=== PATIENT | male | born 1975 | race Caucasian/White ===

== ENCOUNTER 2018-05-25 15:05 | Emergency (ER) | payer SELFPAY ==
[2018-05-25 15:06] VITALS: BP 131/66; PULSE 100; RESP 19; TEMP 35.8; O2SAT 98; BMI 47.6
[2018-05-25 15:23] LABS: Absolute Lymphocyte Count 3.51 X10^3/ul (0.83-4.51); Absolute Neutrophil Count 4.2 X10^3/uL (2.0-7.7); Basophil# 0.04 X10^3/uL; Basophil% 0.5 % (0-1); Eosinophil# 0.12 X10^3/uL; Eosinophils% 1.4 % (0-5); Hemoglobin 14.7 g/dl (13.0-16.5); Lymphocyte # 3.51 X10^3/ul (4.0); Lymphocyte % 41.2 % (19-41); Mean Corp Hgb Conc 32.7 g/gl (32-36); Mean Corpuscular Hgb 27.3 pg (27.0-32.0); Mean Corpuscular Volume 83.5 fL (80-94); Mean Platelet Vol. 10.8 fl (6.2-12.0); Monocyte# 0.65 X10^3/uL; Monocyte% 7.6 % (0-10); Neutrophil # 4.17 X10^3/uL (2.7-7.7); Neutrophil % 49.1 % (47-70); Platelet Count 258 K/mm3 (150-450); RBC Distribution Width CV 13.7 % (11.6-14.6); RBC Distribution Width SD 42.2 fl (35.1-43.9); Red Blood Count 5.39 M/mm3 (4.6-6.2); White Blood Count 8.5 K/mm3 (4.4-11.0)
[2018-05-25 15:34] VITALS: BP 118/85; PULSE 92; RESP 18
[2018-05-25 15:42] LABS: Anion Gap 10 (5-15); BUN 12 mg/dL (7-18); BUN/Creat Ratio 14.6 RATIO (10-20); Calcium,Total 8.8 mg/dL (8.5-10.1); Chloride 110 mmol/L (98-107); Creatinine, Serum 0.82 mg/dL (0.70-1.30); EST Glomerular Filtration Rate 109 mL/min (>60); Est Glom Filt Rate - Afr Amer 132 mL/min (>60); Glucose 115 mg/dL (74-106); POSITIVE COUNT NO; POSITIVE DIFFERENTIAL NO; POSITIVE MORPHOLOGY NO; Potassium 3.6 mmol/L (3.5-5.1); Sodium Level 141 mmol/L (136-145)
--- NOTE | 2018-05-25 15:45 | ED.VISSUMM ---
- ER Visit Summary Date of Service: 05/25/18 Chief Complaint: Chest pain History of Present Illness: The patient is a 42 M presenting with chest pain. Patient states this started approximately 1 hour ago. He initially thought that he was starting to have an anxiety attack. He states typically he takes a walk and this goes away. Today he started walking and then pain did not go away. Pain is worsened with deep breathing. He had lightheadedness and shortness of breath associated with this. He states he felt lightheaded but did not pass out. At its worst, pain was 5/10. Currently 2/10. He is a smoker. No other coronary artery disease risk factors. He recently traveled from [place]. Denies other PE/DVT risk factors. Physical Examination: Vitals are stable. Patient is afebrile. Alert no acute distress. HEENT exam is unremarkable. Neck is supple. Lungs are clear and equal bilaterally. Heart is regular rate and rhythm. Abdomen is soft nontender nondistended. Extremities are unremarkable. Skin is warm and dry. No focal neurologic deficit. Remainder of exam is unremarkable. Emergency Department Course and Treatment: Patient was given aspirin on arrival. EKG is sinus rhythm rate of 100. Chest x-ray shows no acute process. CBC, chemistries unremarkable. Troponin is negative. D-dimer negative. On repeat evaluation, patient states that he does feel this was a panic attack as he now feels completely better. Delta troponin was obtained and is negative. Patient is advised to follow-up with Dr. 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 He is also requesting referral for counseling and was given the number for the counseling center. Advised to return to the ED for any worsening complaints. Disposition: Discharged home Impression: Chest pain This note was generated with [employer] dictation software. It may contain incorrect words, spelling, and punctuation that were not noted in review of the chart prior to signing ED Disposition - Plan for ED Patient: Disposition: Home or Assisted Living Chief Complaint: Chest Pain Instructions: ED Chest Pain Atypical Unkn Cause Referrals: Counseling,Center [GROUP OF PHYSICIANS] - Jyoti Faustin MD [STAFF PHYSICIAN] - NOT,DEFINED [NON-STAFF] -
[2018-05-25 16:05] VITALS: O2SAT 98
[2018-05-25 16:06] VITALS: BP 121/74; PULSE 85; RESP 12; O2SAT 98
[2018-05-25 16:15] LABS: D-Dimer Quantitative (DVT/PE) < 0.27 FEU/ug/m (0.27-0.49)
[2018-05-25 18:11] VITALS: BP 117/84; PULSE 76; RESP 22
--- NOTE | 2018-05-25 18:58 | ED.DEP ---
ED Disposition - Plan for ED Patient: Chief Complaint: Chest Pain Instructions: ED Chest Pain Atypical Unkn Cause Referrals: NOT,DEFINED [NON-STAFF] - Jyoti Faustin MD [STAFF PHYSICIAN] - Counseling,Center [GROUP OF PHYSICIANS] -
[2018-05-25 19:12] VITALS: BP 121/86; PULSE 83; RESP 20; O2SAT 96
== END 2018-05-25 19:13 | disposition home or self-care (01) ==
PROVIDERS: Emergency Provider Emergency Medicine
DX: R07.9 Chest pain, unspecified (principal); F41.9 Anxiety disorder, unspecified; R06.00 Dyspnea, unspecified; R42 Dizziness and giddiness; Z72.0 Tobacco use; F17.200 Nicotine dependence, unspecified, uncomplicated
CPT/HCPCS: 71045; 80048; 84484; 85025; 85379; 93005; 99284; A4216

== ENCOUNTER 2018-06-12 17:55 | Emergency (ER) | payer SELFPAY ==
[2018-06-12 17:56] VITALS: BP 145/81; PULSE 95; RESP 18; TEMP 36.6; O2SAT 98; BMI 45.4
--- NOTE | 2018-06-12 20:29 | ED.DCSUM_ITS ---
- ER Visit Summary Date of Service: 06/12/18 Chief Complaint: Needs lorazepam refill History of Present Illness: The patient is a 42 M with a history of anxiety. He is out of Lorazepam. He was instructed by his counselor to present to the emergency department for refill. He reports anxiety symptoms every day and is using 1 mg of lorazepam every day. He denies any suicidal or homicidal thoughts. Denies chest pain or shortness of breath. Denies any medical complaints. Physical Examination: Afebrile and vital signs unremarkable. Alert and oriented. No acute distress. Heart regular rate. No respiratory distress. Skin appears normal. Normal mentation and thought processes. Test Results: None indicated Emergency Department Course and Treatment: I did check his prescription report. He has no active prescriptions. I advised that I cannot give him a 2 month supply of Lorazepam. I will give him a 3 day supply so he can follow-up with his psychiatrist. Treatment Plan: As above Disposition: Discharged Impression: 1. Anxiety This note was generated with [employer] dictation software. It may contain incorrect words, spelling, and punctuation that were not noted in review of the chart prior to signing ED Disposition - Plan for ED Patient: Chief Complaint: Med Refill Referrals: Care Physician,No Primary [Primary Care Provider] -
--- NOTE | 2018-06-12 20:29 | ED.DEP ---
ED Disposition - Plan for ED Patient: Chief Complaint: Med Refill Instructions: Treating Anxiety Disorders with Therapy Prescriptions: Lorazepam [Ativan] 1 mg PO DAILY 3 Days #3 tab Additional Instructions: follow up with your counselor
[2018-06-12 21:01] VITALS: BP 121/78; PULSE 79; RESP 16; O2SAT 100
== END 2018-06-12 21:01 | disposition home or self-care (01) ==
PROVIDERS: Emergency Provider Emergency Medicine
DX: F41.9 Anxiety disorder, unspecified (principal); Z72.0 Tobacco use
CPT/HCPCS: 99282

== ENCOUNTER → 2018-06-20 11:30 | Outpatient (CLI) | payer SELFPAY ==
[2018-06-20 14:55] LABS: Amphetamine Urine VISTA NEGATIVE (<1000 ng/mL); Barbiturate Urine VISTA NEGATIVE (< 200 ng/mL); Benzodiazepine Urine VISTA NEGATIVE (< 200 ng/mL); Cocaine Urine VISTA NEGATIVE (< 300 ng/mL); Ecstacy Urine VISTA NEGATIVE (< 500 ng/mL); Methadone Urine VISTA NEGATIVE (< 300 ng/mL); PCP Urine VISTA NEGATIVE (< 25 ng/mL); THC Urine VISTA NEGATIVE (< 50 ng/mL); Vista UDS pH Range 5
== END ==
PROVIDERS: Family Provider Family Medicine; PCP Family Medicine; Visit Provider Family Medicine
DX: F41.9 Anxiety disorder, unspecified (principal)
CPT/HCPCS: 80307

== ENCOUNTER → 2018-06-26 10:55 | Outpatient (CLI) | payer SELFPAY ==
[2018-06-26 11:03] LABS: Bacteria 0 SEEN /hpf (None Seen); Mucous, Urine 0 SEEN /hpf (<or=2+); Red Blood Cells-Urine 0 SEEN /hpf (0-5); Squamous Epithelial Cells - UA 0 SEEN /hpf (0-5); White Blood Cells 0 SEEN /hpf (0-5)
[2018-06-26 12:03] LABS: Color, Urine Yellow (Yellow); Glucose, Dipstick Normal (Normal); Ketone-Dipstick Negative (Negative); Leukocyte Esterase-Dipstick Negative /ul (Negative); Nitrite-Dipstick Negative (Negative); Occult Blood-Urine Negative /ul (Negative); Protein-Dipstick Negative (Negative); Specific Gravity, Urine 1.005 (1.002-1.030); Urine Bilirubin Dipstick Negative (Negative); Urine Clarity Clear (Clear); Urine Urobilinogen Normal (Normal); Urine pH 6.5 (5.0 - 8.0)
[2018-06-26 12:24] LABS: Amphetamine Urine VISTA NEGATIVE (<1000 ng/mL); Barbiturate Urine VISTA NEGATIVE (< 200 ng/mL); Benzodiazepine Urine VISTA NEGATIVE (< 200 ng/mL); Cocaine Urine VISTA NEGATIVE (< 300 ng/mL); Ecstacy Urine VISTA NEGATIVE (< 500 ng/mL); Methadone Urine VISTA NEGATIVE (< 300 ng/mL); PCP Urine VISTA NEGATIVE (< 25 ng/mL); THC Urine VISTA NEGATIVE (< 50 ng/mL); Vista UDS pH Range 6
== END ==
PROVIDERS: Family Provider Family Medicine; PCP Family Medicine; Visit Provider Family Medicine
DX: R35.8 Other polyuria (principal); F41.9 Anxiety disorder, unspecified; F17.200 Nicotine dependence, unspecified, uncomplicated
CPT/HCPCS: 36415; 80307; 81001

== ENCOUNTER → 2018-07-05 07:22 | Outpatient (CLI) | payer SELFPAY ==
[2018-07-05 10:26] LABS: Absolute Lymphocyte Count 3.44 X10^3/ul (0.83-4.51); Absolute Neutrophil Count 5.7 X10^3/uL (2.0-7.7); Basophil# 0.04 X10^3/uL; Basophil% 0.4 % (0-1); Eosinophil# 0.17 X10^3/uL; Eosinophils% 1.7 % (0-5); Hematocrit 44.4 % (40-54); Hemoglobin 14.3 g/dl (13.0-16.5); Lymphocyte # 3.44 X10^3/ul (4.0); Lymphocyte % 33.5 % (19-41); Mean Corp Hgb Conc 32.2 g/gl (32-36); Mean Corpuscular Hgb 26.8 pg (27.0-32.0); Mean Corpuscular Volume 83.3 fL (80-94); Mean Platelet Vol. 11.7 fl (6.2-12.0); Monocyte# 0.94 X10^3/uL; Monocyte% 9.2 % (0-10); Neutrophil # 5.65 X10^3/uL (2.7-7.7); Neutrophil % 54.9 % (47-70); Platelet Count 264 K/mm3 (150-450); RBC Distribution Width CV 13.8 % (11.6-14.6); Red Blood Count 5.33 M/mm3 (4.6-6.2); White Blood Count 10.3 K/mm3 (4.4-11.0)
[2018-07-05 10:30] LABS: POSITIVE COUNT NO; POSITIVE DIFFERENTIAL NO; POSITIVE MORPHOLOGY NO
[2018-07-05 10:51] LABS: ALB/GLOB Ratio 0.9 RATIO (0.9-2.4); AST(SGOT) 19 U/L (15-37); Alanine Aminotransfer ALT/SGPT 30 U/L (16-61); Albumin, Serum 3.5 g/dL (3.2-5.0); Alkaline Phosphatase 59 U/L (45-117); Anion Gap 8 (5-15); BUN 14 mg/dL (7-18); BUN/Creat Ratio 16.7 RATIO (10-20); Calcium,Total 8.6 mg/dL (8.5-10.1); Chloride 108 mmol/L (98-107); Cholesterol 191 mg/dL (200); Creatinine, Serum 0.84 mg/dL (0.70-1.30); EST Glomerular Filtration Rate 106 mL/min (>60); Est Glom Filt Rate - Afr Amer 129 mL/min (>60); Globulin 3.7 g/dL (2.2-4.2); Glucose 89 mg/dL (74-106); High Density Lipoprotein 23 mg/dL; Potassium 3.9 mmol/L (3.5-5.1); Protein, Total 7.2 g/dL (6.4-8.2); Sodium Level 139 mmol/L (136-145); Thyroid Stim Hormone (TSH) 1.16 uIU/mL (0.358-3.74); Triglycerides 383 mg/dL; Very Low Density Lipoprotein 77 mg/dL (5-40)
[2018-07-05 10:59] LABS: Hemoglobin A1c 5.6 % (4.2-6.3)
== END ==
LOC: LAB.FUTURE 07:24
PROVIDERS: Family Provider Family Medicine; PCP Family Medicine; Referring Provider Family Medicine; Visit Provider Family Medicine
DX: R35.8 Other polyuria (principal); E66.01 Morbid (severe) obesity due to excess calories; F17.200 Nicotine dependence, unspecified, uncomplicated
CPT/HCPCS: 36415; 80053; 80061; 83036; 84443; 85025

== ENCOUNTER → 2019-01-15 08:15 | Outpatient (CLI) | payer BC, SELFPAY ==
--- NOTE | 2019-01-15 08:58 | RAD_ITS ---
STUDY: X-RAY - LEFT SHOULDER REASON FOR EXAM: Male, 43 years old. Left shoulder pain. TECHNIQUE: 4 view(s) of the shoulder. COMPARISON: None. FINDINGS: Normal glenohumeral articulation. Normal acromioclavicular joint. Normal acromion. Normal humeral head and visualized proximal humerus. The soft tissue structures are unremarkable. Normal visualized pulmonary apex. RAD/Shoulder min 2 Views IMPRESSION: Normal x-ray examination of the shoulder. Recommendation: If internal derangement is clinically suspected, recommend evaluation with MRI. Electronically Signed: Rafa Lees MD at 16:29 EDT , Service support ,
[2019-01-15 10:37] LABS: Cholesterol 183 mg/dL (200); High Density Lipoprotein 30 mg/dL; Triglycerides 279 mg/dL; Very Low Density Lipoprotein 56 mg/dL (5-40)
== END ==
LOC: MTLAB 08:20
PROVIDERS: Family Provider Family Medicine; PCP Family Medicine; Referring Provider Family Medicine; Visit Provider Family Medicine
DX: M25.512 Pain in left shoulder (principal); E78.1 Pure hyperglyceridemia
CPT/HCPCS: 36415; 73030; 80061

== ENCOUNTER 2019-10-18 10:41 | Emergency (ER) | payer BC, SELFPAY ==
[2019-10-18 10:42] VITALS: BP 147/84; PULSE 99; RESP 18; TEMP 36.6; O2SAT 98; BMI 50.1
--- NOTE | 2019-10-18 11:06 | ED.DCSUM_ITS ---
- ER Visit Summary Date of Service: 10/18/19 Chief Complaint: Dizziness History of Present Illness: The patient is a 44 M no significant past medical history except a prior appendectomy. Currently is on [id number] reflux medication. 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 He describes the dizziness as lightheaded. No visual change. No weakness or numbness. Said it lasted an hour but is since improved and basically resolved. He denied any headache. No chest pain. No trouble moving his arms or legs. He did not have room spinning vertigo-like symptoms. He states he is never had this before. He did eat breakfast this morning. States he is not recently been ill. There is a significant family history of diabetes. Physical Examination: Middle-aged male no acute distress vital signs stable afe brile. On look septic or toxic. H EENT exam unremarkable. TMs and ear canals are normal. No signs of infection. No significant wax. No facial droop. Normal speech. Pupils round reactive light. Neck nontender. No lymphadenopathy. Lungs clear to auscultation bilaterally. Heart regular rate and rhythm no murmur. Abdomen soft nontender. Normal bowel sounds no peritoneal signs. Patient moving all 4 extremities. Nontender. No edema. Normal range of motion. Neurovascular intact. Normal motor strength and sensation. Back nontender. Neuro exam normal. NIH is 0. Fingertip to nose [id number] within normal limits. Gets up and ambulates without any difficulty and no ataxia. Test Results: BG T shows a blood sugar of 99. Repeat exam patient doing well. Emergency Department Course and Treatment: Discussed with the patient and his he is a normal exam. There is no strokelike symptoms currently. His neuro exam is normal. Heart and lung exam is normal. I offered him screening exams and an EKG. They are deferring at this time. He says he feels much better. They are okay with a BG T due to his lengthy family history of diabetes. Treatment Plan: Return if feeling worse. Follow-up your primary care physician. Disposition: Discharge Impression: Transient lightheadedness of uncertain etiology resolved This note was generated with [employer] software. It may contain incorrect words, spelling, and punctuation that were not noted in review of the chart prior to signing ED Disposition - Plan for ED Patient: Referrals: Víctor Morgan MD [Primary Care Provider] -
[2019-10-18 11:46] LABS: Bedside Glucose 99 mg/dL (70-110)
--- NOTE | 2019-10-18 12:48 | ED.DEP ---
ED Disposition - Plan for ED Patient: Disposition: Home or Assisted Living Instructions: DIZZINESS, Unk Cause Referrals: Víctor Morgan MD [Primary Care Provider] - As soon as possible Additional Instructions: Up with your doctor next week. Return to ER if you are feeling worse. Your blood sugar today was normal at 99.
== END 2019-10-18 12:51 | disposition home or self-care (01) ==
PROVIDERS: Emergency Provider Emergency Medicine; PCP Family Medicine
DX: R42 Dizziness and giddiness (principal); K21.9 Gastro-esophageal reflux disease without esophagitis; Z87.891 Personal history of nicotine dependence; Z83.3 Family history of diabetes mellitus
CPT/HCPCS: 82962; 99282

== ENCOUNTER → 2020-04-09 09:40 | Outpatient (CLI) | payer BC, SELFPAY ==
[2020-04-09 13:05] LABS: Absolute Neutrophil Count 4.9 X10^3/uL (2.0-7.7); Basophil# 0.06 X10^3/uL; Basophil% 0.7 % (0-1); Eosinophils% 1.1 % (0-5); Hematocrit 44.7 % (40-54); Hemoglobin 13.5 g/dL (13.0-16.5); Lymphocyte % 34.2 % (19-41); Mean Corp Hgb Conc 30.2 g/dL (32-36); Mean Corpuscular Hgb 26.7 pg (27.0-32.0); Mean Corpuscular Volume 88.5 fL (80-94); Monocyte# 0.85 X10^3/uL; Monocyte% 9.4 % (0-10); NRBC Flagged by Analyzer 0 % (0-5); Neutrophil # 4.93 X10^3/uL (2.7-7.7); Neutrophil % 54.3 % (47-70); Platelet Count 244 K/mm3 (150-450); RBC Distribution Width CV 13.6 % (11.6-14.6); RBC Distribution Width SD 43.7 fl (35.1-43.9); Red Blood Count 5.05 M/mm3 (4.6-6.2); White Blood Count 9.1 K/mm3 (4.4-11.0)
[2020-04-09 13:06] LABS: Vitamin B12 335 pg/mL (211-911); Vitamin D,25 Hydroxy 18.8 ng/mL
[2020-04-09 13:25] LABS: AST(SGOT) 23 U/L (15-37); Alanine Aminotransfer ALT/SGPT 44 U/L (16-61); Albumin, Serum 3.6 g/dL (3.2-5.0); Alkaline Phosphatase 62 U/L (45-117); Anion Gap 6 (5-15); BUN 14 mg/dL (7-18); BUN/Creat Ratio 19.1 RATIO (10-20); Calcium,Total 8.9 mg/dL (8.5-10.1); Chloride 109 mmol/L (98-107); Creatinine, Serum 0.73 mg/dL (0.70-1.30); EST Glomerular Filtration Rate 123 mL/min (>60); Est Glom Filt Rate - Afr Amer 149 mL/min (>60); Globulin 3.7 g/dL (2.2-4.2); Glucose 105 mg/dL (74-106); Potassium 4.2 mmol/L (3.5-5.1); Protein, Total 7.3 g/dL (6.4-8.2); Sodium Level 139 mmol/L (136-145); Thyroid Stim Hormone (TSH) 1.01 uIU/mL (0.358-3.74)
[2020-04-10 10:50] LABS: Hemoglobin A1c 5.9 % (3.8-5.6)
== END ==
PROVIDERS: PCP Family Medicine; Visit Provider Family Medicine
DX: R53.83 Other fatigue (principal); R73.09 Other abnormal glucose
CPT/HCPCS: 36415; 80053; 82306; 82607; 83036; 84443; 85025

== ENCOUNTER → 2020-07-29 07:52 | Outpatient (CLI) | payer BC, SELFPAY ==
[2020-07-29 10:06] LABS: Absolute Lymphocyte Count 3.49 X10^3/uL (0.83-4.51); Absolute Neutrophil Count 4.4 X10^3/uL (2.0-7.7); Basophil# 0.05 X10^3/uL; Basophil% 0.6 % (0-1); Eosinophil# 0.18 X10^3/uL; Hematocrit 46.3 % (40-54); Hemoglobin 13.6 g/dL (13.0-16.5); Lymphocyte # 3.49 X10^3/ul (4.0); Lymphocyte % 39.6 % (19-41); Mean Corp Hgb Conc 29.4 g/dL (32-36); Mean Corpuscular Hgb 25.8 pg (27.0-32.0); Mean Corpuscular Volume 87.7 fL (80-94); Mean Platelet Vol. 10.7 fl (6.2-12.0); Monocyte# 0.67 X10^3/uL; Monocyte% 7.6 % (0-10); NRBC Flagged by Analyzer 0 % (0-5); Neutrophil # 4.38 X10^3/uL (2.7-7.7); Neutrophil % 49.7 % (47-70); Platelet Count 268 K/mm3 (150-450); RBC Distribution Width CV 13.8 % (11.6-14.6); RBC Distribution Width SD 44.4 fl (35.1-43.9); Red Blood Count 5.28 M/mm3 (4.6-6.2); White Blood Count 8.8 K/mm3 (4.4-11.0)
[2020-07-29 10:23] LABS: ALB/GLOB Ratio 0.9 RATIO (0.9-2.4); AST(SGOT) 20 U/L (15-37); Alanine Aminotransfer ALT/SGPT 38 U/L (16-61); Albumin, Serum 3.6 g/dL (3.2-5.0); Alkaline Phosphatase 59 U/L (45-117); Anion Gap 5 (5-15); BUN 15 mg/dL (7-18); BUN/Creat Ratio 18.5 RATIO (10-20); Calcium,Total 8.5 mg/dL (8.5-10.1); Chloride 106 mmol/L (98-107); Cholesterol 197 mg/dL (200); Creatinine, Serum 0.81 mg/dL (0.70-1.30); EST Glomerular Filtration Rate 110 mL/min (>60); Est Glom Filt Rate - Afr Amer 132 mL/min (>60); Globulin 3.9 g/dL (2.2-4.2); Glucose 97 mg/dL (74-106); High Density Lipoprotein 38 mg/dL; Potassium 4.1 mmol/L (3.5-5.1); Protein, Total 7.5 g/dL (6.4-8.2); Sodium Level 138 mmol/L (136-145); Triglycerides 155 mg/dL; Very Low Density Lipoprotein 31 mg/dL (5-40)
[2020-07-29 10:26] LABS: Hemoglobin A1c 5.9 % (3.8-5.6)
[2020-07-29 16:45] LABS: Microalbumin,Random Urine 8.7 mg/L (NO RANGE EST.); Microalbumin:Creatinine Ratio 12.2 mg/g CRE (<30 mg/g CRE)
== END ==
PROVIDERS: PCP Family Medicine; Referring Provider Family Medicine; Visit Provider Family Medicine
DX: E78.1 Pure hyperglyceridemia (principal); R73.02 Impaired glucose tolerance (oral); F17.200 Nicotine dependence, unspecified, uncomplicated
CPT/HCPCS: 36415; 80053; 80061; 82043; 82570; 83036; 85025

== ENCOUNTER 2020-08-24 15:15 | Outpatient (RCR) | payer BC, SELFPAY | END 2020-08-24 23:59 | LOC: NS 15:15 | PROVIDERS: PCP Family Medicine; Visit Provider Family Medicine | DX: Z71.3 Dietary counseling and surveillance (principal); E66.01 Morbid (severe) obesity due to excess calories; Z68.43 Body mass index [BMI] 50.0-59.9, adult | CPT/HCPCS: 97802 ==

== ENCOUNTER → 2020-11-27 08:55 | Outpatient (CLI) | payer BC, SELFPAY ==
[2020-11-27 09:53] LABS: Absolute Lymphocyte Count 3.06 X10^3/uL (0.83-4.51); Absolute Neutrophil Count 3.9 X10^3/uL (2.0-7.7); Basophil# 0.05 X10^3/uL; Basophil% 0.6 % (0-1); Eosinophil# 0.11 X10^3/uL; Eosinophils% 1.4 % (0-5); Hematocrit 41.6 % (40-54); Hemoglobin 13.5 g/dL (13.0-16.5); Lymphocyte # 3.06 X10^3/ul (4.0); Lymphocyte % 38.7 % (19-41); Mean Corp Hgb Conc 32.5 g/dL (32-36); Mean Corpuscular Volume 86.3 fL (80-94); Mean Platelet Vol. 10.6 fl (6.2-12.0); Monocyte# 0.74 X10^3/uL; Monocyte% 9.4 % (0-10); NRBC Flagged by Analyzer 0 % (0-5); Neutrophil # 3.92 X10^3/uL (2.7-7.7); Neutrophil % 49.6 % (47-70); Platelet Count 215 K/mm3 (150-450); RBC Distribution Width SD 42.8 fl (35.1-43.9); Red Blood Count 4.82 M/mm3 (4.6-6.2); White Blood Count 7.9 K/mm3 (4.4-11.0)
[2020-11-27 10:13] LABS: Hemoglobin A1c 5.7 % (3.8-5.6)
[2020-11-27 10:15] LABS: ALB/GLOB Ratio 0.9 RATIO (0.9-2.4); AST(SGOT) 28 U/L (15-37); Alanine Aminotransfer ALT/SGPT 49 U/L (16-61); Albumin, Serum 3.5 g/dL (3.2-5.0); Alkaline Phosphatase 53 U/L (45-117); Anion Gap 6 (5-15); BUN 15 mg/dL (7-18); BUN/Creat Ratio 18.5 RATIO (10-20); Calcium,Total 8.7 mg/dL (8.5-10.1); Chloride 108 mmol/L (98-107); Cholesterol 176 mg/dL (200); Creatinine, Serum 0.81 mg/dL (0.70-1.30); EST Glomerular Filtration Rate 109 mL/min (>60); Est Glom Filt Rate - Afr Amer 132 mL/min (>60); Globulin 3.7 g/dL (2.2-4.2); Glucose 99 mg/dL (74-106); High Density Lipoprotein 32 mg/dL; Protein, Total 7.2 g/dL (6.4-8.2); Sodium Level 139 mmol/L (136-145); Triglycerides 168 mg/dL; Very Low Density Lipoprotein 34 mg/dL (5-40)
[2020-11-27 10:35] LABS: Vitamin D,25 Hydroxy 23.8 ng/mL
== END ==
PROVIDERS: PCP Family Medicine; Referring Provider Family Medicine; Visit Provider Family Medicine
DX: E55.9 Vitamin D deficiency, unspecified (principal); E78.1 Pure hyperglyceridemia; F17.200 Nicotine dependence, unspecified, uncomplicated; R73.02 Impaired glucose tolerance (oral)
CPT/HCPCS: 36415; 80053; 80061; 82306; 83036; 85025

== ENCOUNTER → 2020-12-25 | Outpatient (CLI) | payer BC, SELFPAY | END | disposition home or self-care (01) | LOC: LABSPEC 13:36 | PROVIDERS: PCP Family Medicine; Referring Provider Family Medicine; Visit Provider Family Medicine | DX: Z20.822 Contact with and (suspected) exposure to COVID-19 (principal) | CPT/HCPCS: 87635; U0002 ==

== ENCOUNTER 2021-11-15 12:28 | Outpatient (CLI) | payer OTHER, SELFPAY ==
--- NOTE | 2021-11-15 12:33 | RAD_ITS ---
STUDY: X-RAY - LEFT ANKLE REASON FOR EXAM: Male, 46 years old. Left ankle pain/ s/p injury TECHNIQUE: 3 view(s) of the ankle. COMPARISON: None. FINDINGS: Normal visualized distal tibia and fibula. Normal medial and lateral malleoli. Normal tibiotalar articulation and ankle mortise. Normal visualized talus and calcaneus. The visualized subtalar, talonavicular, calcaneocuboid and tarsal articulations are normal. The soft tissue structures are unremarkable. RAD/Ankle min 3 Views IMPRESSION: Normal x-ray examination of the ankle. Electronically Signed: Moy Mena MD at 17:36 EST ,
== END 2021-11-15 23:59 | disposition home or self-care (01) ==
PROVIDERS: PCP Family Medicine; Referring Provider Nurse Practitioner Family; Visit Provider Nurse Practitioner Family
DX: M25.572 Pain in left ankle and joints of left foot (principal)
CPT/HCPCS: 73610

== ENCOUNTER 2021-12-20 20:08 | Emergency (ER) | payer OTHER, SELFPAY ==
[2021-12-20 20:08] VITALS: BP 161/107; PULSE 108; RESP 20; TEMP 36.1; O2SAT 98; BMI 52.4
[2021-12-20 20:48] VITALS: BP 113/73; BP 117/102; BP 135/82; BP 97/73; PULSE 82; PULSE 91; PULSE 94; PULSE 96; RESP 28
[2021-12-20 21:00] LABS: Absolute Lymphocyte Count 3.79 X10^3/uL (0.83-4.51); Absolute Neutrophil Count 4.9 X10^3/uL (2.0-7.7); Basophil# 0.05 X10^3/uL; Basophil% 0.5 % (0-1); Eosinophil# 0.18 X10^3/uL; Eosinophils% 1.9 % (0-5); Hematocrit 45.1 % (40-54); Hemoglobin 14.5 g/dL (13.0-16.5); Lymphocyte # 3.79 X10^3/ul (0.83-4.51); Lymphocyte % 39.5 % (19-41); Mean Corp Hgb Conc 32.2 g/dL (32-36); Mean Corpuscular Hgb 27.3 pg (27.0-32.0); Mean Corpuscular Volume 84.8 fL (80-94); Mean Platelet Vol. 10.3 fl (6.2-12.0); Monocyte# 0.68 X10^3/uL; Monocyte% 7.1 % (0-10); NRBC Flagged by Analyzer 0 % (0-5); Neutrophil # 4.85 X10^3/uL (2.7-7.7); Neutrophil % 50.6 % (47-70); Platelet Count 254 K/mm3 (150-450); RBC Distribution Width CV 14.8 % (11.6-14.6); RBC Distribution Width SD 45.5 fl (35.1-43.9); Red Blood Count 5.32 M/mm3 (4.6-6.2); White Blood Count 9.6 K/mm3 (4.4-11.0)
[2021-12-20 21:30] LABS: AST(SGOT) 25 U/L (15-37); Alanine Aminotransfer ALT/SGPT 48 U/L (16-61); Albumin, Serum 3.6 g/dL (3.2-5.0); Alkaline Phosphatase 59 U/L (45-117); Anion Gap 7 (5-15); BUN 13 mg/dL (7-18); BUN/Creat Ratio 16.2 RATIO (10-20); Calcium,Total 9.1 mg/dL (8.5-10.1); Chloride 109 mmol/L (98-107); EST Glomerular Filtration Rate 110 mL/min (>60); Est Glom Filt Rate - Afr Amer 134 mL/min (>60); Estimated Creatinine Clearance 104.12 ml/min; Globulin 3.7 g/dL (2.2-4.2); Glucose 125 mg/dL (74-106); Potassium 3.7 mmol/L (3.5-5.1); Protein, Total 7.3 g/dL (6.4-8.2); Sodium Level 141 mmol/L (136-145)
[2021-12-20 22:38] VITALS: BP 91/80; PULSE 78; RESP 19
--- NOTE | 2021-12-20 23:31 | EDS_ITS ---
HPI History of Present Illness Chief Complaint: Dizziness Narrative Narrative: 46-year-old male presenting with dizziness which she states is more like off balance than vertiginous in nature. It started this morning and after he ate food it improved. He thought that maybe his blood sugar was just low because has been dieting recently and exercising. Later in the day it started again and he ate dinner and this did not resolve. The patient then ate some extra food and then became nauseous. He states that he might have eaten too much food and that is why he was nauseous. Patient states he has a history of this in the past which is similar but not quite as severe. Patient denies any history of vertigo. He states he does not have a headache or visual complaints. He has not had a fever. He does admit to some anxiety and always talks this up to his anxiety. He does not have chest pain or shortness of breath. He does not have abdominal pain. PFSH PFSH Home Medications omeprazole 20 mg PO DAILY 10/18/19 [History Last Taken Unknown] Allergy/AdvReac Type Severity Reaction Status Date / Time Sulfa (Sulfonamide Allergy Hives Verified 12/20/21 20:10 Antibiotics) Social History Smoking Status: Current every day smoker tobacco type: cigarettes ROS ROS ED ROS Narrative Lightheadedness Constitutional Constitutional ED: Denies fever(s) or subjective Eyes Eyes: Denies blurry vision or change in vision ENT ENT ED: Denies rhinorrhea Cardiovascular Cardiovascular: Denies chest pain or palpitations Respiratory/Chest Respiratory/Chest: Denies cough or dyspnea Gastrointestinal Gastrointestinal: Reports nausea; Denies abdominal pain Genitourinary Genitourinary ED: Denies dysuria or hematuria Musculoskeletal Musculoskeletal: Denies arthralgias, back pain, myalgias or neck pain Integumentary Denies rash Neurologic Neurologic: Denies headache(s) or paresthesias Psychiatric Psychiatric: Reports anxiety EXAM Physical Exam Const Vital Signs: 12/20/21 20:08 12/20/21 20:48 12/20/21 20:49 Temperature 96.9 F L Temperature Source Temporal Pulse Rate 108 H 94 Pulse Rate [Lying] 82 Pulse Rate [Sitting (for 1 minute prior to obtaining)] 91 Pulse Rate [Standing (for 1 minute prior to obtaining)] 96 Respiratory Rate 20 H 28 H Respiratory Effort Normal Blood Pressure 161/107 H 135/82 H Blood Pressure [Lying] 97/73 Blood Pressure [Sitting (for 1 minute prior to obtaining)] 113/73 Blood Pressure [Standing (for 1 minute prior to obtaining)] 117/102 H Blood Pressure Mean 125 99 Blood Pressure Mean [Lying] 81 Blood Pressure Mean [Sitting (for 1 minute prior to obtaining)] 86 Blood Pressure Mean [Standing (for 1 minute prior to obtaining)] 107 Pulse Ox 98 Oxygen Delivery Method Room Air 12/20/21 22:38 Temperature Temperature Source Pulse Rate 78 Pulse Rate [Lying] Pulse Rate [Sitting (for 1 minute prior to obtaining)] Pulse Rate [Standing (for 1 minute prior to obtaining)] Respiratory Rate 19 H Respiratory Effort Blood Pressure 91/80 Blood Pressure [Lying] Blood Pressure [Sitting (for 1 minute prior to obtaining)] Blood Pressure [Standing (for 1 minute prior to obtaining)] Blood Pressure Mean Blood Pressure Mean [Lying] Blood Pressure Mean [Sitting (for 1 minute prior to obtaining)] Blood Pressure Mean [Standing (for 1 minute prior to obtaining)] Pulse Ox Oxygen Delivery Method Positive well nourished General Appearance ED: NAD; Negative for pallor HEENT Reports moist mucous membranes Negative for trauma Eyes PERRL and EOMs intact bilaterally Resp normal respiratory effort and clear to auscultation bilaterally Cardio regular rate and regular rhythm GI normal to inspection, nondistended, normoactive bowel sounds Neuro oriented x3, CN's II-XII intact bilaterally and no sensory deficits noted Sensorium / Orientation: alert Motor Exam: strength 5/5 throughout Psych mental status grossly normal Skin no rashes or lesions noted General Skin Exam: Negative for jaundice or pallor MDM MDM MDM Narrative Medical decision making narrative: 46-year-old male presenting with lightheadedness. On examination he has no focal neurologic deficits or lateralizing signs or symptoms. I personally got him up and walked him down the hallway and although he is a little symptomatic he was able to walk with a stable gait and make it back to his room. I estimate he walked about 50 feet. He states that his nausea has currently resolved and his lightheadedness is feeling a little bit better. I obtained orthostatic vital signs and his blood pressures increased with standing however so does his heart rate. His CBC and CMP are unremarkable. I offered to give the patient a liter of IV fluids and reassess him however she states he can just go home and drink fluids. He is counseled to follow-up with his PCP to ensure resolution. He currently does not have any more lightheadedness and is now again stating he thinks it was just his anxiety. I counseled him and still important to follow-up with her primary doctor. He is not understanding. He is discharged home in stable condition. Impression: 1. Lightheadedness 2. Tachycardia with ambulation Lab Data Attestation: I reviewed the patient's lab results. Labs: Laboratory Results - last 24 hr 12/20/21 12/20/21 20:50 20:50 WBC 9.6 RBC 5.32 Hgb 14.5 Hct 45.1 MCV 84.8 MCH 27.3 MCHC 32.2 RDW Std Deviation 45.5 H RDW Coeff of Delroy 14.8 H Plt Count 254 MPV 10.3 Immature Gran % (Auto) 0.400 Neut % (Auto) 50.6 Lymph % (Auto) 39.5 Gladwin % (Auto) 7.1 Eos % (Auto) 1.9 Baso % (Auto) 0.5 Absolute Neuts (auto) 4.9 Absolute Lymphs (auto) 3.79 Nucleated RBC % 0 Sodium 141 Potassium 3.7 Chloride 109 H Carbon Dioxide 25.0 Anion Gap 7 BUN 13 Creatinine 0.80 Estim Creat Clear Calc 104.12 Est GFR (MDRD) Af Amer 134 Est GFR (MDRD) Non-Af 110 BUN/Creatinine Ratio 16.2 Glucose 125 H Calcium 9.1 Total Bilirubin 0.20 AST 25 ALT 48 Alkaline Phosphatase 59 Total Protein 7.3 Albumin 3.6 Globulin 3.7 Albumin/Globulin Ratio 1.0 Discharge Plan Triage Chief Complaint: Dizziness ED Provider: Bay Guallpa Dx/Rx/DC Orders Instructions: ED Hypotension, Orthostatic Prescriptions: No Action omeprazole 20 MG tablet,delayed release (DR/EC) 20 mg PO DAILY RF: 0 Primary Care Provider: Víctor Morgan Referrals: Víctor Morgan MD [Primary Care Provider] - Disposition Disposition: Home, Self Care Discharge Date/Time: 12/20/21 23:00
== END 2021-12-20 23:00 | disposition home or self-care (01) ==
PROVIDERS: Emergency Provider Student in an Organized Health Care Education/Training Program; PCP Family Medicine; Visit Provider Student in an Organized Health Care Education/Training Program
DX: R42 Dizziness and giddiness (principal); R00.0 Tachycardia, unspecified; F41.9 Anxiety disorder, unspecified; F17.210 Nicotine dependence, cigarettes, uncomplicated
CPT/HCPCS: 80053; 85025; 99282; A4216

== ENCOUNTER → 2022-04-07 | Outpatient (CLI) | payer OTHER, SELFPAY ==
[2022-04-07 10:11] LABS: Absolute Lymphocyte Count 3.24 X10^3/uL (0.83-4.51); Absolute Neutrophil Count 4.2 X10^3/uL (2.0-7.7); Basophil# 0.04 X10^3/uL; Basophil% 0.5 % (0-1); Eosinophil# 0.12 X10^3/uL; Eosinophils% 1.4 % (0-5); Hematocrit 48.9 % (40-54); Hemoglobin 14.8 g/dL (13.0-16.5); Lymphocyte # 3.24 X10^3/ul (0.83-4.51); Lymphocyte % 39.1 % (19-41); Mean Corp Hgb Conc 30.3 g/dL (32-36); Mean Corpuscular Volume 85.9 fL (80-94); Mean Platelet Vol. 10.8 fl (6.2-12.0); Monocyte# 0.67 X10^3/uL; Monocyte% 8.1 % (0-10); NRBC Flagged by Analyzer 0 % (0-5); Neutrophil # 4.19 X10^3/uL (2.7-7.7); Neutrophil % 50.7 % (47-70); Platelet Count 215 K/mm3 (150-450); RBC Distribution Width CV 14.5 % (11.6-14.6); RBC Distribution Width SD 45.3 fl (35.1-43.9); Red Blood Count 5.69 M/mm3 (4.6-6.2); White Blood Count 8.3 K/mm3 (4.4-11.0)
[2022-04-07 10:37] LABS: ALB/GLOB Ratio 0.9 RATIO (0.9-2.4); AST(SGOT) 22 U/L (15-37); Alanine Aminotransfer ALT/SGPT 35 U/L (16-61); Albumin, Serum 3.5 g/dL (3.2-5.0); Alkaline Phosphatase 50 U/L (45-117); Anion Gap 5 (5-15); BUN 15 mg/dL (7-18); BUN/Creat Ratio 18.5 RATIO (10-20); Calcium,Total 8.7 mg/dL (8.5-10.1); Chloride 109 mmol/L (98-107); Cholesterol 175 mg/dL (200); Creatinine, Serum 0.81 mg/dL (0.70-1.30); EST Glomerular Filtration Rate 109 mL/min (>60); Est Glom Filt Rate - Afr Amer 131 mL/min (>60); Globulin 3.7 g/dL (2.2-4.2); Glucose 95 mg/dL (74-106); High Density Lipoprotein 27 mg/dL; Potassium 4.3 mmol/L (3.5-5.1); Protein, Total 7.2 g/dL (6.4-8.2); Sodium Level 137 mmol/L (136-145); Triglycerides 226 mg/dL; Very Low Density Lipoprotein 45 mg/dL (5-40)
[2022-04-07 10:40] LABS: Vitamin D,25 Hydroxy 27.9 ng/mL
[2022-04-07 10:45] LABS: Hemoglobin A1c 5.8 % (3.8-5.6)
== END | disposition home or self-care (01) ==
LOC: MFPLAB 08:52
PROVIDERS: PCP Family Medicine; Referring Provider Family Medicine; Visit Provider Family Medicine
DX: E78.1 Pure hyperglyceridemia (principal); E66.01 Morbid (severe) obesity due to excess calories; E55.9 Vitamin D deficiency, unspecified; R73.02 Impaired glucose tolerance (oral)
CPT/HCPCS: 36415; 80053; 80061; 82306; 83036; 85025

== ENCOUNTER → 2022-11-09 | Outpatient (CLI) | payer OTHER, SELFPAY ==
[2022-11-09 10:47] LABS: Basophil# 0.06 X10^3/uL; Basophil% 0.7 % (0-1); Eosinophil# 0.15 X10^3/uL; Eosinophils% 1.8 % (0-5); Hematocrit 51.3 % (40-54); Hemoglobin 15.4 g/dL (13.0-16.5); Lymphocyte % 39.5 % (19-41); Mean Corpuscular Hgb 25.9 pg (27.0-32.0); Mean Corpuscular Volume 86.4 fL (80-94); Mean Platelet Vol. 11.1 fl (6.2-12.0); Monocyte# 0.78 X10^3/uL; Monocyte% 9.3 % (0-10); NRBC Flagged by Analyzer 0 % (0-5); Neutrophil # 4.04 X10^3/uL (2.7-7.7); Neutrophil % 48.3 % (47-70); Platelet Count 228 K/mm3 (150-450); RBC Distribution Width CV 14.4 % (11.6-14.6); RBC Distribution Width SD 45.3 fl (35.1-43.9); Red Blood Count 5.94 M/mm3 (4.6-6.2); White Blood Count 8.4 K/mm3 (4.4-11.0)
[2022-11-09 11:13] LABS: AST(SGOT) 27 U/L (15-37); Alanine Aminotransfer ALT/SGPT 39 U/L (16-61); Albumin, Serum 3.8 g/dL (3.2-5.0); Alkaline Phosphatase 49 U/L (45-117); Anion Gap 7 (5-15); BUN 17 mg/dL (7-18); BUN/Creat Ratio 18.8 RATIO (10-20); Calcium,Total 9.2 mg/dL (8.5-10.1); Chloride 109 mmol/L (98-107); Cholesterol 189 mg/dL (200); Creatinine, Serum 0.91 mg/dL (0.70-1.30); EST Glomerular Filtration Rate 95 mL/min (>60); Est Glom Filt Rate - Afr Amer 115 mL/min (>60); Globulin 3.7 g/dL (2.2-4.2); Glucose 104 mg/dL (74-106); High Density Lipoprotein 32 mg/dL; Potassium 4.3 mmol/L (3.5-5.1); Protein, Total 7.5 g/dL (6.4-8.2); Sodium Level 139 mmol/L (136-145); Triglycerides 235 mg/dL; Very Low Density Lipoprotein 47 mg/dL (5-40); Vitamin D,25 Hydroxy 30.2 ng/mL
[2022-11-09 11:20] LABS: Hemoglobin A1c 5.7 % (3.8-5.6)
--- NOTE | 2022-11-09 12:32 | RAD_ITS ---
EXAM: XR CHEST, 2 VIEWS CLINICAL INDICATION: SHORTNESS OF BREATH TECHNIQUE: Frontal and lateral views of the chest. This report was created using [employer] report generation technology. COMPARISON: None. FINDINGS: LUNGS AND PLEURAL SPACES: Unremarkable. No consolidation or edema. No pneumothorax. No effusion. HEART: Unremarkable. Cardiac silhouette not enlarged. MEDIASTINUM: Central airways and mediastinal contour are unremarkable. BONES/JOINTS: Unremarkable. SOFT TISSUES: Unremarkable. RAD/Chest PA and Lateral IMPRESSION: No radiographic evidence of acute cardiopulmonary disease. Electronically Signed: Remy Dumont MD at 16:56 EST ,
== END | disposition home or self-care (01) ==
LOC: MTLAB 08:28
PROVIDERS: PCP Family Medicine; Referring Provider Family Medicine; Visit Provider Family Medicine
DX: R06.02 Shortness of breath (principal); E66.01 Morbid (severe) obesity due to excess calories; E55.9 Vitamin D deficiency, unspecified; R73.02 Impaired glucose tolerance (oral)
CPT/HCPCS: 36415; 71046; 80053; 80061; 82306; 83036; 85025

== ENCOUNTER → 2023-01-16 | Outpatient (CLI) | payer OTHER, SELFPAY ==
--- NOTE | 2023-01-17 05:40 | PFTCOMP_ITS ---
COMPLETE PULMONARY FUNCTION TEST INTERPRETATION Brief HPI: Patient is a 47-year-old male, currently under the care of Dr. Morgan, who presents to [facility] for complete pulmonary function tests secondary to diagnosis of dyspnea. Respiratory therapist reports good effort and reproducible results. Interpretation: Forced expiration spirometry shows no large airways obstructive ventilatory defect with an FEV1 of 87% predicted. There is no significant bronchodilator response by strict ATS criteria. Spirograms are of good quality and plateau normally. The respiratory flow volume loop shows a normal pattern. Lung volumes by body plethysmography show a normal total lung capacity at 6.21 L, 101% predicted. All other lung volumes are within normal limits. Diffusion capacity by carbon monoxide is normal at 97% predicted. The airway resistance is normal. No previous pulmonary function tests were available for review. Impression: These pulmonary function tests are within normal limits
== END | disposition home or self-care (01) ==
PROVIDERS: PCP Family Medicine; Referring Provider Family Medicine; Visit Provider Family Medicine
DX: R06.02 Shortness of breath (principal)
CPT/HCPCS: 94060; 94726; 94729

== ENCOUNTER → 2023-02-03 | Outpatient (CLI) | payer BC, OTHER, SELFPAY ==
--- NOTE | 2023-02-03 06:45 | ECHOCS_ITS ---
Reason For Study: SOB Procedure This was a 2D Doppler, Color Flow transthoracic echocardiogram. The study was technically difficult. Limited views were obtained. Exam performed in department. Left Ventricle Normal LV size. The estimated ejection fraction is 60-65 %. No evidence for diastolic dysfunction. No regional wall motion abnormalities noted. Right Ventricle Normal RV size. Normal systolic function. Atria Normal left atrium. Normal right atrium. No doppler evidence for ASD. Mitral Valve There is no mitral valve stenosis. No mitral valve insufficiency. Tricuspid Valve There is no tricuspid stenosis. Trivial tricuspid valve insufficiency. Unable to estimate RV systolic pressure due to insufficient tricuspid regurgitant envelope. Aortic Valve Trisinus/trileaflet aortic valve. There is no aortic stenosis. No aortic valve insufficiency. Pulmonic Valve There is no pulmonic valvular stenosis. No pulmonic valve insufficiency. Great Vessels Normal aortic root. Pericardium/Pleural No pericardial effusion. Medication Diluted definity 2.5ml given slow IV push to enhance endocardial definition. MMode/2D Measurements & Calculations LVIDd: 4.3 cm IVSd: 1.4 cm Ao root diam: 4.0 cm LVIDs: 3.0 cm LVPWd: 1.3 cm FS: 31.2 % LAV(MOD-bp): 62.2 ml LVAd ap4: 44.2 cm2 SV(MOD-sp4): 110.5 ml LAV(MOD-bp) Indexed: 25.0 ml/m2 LVLd ap4: 10.0 cm LAV(MOD-sp2): 55.8 ml EDV(MOD-sp4): 164.7 ml LAV(MOD-sp4): 63.9 ml EDV(sp4-el): 165.1 ml LVAs ap4: 23.7 cm2 LVLs ap4: 8.2 cm ESV(MOD-sp4): 54.2 ml ESV(sp4-el): 58.1 ml EF(MOD-sp4): 67.1 % EF(sp4-el): 64.8 % SV(sp4-el): 107.0 ml LA A4 area: 22.5 cm2 LA dimension(2D): 4.2 cm RA A4 area: 18.3 cm2 Time Measurements MV dec time: 0.12 sec Doppler Measurements & Calculations MV E max carter: 76.9 cm/sec Lat Peak E' Carter: 13.7 cm/sec Med Peak E' Carter: 8.5 cm/sec MV A max carter: 79.8 cm/sec E/E' lat: 5.6 E/E' med: 9.0 MV E/A: 0.96 MV V2 max: 74.9 cm/sec MV dec slope: 618.7 cm/sec2 Ao V2 max: 100.3 cm/sec MV max P.2 mmHg Ao max P.0 mmHg MV V2 mean: 48.4 cm/sec Ao V2 mean: 73.0 cm/sec MV mean P.0 mmHg Ao mean P.4 mmHg MV V2 VTI: 19.4 cm Ao V2 VTI: 21.0 cm AV (velocity ratio): 1.0 LV V1 max: 106.3 cm/sec PA V2 max: 94.1 cm/sec LV V1 max P.5 mmHg PA V2 mean: 63.9 cm/sec LV V1 mean P.5 mmHg LV V1 mean: 71.7 cm/sec LV V1 VTI: 21.6 cm ECHO/Echo Complete W/ Contrast Interpretation Summary The estimated ejection fraction is 60-65 %. No evidence for diastolic dysfunction. Ordering Physician: Víctor Morgan Referring Physician: Víctor Morgan Performed By: Viri Waddell RCS
--- NOTE | 2023-02-05 10:45 | STRESSREP_ITS ---
Stress Test Report Date: 02/03/2023 Procedure: Exercise tolerance test/imaging study Indications: Shortness of breath Consent: Per the patient Procedure: The patient exercised on a Zeyad protocol for 5 minutes achieving a peak heart rate of 151 bpm (87% predicted maximal heart rate) with a peak blood pressure 162/80 mmHg and a peak MET capacity of 7 METs. The baseline ECG demonstrated sinus rhythm. The peak exercise ECG demonstrated no significant ischemic changes. EKG during recovery revealed no significant ischemic changes [There were no cardiac dysrhythmias pretest, during exercise, or recovery]. The functional capacity was considered decreased for age. There was [no complaint of chest discomfort during exercise or recovery]. The examination was discontinued secondary to dyspnea and achieving target heart rate. Impression: 1. Technically adequate (percent predicted maximal heart rate greater than 85%) exercise tolerance test 2. Stress test is negative for exercise-induced EKG changes of ischemia 3. The test test is negative for exercise-induced chest pain 4. Functional capacity is decreased for age 5. Nuclear images pending Myocardial perfusion imaging study: Technique: The patient was injected with 15 mCi of technetium 99m Cardiolite and subsequently rest SPECT Cardiolite nuclear imaging was obtained in the horizontal long, vertical long, and short axis views. The patient exercised on a Zeyad protocol. Please see above for details. The patient was injected with 44.8 mCi of technetium 99m Cardiolite and subsequently stress SPECT Cardiolite nuclear imaging was obtained in the horizontal long, vertical long, and short axis views. A gated Cardiolite study at peak stress was obtained. Interpretation: Rest and stress SPECT Cardiolite nuclear imaging status post realignment, normalization, and attenuation correction, demonstrates no evidence of significant ischemia or infarction. The gated Cardiolite study demonstrates no significant regional wall motion abnormalities. The reported LVEF is 61%. Impression: 1. There is no evidence of significant ischemia or infarction. 2. The gated Cardiolite study reports an LVEF of 61%. This note was generated with [employer] software. It may contain incorrect words, spelling, and punctuation that were not noted in checking the note before signing.
== END | disposition home or self-care (01) ==
PROVIDERS: PCP Family Medicine; Referring Provider Family Medicine; Visit Provider Family Medicine
DX: R06.02 Shortness of breath (principal)
CPT/HCPCS: 78452; 93017; 93306; A9500; Q9957; A4216; C8929

== ENCOUNTER 2023-04-03 09:02 | Outpatient (RCR) | payer BC, SELFPAY | END 2023-04-24 23:59 | LOC: NS 09:02 | PROVIDERS: PCP Family Medicine; Referring Provider Family Medicine; Visit Provider Family Medicine | DX: Z71.3 Dietary counseling and surveillance (principal); E66.01 Morbid (severe) obesity due to excess calories; Z68.43 Body mass index [BMI] 50.0-59.9, adult | CPT/HCPCS: 97802 ==

== ENCOUNTER 2023-05-02 08:33 | Outpatient (RCR) | payer BC, SELFPAY | END 2023-05-25 23:59 | LOC: NS 08:33 | PROVIDERS: PCP Family Medicine; Referring Provider Family Medicine; Visit Provider Family Medicine | DX: Z71.3 Dietary counseling and surveillance (principal); E66.01 Morbid (severe) obesity due to excess calories; Z68.43 Body mass index [BMI] 50.0-59.9, adult | CPT/HCPCS: 97803 ==

== ENCOUNTER 2023-06-06 13:28 | Outpatient (RCR) | payer BC, SELFPAY | END 2023-06-24 23:59 | LOC: NS 13:28 | PROVIDERS: PCP Family Medicine; Referring Provider Family Medicine; Visit Provider Family Medicine | DX: Z71.3 Dietary counseling and surveillance (principal); E66.01 Morbid (severe) obesity due to excess calories; Z68.43 Body mass index [BMI] 50.0-59.9, adult | CPT/HCPCS: 97803 ==

== ENCOUNTER → 2023-06-09 | Outpatient (CLI) | payer BC, SELFPAY ==
[2023-06-09 08:19] LABS: Bacteria 0 SEEN /hpf (None Seen); Squamous Epithelial Cells - UA 0 SEEN /hpf (0-5); White Blood Cells 0 SEEN /hpf (0-5)
[2023-06-09 10:13] LABS: Absolute Lymphocyte Count 3.26 X10^3/uL (0.83-4.51); Absolute Neutrophil Count 5.3 X10^3/uL (2.0-7.7); Basophil# 0.04 X10^3/uL; Basophil% 0.4 % (0-1); Eosinophil# 0.12 X10^3/uL; Eosinophils% 1.3 % (0-5); Hematocrit 47.7 % (40-54); Hemoglobin 15.1 g/dL (13.0-16.5); Lymphocyte # 3.26 X10^3/ul (0.83-4.51); Lymphocyte % 34.1 % (19-41); Mean Corp Hgb Conc 31.7 g/dL (32-36); Mean Corpuscular Hgb 27.1 pg (27.0-32.0); Mean Corpuscular Volume 85.6 fL (80-94); Mean Platelet Vol. 10.6 fl (6.2-12.0); Monocyte# 0.84 X10^3/uL; Monocyte% 8.8 % (0-10); NRBC Flagged by Analyzer 0 % (0-5); Neutrophil # 5.27 X10^3/uL (2.7-7.7); Neutrophil % 55.1 % (47-70); Platelet Count 253 K/mm3 (150-450); RBC Distribution Width CV 13.5 % (11.6-14.6); RBC Distribution Width SD 42.2 fl (35.1-43.9); Red Blood Count 5.57 M/mm3 (4.6-6.2); White Blood Count 9.6 K/mm3 (4.4-11.0)
[2023-06-09 10:16] LABS: Color, Urine Yellow (Yellow); Glucose, Dipstick Normal (Normal); Ketone-Dipstick Negative (Negative); Leukocyte Esterase-Dipstick Negative /ul (Negative); Nitrite-Dipstick Negative (Negative); Occult Blood-Urine 10 /ul (Negative); Protein-Dipstick 15 mg/dl (Negative); Specific Gravity, Urine 1.025 (1.002-1.030); Urine Bilirubin Dipstick Negative (Negative); Urine Clarity Clear (Clear); Urine Urobilinogen Normal (Normal)
[2023-06-09 10:30] LABS: Mucous, Urine 1+ /hpf (<or=2+); Red Blood Cells-Urine 0-5 SEEN /hpf (0-5)
[2023-06-09 10:40] LABS: Vitamin D,25 Hydroxy 32.1 ng/mL
[2023-06-09 10:42] LABS: Hemoglobin A1c 5.8 % (3.8-5.6)
[2023-06-09 10:47] LABS: AST(SGOT) 21 U/L (15-37); Alanine Aminotransfer ALT/SGPT 30 U/L (16-61); Albumin, Serum 3.6 g/dL (3.2-5.0); Alkaline Phosphatase 51 U/L (45-117); Anion Gap 5 (5-15); BUN 15 mg/dL (7-18); BUN/Creat Ratio 20.2 RATIO (10-20); Calcium,Total 8.7 mg/dL (8.5-10.1); Chloride 110 mmol/L (98-107); Cholesterol 166 mg/dL (200); Creatinine, Serum 0.74 mg/dL (0.70-1.30); EST Glomerular Filtration Rate 120 mL/min (>60); Est Glom Filt Rate - Afr Amer 145 mL/min (>60); Globulin 3.6 g/dL (2.2-4.2); Glucose 96 mg/dL (74-106); High Density Lipoprotein 29 mg/dL; Potassium 4.1 mmol/L (3.5-5.1); Protein, Total 7.2 g/dL (6.4-8.2); Sodium Level 138 mmol/L (136-145); Triglycerides 225 mg/dL; Very Low Density Lipoprotein 45 mg/dL (5-40)
== END | disposition home or self-care (01) ==
LOC: MTLAB 08:15
PROVIDERS: PCP Family Medicine; Referring Provider Family Medicine; Visit Provider Family Medicine
DX: F17.210 Nicotine dependence, cigarettes, uncomplicated (principal); E78.1 Pure hyperglyceridemia; R73.02 Impaired glucose tolerance (oral); E55.9 Vitamin D deficiency, unspecified
CPT/HCPCS: 36415; 80053; 80061; 81001; 82306; 83036; 85025

== ENCOUNTER → 2023-10-13 | Outpatient (CLI) | payer BC, SELFPAY ==
--- OUTSIDE RECORDS SUMMARY | 2023-10-13 08:37 | XMS RPT_ITS | CCD ---
Author Name Unknown Address [address] [place] [address] Organization [facility] Care Team Providers Care Ground Surveillance Systems Operator Name Role Phone BIANCA DE LA PAZ (SHIPS OR BARGES LOADER) Unavailable Unavailable Results Test Name Value Interpretation Reference Range Facil ity Encounters Encounter Date Encounter Type Care Provider Facility Start: 05-10-2018 End: 05-11-2018 Patient encounter BIANCA (THERESE) BRAIN [facility] Summary Purpose Family History No Family History Records Found Advance Directives No Advanced Directives Records Found Additional Source Comments (unrecognized sect ion and content) No Status Records Found INFORMATION SOURCE (unrecogn ized section and content) FOR RECORDS PERTAINING TO PATIENTS WHO ARE OR HAVE BEEN ENROLLED IN A CHEMICAL DEPENDENCY/SUBSTANCEABUSE PROGRAM, SOME INFORMATION MAY BE OMITTED. This clinical summary was aggregated from multiple sources. Caution should be exercised in using it in the provision of clinical care. This summary normalizes information from multiple sources, and as a consequence, information in this document may materially change the coding, format and clinical context of patient data. In addition, data may be omitted in some cases. CLINICAL DECISIONS SHOULD BE BASED ON THE PRIMARY CLINICAL RECORDS. [facility] [employer] [facility]. provides no warranty or guarantee of the accuracy or completeness of information in this document.
[2023-10-13 10:07] LABS: Absolute Lymphocyte Count 3.47 X10^3/uL (0.83-4.51); Absolute Neutrophil Count 4.3 X10^3/uL (2.0-7.7); Basophil# 0.07 X10^3/uL; Basophil% 0.8 % (0-1); Eosinophil# 0.15 X10^3/uL; Eosinophils% 1.7 % (0-5); Hemoglobin 13.8 g/dL (13.0-16.5); Lymphocyte # 3.47 X10^3/ul (0.83-4.51); Lymphocyte % 39.2 % (19-41); Mean Corpuscular Hgb 25.9 pg (27.0-32.0); Mean Corpuscular Volume 86.5 fL (80-94); Mean Platelet Vol. 10.8 fl (6.2-12.0); NRBC Flagged by Analyzer 0 % (0-5); Neutrophil # 4.33 X10^3/uL (2.7-7.7); Platelet Count 249 K/mm3 (150-450); RBC Distribution Width CV 14.3 % (11.6-14.6); RBC Distribution Width SD 45.3 fl (35.1-43.9); Red Blood Count 5.32 M/mm3 (4.6-6.2); White Blood Count 8.9 K/mm3 (4.4-11.0)
[2023-10-13 10:39] LABS: Vitamin D,25 Hydroxy 28.1 ng/mL
[2023-10-13 10:41] LABS: AST(SGOT) 23 U/L (15-37); Alanine Aminotransfer ALT/SGPT 32 U/L (16-61); Albumin, Serum 3.6 g/dL (3.2-5.0); Alkaline Phosphatase 53 U/L (45-117); Anion Gap 5 (5-15); BUN 20 mg/dL (7-18); BUN/Creat Ratio 25.4 RATIO (10-20); Calcium,Total 9.3 mg/dL (8.5-10.1); Chloride 112 mmol/L (98-107); Cholesterol 181 mg/dL (200); Creatinine, Serum 0.79 mg/dL (0.70-1.30); EST Glomerular Filtration Rate 112 mL/min (>60); Est Glom Filt Rate - Afr Amer 135 mL/min (>60); Globulin 3.5 g/dL (2.2-4.2); Glucose 110 mg/dL (74-106); High Density Lipoprotein 33 mg/dL; Potassium 3.9 mmol/L (3.5-5.1); Protein, Total 7.1 g/dL (6.4-8.2); Sodium Level 140 mmol/L (136-145); Triglycerides 254 mg/dL; Very Low Density Lipoprotein 51 mg/dL (5-40)
[2023-10-13 11:09] LABS: Hemoglobin A1c 5.8 % (3.8-5.6)
== END | disposition home or self-care (01) ==
LOC: MFPLAB 08:16
PROVIDERS: PCP Family Medicine; Visit Provider Family Medicine
DX: R73.02 Impaired glucose tolerance (oral) (principal); E66.01 Morbid (severe) obesity due to excess calories; E55.9 Vitamin D deficiency, unspecified; E78.1 Pure hyperglyceridemia
CPT/HCPCS: 36415; 80053; 80061; 82306; 83036; 85025

== ENCOUNTER → 2024-06-11 | Outpatient (CLI) | payer OTHER, SELFPAY ==
[2024-06-11 10:04] LABS: Absolute Lymphocyte Count 3.46 X10^3/uL (0.83-4.51); Absolute Neutrophil Count 3.2 X10^3/uL (2.0-7.7); Basophil# 0.05 X10^3/uL; Basophil% 0.7 % (0-1); Eosinophils% 2.6 % (0-5); Hematocrit 46.1 % (40-54); Hemoglobin 13.8 g/dL (13.0-16.5); Lymphocyte # 3.46 X10^3/ul (0.83-4.51); Lymphocyte % 45.3 % (19-41); Mean Corp Hgb Conc 29.9 g/dL (32-36); Mean Corpuscular Volume 86.8 fL (80-94); Mean Platelet Vol. 10.4 fl (6.2-12.0); Monocyte# 0.76 X10^3/uL; Monocyte% 9.9 % (0-10); NRBC Flagged by Analyzer 0 % (0-5); Neutrophil # 3.15 X10^3/uL (2.7-7.7); Neutrophil % 41.2 % (47-70); Platelet Count 252 K/mm3 (150-450); RBC Distribution Width CV 13.2 % (11.6-14.6); RBC Distribution Width SD 41.6 fl (35.1-43.9); Red Blood Count 5.31 M/mm3 (4.6-6.2); White Blood Count 7.6 K/mm3 (4.4-11.0)
[2024-06-11 10:07] LABS: Vitamin D,25 Hydroxy 23.8 ng/mL
[2024-06-11 10:11] LABS: ALB/GLOB Ratio 0.8 RATIO (0.9-2.4); AST(SGOT) 19 U/L (15-37); Alanine Aminotransfer ALT/SGPT 28 U/L (16-61); Albumin, Serum 3.4 g/dL (3.2-5.0); Alkaline Phosphatase 49 U/L (45-117); Anion Gap 6 (5-15); BUN 13 mg/dL (7-18); BUN/Creat Ratio 16.4 RATIO (10-20); Chloride 108 mmol/L (98-107); Cholesterol 169 mg/dL (200); Creatinine, Serum 0.79 mg/dL (0.70-1.30); EST Glomerular Filtration Rate 111 mL/min (>60); Est Glom Filt Rate - Afr Amer 134 mL/min (>60); Glucose 100 mg/dL (74-106); High Density Lipoprotein 28 mg/dL; Protein, Total 7.4 g/dL (6.4-8.2); Sodium Level 139 mmol/L (136-145); Triglycerides 260 mg/dL; Very Low Density Lipoprotein 52 mg/dL (5-40)
[2024-06-11 10:20] LABS: Hemoglobin A1c 5.6 % (3.8-5.6)
== END | disposition home or self-care (01) ==
LOC: MTLAB 07:17
PROVIDERS: PCP Family Medicine; Referring Provider Family Medicine; Visit Provider Family Medicine
DX: E78.1 Pure hyperglyceridemia (principal); E55.9 Vitamin D deficiency, unspecified; R73.02 Impaired glucose tolerance (oral)
CPT/HCPCS: 36415; 80053; 80061; 82306; 83036; 85025

== ENCOUNTER → 2024-09-26 | Outpatient (CLI) | payer OTHER, SELFPAY ==
--- NOTE | 2024-09-26 15:32 | RAD_ITS ---
STUDY: X-RAY - RIGHT KNEE REASON FOR EXAM: Male, 48 years old. Pain. TECHNIQUE: 4 views of the right knee. COMPARISON: None. FINDINGS: Normal visualized distal femur. Normal visualized proximal tibia and fibula. Normal proximal tibiofibular articulation. There is no demonstrated fracture. Normal medial femorotibial compartment. Normal lateral femorotibial compartment. There is mild lateral patellar subluxation. Otherwise, unremarkable patellofemoral articulation. There is a small joint effusion. The soft tissue structures are unremarkable. RAD/Knee 4 or More Views IMPRESSION: Mild lateral patellar subluxation. Small joint effusion. No demonstrated fracture. Electronically Signed: Kartik Singh MD at 9:36 EST ,
--- NOTE | 2024-09-26 15:32 | RAD_ITS ---
STUDY: X-RAY - LEFT KNEE REASON FOR EXAM: Male, 48 years old. Pain. TECHNIQUE: 4 views of the left knee. COMPARISON: None. FINDINGS: Normal visualized distal femur. Normal visualized proximal tibia and fibula. Normal proximal tibiofibular articulation. There is no demonstrated fracture. Normal medial femorotibial compartment. Normal lateral femorotibial compartment. There is mild lateral patellar subluxation. Otherwise, unremarkable patellofemoral articulation. There is a small joint effusion. The soft tissue structures are unremarkable. RAD/Knee 4 or More Views IMPRESSION: Mild lateral patellar subluxation. Small joint effusion. No demonstrated fracture. Electronically Signed: Kartik Singh MD at 9:37 EST ,
== END | disposition home or self-care (01) ==
PROVIDERS: PCP Family Medicine; Referring Provider Family Medicine; Visit Provider Family Medicine
DX: M25.561 Pain in right knee (principal); M25.562 Pain in left knee
CPT/HCPCS: 73564

== ENCOUNTER 2024-10-11 07:00 | Outpatient (RCR) | payer OTHER, SELFPAY ==
--- NOTE | 2024-10-04 07:45 | HP.PTEVAL ---
Patient's Visit Information Visit Information Visit Information: ZENA SQUIRES is a 49 year old M referred to Physical Therapy by Dr. Víctor Morgan MD with a diagnosis of R MCL strain. Date of Evaluation: 10/04/24 Physical Therapist: Mahin Live, DPT, OCS, CSCS Visit Plan Frequency: 1-2x /Week Duration: 4-6 Weeks Plan: 1-2x/week for 4-6 weeks(start weekly) IE: HEP SLR 3x10, knee flexion end range of motion 10x all 2x/day, activitiy modification to protect MCL, get back to straight line leg press, knee flex, knee ext at gym and continue TM. in clinic progress to lateral strength, ensure full flexion ROM, progreess stresses to R knee and strengthening to I program at [employer]. wean brace. Use US and STM as needed. Next session: quad stretch and gym lateral hip exercises and give via HEP, f/u weekly OR increase frequency for US, STM, ROM and strength if needed. Subjective Subjective: Steppinig into and pivotting on R LE into car (09/16)and was hard to walk on after sharp pain in medial R knee. Now walking is OK but aches if he sits too long and especially when he goes to get up. This is a new pain for him. Pain is medial R knee anterior. Limps for a few steps and then it is OK. sleep is OK. Improving. And is 65% better overall right now. Steps are still painful with R and hard to lead. Has to be careful and wear sleeve if he is on it too long. 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 Activities at home pretty normal but has to be careful. Has avoideed steps descending. Picotting adn twisting hurts. TM gym 30 min and weights when healthy but just started TM again yesterday. Pain R knee: Pain Intensity (Out of 10): 0 Pain Intensity Range: 0 and 6 Comment: sitting at lunch and getting up was 6/10 for transient' Objective Objective: Walks without antalgia today, toe and heel walk easily without pain, march and butt kicks without pain. Trasnfers today readily and no pain. Steps are hesitant and weak descending with R but able up and down reciprocally with one rail. Tender R knee MCL only moderately. AROM 0-112 R and 0-122 L. Slight pain end range of flexion trasniently. strength is 4- in hip abd and ext, 4 hip flexion, 4+ knee flex and extension B. reflexes 1/3 patella and achilles B. Sensation LE WNL to gross light touch. + Valgus stress on r for pain, - varus, - ant drawer, - post sag, - bounce home, - patellar grind. Balance/Special Test Scores Lower Extremity Functional Score: 43 Goals Goal 1:: Walk without bracing without increased pain [id number] idstance Goal Time Frame: 4-6 Weeks Goal 2:: Get up from stool at [place] without limping or pain Goal Time Frame: 4-6 Weeks Goal 3:: Pt feel 95% back to normal workout and pain levels Goal Time Frame: 4-6 Weeks Goal 4:: LEFS score 60 Goal Time Frame: 4-6 Weeks Goal 5:: I appropriate gym program to limit future problems Goal Time Frame: 4-6 Weeks Rehabilitation Potential Physical Therapy Diagnosis: Limited ROM and strength in r knee with pain limiting comfortable function Rehabilitation Potential: Good Anticipated Interventions Patient/Client Instruction: Educate patient on: Condition and Plan of Care For the Purpose of:: To decrease pain, To increase ROM, To improve nutrient delivery to tissue and To improve muscle performance and motor function Therapeutic Exercise to Include: Strength training, Flexibilty training, Passive ROM and Active ROM For the Purpose of:: To decrease pain, To increase ROM, To improve nutrient delivery to tissue, To improve muscle performance and motor function and To increase tolerance to activity/condition/position Manual Therapy Techniques to Include: Mobilization, Passive ROM and Soft tissue mobilization For the Purpose of:: To decrease pain and To increase ROM Cryotherapy (ice pack, ice massage): Yes Ultrasound (thermal/non thermal): Yes For the Purpose of:: To decrease swelling/inflammation and To improve nutrient delivery to tissue Text: Thank you for the opportunity to evaluate your patient. For Medicare and Medicare HMO plans, please review the plan of care and approve it. It will need to be FAXED BACK to us at [phone] for Medicare purposes. For Medicare only, by signing this I certify the plan of care. Please let me know if there are questions or concerns regarding this plan of care. Physician Signature: Date:
--- NOTE | 2024-11-27 08:04 | HP.PT.NRP ---
Patient Information Patient Information: ZENA SQUIRES was seen in my office for initial evaluation on 10/04/24. The following Plan of Care was established for this patient: POC Established Initial Frequency: 1-2x /Week Initial Duration: 4-6 Weeks Anticipated Interventions Patient/Client Instruction: Educate patient on: Condition and Plan of Care For the Purpose of:: To decrease pain, To increase ROM, To improve nutrient delivery to tissue and To improve muscle performance and motor function Therapeutic Exercise to Include: Strength training, Flexibilty training, Passive ROM and Active ROM For the Purpose of:: To decrease pain, To increase ROM, To improve nutrient delivery to tissue, To improve muscle performance and motor function and To increase tolerance to activity/condition/position Manual Therapy Techniques to Include: Mobilization, Passive ROM and Soft tissue mobilization For the Purpose of:: To decrease pain and To increase ROM Cryotherapy (ice pack, ice massage): Yes Ultrasound (thermal/non thermal): Yes For the Purpose of:: To decrease swelling/inflammation and To improve nutrient delivery to tissue Last Seen Last Seen: This patient was last seen in our office 10/11/24. Pertinent comments regarding their Physical therapy will appear below: Pt seen 2 visits of POC and was 95% better. He was to f/u but did not attend at visit. At this point, it has been over 6 weeks and I will discontinue due to nonattendance. At this point I will be discontinuing this patient from physical therapy. I would be happy to see this patient again in the future if found appropriate by the physician. Thank you! Mahin Live, DPT, OCS, CSCS Balance/Gait/Functional tests Balance/Special Test Scores Lower Extremity Functional Score: 43
== END 2024-10-11 19:00 | disposition home or self-care (01) ==
LOC: PT 07:00
PROVIDERS: PCP Family Medicine; Visit Provider Family Medicine
DX: S83.411D Sprain of medial collateral ligament of right knee, subsequent encounter (principal)
CPT/HCPCS: 97110; 97161

== ENCOUNTER → 2024-10-14 | Outpatient (CLI) | payer OTHER, SELFPAY ==
[2024-10-14 10:34] LABS: Absolute Lymphocyte Count 2.65 X10^3/uL (0.83-4.51); Absolute Neutrophil Count 3.1 X10^3/uL (2.0-7.7); Basophil# 0.05 X10^3/uL; Basophil% 0.8 % (0-1); Eosinophil# 0.13 X10^3/uL; Hematocrit 43.2 % (40-54); Lymphocyte # 2.65 X10^3/ul (0.83-4.51); Lymphocyte % 40.5 % (19-41); Mean Corp Hgb Conc 30.1 g/dL (32-36); Mean Corpuscular Hgb 26.1 pg (27.0-32.0); Mean Corpuscular Volume 86.7 fL (80-94); Mean Platelet Vol. 10.5 fl (6.2-12.0); Monocyte# 0.66 X10^3/uL; Monocyte% 10.1 % (0-10); NRBC Flagged by Analyzer 0 % (0-5); Neutrophil # 3.05 X10^3/uL (2.7-7.7); Neutrophil % 46.4 % (47-70); Platelet Count 202 K/mm3 (150-450); RBC Distribution Width CV 13.5 % (11.6-14.6); RBC Distribution Width SD 42.6 fl (35.1-43.9); Red Blood Count 4.98 M/mm3 (4.6-6.2); White Blood Count 6.6 K/mm3 (4.4-11.0)
[2024-10-14 10:49] LABS: Vitamin D,25 Hydroxy 20.7 ng/mL
[2024-10-14 10:52] LABS: AST(SGOT) 19 U/L (15-37); Alanine Aminotransfer ALT/SGPT 35 U/L (16-61); Albumin, Serum 3.6 g/dL (3.2-5.0); Alkaline Phosphatase 54 U/L (45-117); Anion Gap 3 (5-15); BUN 17 mg/dL (7-18); Calcium,Total 8.7 mg/dL (8.5-10.1); Chloride 110 mmol/L (98-107); Creatinine, Serum 0.77 mg/dL (0.70-1.30); EST Glomerular Filtration Rate 114 mL/min (>60); Est Glom Filt Rate - Afr Amer 138 mL/min (>60); Globulin 3.7 g/dL (2.2-4.2); Glucose 100 mg/dL (74-106); Potassium 4.3 mmol/L (3.5-5.1); Protein, Total 7.3 g/dL (6.4-8.2); Sodium Level 138 mmol/L (136-145)
[2024-10-14 11:27] LABS: Hemoglobin A1c 5.7 % (3.8-5.6)
== END | disposition home or self-care (01) ==
LOC: MTLAB 07:03
PROVIDERS: PCP Family Medicine; Referring Provider Family Medicine; Visit Provider Family Medicine
DX: R73.02 Impaired glucose tolerance (oral) (principal); E55.9 Vitamin D deficiency, unspecified
CPT/HCPCS: 36415; 80053; 82306; 83036; 85025

== ENCOUNTER → 2025-02-19 | Outpatient (CLI) | payer OTHER, SELFPAY ==
[2025-02-19 11:05] LABS: Absolute Lymphocyte Count 2.72 X10^3/uL (0.83-4.51); Absolute Neutrophil Count 4.6 X10^3/uL (2.0-7.7); Basophil# 0.06 X10^3/uL; Basophil% 0.7 % (0-1); Eosinophil# 0.15 X10^3/uL; Eosinophils% 1.8 % (0-5); Hematocrit 46.4 % (40-54); Hemoglobin 14.3 g/dL (13.0-16.5); Lymphocyte # 2.72 X10^3/ul (0.83-4.51); Lymphocyte % 32.6 % (19-41); Mean Corp Hgb Conc 30.8 g/dL (32-36); Mean Corpuscular Hgb 26.4 pg (27.0-32.0); Mean Corpuscular Volume 85.8 fL (80-94); Mean Platelet Vol. 10.7 fl (6.2-12.0); Monocyte# 0.76 X10^3/uL; Monocyte% 9.1 % (0-10); NRBC Flagged by Analyzer 0 % (0-5); Neutrophil # 4.62 X10^3/uL (2.7-7.7); Neutrophil % 55.3 % (47-70); Platelet Count 261 K/mm3 (150-450); RBC Distribution Width CV 13.2 % (11.6-14.6); RBC Distribution Width SD 41.1 fl (35.1-43.9); Red Blood Count 5.41 M/mm3 (4.6-6.2); White Blood Count 8.4 K/mm3 (4.4-11.0)
[2025-02-19 13:22] LABS: ALB/GLOB Ratio 1.4 RATIO (0.9-2.4); AST(SGOT) 27 U/L (<=37); Alanine Aminotransfer ALT/SGPT 34 U/L (<=46); Albumin, Serum 4.3 g/dL (3.5-5.0); Alkaline Phosphatase 51 U/L (40-129); Anion Gap 12 (5-15); BUN 14 mg/dL (4-19); BUN/Creat Ratio 17.9 RATIO (10-20); Calcium,Total 9.5 mg/dL (7.6-11.0); Carbon Dioxide 20.7 mmol/L (21.0-32.0); Chloride 104 mmol/L (98-108); EST Glomerular Filtration Rate 109 (>60); Globulin 3.1 g/dL (2.2-4.2); Glucose 115 mg/dL (70-99); PSA,Total - Annual Screen 1.11 ng/mL (0.02-4.00); Potassium 4.1 mmol/L (3.3-5.1); Protein, Total 7.4 g/dL (5.9-8.4); Sodium Level 137 mmol/L (133-145); Total Bilirubin 0.39 mg/dL (0.00-1.30); Vitamin B12 373 pg/mL (180-914); Vitamin D,25 Hydroxy 16.6 ng/mL (30-100)
[2025-02-23 14:08] LABS: Testosterone, % Free 2.63 % (1.50-4.20); Testosterone, Free 5.39 ng/dL (5.00-21.00); Testosterone, Total 205 ng/dL (264-916)
== END | disposition home or self-care (01) ==
LOC: MTLAB 08:45
PROVIDERS: PCP Family Medicine; Referring Provider Family Medicine; Visit Provider Family Medicine
DX: Z12.5 Encounter for screening for malignant neoplasm of prostate (principal); R53.83 Other fatigue
CPT/HCPCS: 36415; 80053; 82306; 82607; 84153; 84402; 84403; 84439; 84443; 85025; G0103

== ENCOUNTER → 2025-04-02 | Outpatient (CLI) | payer OTHER, SELFPAY ==
[2025-04-02 07:20] LABS: Mucous, Urine 0 SEEN /hpf (<or=2+); Red Blood Cells-Urine 0 SEEN /hpf (0-5); Squamous Epithelial Cells - UA 0 SEEN /hpf (0-5)
[2025-04-02 10:52] LABS: Hematocrit 45.5 % (40-54); Hemoglobin 14.0 g/dL (13.0-16.5); Immature Granulocytes Count 0.020 X10^3/uL (0.0-0.0); Mean Corp Hgb Conc 30.8 g/dL (32-36); Mean Corpuscular Volume 86.0 fL (80-94); Mean Platelet Vol. 10.6 fl (6.2-12.0); NRBC Flagged by Analyzer 0 % (0-5); Platelet Count 252 K/mm3 (150-450); RBC Distribution Width CV 13.3 % (11.6-14.6); RBC Distribution Width SD 41.5 fl (35.1-43.9); Red Blood Count 5.29 M/mm3 (4.6-6.2); White Blood Count 7.8 K/mm3 (4.4-11.0)
[2025-04-02 11:06] LABS: Color, Urine Yellow (Yellow); Glucose, Dipstick Normal (Normal); Ketone-Dipstick Negative (Negative); Leukocyte Esterase-Dipstick Negative /ul (Negative); Nitrite-Dipstick Negative (Negative); Occult Blood-Urine Negative /ul (Negative); Protein-Dipstick Negative (Negative); Specific Gravity, Urine 1.010 (1.002-1.030); Urine Bilirubin Dipstick Negative (Negative)
[2025-04-02 11:54] LABS: AST(SGOT) 34 U/L (<=37); Alanine Aminotransfer ALT/SGPT 45 U/L (<=46); Albumin, Serum 4.1 g/dL (3.5-5.0); Alkaline Phosphatase 48 U/L (40-129); Anion Gap 10 (5-15); BUN 11 mg/dL (4-19); BUN/Creat Ratio 12.8 RATIO (10-20); Calcium,Total 9.5 mg/dL (7.6-11.0); Carbon Dioxide 24.8 mmol/L (21.0-32.0); Chloride 104 mmol/L (98-108); Cholesterol 192 mg/dL (<=200); Globulin 3.1 g/dL (2.2-4.2); Glucose 99 mg/dL (70-99); Low Density Lipoprotein Calc. 126 mg/dL; Potassium 4.5 mmol/L (3.3-5.1); Triglycerides 177 mg/dL; Very Low Density Lipoprotein 35 mg/dL (5-40); Vitamin D,25 Hydroxy 30.5 ng/mL (30-100); cholesterol:hdl ratio screen 6.27
== END | disposition home or self-care (01) ==
LOC: MTLAB 07:15
PROVIDERS: PCP Family Medicine; Referring Provider Family Medicine; Visit Provider Family Medicine
DX: E55.9 Vitamin D deficiency, unspecified (principal); E78.1 Pure hyperglyceridemia; R73.02 Impaired glucose tolerance (oral)
CPT/HCPCS: 36415; 80053; 80061; 81001; 82306; 83036; 85025

== ENCOUNTER → 2025-04-09 | Outpatient (CLI) | payer OTHER, SELFPAY ==
--- NOTE | 2025-04-09 07:53 | RAD_ITS ---
EXAM: Air-contrast esophagram barium swallow. CLINICAL HISTORY: Difficulty swallowing. COMPARISON: None TECHNIQUE: The patient ingested barium. Multiple fluoroscopic images were obtained. Dose report: Fluoroscopy. 25.4 seconds. 4.5 mGy. FINDINGS: The esophagus is unremarkable. No evidence of obstruction. No filling defect is seen. Free flow of contrast into the stomach. No evidence of gastroesophageal reflux. The patient was unable to swallow the 12 mm tablet the barium. RAD/Esophagus Dual Contrast IMPRESSION: Unremarkable examination. The patient was not capable of swallowing the 12 mm tablet of barium. Reading Location: [facility]
--- NOTE | 2025-04-09 07:53 | RAD_ITS ---
EXAM: Air-contrast esophagram barium swallow. CLINICAL HISTORY: Difficulty swallowing. COMPARISON: None TECHNIQUE: The patient ingested barium. Multiple fluoroscopic images were obtained. Dose report: Fluoroscopy. 25.4 seconds. 4.5 mGy. FINDINGS: The esophagus is unremarkable. No evidence of obstruction. No filling defect is seen. Free flow of contrast into the stomach. No evidence of gastroesophageal reflux. The patient was unable to swallow the 12 mm tablet the barium. RAD/Esophagus Dual Contrast IMPRESSION: Unremarkable examination. The patient was not capable of swallowing the 12 mm tablet of barium. Reading Location: [facility]
== END | disposition home or self-care (01) ==
PROVIDERS: PCP Family Medicine; Referring Provider Family Medicine; Visit Provider Family Medicine
DX: R13.10 Dysphagia, unspecified (principal)
CPT/HCPCS: 74221

== ENCOUNTER 2025-05-15 08:17 | Day surgery (SDC) | payer OTHER, SELFPAY ==
--- NOTE | 2025-05-14 15:14 | PAT.ANE_ITS ---
Pre-Assessment Diagnosis/Proposed Procedure Planned Operative Procedure(s): EGD Anesthesia History Anesthesia History - edging supervisor: Anesthesia History - edging supervisor Hx Hospitalization No 05/14/25 09:03 Any Problems With Anesthesia No 05/14/25 09:03 Cholinesterase deficiency No 05/14/25 09:03 You/Your Family Experience No 05/14/25 09:03 fever (hyperthermia) with Relationship Recent Exposure to Contagious Disease Does patient have nerve No 05/14/25 09:03 stimulator Patient instructed to have device shut off --Does patient have Pacemaker or ICD? When Was Last Pacemaker Check QUESTION #4 FULL TEXT: You/Your Family Experience fever (hyperthermia) with Anesthesia Last Oral Intake Last Oral intake: Last Oral Intake NPO since Meds taken in AM with sips of water? Meds patient instructed to take am of surgery PONV PONV - edging supervisor: PONV - edging supervisor Female No 05/14/25 09:03 HX of Motion Sickness Yes 05/14/25 09:03 HX of N/V After Surgery No 05/14/25 09:03 Non-Smoker No 05/14/25 09:03 Duration of Surgery greater No 05/14/25 09:03 than 60 minutes Number of Risk Factors 1 05/14/25 09:03 PONV Score Low Risk 05/14/25 09:03 Height & Weight Height & Weight: Anesthesia: Height & Weight Height 5 ft 6 in 05/12/25 08:34 Respiratory Assessment Respiratory Assessment - edging supervisor: Respiratory Tract Infection Hx - edging supervisor Hx Respiratory Tract Infection No 05/14/25 09:03 STOP Sleep Apnea STOP Sleep Apnea - edging supervisor: STOP Sleep Apnea - edging supervisor Hx Hypertension No 05/14/25 09:03 Hx Sleep Apnea Yes 05/14/25 09:03 CPAP Yes 05/14/25 09:03 BIPAP No 05/14/25 09:03 Do you snore loudly (louder than talking or can be heard Do you often feel tired/ fatigued/ sleepy during daytime? Has anyone observed you stop breathing during sleep? STOP Results Positive 05/14/25 09:03 QUESTION #5 FULL TEXT : Do you snore loudly (louder than talking or can be heard through closed doors)? Tobacco Use History Tobacco Use History - edging supervisor: Tobacco Use History - edging supervisor Tobacco Use Smoking Status Current every day smoker 05/14/25 09:03 Hx Tobacco Use Yes 05/14/25 09:03 Years Smoking Packs Smoked per Day Smoking Cessation Date was within the last 15 years Hx Smoking Cessation Date Hx Smoking Cessation Counseling Hematologic Medial History Hematologic Hx - edging supervisor: Hematologic Medical Hx - internet manager Hx of Blood Transfusion No 05/14/25 09:03 Hx of Transfusion in last 3 No 05/14/25 09:03 Months Date of Last Transfusion (if within last 3 months) Ever experience any problems No 05/14/25 09:03 with transfusion(s)? Specify any problems Hx of Preganancy in last 3 N/A 05/14/25 09:03 Months Nurse Filling Out Transfusion MGRIFFITH 05/14/25 09:03 & Questions: Date: 05/14/25 05/14/25 09:03 Time: 09:04 05/14/25 09:03 Patient unable to answer at this time (ie. confused, unrespo /Reproduction History /Reproductive History - edging supervisor: /Reproductive Hx- edging supervisor Hx Now No 05/14/25 09:03 Gestational Age (in weeks): EDC: Hx Hx Para Hx Section SAB No 05/14/25 09:03 [facility] Medical History (Updated 05/14/25 @ 09:12 by Pia Almodovar) Wears glasses History of MRSA infection Anxiety Injury of back Difficulty swallowing Gastric reflux Smoker History of edema History of echocardiogram History of stress test Sleep apnea CPAP (continuous positive airway pressure) dependence Sleep related bruxism CTS (carpal tunnel syndrome) Acute sinusitis Inclusion cyst Left shoulder pain Tinnitus, unspecified ear Ankle pain, left Home Medications ?Medication ?Instructions ?Recorded ?Last Taken ?Type buspirone 7.5 mg tablet 7.5 mg PO TID 05/05/25 Unkno wn History omeprazole 40 mg capsule,delayed 40 mg PO QDAY 5 Unknown History release multivitamin 1 tab PO QDAY 05/12/25 Unkno wn History peg 3350-sod sulf,[id number] See Rx Instructions PO .COMPLEX #2 05/12/25 Unknown Rx 178.7-7.3-0.5-1.12-0.9 gram oral mL soln (Suflave) Allergy/AdvReac Type Severity Reaction Status Date / Time Sulfa (Sulfonamide Allergy Hives Verified 05/14/25 09:00 Antibiotics) Family History Mother Diabetes CAD (coronary artery disease) Hypertension Anxiety Depression Father Cancer inoperable brain tumor Surgical History Hx of tonsillectomy History of appendectomy Social History household members: spouse Smoking Status: Current every day smoker tobacco type: e-cigarettes alcohol intake: former substance use type: former substance user Date of last use: 03/2018, marijuana and crack/cocaine frequency: 3-4 times per week Audit: Pertinent Findings Pertinent Findings EKG Perinent findings: May 25, 2018. Normal sinus rhythm. Left axis deviation. Possible inferior infarct, age undetermined. Stress test pertinent findings: February 05, 2023. EF of 61%. No evidence of signi ficant ischemia or infarction. Echo (EF%) pertinent findings: February 03, 2023. EF of 60 to 65%. No aortic stenosis. Recommendation Anesthesia Recommendation Anesthesia recommendation: OPTIMIZED for anesthesia
[2025-05-15] VITALS (8 sets, daily range): BP systolic 109–129; BP diastolic 65–84; PULSE 65–77; RESP 16–18; TEMP 36–36.3; O2SAT 93–100; BMI 48.9
[2025-05-15] MEDS: Lactated Ringers 1,000 ML 15 ML IV (08:35)
--- NOTE | 2025-05-15 09:21 | HP.PCM_ITS ---
[facility] - General General Date of Admission: 05/15/25 Date of Service: 05/15/25 Chief Complaint: dysphagia, weight loss and CRS [facility] Narrative ZENA SQUIRES, is a 49 M who presents with the Chief Complaint: dysphagia Details: The patient is a 49-year-old male presenting with dysphagia. He reports a long- standing difficulty swallowing pills, which has recently progressed to difficulty swallowing dense foods such as steak and dry chicken. Approximately eight weeks ago, he noted these symptoms worsening, to the point where he could only consume fruit smoothies. Around seven to eight weeks ago, he developed a sore throat and was diagnosed with an infection in his sinuses, ears, and throat, for which he received antibiotics, leading to partial improvement. Currently, he can consume softer foods like crab, mashed potatoes, noodles, and scrambled eggs, but requires additional liquids to swallow denser foods. The patient underwent a barium swallow study on April 09, which was unremarkable; however, he could not swallow the tablet provided during the test. He experiences the sensation of food getting stuck high in the throat but is relieved by drinking water. No associated nausea, vomiting, or heartburn are reported currently. He has a history of severe heartburn and acid reflux but altered his diet, resulting in symptom improvement. Despite the lack of active symptoms, he was prescribed omeprazole 40 mg daily over a month ago by Dr. Morgan, although no change in swallowing difficulty was observed post- medication. The patient's dysphagia exacerbates when his sinuses are active. He reports a 25-pound weight loss over six weeks attributed to reduced food intake due to swallowing difficulty. His pertinent medical history includes carpal tunnel syndrome, sinusitis, left shoulder pain, and surgeries for removed tonsils, adenoids, and appendix. Family history is significant for a brother with colon polyps considered precancerous. He does not consume alcohol and occasionally uses a vape. He expresses concern about his brother's colon issues, having yet to undergo a colonoscopy, and plans to discuss getting scheduled for an EGD and colonoscopy. [facility] Medical History Wears glasses History of MRSA infection Anxiety Injury of back Difficulty swallowing Gastric reflux Smoker History of edema History of echocardiogram History of stress test Sleep apnea CPAP (continuous positive airway pressure) dependence Sleep related bruxism CTS (carpal tunnel syndrome) Acute sinusitis Inclusion cyst Left shoulder pain Tinnitus, unspecified ear Ankle pain, left Home Medications ?Medication ?Instructions ?Recorded ?Last Taken ?Type buspirone 7.5 mg tablet 7.5 mg PO TID 05/05/2505/14 23:55 History omeprazole 40 mg capsule,delayed 40 mg PO QDAY 5 05/14/25 07:00 History release multivitamin 1 tab PO QDAY 05/12/25 Unkno wn History peg 3350-sod sulf,[id number] See Rx Instructions PO .COMPLEX #2 05/12/25 Unknown Rx 178.7-7.3-0.5-1.12-0.9 gram oral mL soln (Suflave) Allergy/AdvReac Type Severity Reaction Status Date / Time Sulfa (Sulfonamide Allergy Hives Verified 05/15/25 08:30 Antibiotics) Family History Mother Diabetes CAD (coronary artery disease) Hypertension Anxiety Depression Father Cancer inoperable brain tumor Surgical History Hx of tonsillectomy History of appendectomy Social History household members: spouse Smoking Status: Current every day smoker tobacco type: e-cigarettes alcohol intake: former substance use type: former substance user Date of last use: 03/2018, marijuana and crack/cocaine frequency: 3-4 times per week ROS Constitutional Constitutional: Denies fatigue, fever(s), poor appetite, weight gain or weight loss Gastrointestinal Gastrointestinal: Denies belching, bloating, change in bowel habits, change in stool character, chewing difficulty, coffee ground emesis, constipation, cramping, diarrhea, dyspepsia, dysphagia, early satiety, excessive flatus, fecal incontinence, heartburn, hematemesis, hematochezia, hemorrhoids, loose stools, melena, nausea, odynophagia, rectal bleeding, tenesmus, vomiting or weight changes Vital Signs Vital Signs Vital Signs: 05/15/25 08:31 05/15/25 08:33 Temperature 96.8 F L Temperature Source Temporal Pulse Rate 68 Respiratory Rate 16 Respiratory Pattern Normal Blood Pressure 126/65 H Blood Pressure Mean 85 Blood Pressure Source Monitor Blood Pressure Position Supine Blood Pressure Location Left Arm Pulse Ox 100 Oxygen Delivery Method Room Air Weight Weight: 312 lb Body Mass Index (BMI) 48.9 Physical Exam Const alert, oriented x3, no apparent distress and healthy appearing General Appearance: cooperative GI normal to inspection, nondistended, normoactive bowel sounds, soft to palpation, non-tender and non-distended Percussion: normal to percussion Rectal Exam: deferred Assessment & Plan Assessment/Plan (1) Weight loss: (2) Encounter for screening colonoscopy: (3) Dysphagia: (4) Vitamin deficiency: PLAN: Assessment and Plan Assessment and Plan (1) Dysphagia: Status: Acute (2) Weight loss: Status: Acute (3) Encounter for screening colonoscopy: Status: Acute Medications: New peg 3350-sod sulf,[id number] 178.7-7.3-0.5 gram (Suflave) Take as directed for split dose bowel prep 2 mL 0RF Plan 49y/o male presents for consultation with complaints of dysphagia x8 weeks. Reports he has always had trouble swallowing pills, but the past 8 weeks he has had difficulty with solid foods (dry foods). Esophagram was unremarkable 04/09/2025, although unable to swallow tablet. He denies any heartburn, N/V. He did start Omeprazole 40mg daily one month ago and denies any improvement in dysphagia. He vapes but denies any alcohol intake. He reports a weight loss of 25lbs in the past 6 weeks. He denies any abdominal pain or change in bowel habits. He denies any prior colon cancer screening. Patient Instructions: EGD now Colonoscopy next available - SuFlave
--- NOTE | 2025-05-15 09:23 | PCM.PRE.AN2 ---
ASA Classification* ASA Classification ASA Classification: 3 (KESHA) Assessment & Plan Anesthesia* Anesthesia Assessment Anesthesia Assessment: Discussed sedation and/or anesthesia options, risks, benefits, and alternatives with patient/parents/legal guardian/POA. Questions invited. The patient/parents/legal guardian/POA seems to understand and agrees to proceed with anesthesia plan. Reviewed the physical assessment, medical history, allergy history and patient home medications list prior to surgery/procedure/anesthetic and documented any changes. Performed airway and anesthesia risk assessments. Anesthesia Type Anesthesia Type: MAC History Source History Obtained from:: Patient and Chart Anesthesia Focused Assessment* Temperature: 96.8 F Pulse Rate: 68 Blood Pressure: 126/65 Respiratory Rate: 16 Pulse Ox: 100 Oxygen Delivery Method: Room Air Airway Assessment Mouth opens: >3 cm Mallampati Score: III Teeth Condition: Chipped/Broken Neck Range of motion (ROM): Full ROM Labs Anesthesia Preop lab: CBC WBC 7.8 K/mm3 (4.4-11.0) 04/02/25 07:17 04/02/25 RBC 5.29 M/mm3 (4.6-6.2) 04/02/25 07:17 04/02/25 Hgb 14.0 g/dL (13.0-16.5) 04/02/25 07:17 04/02/25 Hct 45.5 % (40-54) 04/02/25 07:17 04/02/25 Plt Count 252 K/mm3 (150-450) 04/02/25 07:17 04/02/25 CHEMISTRY Potassium 4.5 mmol/L (3.3-5.1) 04/02/25 07:17 04/02/25 Sodium 140 mmol/L (133-145) 04/02/25 07:17 04/02/25 BUN 11 mg/dL (4-19) 04/02/25 07:17 04/02/25 Creatinine 0.84 mg/dL (0.70-1.20) 04/02/25 07:17 04/02/25 Glucose 99 mg/dL (70-99) 04/02/25 07:17 04/02/25 POC Glucose 99 mg/dL (70-110) 10/18/19 11:43 10/18/19 TSH 1.160 uIU/mL (0.300-4.200) 02/19/25 08:48 02/19/25 COAG Pre-Assessment Diagnosis/Proposed Procedure Planned Operative Procedure(s): EGD Anesthesia History Anesthesia History - family and consumer science professor: Anesthesia History - family and consumer science professor Hx Hospitalization No 05/14/25 09:03 Any Problems With Anesthesia No 05/14/25 09:03 Cholinesterase deficiency No 05/14/25 09:03 You/Your Family Experience No 05/14/25 09:03 fever (hyperthermia) with Relationship Recent Exposure to Contagious No 05/15/25 08:31 Disease Does patient have nerve No 05/14/25 09:03 stimulator Patient instructed to have device shut off --Does patient have Pacemaker No 05/15/25 08:33 or ICD? When Was Last Pacemaker Check QUESTION #4 FULL TEXT: You/Your Family Experience fever (hyperthermia) with Anesthesia Last Oral Intake Last Oral intake: Last Oral Intake NPO since 04:00 05/15/25 08:33 Meds taken in AM with sips of water? Meds patient instructed to take am of surgery PONV PONV - family and consumer science professor: PONV - family and consumer science professor Female No 05/14/25 09:03 HX of Motion Sickness Yes 05/14/25 09:03 HX of N/V After Surgery No 05/14/25 09:03 Non-Smoker No 05/14/25 09:03 Duration of Surgery greater No 05/14/25 09:03 than 60 minutes Number of Risk Factors 1 05/14/25 09:03 PONV Score Low Risk 05/14/25 09:03 Height & Weight Height & Weight: Anesthesia: Height & Weight Height 5 ft 7 in 05/15/25 08:33 Weight: 141.521 kg 05/15/25 08:33 Body Mass Index (BMI) 48.9 05/15/25 08:33 Respiratory Assessment Respiratory Assessment - family and consumer science professor: Respiratory Tract Infection Hx - family and consumer science professor Hx Respiratory Tract Infection No 05/14/25 09:03 STOP Sleep Apnea STOP Sleep Apnea - family and consumer science professor: STOP Sleep Apnea - family and consumer science professor Hx Hypertension No 05/14/25 09:03 Hx Sleep Apnea Yes 05/14/25 09:03 CPAP Yes 05/14/25 09:03 BIPAP No 05/14/25 09:03 Do you snore loudly (louder than talking or can be heard Do you often feel tired/ fatigued/ sleepy during daytime? Has anyone observed you stop breathing during sleep? STOP Results Positive 05/14/25 09:03 QUESTION #5 FULL TEXT : Do you snore loudly (louder than talking or can be heard through closed doors)? Tobacco Use History Tobacco Use History - family and consumer science professor: Tobacco Use History - family and consumer science professor Tobacco Use Smoking Status Current every day smoker 05/14/25 09:03 Hx Tobacco Use Yes 05/14/25 09:03 Years Smoking Packs Smoked per Day Smoking Cessation Date was within the last 15 years Hx Smoking Cessation Date Hx Smoking Cessation Counseling Hematologic Medial History Hematologic Hx - family and consumer science professor: Hematologic Medical Hx - regional sales engineer Hx of Blood Transfusion No 05/14/25 09:03 Hx of Transfusion in last 3 No 05/14/25 09:03 Months Date of Last Transfusion (if within last 3 months) Ever experience any problems No 05/14/25 09:03 with transfusion(s)? Specify any problems Hx of Preganancy in last 3 N/A 05/14/25 09:03 Months Nurse Filling Out Transfusion MGRIANDIE 05/14/25 09:03 & Questions: Date: 05/14/25 05/14/25 09:03 Time: 09:04 05/14/25 09:03 Patient unable to answer at this time (ie. confused, unrespo /Reproduction History /Reproductive History - family and consumer science professor: /Reproductive Hx- family and consumer science professor Hx Now No 05/14/25 09:03 Gestational Age (in weeks): EDC: Hx Hx Para Hx Section SAB No 05/14/25 09:03 Active Medications Active Medications: Current Medications Generic Name Dose Route Start Last Admin Trade Name Freq PRN Reason Stop Dose Admin Lactated Ringer's 1,000 mls @ 15 mls/hr 05/15/25 08:30 05/15/25 08:35 IV 15 mls/hr .Q48H ALANA Administration PFSH Medical History (Updated 05/14/25 @ 09:12 by Pia Almodovar) Wears glasses History of MRSA infection Anxiety Injury of back Difficulty swallowing Gastric reflux Smoker History of edema History of echocardiogram History of stress test Sleep apnea CPAP (continuous positive airway pressure) dependence Sleep related bruxism CTS (carpal tunnel syndrome) Acute sinusitis Inclusion cyst Left shoulder pain Tinnitus, unspecified ear Ankle pain, left Home Medications ?Medication ?Instructions ?Recorded ?Last Taken ?Type buspirone 7.5 mg tablet 7.5 mg PO TID 05/05/25 05/14/25 23:55 History omeprazole 40 mg capsule,delayed 40 mg PO QDAY 05/05/25 05/14/25 07:00 History release multivitamin 1 tab PO QDAY 05/12/25 Unknown History peg 3350-sod sulf,[id number] See Rx Instructions PO .COMPLEX #2 05/12/25 Unknown Rx 178.7-7.3-0.5-1.12-0.9 gram oral mL soln (Suflave) Allergy/AdvReac Type Severity Reaction Status Date / Time Sulfa (Sulfonamide Allergy Hives Verified 05/15/25 08:30 Antibiotics) Family History Mother Diabetes CAD (coronary artery disease) Hypertension Anxiety Depression Father Cancer inoperable brain tumor Surgical History Hx of tonsillectomy History of appendectomy Social History household members: spouse Smoking Status: Current every day smoker tobacco type: e-cigarettes alcohol intake: former substance use type: former substance user Date of last use: 03/2018, marijuana and crack/cocaine frequency: 3-4 times per week Review of Systems (Anesthesia) ROS Narrative System reviewed and no additional complaints, except as documented.
[2025-05-15] MEDS: Lidocaine 1% (5 ml sdv) 5 ML Vial 10 ML IV (09:28)
[2025-05-15] MEDS: fentaNYL 100 MCG/2 ML Ampul IV (09:28)
--- NOTE | 2025-05-15 09:30 | EGD_PTH ---
PATIENT: ZENA SQUIRES LOC: EN U#:[id number] AGE/SX: 49/M ROOM: RE05/15/[address]: Dr. Kota Kan DO : 1975 BED: DIS: 05/15/2025 SPEC #: [id number] RECD: 05/15/25 11:35 STATUS: YAMILA REJohn #: [id number] MILES: 05/15/25 09:[address]: Kota Kan DEPT: SURGICAL PATHOLOGY RECD BY: Willian Gonzalez ENTERED: 05/15/25 14:49 SP TYPE: EGD BIOPSY TERESA DR: Dr. Víctor Morgan MD Tissues: A - Esophagus, NOS B - Esophagus, NOS Procedures: Surgery Specimen Level IV HEADER OPERATION: EGD with biopsy and dilated PRE-OP DIAGNOSIS: Weight loss, encounter for screening colonoscopy, dysphagia, vitamin deficiency TISSUE SUBMITTED: A- Distal esophagus biopsy, B- Proximal esophagus biopsy MICROSCOPIC DIAGNOSIS A. Distal esophagus, biopsy: * Benign squamous epithelium * Cardiac type mucosa with mild chronic inflammation and goblet cells, negative for dysplasia B. Proximal esophagus, biopsy: * Benign squamous epithelium * Oxyntocardiac type mucosa with mild chronic inflammation, negative for goblet cells MICROSCOPIC DESCRIPTION Slides are reviewed. GROSS DESCRIPTION A. Received in fixative is one container labeled with the patient's name and designated Distal esophagus biopsy. The specimen consists of two irregular fragments of light castaneda soft tissue that measure 0.3 to 0.6 cm. The specimen is totally submitted in one cassette. B. Received in fixative is one container labeled with the patient's name and designated Proximal esophagus biopsy. The specimen consists of one irregular fragment of light castaneda soft tissue that measures 0.3 cm. The specimen is totally submitted in one cassette. LA 05/15/2025 CPT:87400x6 ADDENDUM ADDENDUM ADDENDUM ADDENDUM ADDENDUM ADDENDUM ADDENDUM ADDENDUM ADDENDUM ADDENDUM ADDENDUM 06/26/2025 09:38 ADDENDUM 06/26/2025 09:38 ADDENDUM 06/26/2025 09:38 ADDENDUM 06/26/2025 09:38 ADDENDUM 06/26/2025 09:38 This addendum is added to incorporate an outside pathology consultation report. [employer] - TISSUE CYPHER REPORT - BLOCK A1: Risk Class: LOW Risk Score: 3.5 5-year probability of progression: 2% Please see complete above mentioned consultation report in EMR
--- NOTE | 2025-05-15 09:44 | PCM.POST.ANE ---
Anesthesia: Postop Eval I Current Vital Signs Temperature: 97 F Pulse Rate: 77 Blood Pressure: 116/66 Respiratory Rate: 18 Pulse Ox: 100 Oxygen Delivery Method: Room Air Assessment Airway patent: Yes Spontaneous unlabored respirations: Yes Mental status: Awake and Calm nausea: No Vomiting: No Anesthesia Complication: No Fluid Hydration Crystalloid volume administer (ml): 100 Total IV fluid infused: 100 Progress Note Anesthesia document: Postop Eval 1 completed: Yes
--- NOTE | 2025-05-15 09:48 | POSTOPAN2_ITS ---
Anesthesia Postop Eval I Sum Postop Eval Completion status Anesthesia document: Postop Eval 1 completed: Yes Anesthesia Postop Eval I Summary Anesthesia Postop Eval I Summary: Anesthesia Postop Eval I: Assessment Summary Airway patent Yes 05/15/25 09:45 DIRECTOR PHARMACEUTICAL.MDOT Spontaneous unlabored Yes 05/15/25 09:45 DIRECTOR PHARMACEUTICAL.MDOT respirations Mental status Awake,Calm 05/15/25 09:45 DIRECTOR PHARMACEUTICAL.MDOT nausea No 05/15/25 09:45 DIRECTOR PHARMACEUTICAL.MDOT Vomiting No 05/15/25 09:45 DIRECTOR PHARMACEUTICAL.MDOT Anesthesia Postop Eval I: Fluid Summary Crystalloid volume administer 100 05/15/25 09:45 DIRECTOR PHARMACEUTICAL.MDOT (ml) Colloids volume administered ( ml) Blood Product volume administered (ml) Total IV fluid infused 100 05/15/25 09:45 DIRECTOR PHARMACEUTICAL.MDOT Anesthesia Postop Eval I: Summary Notes Anesthesia Complication No 05/15/25 09:45 DIRECTOR PHARMACEUTICAL.MDOT Anesthesia Complication Comment: Post-operative progress note Anesthesia: Postop Eval II Evaluation Mental status: Awake and Calm Pain Level: 0 nausea: No Vomiting: No Complications Anesthesia Complication: No
--- NOTE | 2025-05-15 09:48 | PCM.POSTANE2 ---
Anesthesia Postop Eval I Sum Postop Eval Completion status Anesthesia document: Postop Eval 1 completed: Yes Anesthesia Postop Eval I Summary Anesthesia Postop Eval I Summary: Anesthesia Postop Eval I: Assessment Summary Airway patent Yes 05/15/25 09:45 CHILD CARE NURSE.MDOT Spontaneous unlabored Yes 05/15/25 09:45 CHILD CARE NURSE.MDOT respirations Mental status Awake,Calm 05/15/25 09:45 CHILD CARE NURSE.MDOT nausea No 05/15/25 09:45 CHILD CARE NURSE.MDOT Vomiting No 05/15/25 09:45 CHILD CARE NURSE.MDOT Anesthesia Postop Eval I: Fluid Summary Crystalloid volume administer 100 05/15/25 09:45 CHILD CARE NURSE.MDOT (ml) Colloids volume administered ( ml) Blood Product volume administered (ml) Total IV fluid infused 100 05/15/25 09:45 CHILD CARE NURSE.MDOT Anesthesia Postop Eval I: Summary Notes Anesthesia Complication No 05/15/25 09:45 CHILD CARE NURSE.MDOT Anesthesia Complication Comment: Post-operative progress note Anesthesia: Postop Eval II Evaluation Mental status: Awake and Calm Pain Level: 0 nausea: No Vomiting: No Complications Anesthesia Complication: No
--- NOTE | 2025-05-15 09:49 | OP.EGD_ITS ---
Patient Name: Rudy Bennett Procedure Date: 05/15/2025 9:24 AM Date of : 1975 Age: 49 Procedure: Upper GI endoscopy Indications: Dysphagia Providers: DO Ned Adams MD: Víctor Morgan Medicines: Monitored Anesthesia Care Patient Profile: This is a 49 year old male. Refer to note in patient chart for documentation of history and physical. Patient has symptoms of dysphagia with solids. Complications: No immediate complications. Procedure: Pre-Anesthesia Assessment: - Prior to the procedure, a History and Physical was performed, and patient medications and allergies were reviewed. The patient is competent. The risks and benefits of the procedure and the sedation options and risks were discussed with the patient. All questions were answered and informed consent was obtained. Patient identification and proposed procedure were verified by the physician in the pre-procedure area. Mental Status Examination: alert and oriented. Airway Examination: normal oropharyngeal airway and neck mobility. Respiratory Examination: clear to auscultation. CV Examination: normal. Prophylactic Antibiotics: The patient does not require prophylactic antibiotics. Prior Anticoagulants: The patient has taken no anticoagulant or antiplatelet agents except for NSAID medication. ASA Grade Assessment: II - A patient with mild systemic disease. After reviewing the risks and benefits, the patient was deemed in satisfactory condition to undergo the procedure. The anesthesia plan was to use monitored anesthesia care (MAC). Immediately prior to administration of medications, the patient was re-assessed for adequacy to receive sedatives. The heart rate, respiratory rate, oxygen saturations, blood pressure, adequacy of pulmonary ventilation, and response to care were monitored throughout the procedure. The physical status of the patient was re-assessed after the procedure. After obtaining informed consent, the endoscope was passed under direct vision. Throughout the procedure, the patient's blood pressure, pulse, and oxygen saturations were monitored continuously. The gastroscope was introduced through the mouth, and advanced to the third part of the duodenum. Small bowel enteroscopy was deemed necessary. The upper GI endoscopy was accomplished without difficulty. The patient tolerated the procedure well. Scope In: 9:35:19 AM Scope Out: 9:42:38 AM Total Procedure Duration Time 0 hours 7 minutes 19 seconds Findings: A single area of ectopic gastric mucosa was found in the upper third of the esophagus, 22 cm from the incisors. Biopsies were taken with a cold forceps for histology. Verification of patient identification for the specimen was done. Estimated blood loss was minimal. One benign-appearing, intrinsic moderate stenosis was found 18 to 21 cm from the incisors. This stenosis measured 5 cm (in length). The stenosis was traversed. A guidewire was placed and the scope was withdrawn. Dilation was performed with a Savary dilator with no resistance at 54 Fr. The dilation site was examined and showed moderate improvement in luminal narrowing. Estimated blood loss was minimal. Abnormal motility was noted in the upper third of the esophagus. The cricopharyngeus was abnormal. There are extra peristaltic waves in the esophageal body. The distal esophagus/lower esophageal sphincter is spastic, but gives up passage to the endoscope. Tertiary peristaltic waves are noted. The Z-line was irregular and was found 39 cm from the incisors. Biopsies were taken with a cold forceps for histology. Verification of patient identification for the specimen was done. Estimated blood loss was minimal. No gross lesions were noted in the entire examined stomach. No gross lesions were noted in the entire examined duodenum. Impression: - Ectopic gastric mucosa in the upper third of the esophagus. Biopsied. - Benign-appearing esophageal stenosis. Dilated. - Abnormal esophageal motility. - Z-line irregular, 39 cm from the incisors. Biopsied. - No gross lesions in the entire stomach. - No gross lesions in the entire examined duodenum. Recommendation: - Discharge patient to home. - Resume previous diet. - Continue present medications. - Await pathology results. Procedure Code(s): --- Professional --- 57838, Esophagogastroduodenoscopy, flexible, transoral; with insertion of guide wire followed by passage of dilator(s) through esophagus over guide wire 98548, 59,51, Small intestinal endoscopy, enteroscopy beyond second portion of duodenum, not including ileum; with biopsy, single or multiple CPT copyright 2021 [employer]. All rights reserved. The codes documented in this report are preliminary and upon medical instrument cable fabricator review may be revised to meet current compliance requirements. Kota Kan DO 05/15/2025 9:49:04 AM This report has been signed electronically. Number of Addenda: 0 Note Initiated On: 05/15/2025 9:24 AM
--- NOTE | 2025-05-15 09:49 | OP.PROVAT_ITS ---
05/15/2025 Víctor Morgan [address] [place] [address] Re : Upper GI endoscopy procedure for Rudy Bennett Dear Dr. Morgan This procedure was performed on April. My impressions and recommendations are as follows: Impressions : - Ectopic gastric mucosa in the upper third of the esophagus. Biopsied. - Benign-appearing esophageal stenosis. Dilated. - Abnormal esophageal motility. - Z-line irregular, 39 cm from the incisors. Biopsied. - No gross lesions in the entire stomach. - No gross lesions in the entire examined duodenum. Recommendations : - Discharge patient to home. - Resume previous diet. - Continue present medications. - Await pathology results. My findings are described in the full procedure note, which is enclosed. If I can be of further assistance, please feel free to contact me at . Sincerely, Kota Kan, 05/15/2025 9:49:04 AM This report has been signed electronically.
--- NOTE | 2025-05-15 10:17 | POSTOPAN2_ITS ---
Anesthesia Postop Eval I Sum Postop Eval Completion status Anesthesia document: Postop Eval 1 completed: Yes Anesthesia Postop Eval I Summary Anesthesia Postop Eval I Summary: Anesthesia Postop Eval I: Assessment Summary Airway patent Yes 05/15/25 09:45 CIVIL STRUCTURAL DESIGNER.MDOT Spontaneous unlabored Yes 05/15/25 09:45 CIVIL STRUCTURAL DESIGNER.MDOT respirations Mental status Awake,Calm 05/15/25 09:49 CIVIL STRUCTURAL DESIGNER.MDOT nausea No 05/15/25 09:49 CIVIL STRUCTURAL DESIGNER.MDOT Vomiting No 05/15/25 09:49 CIVIL STRUCTURAL DESIGNER.MDOT Anesthesia Postop Eval I: Fluid Summary Crystalloid volume administer 100 05/15/25 09:45 CIVIL STRUCTURAL DESIGNER.MDOT (ml) Colloids volume administered ( ml) Blood Product volume administered (ml) Total IV fluid infused 100 05/15/25 09:45 CIVIL STRUCTURAL DESIGNER.MDOT Anesthesia Postop Eval I: Summary Notes Anesthesia Complication No 05/15/25 09:49 CIVIL STRUCTURAL DESIGNER.MDOT Anesthesia Complication Comment: Post-operative progress note Anesthesia: Postop Eval II Evaluation Mental status: Awake Pain Level: 0 nausea: No Vomiting: No Complications Anesthesia Complication: No
--- NOTE | 2025-05-15 10:17 | PCM.POSTANE2 ---
Anesthesia Postop Eval I Sum Postop Eval Completion status Anesthesia document: Postop Eval 1 completed: Yes Anesthesia Postop Eval I Summary Anesthesia Postop Eval I Summary: Anesthesia Postop Eval I: Assessment Summary Airway patent Yes 05/15/25 09:45 MICROSTRATEGY DEVELOPER.MDOT Spontaneous unlabored Yes 05/15/25 09:45 MICROSTRATEGY DEVELOPER.MDOT respirations Mental status Awake,Calm 05/15/25 09:49 MICROSTRATEGY DEVELOPER.MDOT nausea No 05/15/25 09:49 MICROSTRATEGY DEVELOPER.MDOT Vomiting No 05/15/25 09:49 MICROSTRATEGY DEVELOPER.MDOT Anesthesia Postop Eval I: Fluid Summary Crystalloid volume administer 100 05/15/25 09:45 MICROSTRATEGY DEVELOPER.MDOT (ml) Colloids volume administered ( ml) Blood Product volume administered (ml) Total IV fluid infused 100 05/15/25 09:45 MICROSTRATEGY DEVELOPER.MDOT Anesthesia Postop Eval I: Summary Notes Anesthesia Complication No 05/15/25 09:49 MICROSTRATEGY DEVELOPER.MDOT Anesthesia Complication Comment: Post-operative progress note Anesthesia: Postop Eval II Evaluation Mental status: Awake Pain Level: 0 nausea: No Vomiting: No Complications Anesthesia Complication: No
== END 2025-05-15 10:25 | disposition home or self-care (01) ==
LOC: EN 08:17 → AC 08:20
PROVIDERS: PCP Family Medicine; Referring Provider Family Medicine; Visit Provider Internal Medicine Gastroenterology
PROC: 0DJ08ZZ Inspection of Upper Intestinal Tract, Via Natural or Artificial Opening Endoscopic (ICD-10-PCS; CPT 43235; principal; 2025-05-15 09:25)
DX: K21.00 Gastro-esophageal reflux disease with esophagitis, without bleeding (principal); K22.2 Esophageal obstruction; K22.4 Dyskinesia of esophagus; R63.4 Abnormal weight loss; F41.9 Anxiety disorder, unspecified; G47.30 Sleep apnea, unspecified; Z79.899 Other long term (current) drug therapy; F17.290 Nicotine dependence, other tobacco product, uncomplicated
CPT/HCPCS: 44361; 88305; C1769

== ENCOUNTER → 2025-05-30 | Outpatient (CLI) | payer OTHER, SELFPAY ==
--- NOTE | 2025-05-30 14:32 | RAD_ITS ---
PROCEDURE: WRIST MIN 3 VIEWS 05/30/2025 REASON FOR EXAM: PAIN, EXTENSION INJURY TECHNIQUE: Procedure Code: RADWR Modality: DX Procedure: WRIST MIN 3 VIEWS Laterality: FINDINGS: No evidence of acute fracture or dislocation. Normal carpal alignment. RAD/Wrist min 3 Views IMPRESSION: No acute osseous abnormalities. Reading Location: [id number]
== END | disposition home or self-care (01) ==
LOC: MTRAD 14:32
PROVIDERS: PCP Family Medicine; Referring Provider Family Medicine; Visit Provider Family Medicine
DX: S69.82XA Other specified injuries of left wrist, hand and finger(s), initial encounter (principal); X58.XXXA Exposure to other specified factors, initial encounter
CPT/HCPCS: 73110

== ENCOUNTER 2025-06-19 05:20 | Day surgery (SDC) | payer OTHER, SELFPAY ==
--- NOTE | 2025-06-16 13:16 | PAT.ANE_ITS ---
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 When Was Last Pacemaker Check QUESTION #4 FULL TEXT: You/Your Family Experience fever (hyperthermia) with Anesthesia Last Oral Intake Last Oral intake: Last Oral Intake NPO since Meds taken in AM with sips of water? Meds patient instructed to take am of surgery PONV PONV - livestock inspector: PONV - livestock inspector Female No 06/16/25 13:05 HX of Motion Sickness Yes 06/16/25 13:05 HX of N/V After Surgery No 06/16/25 13:05 Non-Smoker No 06/16/25 13:05 Duration of Surgery greater No 06/16/25 13:05 than 60 minutes Number of Risk Factors 1 06/16/25 13:05 PONV Score Low Risk 06/16/25 13:05 Height & Weight Height & Weight: Anesthesia: Height & Weight Height 5 ft 7 in 05/15/25 08:33 Respiratory Assessment Respiratory Assessment - livestock inspector: Respiratory Tract Infection Hx - livestock inspector Hx Respiratory Tract Infection No 06/16/25 13:05 STOP Sleep Apnea STOP Sleep Apnea - livestock inspector: STOP Sleep Apnea - livestock inspector Hx Hypertension No 06/16/25 13:05 Hx Sleep Apnea Yes 06/16/25 13:05 CPAP Yes 06/16/25 13:05 BIPAP No 06/16/25 13:05 Do you snore loudly (louder than talking or can be heard Do you often feel tired/ fatigued/ sleepy during daytime? Has anyone observed you stop breathing during sleep? STOP Results Positive 06/16/25 13:05 QUESTION #5 FULL TEXT : Do you snore loudly (louder than talking or can be heard through closed doors)? 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 Specify any problems Hx of Preganancy in last 3 N/A 06/16/25 13:05 Months Nurse Filling Out Transfusion MGRIFFITH 06/16/25 13:05 & Questions: Date: 06/16/25 06/16/25 13:05 Time: 13:07 06/16/25 13:05 Patient unable to answer at this time (ie. confused, unrespo /Reproduction History /Reproductive History - livestock inspector: /Reproductive Hx- livestock inspector Hx Now No 06/16/25 13:05 Gestational Age (in weeks): EDC: Hx Hx Para Hx Section SAB No 06/16/25 13:05 [facility] Medical History (Updated 06/09/25 @ 08:53 by Ca Menchaca, [employer]) Wears glasses History of MRSA infection Anxiety Injury of back Difficulty swallowing Gastric reflux Smoker History of edema History of echocardiogram History of stress test Sleep apnea CPAP (continuous positive airway pressure) dependence Sleep related bruxism CTS (carpal tunnel syndrome) Acute sinusitis Inclusion cyst Left shoulder pain Tinnitus, unspecified ear Ankle pain, left Home Medications ?Medication ?Instructions ?Recorded ?Last Taken ?Type buspirone 7.5 mg tablet 7.5 mg PO TID 05/05/2505/14 23:55 History multivitamin 1 tab PO QDAY 05/12/25 Unkno wn History omeprazole 40 mg capsule,delayed 40 mg PO BID #180 cap s 06/09/25 Unknown Rx release Allergy/AdvReac Type Severity Reaction Status Date / Time Sulfa (Sulfonamide Allergy Hives Verified 06/16/25 13:03 Antibiotics) Family History Mother Diabetes CAD (coronary artery disease) Hypertension Anxiety Depression Father Cancer inoperable brain tumor Surgical History (Updated 06/16/25 @ 13:05 by Pia Almodovar) History of esophagogastroduodenoscopy (EGD) Hx of tonsillectomy History of appendectomy Social History household members: spouse Smoking Status: Current every day smoker tobacco type: e-cigarettes alcohol intake: former substance use type: former substance user Date of last use: 03/2018, marijuana and crack/cocaine frequency: 3-4 times per week Audit: Pertinent Findings Pertinent Findings EKG Perinent findings: 05/25/2018. Normal sinus rhythm 100 bpm. Left axis deviation. Possible inferior infarct, age undetermined. Stress test pertinent findings: Negative EF 61%. 02/05/2023. Echo (EF%) pertinent findings: 02/03/2023. EF 60 to 65%. Pulmonary function results/spirometer pertinent findings: 01/17/2023. Pulmonary function test within normal limits. Recommendation Anesthesia Recommendation Anesthesia recommendation: OPTIMIZED for anesthesia
[2025-06-19] VITALS (8 sets, daily range): BP systolic 91–129; BP diastolic 66–75; PULSE 67–80; RESP 16–20; TEMP 36.3–36.5; O2SAT 95–100; BMI 48.1
--- OUTSIDE RECORDS SUMMARY | 2025-06-19 05:23 | XMS RPT_ITS | CCD ---
Author Organization 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 Shahzad Bright Primary Care Provider [phone] Dr. Shahzad Bright Referring Provider Dr. Shahzad Bright Other Provider [phone] Zeyad Diaz Attending Provider Dr. Suellen De Santiago Attending Provider Dr. Shahzad Bright Primary Care Provider Dr. Shahzad Bright Referring Provider Dr. Shahzad Bright Other Provider Unavailable Primary Care Provider UnavailSHAHZAD Tee Referring Unavailable YARY COBURN Attending Unavailable Dr. Shahzad Bright MD Primary Care Provider Dr. Shahzad Bright MD Attending Provider Dr. Shahzad Bright MD Referring Provider Sabrina Franco Attending Provider Nikolai LANDRY-Ca Jain Attending Provider Dr. Kota Kan DO Attending Provider Dr. Kota Kan DO Other Provider Shahzad Bright Attending Unavailable Shahzad Bright Referring Unavailable Shahzad Bright Primary Care Unavailable Shahzad Bright Attending Unavailable Shahzad Bright Primary Care Unavailable Shahzad Bright Referring Unavailable Kota Kan Attending Unavailable Shahzad Bright Primary Care Unavailable Schinner, Shahzad E Referring Unavailable Schinalexandru, Shahzad E Attending Unavailable Schinner, Shahzad E Primary Care Unavailable Schinner, Shahzad E Referring Unavailable Schinner, Shahzad E Referring Unavailable Sabrina Leavitt NP Attending Unavailable Schinner, Shahzad E Primary Care Unavailable Schinner, Shahzad E Referring Unavailable Schinner, Shahzad E Primary Care Unavailable Ca Menchaca Attending Unavailable Kota Kan Attending Unavailable Kota Kan Consulting Unavailable Schinner, Shahzad Redmond Primary Care Unavailable Schinner, Shahzad E Referring Unavailable Schinner, Shahzad E Primary Care Unavailable Schinner, Shahzad E Referring Unavailable Ca Menchaca Attending Unavailable Schinner, Shahzad E Primary Care Unavailable Schinner, Shahzad E Referring Unavailable Schinner, Shahzad E Attending Unavailable Schinner, Shahzad E Primary Care Unavailable Schinner, Shahzad E Attending Unavailable Schinner, Shahzad E Attending Unavailable Schinner, Shahzad E Primary Care Unavailable Schinner, Shahzad E Referring Unavailable Schinner, Shahzad E Attending Unavailable Schinner, Shahzad E Primary Care Unavailable Schinalexandru, Shahzad E Referring Unavailable SchShahzad lezama E Attending Unavailable Schinalexandru, Shahzad E Referring Unavailable Schinner, Shahzad E Primary Care Unavailable Kota Kan Attending Unavailable Schinalexandru, Shahzad E Primary Care Unavailable Schinner, Shahzad E Referring Unavailable Allergies Allergy Classification Reported Allergen(s) Allergy Type Date of Onset Reaction(s) Facility Sulfonamides (antibiotic) (1 source) sulfADIAZINE Drug Allergy 4 [facility] (18 sources) Sulfonamides (Antibiotic); Translations: [Sulfa (Sulfonamide Antibiotics)] Allergy to substance 2 [facility] (1 source) sulfADIAZINE; Translations: [SULFADIAZINE] Drug Allergy 4 [facility] Repository Medications Current Medications Medication Drug Class(es) Dates Sig (Normalized) Sig (Original) busPIRone hydrochloride 7.5 mg oral tablet (13 sources) Start: 05-05-2025 take 1 tablet by mouth three times daily Buspirone 7.5 mg tablet Active 7.5 mg PO THREE TIMES A DAY May 05, 2025 1:44pm Start: 12-14-2023 End: 05-05-2025 take 1 tablet by mouth twice daily Buspirone 7.5 mg tablet Discontinued 7.5 mg PO TWICE A DAY December 14, 2023 12:00am May 05, 2025 1:46pm multivit-min/folic/vit K/lycop (MEN'S MULTIVITAMIN ORAL) (1 source) take 1 tablet by mouth once daily multivit-min/folic/vit K/lycop (MEN'S MULTIVITAMIN ORAL) Take 1 tablet by mouth once daily. 0 Active Multivitamin tablet (4 sources) Start : 05-12 Multivitamin tablet Active 1 {tbl} PO daily May 12, 2025 12:00am omega-3 fatty acids 1,000 mg cap (1 source) take 1 capsule by mouth three times daily omega-3 fatty acids 1,000 mg cap Take 1 capsule by mouth three times a day. 0 Active omeprazole 40 mg delayed release oral capsule (20 sources) Proton Pump Inhibitor Start : 05-27 End: 06-09 take 1 capsule by mouth twice daily Omeprazole 40 mg capsule,delayed release(DR/EC) Active 40 mg PO TWICE A DAY 180 1 June 09, 2025 8:47am Start: 05-05-2025 End: 05-27-2025 take 1 capsule by mouth once daily Omeprazole 40 mg capsule,delayed release(DR/EC) Discontinued 40 mg PO daily May 05, 2025 12:00am May 27, 2025 8:36pm Start: 10-18-2019 End: 12-14-2023 take 1 tablet by mouth once daily Omeprazole 20 MG tablet,delayed release (DR/EC) Discontinued 20 mg PO DAILY October 18, 2019 1:00am December 14, 2023 2:44pm Completed/Discontinued Medications Medication Drug Class(es) Dates Sig (Normalized) Sig (Original) [id number] 200 actuat albuterol 0.09 mg/actuat metered dose inhaler (8 sources) beta2-Adrenergi c Agonist Start: 03-07-2024 End: 05-05-2025 Albuterol Sulfate 90 mcg/actuation HFA aerosol inhaler Discontinued INHALATION March 07, 2024 12:00am May 05, 2025 1:46pm cholecalciferol 0.05 mg oral capsule (13 sources) Vitamin D Start: 05-05-2025 End: 05-12-2025 take 2 capsules by mouth twice daily in the morning, then take 1 capsule by mouth at lunch Cholecalciferol (Vitamin D3) 50 mcg (2,000 unit) capsule Discontinued 150 ug PO TWICE A DAY May 05, 2025 1:45pm May 12, 2025 8:28am 2 caps in am and 1 cap at lunch Start: 12-14-2023 End: 05-05-2025 take 2 capsules by mouth twice daily in the morning, then take 1 capsule by mouth at lunch Cholecalciferol (Vitamin D3) 50 mcg (2,000 unit) capsule Discontinued 50 ug PO TWICE A DAY December 14, 2023 12:00am May 05, 2025 1:46pm 2 caps in am and 1 cap at lunch take 4 capsules by m out twice daily Cholecalciferol, Vitamin D3, (VITAMIN D-3) 50 mcg (2,000 unit) cap Take 4 capsules by mouth two times a day. 0 Active Wnsvyplo-Mcz-Zqucy-Vit K-Lyc op (One-A-Day Men's Multivitamin) 400-20-300 mcg tablet (8 sources) Start: 12-14-2023 End: 05-12-2025 Dumivwfl-Pwv-Cmezv-Vit K-Lyc op (One-A-Day Men's Multivitamin) 400-20-300 mcg tablet Discontinued {tbl} PO December 14, 2023 12:00am May 12, 2025 8:28am Start: 12-14-2023 Ywiwaljl-Pee-H olic-Vit K-Lycop (One-A-Day Men's Multivitamin) 400-20-300 mcg tablet Active {tbl} PO December 14, 2023 12:00am [place]-3 Fatty Acids 1,000 mg capsule (8 sources) Start: 12-14-2023 End: 05-12-2025 take 1 capsule by mouth three times daily [place]-3 Fatty Acids 1,000 mg capsule Discontinued 1000 mg PO THREE TIMES A DAY December 14, 2023 12:00am May 12, 2025 8:28am Start: 12-14-2023 take 1 capsule by [facility] three times daily [place]-3 Fatty Acids 1,000 mg capsule Active 1000 mg PO THREE TIMES A DAY December 14, 2023 12:00am Peg 3350-Sod Sulf,Chlr-Pot-M ag (Suflave) 178.7-7.3-0.5 gram recon soln (4 sources) Start: 05-12-2025 End: 05-27-2025 Peg 3350-Sod Sulf,Chlr-Pot-M ag (Suflave) 178.7-7.3-0.5 gram recon soln Discontinued 0 PO .COMPLEX 2 0 May 12, 2025 12:00am May 27, 2025 8:36pm Take as directed for split dose bowel prep Start: 05-12-2025 Peg 3350-Sod S ulf,Wxrs-Fme-Dcj (Suflave) 178.7-7.3-0.5 gram recon soln Active 0 PO .COMPLEX 2 0 May 12, 2025 12:00am Take as directed for split dose bowel prep Problems Active Problems Problem Classification Problem Date Documented Da te Episodic/Chronic Alcohol-related disorders (4 sources) Alcohol abuse; Translations: [Alcohol abuse, uncomplicated] 05-12-2025 Chronic Allergic reactions (4 sources) Allergic condition; Translations: [Allergy, unspecified, initial encounter] 05-12-2025 Episodic Anxiety disorders (8 sources) Anxiety; Translations: [Anxiety disorder, unspecified] 12-14-2023 Chronic Disorders of lipid metabolism (8 sources) Hypertriglyceridemia; Translations: [Pure hyperglyceridemia] 12-14-2023 Chronic Esophageal disorders (4 sources) Gastroesophageal reflux disease; Translations: [Gastro-esophageal reflux disease without esophagitis] 05-12-2025 Chronic Malaise and fatigue (8 sources) Physical deconditioning; Translations: [Other malaise] 12-14-2023 Episodic Miscellaneous mental health disorders (4 sources) Emotional problems; Translations: [Other symptoms and signs involving emotional state] 05-12-2025 Episodic Nutritional deficiencies (9 sources) Vitamin D deficiency; Translations: [Vitamin D deficiency, unspecified] Onset: 5 12-14-2023 Chronic Nutritional deficiencies (8 sources) Vitamin deficiency; Translations: [Vitamin deficiency, unspecified] Onset: 5 05-12-2025 Episodic Other ear and sense organ disorders (8 sources) Hearing loss; Translations: [Unspecified hearing loss, unspecified ear] 12-14-2023 Chronic Other ear and sense organ disorders (4 sources) Hearing disorder; Translations: [Unspecified hearing loss, unspecified ear] 05-12-2025 Chronic Other gastrointestinal disorders (17 sources) Dysphagia; Translations: [Dysphagia, unspecified] 03-15-2024 Episodic Other gastrointestinal disorders (3 sources) Dysphagia, unspecified; Translations: [Dysphagia, unspecified type] Onset: 4 Episodic Other gastrointestinal disorders (4 sources) Gastrointestinal tract problem; Translations: [Other specified symptoms and signs involving the digestive system and abdomen] 05-12-2025 Episodic Other gastrointestinal disorders (1 source) Dysphagia, oropharyngeal phase; Translations: [Dysphagia, oropharyngeal phase] Onset: 5 Episodic Other injuries and conditions due to external causes (1 source) Other specified injuries of left wrist, hand and finger(s), initial encounter; Translations: [Other specified injuries of left wrist, hand and finger(s), initial encounter] Onset: 5 Episodic Other lower respiratory disease (12 sources) Dyspnea on exertion; Translations: [Shortness of breath] 12-14-2023 Episodic Other lower respiratory disease (4 sources) Cough; Translations: [Cough] 05-05-2025 Episodic Other nutritional; endocrine; and metabolic disorders (14 sources) Morbid obesity; Translations: [Morbid (severe) obesity due to excess calories] 12-18-2023 Chronic Other nutritional; endocrine; and metabolic disorders (11 sources) Weight decreased; Translations: [Abnormal weight loss] 05-12-2025 Episodic Other nutritional; endocrine; and metabolic disorders (2 sources) Abnormal weight loss; Translations: [Abnormal weight loss] Onset: Episodic Other screening for suspected conditions (not mental disorders or infectious disease) (20 sources) Patient encounter status; Translations: [Encounter for screening for malignant neoplasm of colon] Onset: 4 03-15-2024 Episodic Residual codes; unclassified (14 sources) Obstructive sleep apnea syndrome; Translations: [Obstructive sleep apnea (adult) (pediatric)] 03-07-2024 Chronic Comment on above: AutoPap 5-15 cmH2O Spondylosis; intervertebral disc disorders; other back problems (4 sources) Back problem; Translations: [Dorsopathy, unspecified] 05-12-2025 Episodic Sprains and strains (4 sources) Sprain of medial collateral ligament of right knee, initial encounter; Translations: [Sprain of medial collateral ligament of right knee] 05-05-2025 Episodic Substance-related disorders (20 sources) Tobacco dependence caused by cigarettes; Translations: [Nicotine dependence, cigarettes, uncomplicated] 03-07-2024 Chronic Comment on above: Greater than 20 pack years appropriate for LDCT 2025 quit February of 2024 Varicose veins of lower extremity (8 sources) Varicose veins of lower extremity; Translations: [Asymptomatic varicose veins of unspecified lower extremity] 12-14-2023 Episodic Past or Other Problems Problem Classification Problem Date Documented Da te Episodic/Chronic Diabetes mellitus without complication (9 sources) Impaired glucose tolerance; Translations: [Impaired glucose tolerance (oral)] Onset: 11-03-2024 12-14-2023 Episodic Other non-traumatic joint disorders (1 source) Pain in right knee; Translations: [Pain in right knee] Onset: 10-20-2024 Episodic Results Test Name Value Interpretation Reference Range Facility MR/PATRita 06-16-2025 MR/PAT.[facility]CIEN [facility] Medical Records Department [address] [place] [address] PAT - Anesthesia 06/16/25 1316 MR#: [id number] Acct: [id number] Name: ZENA BENNETT Rep #: [id number] : 1975 49 From: Adam Valerio MD PCP: Dr. Shahzad Bright MD Status:PRE [facility] Y Race: C Location: EN Pre-Assessment Diagnosis/Proposed Procedure Planned Operative Procedure(s): EGD, COLONOSCOPY Anesthesia History Anesthesia History - ethnoarchaeologist: Anesthesia History - ethnoarchaeologist Hx Hospitalization No 06/16/25 13:05 Any Problems With Anesthesia No 06/16/25 13:05 Cholinesterase deficiency No 06/16/25 13:05 You/Your Family Experience No 06/16/25 13:05 fever (hyperthermia) with Relationship Recent Exposure to Contagious No 05/15/25 08:31 Disease Does patient have nerve No 06/16/25 13:05 stimulator Patient instructed to have device shut off --Does patient have Pacemaker or ICD? When Was Last Pacemaker Check QUESTION #4 FULL TEXT: You/Your Family Experience fever (hyperthermia) with Anesthesia Last Oral Intake Last Oral intake: Last Oral Intake NPO since Meds taken in AM with sips of water? Meds patient instructed to take am of surgery PONV PONV - ethnoarchaeologist: PONV - ethnoarchaeologist Female No 06/16/25 13:05 HX of Motion Sickness Yes 06/16/25 13:05 HX of N/V After Surgery No 06/16/25 13:05 Non-Smoker No 06/16/25 13:05 Duration of Surgery greater No 06/16/25 13:05 than 60 minutes Number of Risk Factors 1 06/16/25 13:05 PONV Score Low Risk 06/16/25 13:05 Height Weight Height Weight: Anesthesia: Height Weight Height 5 ft 7 in 05/15/25 08:33 Respiratory Assessment Respiratory Assessment - ethnoarchaeologist: Respiratory Tract Infection Hx - ethnoarchaeologist Hx Respiratory Tract Infection No 06/16/25 13:05 STOP Sleep Apnea STOP Sleep Apnea - ethnoarchaeologist: STOP Sleep Apnea - ethnoarchaeologist Hx Hypertension No 06/16/25 13:05 Hx Sleep Apnea Yes 06/16/25 13:05 CPAP Yes 06/16/25 13:05 BIPAP No 06/16/25 13:05 Do you snore loudly (louder than talking or can be heard Do you often feel tired/ fatigued/ sleepy during daytime? Has anyone observed you stop breathing during sleep? STOP Results Positive 06/16/25 13:05 QUESTION #5 FULL TEXT : Do you snore loudly (louder than talking or can be heard through closed doors)? Tobacco Use History Tobacco Use History - ethnoarchaeologist: Tobacco Use History - ethnoarchaeologist Tobacco Use Smoking Status Current every day smoker 06/16/25 13:05 Hx Tobacco Use Yes 06/16/25 13:05 Years Smoking Packs Smoked per Day Smoking Cessation Date was within the last 15 years Hx Smoking Cessation Date Hx Smoking Cessation Counseling Hematologic Medial History Hematologic Hx - ethnoarchaeologist: Hematologic Medical Hx - documentation improvement specialist Hx of Blood Transfusion No 06/16/25 13:05 Hx of Transfusion in last 3 No 06/16/25 13:05 Months Date of Last Transfusion (if within last 3 months) Ever experience any problems No 06/16/25 13:05 with transfusion(s)? Specify any problems Hx of Preganancy in last 3 N/A 06/16/25 13:05 Months Nurse Filling Out Transfusion MGRIFFITH 06/16/25 13:05 Questions: Date: 06/16/25 06/16/25 13:05 Time: 13:07 06/16/25 13:05 Patient unable to answer at this time (ie. confused, unrespo /Reproducti on History /Reproducti ve History - ethnoarchaeologist: /Reproducti ve Hx- ethnoarchaeologist Hx Now No 06/16/25 13:05 Gestational Age (in weeks): EDC: Hx Hx Para Hx Section SAB No 06/16/25 13:05 [facility] Medical History (Updated 06/09/25 @ 08:53 by CINDY Chambers) Wears glasses History of MRSA infection Anxiety Injury of back Difficulty swallowing Gastric reflux Smoker History of edema History of echocardiogram History of stress test Sleep apnea CPAP (continuous positive airway pressure) dependence Sleep related bruxism CTS (carpal tunnel syndrome) Acute sinusitis Inclusion cyst Left shoulder pain Tinnitus, unspecified ear Ankle pain, left Home Medications ???Medication ???Instructions ???Recorded ???Last Taken ???Type buspirone 7.5 mg tablet 7.5 mg PO TID 05/05/25 05/14/25 23 :55 History multivitamin 1 tab PO QDAY 05/12/25 Unknown His tory omeprazole 40 mg capsule,delayed 40 mg PO BID #180 caps 06/09/25 Un known Rx release Allergy/AdvReac Type Severity Reaction Status Date / Time Sulfa (Sulfonamide Allergy Hives Verified 06/16/25 13:03 Antibiotics) Family History (Reviewed 06/09/25 @ 08:36 b (more content not included)... Normal [facility] Gastroenterology Visit Repor ton 06-09-2025 Gastroenterology Visit Report [facility] Gastroenterology [address] [place] [address] OFFICE VISIT Date of Service: 06/09/25 MR#: [id number] Acct: [id number] Name: ZENA BENNETT Rep #: [id number] : 1975 Provider: CINDY bearden Age/Sex: 49/M Location: [facility] Status: Signed Intake Vital Signs 05/15/25 08:33 06/09/25 08:31 Height 5 ft 7 in 5 ft 7 in Weight: 315 lb 4 oz BMI 49.4 BP 107/67 Respiration 16 Pulse 72 Temp 98.2 F Temp Source Temporal Pulse Oximetry (%) 96 Oxygen Delivery Method room air Intake Visit Reasons: Dysphagia Chief Complaint: dysphagia Home Health Clinical Supervisor Required: No Accompanied by: Is patient in pain?: No Allergies Sulfa (Sulfonamide Antibiotics) Allergy (Verified 06/09/25 08:29) Hives Medications ???Medication ???Instructions ???Recorded ???Confirmed ???Type buspirone 7.5 mg tablet 7.5 mg PO TID 05/05/25 06/09/25 Hi story multivitamin 1 tab PO QDAY 05/12/25 06/09/25 Hi story omeprazole 40 mg capsule,delayed 40 mg PO BID #180 caps 06/09/25 Rx release PFSH Medical History Wears glasses History of MRSA infection Anxiety Injury of back Difficulty swallowing Gastric reflux Smoker History of edema History of echocardiogram History of stress test Sleep apnea CPAP (continuous positive airway pressure) dependence Sleep related bruxism CTS (carpal tunnel syndrome) Acute sinusitis Inclusion cyst Left shoulder pain Tinnitus, unspecified ear Ankle pain, left Surgical History Hx of tonsillectomy History of appendectomy Family History Mother Diabetes CAD (coronary artery disease) Hypertension Anxiety Depression Father Cancer inoperable brain tumor Social History household members: spouse Smoking Status: Current every day smoker tobacco type: e-cigarettes alcohol intake: former substance use type: former substance user Date of last use: 03/2018, marijuana and crack/cocaine frequency: 3-4 times per week HPI HPI Chief Complaint: dysphagia Details: OV 05/12/2025 49y/o male presents for consultation with complaints of dysphagia x8 weeks. Reports he has always had trouble swallowing pills, but the past 8 weeks he has had difficulty with solid foods (dry foods). Esophagram was unremarkable 04/09/2025, although unable to swallow tablet. He denies any heartburn, N/V. He did start Omeprazole 40mg daily one month ago and denies any improvement in dysphagia. He vapes but denies any alcohol intake. He reports a weight loss of 25lbs in the past 6 weeks. He denies any abdominal pain or change in bowel habits. He denies any prior colon cancer screening. ABD US 04/15/2025 1. Simple cyst in the right liver. 2. Mild hepatomegaly. 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 Biopsied. -One benign-appearing, intrinsic moderate stenosis was found 18 to 21 cm from the incisors. This stenosis measured 5 cm (in length). The stenosis was traversed. A guidewire was placed and the scope was withdrawn. Dilation was performed with a Savary dilator with no resistance at 54 Fr - Abnormal esophageal motility. - Z-line irregular, 39 cm from the incisors. Biopsied. - No gross lesions in the entire stomach. - No gross lesions in the entire examined duodenum. COLON scheduled 06/19/2025 Ordered TissueCypher Rasehed's Esophagus test to assess patient's risk of progression to high-grade dysplasia or esophageal cancer. Results will inform subsequent management plan. - weight loss of 2lbs since last seen in office 1 month ago - swallowing pills is much easier - still having trouble with food, some days are worse than others - he reports trouble swallowing is high in the esophagus-throat, denies any coughing with swallowing, sensation of choking - dry mouth, has been using Biotene mouth wash - reports shaky voice has always been an issue, denies any hoarseness - he does reports swallowing issues began post initiation of vaping two years ago - Cookie Swallow ordered by PCP - vapes routinely for the past 2 years - he is taking Omeprazole 40mg once daily - rare alcohol use, 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 Normal [facility] Wrist min 3 Viewson 09-05-20 25 Wrist min 3 Views [facility] Imaging Services [address] [place] [address] Wrist min 3 Views MR#: [id number] Acct: [id number] Name: ZENA BENNETT Rep #: [id number] : 1975 M 49 From: Erik Cortez MD PCP: Dr. Shahzad Bright MD Status: REG CLI Study: Wrist min 3 Views Date of Exam: 05/30/25 Exam# [id number] Ordering Dr: Shahzad Bright MD PROCEDURE: WRIST MIN 3 VIEWS 05/30/2025 REASON FOR EXAM: PAIN, EXTENSION INJURY TECHNIQUE: Procedure Code: RADWR Modality: DX Procedure: WRIST MIN 3 VIEWS Laterality: FINDINGS: No evidence of acute fracture or dislocation. Normal carpal alignment. RAD/Wrist min 3 Views IMPRESSION: No acute osseous abnormalities. Reading Location: [address] CC: Dr. Shahzad Bright MD Injection Molding Engineer: Signed Normal [facility] EGD Reporton 05-15-2025 EGD Report [facility] Medical Records Department [address] [place] [address] EGD Report MR#: [id number] Acct: [id number] Name: ZENA BENNETT Rep #: [id number] : 1975 49 From: Kota Kan DO PCP: Dr. Shahzad Bright MD Status:REG [facility] Patient Name: Zena Bennett Procedure Date: 05/15/2025 9:24 AM Date of : 1975 Age: 49 Procedure: Upper GI endoscopy Indications: Dysphagia Providers: Kota Kan DO Referring MD: Shahzad Bright Medicines: Monitored Anesthesia Care Patient Profile: This is a 49 year old male. Refer to note in patient chart for documentation of history and physical. Patient has symptoms of dysphagia with solids. Complications: No immediate complications. Procedure: Pre-Anesthesia Assessment: - Prior to the procedure, a History and Physical was performed, and patient medications and allergies were reviewed. The patient is competent. The risks and benefits of the procedure and the sedation options and risks were discussed with the patient. All questions were answered and informed consent was obtained. Patient identification and proposed procedure were verified by the physician in the pre-procedure area. Mental Status Examination: alert and oriented. Airway Examination: normal oropharyngeal airway and neck mobility. Respiratory Examination: clear to auscultation. CV Examination: normal. Prophylactic Antibiotics: The patient does not require prophylactic antibiotics. Prior Anticoagulants: The patient has taken no anticoagulant or antiplatelet agents except for NSAID medication. ASA Grade Assessment: II - A patient with mild systemic disease. After reviewing the risks and benefits, the patient was deemed in satisfactory condition to undergo the procedure. The anesthesia plan was to use monitored anesthesia care (MAC). Immediately prior to administration of medications, the patient was re-assessed for adequacy to receive sedatives. The heart rate, respiratory rate, oxygen saturations, blood pressure, adequacy of pulmonary ventilation, and response to care were monitored throughout the procedure. The physical status of the patient was re-assessed after the procedure. After obtaining informed consent, the endoscope was passed under direct vision. Throughout the procedure, the patient's blood pressure, pulse, and oxygen saturations were monitored continuously. The gastroscope was introduced through the mouth, and advanced to the third part of the duodenum. Small bowel enteroscopy was deemed necessary. The upper GI endoscopy was accomplished without difficulty. The patient tolerated the procedure well. Scope In: 9:35:19 AM Scope Out: 9:42:38 AM Total Procedure Duration Time 0 hours 7 minutes 19 seconds Findings: A single area of ectopic gastric mucosa was found in the upper third of the esophagus, 22 cm from the incisors. Biopsies were taken with a cold forceps for histology. Verification of patient identification for the specimen was done. Estimated blood loss was minimal. One benign-appearing, intrinsic moderate stenosis was found 18 to 21 cm from the incisors. This stenosis measured 5 cm (in length). The stenosis was traversed. A guidewire was placed and the scope was withdrawn. Dilation was performed with a Savary dilator with no resistance at 54 Fr. The dilation site was examined and showed moderate improvement in luminal narrowing. Estimated blood loss was minimal. Abnormal motility was noted in the upper third of the esophagus. The cricopharyngeus was abnormal. There are extra peristaltic waves in the esophageal body. The distal esophagus/lower esophageal sphincter is spastic, but gives up passage to the endoscope. Tertiary peristaltic waves are noted. The Z-line was irregular and was found 39 cm from the incisors. Biopsies were taken with a cold forceps for histology. Verification of patient identification for the specimen was done. Estimated blood loss was minimal. No gross lesions were noted in the entire examined stomach. No gross lesions were noted in the entire examined duodenum. Impression: - Ectopic gastric mucosa in the upper third of the esophagus. Biopsied. - Benign-appearing esophageal stenosis. Dilated. - Abnormal esophageal motility. - Z-line irregular, 39 cm from the incisors. Biopsied. - No gross lesions in the entire stomach. - No gross lesions in the entire examined duodenum. Recommendation: - Discharge patient to home. - Resume previous diet. - Continue present medications. - Await pathology results. Procedure Code(s): --- Professional --- 51711, Esophagogastroduoden oscopy, flexible, transoral; with insertion of guide wire followed by passage of dilator(s) through esophagus over guide wire 56712, 59,51, Small intestinal endoscopy, enteroscopy beyond second portion of (more content not included)... Normal [facility] MR/OP.PROVATon [facility]-15[facility]20[facility] Medical Records Department [address] [place] [address] Provation Physician Letter MR#: [id number] Acct: [id number] Name: ZENA BENNETT Rep #: [id number] : 1975 49 From: Kota Friend DO PCP: Dr. Shahzad Bright MD Status:[facility] 05/15/2025 Shahzad Bright [address] [place] [address] Re : Upper GI endoscopy procedure for Zena Bennett Dear Dr. Bright This procedure was performed on April. My impressions and recommendations are as follows: Impressions : - Ectopic gastric mucosa in the upper third of the esophagus. Biopsied. - Benign-appearing esophageal stenosis. Dilated. - Abnormal esophageal motility. - Z-line irregular, 39 cm from the incisors. Biopsied. - No gross lesions in the entire stomach. - No gross lesions in the entire examined duodenum. Recommendations : - Discharge patient to home. - Resume previous diet. - Continue present medications. - Await pathology results. My findings are described in the full procedure note, which is enclosed. If I can be of further assistance, please feel free to contact me at . Sincerely, Kota Kan DO 05/15/2025 9:49:04 AM This report has been signed electronically. 05/15/25948 Date Kota Kan DO Cosigner Signature: Date (if indicated) CC: Dr. Shahzad Bright MD; Kota Kan DO Date Dictated: 05/15/25923 Date Transcribed: Injection Molding Engineer: SUSAN Signed [facility] MR/POSTOP.[facility] 05-15-2025 MR/POSTOP.[facility] Medical Records Department [address] [place] [address] Anesthesia Postop Eval I 05/15/25943 MR#: [id number] Acct: [id number] Name: ZENA BENNETT Rep #: [id number] : 1975 49 From: Obey Marquez ONION TOPPER PCP: Dr. Shahzad Bright MD Status:REG [facility] Y Race: C Location: [place] [address] Anesthesia: Postop Eval I Current Vital Signs Temperature: 97 F Pulse Rate: 77 Blood Pressure: 116/66 Respiratory Rate: 18 Pulse Ox: 100 Oxygen Delivery Method: Room Air Assessment Airway patent: Yes Spontaneous unlabored respirations: Yes Mental status: Awake and Calm nausea: No Vomiting: No Anesthesia Complication: No Fluid Hydration Crystalloid volume administer (ml): 100 Total IV fluid infused: 100 Progress Note Anesthesia document: Postop Eval 1 completed: Yes 05/15/25944 Date Obey Cháveztobiaskaroline ONION TOPPER Yumikoigner Signature: Date CC: Signed Normal [facility] MR/CULZHKMT1qy 05-15-2025 MR/POSTOPAN2 [facility] Medical Records Department [address] [facility] [place] [place] [address] Anesthesia Postop Eval II 05/15/25 1017 MR#: [id number] Acct: [id number] Name: ZENA BENNETT Rep #: [id number] : 1975 49 From: Brown Doan MD PCP: Dr. Shahzad Bright MD Status:REG SDC Y Race: C Location: [place] [address] Anesthesia Postop Eval I Sum Postop Eval Completion status Anesthesia document: Postop Eval 1 completed: Yes Anesthesia Postop Eval I Summary Anesthesia Postop Eval I Summary: Anesthesia Postop Eval I: Assessment Summary Airway patent Yes 05/15/25 09:45 ONION TOPPER.MDOT Spontaneous unlabored Yes 05/15/25 09:45 ONION TOPPER.MDOT respirations Mental status Awake,Calm 05/15/25 09:49 ONION TOPPER.MDOT nausea No 05/15/25 09:49 ONION TOPPER.MDOT Vomiting No 05/15/25 09:49 ONION TOPPER.MDOT Anesthesia Postop Eval I: Fluid Summary Crystalloid volume administer 100 05/15/25 09:45 ONION TOPPER.MDOT (ml) Colloids volume administered ( ml) Blood Product volume administered (ml) Total IV fluid infused 100 05/15/25 09:45 ONION TOPPER.MDOT Anesthesia Postop Eval I: Summary Notes Anesthesia Complication No 05/15/25 09:49 ONION TOPPER.MDOT Anesthesia Complication Comment: Post-operative progress note Anesthesia: Postop Eval II Evaluation Mental status: Awake Pain Level: 0 nausea: No Vomiting: No Complications Anesthesia Complication: No 05/15/25 1017 Date Brown Boucher Signature: Date CC: Signed Normal [facility] MR/POSTOPAN2 [facility] Medical Records Department [address] [place] [address] Anesthesia Postop Eval II 05/15/25 0948 MR#: [id number] Acct: [id number] Name: ZENA BENNETT Rep #: [id number] : 1975 49 From: Obey Marquez CRNA PCP: Dr. Shahzad Bright MD Status:REG SD Y Race: C Location: [place] [address] Anesthesia Postop Eval I Sum Postop Eval Completion status Anesthesia document: Postop Eval 1 completed: Yes Anesthesia Postop Eval I Summary Anesthesia Postop Eval I Summary: Anesthesia Postop Eval I: Assessment Summary Airway patent Yes 05/15/25 09:45 ONION TOPPER.MDOT Spontaneous unlabored Yes 05/15/25 09:45 ONION TOPPER.MDOT respirations Mental status Awake,Calm 05/15/25 09:45 ONION TOPPER.MDOT nausea No 05/15/25 09:45 ONION TOPPER.MDOT Vomiting No 05/15/25 09:45 ONION TOPPER.MDOT Anesthesia Postop Eval I: Fluid Summary Crystalloid volume administer 100 05/15/25 09:45 ONION TOPPER.MDOT (ml) Colloids volume administered ( ml) Blood Product volume administered (ml) Total IV fluid infused 100 05/15/25 09:45 ONION TOPPER.MDOT Anesthesia Postop Eval I: Summary Notes Anesthesia Complication No 05/15/25 09:45 ONION TOPPER.MDOT Anesthesia Complication Comment: Post-operative progress note Anesthesia: Postop Eval II Evaluation Mental status: Awake and Calm Pain Level: 0 nausea: No Vomiting: No Complications Anesthesia Complication: No 05/15/25 0949 Date Obey Sairatobiaskaroline TAMEZ Sander Signature: Date CC: Signed Normal [facility] Surgery Specimen Level Thao 05-15-2025 Surgery Specimen Level IV Patient Age/Sex Location Account Attending Physician ZENA BENNETT 49/M EN [id number] Kota Kan DO Specimen: [id number] Received: 05/15/25 Status: YAMILA Valente Num: [id number] Spec Type: EGD BIOPSY Subm Dr: Kota Kan, DO HEADER OPERATION: EGD with biopsy and dilated PRE-OP DIAGNOSIS: Weight loss, encounter for screening colonoscopy, dysphagia, vitamin deficiency TISSUE SUBMITTED: A- Distal esophagus biopsy, B- Proximal esophagus biopsy MICROSCOPIC DIAGNOSIS A. Distal esophagus, biopsy: * Benign squamous epithelium * Cardiac type mucosa with mild chronic inflammation and goblet cells, negative for dysplasia B. Proximal esophagus, biopsy: * Benign squamous epithelium * Oxyntocardiac type mucosa with mild chronic inflammation, negative for goblet cells MICROSCOPIC DESCRIPTION Slides are reviewed. GROSS DESCRIPTION A. Received in fixative is one container labeled with the patient's name and designated Distal esophagus biopsy. The specimen consists of two irregular fragments of light castaneda soft tissue that measure 0.3 to 0.6 cm. The specimen is totally submitted in one cassette. B. Received in fixative is one container labeled with the patient's name and designated Proximal esophagus biopsy. The specimen consists of one irregular fragment of light castaneda soft tissue that measures 0.3 cm. The specimen is totally submitted in one cassette. NE 05/15/2025 [facility]:[id number] Patient Age/Sex Location Account Attending Physician ZENA BENNETT 49/M EN [id number] Kota Kan DO Signed (signature on file) Dr. Mary Ann Astorga, 05/16/25 1052 Normal [facility] Comment on above: Performed By: #### P SUIV ####[facility] [address] [place], [address] /PAT.LUCIENon 05-14-2025 /PAT.[facility] Medical Records Department [address] [place] [address] PAT - Anesthesia 05/14/25 1514 MR#: [id number] Acct: [id number] Name: ZENA BENNETT Rep #: [id number] : 1975 49 From: Justin Palmer MD PCP: Dr. Shahzad Bright MD Status:PRE [facility] Y Race: C Location: EN Pre-Assessment Diagnosis/Proposed Procedure Planned Operative Procedure(s): EGD Anesthesia History Anesthesia History - ethnoarchaeologist: Anesthesia History - ethnoarchaeologist Hx Hospitalization No 05/14/25 09:03 Any Problems With Anesthesia No 05/14/25 09:03 Cholinesterase deficiency No 05/14/25 09:03 You/Your Family Experience No 05/14/25 09:03 fever (hyperthermia) with Relationship Recent Exposure to Contagious Disease Does patient have nerve No 05/14/25 09:03 stimulator Patient instructed to have device shut off --Does patient have Pacemaker or ICD? When Was Last Pacemaker Check QUESTION #4 FULL TEXT: You/Your Family Experience fever (hyperthermia) with Anesthesia Last Oral Intake Last Oral intake: Last Oral Intake NPO since Meds taken in AM with sips of water? Meds patient instructed to take am of surgery PONV PONV - ethnoarchaeologist: PONV - ethnoarchaeologist Female No 05/14/25 09:03 HX of Motion Sickness Yes 05/14/25 09:03 HX of N/V After Surgery No 05/14/25 09:03 Non-Smoker No 05/14/25 09:03 Duration of Surgery greater No 05/14/25 09:03 than 60 minutes Number of Risk Factors 1 05/14/25 09:03 PONV Score Low Risk 05/14/25 09:03 Height Weight Height Weight: Anesthesia: Height Weight Height 5 ft 6 in 05/12/25 08:34 Respiratory Assessment Respiratory Assessment - ethnoarchaeologist: Respiratory Tract Infection Hx - ethnoarchaeologist Hx Respiratory Tract Infection No 05/14/25 09:03 STOP Sleep Apnea STOP Sleep Apnea - ethnoarchaeologist: STOP Sleep Apnea - ethnoarchaeologist Hx Hypertension No 05/14/25 09:03 Hx Sleep Apnea Yes 05/14/25 09:03 CPAP Yes 05/14/25 09:03 BIPAP No 05/14/25 09:03 Do you snore loudly (louder than talking or can be heard Do you often feel tired/ fatigued/ sleepy during daytime? Has anyone observed you stop breathing during sleep? STOP Results Positive 05/14/25 09:03 QUESTION #5 FULL TEXT : Do you snore loudly (louder than talking or can be heard through closed doors)? Tobacco Use History Tobacco Use History - ethnoarchaeologist: Tobacco Use History - ethnoarchaeologist Tobacco Use Smoking Status Current every day smoker 05/14/25 09:03 Hx Tobacco Use Yes 05/14/25 09:03 Years Smoking Packs Smoked per Day Smoking Cessation Date was within the last 15 years Hx Smoking Cessation Date Hx Smoking Cessation Counseling Hematologic Medial History Hematologic Hx - ethnoarchaeologist: Hematologic Medical Hx - documentation improvement specialist Hx of Blood Transfusion No 05/14/25 09:03 Hx of Transfusion in last 3 No 05/14/25 09:03 Months Date of Last Transfusion (if within last 3 months) Ever experience any problems No 05/14/25 09:03 with transfusion(s)? Specify any problems Hx of Preganancy in last 3 N/A 05/14/25 09:03 Months Nurse Filling Out Transfusion DIAN 05/14/25 09:03 Questions: Date: 05/14/25 05/14/25 09:03 Time: 09:04 05/14/25 09:03 Patient unable to answer at this time (ie. confused, unrespo /Reproducti on History /Reproducti ve History - ethnoarchaeologist: /Reproducti ve Hx- ethnoarchaeologist Hx Now No 05/14/25 09:03 Gestational Age (in weeks): EDC: Hx Hx Para Hx Section SAB No 05/14/25 09:03 [facility] Medical History (Updated 05/14/25 @ 09:12 by Pia Almodovar) Wears glasses History of MRSA infection Anxiety Injury of back Difficulty swallowing Gastric reflux Smoker History of edema History of echocardiogram History of stress test Sleep apnea CPAP (continuous positive airway pressure) dependence Sleep related bruxism CTS (carpal tunnel syndrome) Acute sinusitis Inclusion cyst Left shoulder pain Tinnitus, unspecified ear Ankle pain, left Home Medications ???Medication ???Instructions ???Recorded ???Last Taken ???Type buspirone 7.5 mg tablet 7.5 mg PO TID 05/05/25 Unknown His tory omeprazole 40 mg capsule,delayed 40 mg PO QDAY 05/05/25 Unknown His tory release multivitamin 1 tab PO QDAY 05/12/25 Unknown His tory peg 3350-sod sulf,[id number]-ieo See Rx Instructions PO .COMPLEX #2 05/12/25 Unknown Rx 178.7-7.3-0.5-1.12-0 .9 gram oral mL soln (Suflave) Allergy/AdvReac Type Severity Reaction Status Date / Time Sulfa (Sulfonamid (more content not included)... Normal [facility] Gastroenterology Visit Repor ton 05-12-2025 Gastroenterology Visit Report [facility] Gastroenterology [address] [place] [address] OFFICE VISIT Date of Service: 05/12/25 MR#: [id number] Acct: [id number] Name: ZENA BENNETT Rep #: [id number] : 1975 Provider: CINDY bearden Age/Sex: 49/M Location: [facility] Status: Signed Intake Vital Signs 03/04/25 07:48 05/12/25 08:34 Height 5 ft 6 in 5 ft 6 in Weight: 332 lb 317 lb BMI 53.6 51.1 BP 108/76 119/80 Blood Pressure Location Rt brachial Position Sitting Respiration 18 20 H Pulse 70 66 Pulse Source NIBP Temp 97.4 F L 97.4 F L Temp Source Temporal Pulse Oximetry (%) 96 97 Oxygen Delivery Method room air room air Intake Visit Reasons: Dysphagia Chief Complaint: dysphagia Home Health Clinical Supervisor Required: No Accompanied by: Self Is patient in pain?: No Allergies Sulfa (Sulfonamide Antibiotics) Allergy (Verified 05/05/25 13:39) Hives Medications ???Medication ???Instructions ???Recorded ???Confirmed ???Type buspirone 7.5 mg tablet 7.5 mg PO TID 05/05/25 05/05/25 Hi story omeprazole 40 mg capsule,delayed 40 mg PO QDAY 05/05/25 05/05/25 Hi story release multivitamin 1 tab PO QDAY 05/12/25 05/12/25 Hi story peg 3350-sod sulf,vbgha-mto-vcq See Rx Instructions PO .COMPLEX #2 05/12/25 05/12/25 Rx 178.7-7.3-0.5-1.12-0 .9 gram oral mL soln (Suflave) Nurse's Note: Has had problems with swallowing for 8 weeks now. Anything gets stuck in his throat.It gets worse when his sinus' get worse. [facility] Medical History Sleep related bruxism CTS (carpal tunnel syndrome) Acute sinusitis Inclusion cyst Left shoulder pain Tinnitus, unspecified ear Ankle pain, left Surgical History Hx of tonsillectomy History of appendectomy Family History Mother Diabetes CAD (coronary artery disease) Hypertension Anxiety Depression Father Cancer inoperable brain tumor Social History household members: spouse Smoking Status: Former smoker alcohol intake: former substance use type: former substance user Date of last use: 03/2018, marijuana and crack/cocaine frequency: 3-4 times per week HPI HPI Chief Complaint: dysphagia Details: The patient is a 49-year-old male presenting with dysphagia. He reports a long-standing difficulty swallowing pills, which has recently progressed to difficulty swallowing dense foods such as steak and dry chicken. Approximately eight weeks ago, he noted these symptoms worsening, to the point where he could only consume fruit smoothies. Around seven to eight weeks ago, he developed a sore throat and was diagnosed with an infection in his sinuses, ears, and throat, for which he received antibiotics, leading to partial improvement. Currently, he can consume softer foods like crab, mashed potatoes, noodles, and scrambled eggs, but requires additional liquids to swallow denser foods. The patient underwent a barium swallow study on April 09, which was unremarkable; however, he could not swallow the tablet provided during the test. He experiences the sensation of food getting stuck high in the throat but is relieved by drinking water. No associated nausea, vomiting, or heartburn are reported currently. He has a history of severe heartburn and acid reflux but altered his diet, resulting in symptom improvement. Despite the lack of active symptoms, he was prescribed omeprazole 40 mg daily over a month ago by Dr. Bright, although no change in swallowing difficulty was observed post-medication. The patient's dysphagia exacerbates when his sinuses are active. He reports a 25-pound weight loss over six weeks attributed to reduced food intake due to swallowing difficulty. His pertinent medical history includes carpal tunnel syndrome, sinusitis, left shoulder pain, and surgeries for removed tonsils, adenoids, and appendix. Family history is significant for a brother with colon polyps considered precancerous. He does not consume alcohol and occasionally uses a vape. He expresses concern about his brother's colon issues, having yet to undergo a colonoscopy, and plans to discuss getting scheduled for an EGD and colonoscopy. ROS Const Constitutional: Positive for fatigue and weight change (loss); No fever(s) ENT ENT: Positive for difficulty swallowing Gastro GI: Positive for difficulty swallowing; No abdominal pain, belching, bloating, change in bowel habits, change in stool character, coffee ground emesis, constipation, cramping, diarrhea, heartburn, feeling full early, excessive flatus, incontinent of stools, Vomiting blood/hematemesis, Blood in stool, loose stools, Bl (more content not included)... Normal [facility] Esophagus Dual Contraston Esophagus Dual Contrast [facility] Imaging Services [address] [place] [address] Esophagus Dual Contrast MR#: [id number] Acct: [id number] Name: ZENA BENNETT Rep #: [id number] : 1975 M 49 From: Elliot gonzales MD PCP: Dr. Shahzad Bright MD Status: REG CLI Study: Esophagus Dual Contrast Date of Exam: 04/09/25 Exam# [id number] Ordering Dr: Shahzad Bright MD EXAM: Air-contrast esophagram barium swallow. CLINICAL HISTORY: Difficulty swallowing. COMPARISON: None TECHNIQUE: The patient ingested barium. Multiple fluoroscopic images were obtained. Dose report: Fluoroscopy. 25.4 seconds. 4.5 mGy. FINDINGS: The esophagus is unremarkable. No evidence of obstruction. No filling defect is seen. Free flow of contrast into the stomach. No evidence of gastroesophageal reflux. The patient was unable to swallow the 12 mm tablet the barium. RAD/Esophagus Dual Contrast IMPRESSION: Unremarkable examination. The patient was not capable of swallowing the 12 mm tablet of barium. Reading Location: [place] [address] CC: Dr. Shahzad Bright MD Injection Molding Engineer: Signed Normal [facility] Absolute lymphocyte countOrd ered By: Shahzad Bright on 04-02-2025 Lymphocytes Auto (Unsp spec) [#/Vol] 3.10 10*3/uL 0.83-4.51 [facility] Absolute neutrophil countOrd ered By: Shahzad Bright on 04-02-2025 Neutrophils (Bld) [#/Vol] 3.7 10*3/uL 2.0-7.7 [facility] Anion gap in Serum or Plasma Ordered By: Shahzad Bright on 04-02-2025 Anion gap [Moles/Vol] 10 mmol/L 5-15 [facility] Automated lymphocyte count a s percentage of total leukocytesOrdered By: Shahzad Bright on 04-02-2025 Lymphocytes/100 WBC Auto (Unsp spec) 39.7 % - [facility] BUN/creatinine ratioOrdered By: Shahzad Bright on 04-02-2025 Urea nitrogen/Creatinine [Mass ratio] 12.8 mg/mg 10- [facility] Basophil percentageOrdered B y: Shahzad Bright on 04-02-2025 Basophils/100 WBC (Bld) 0.6 % 0-1 [facility] Bilirubin Test strip Ql (U)O rdered By: Shahzad Bright on 04-02-2025 Bilirubin Ql (U) Negative Negative [facility] Bilirubin, totalOrdered By: Shahzad Bright on 04-02-2025 Bilirubin [Mass/Vol] 0.41 mg/dL 0.00-1.30 [facility] CBC W/Diff, Automatedon Absolute Lymph 3.10 X10 3/uL Normal 0.83-4.51 [facility] Comment on above: Order Comment: Order Date: 04/01/25Order Info: 0184-1 - CBCD Performed By: #### L 501.9985, L500.4050, L500.4100, L100.0100 ####[facility] [address] [place], [address] Absolute Neut 3.7 X10 3/uL Normal 2.0-7.7 [facility] Comment on above: Order Comment: Order Date: 04/01/25Order Info: 0184-1 - CBCD Performed By: #### L 501.9985, L500.4050, L500.4100, L100.0100 ####[facility] [address] [place], [address] Basophils/100 WBC (Bld) 0.6 % Normal 0-1 [facility] Comment on above: Order Comment: Order Date: 04/01/25Order Info: 0184-1 - CBCD Performed By: #### L 501.9985, L500.4050, L500.4100, L100.0100 ####[facility] [address] [place], [address] Eosinophils/100 WBC (Bld) 1.9 % Normal 0-5 [facility] Comment on above: Order Comment: Order Date: 04/01/25Order Info: 0184-1 - CBCD Performed By: #### L 501.9985, L500.4050, L500.4100, L100.0100 ####[facility] [address] [place], [address] Erythrocyte distribution width (RBC) [Ratio] 13.3 % Normal 11.6-14.6 [facility] Comment on above: Order Comment: Order Date: 04/01/25Order Info: 0184-1 - CBCD Performed By: #### L 501.9985, L500.4050, L500.4100, L100.0100 ####[facility] [address] [place], [address] Hematocrit (Bld) [Volume fraction] 45.5 % Normal 40-54 [facility] Comment on above: Order Comment: Order Date: 04/01/25Order Info: 0184-1 - CBCD Performed By: #### L 501.9985, L500.4050, L500.4100, L100.0100 ####[facility] [address] [place], [address] Hemoglobin (Bld) [Mass/Vol] 14.0 g/dL Normal 13.0-16.5 [facility] Comment on above: Order Comment: Order Date: 04/01/25Order Info: 0184-1 - CBCD Performed By: #### L 501.9985, L500.4050, L500.4100, L100.0100 ####[facility] [address] [place], [address] IG% 0.300 Normal 0.0-0.9 [facility] Comment on above: Order Comment: Order Date: 04/01/25Order Info: 0184-1 - CBCD Result Comment: IG% - Immature Granulocytes (promyelocytes, myelocytes and metamyelocytes) > 1% indicates that a LEFT SHIFT is Present. Performed By: #### L 501.9985, L500.4050, L500.4100, L100.0100 ####[facility] [address] [place], [address] Lymphocytes/100 WBC (Bld) 39.7 % Normal 19-41 [facility] Comment on above: Order Comment: Order Date: 04/01/25Order Info: 0184-1 - CBCD Performed By: #### L 501.9985, L500.4050, L500.4100, L100.0100 ####[facility] [facility] [address] [place], [address] MCH (RBC) [Entitic mass] 26.5 pg Low 27.0-32.0 [facility] Comment on above: Order Comment: Order Date: 04/01/25Order Info: [id number] - CBCD Performed By: #### L 501.9985, L500.4050, L500.4100, L100.0100 ####[facility] [address] [place], [address] MCHC (RBC) [Mass/Vol] 30.8 g/dL Low 32-36 [facility] Comment on above: Order Comment: Order Date: 04/01/25Order Info: [id number] - CBCD Performed By: #### L 501.9985, L500.4050, L500.4100, L100.0100 ####[facility] [address] [place], [address] MCV (RBC) [Entitic vol] 86.0 fL Normal 80-94 [facility] Comment on above: Order Comment: Order Date: 04/01/25Order Info: [id number] - CBCD Performed By: #### L 501.9985, L500.4050, L500.4100, L100.0100 ####[facility] [address] [place], [address] Monocytes/100 WBC (Bld) 9.9 % Normal 0-10 [facility] Comment on above: Order Comment: Order Date: 04/01/25Order Info: [id number] - CBCD Performed By: #### L 501.9985, L500.4050, L500.4100, L100.0100 ####[facility] [address] [place], [address] Neutrophils/100 WBC (Bld) 47.6 % Normal 47-70 [facility] Comment on above: Order Comment: Order Date: 04/01/25Order Info: [id number] - CBCD Performed By: #### L 501.9985, L500.4050, L500.4100, L100.0100 ####[facility] [address] [place], [address] Nucleated RBC (Bld) [#/Vol] 0 10*3/uL Normal 0-5 [facility] Comment on above: Order Comment: Order Date: 04/01/25Order Info: [id number] - CBCD Performed By: #### L 501.9985, L500.4050, L500.4100, L100.0100 ####[facility] [address] [place], [address] Platelet mean volume (Bld) [Entitic vol] 10.6 fL Normal 6.2-12.0 [facility] Comment on above: Order Comment: Order Date: 04/01/25Order Info: [id number] - CBCD Performed By: #### L 501.9985, L500.4050, L500.4100, L100.0100 ####[facility] [address] [place], [address] Platelets (Bld) [#/Vol] 252 10*3/uL Normal 150-450 [facility] Comment on above: Order Comment: Order Date: 04/01/25Order Info: [id number] - CBCD Performed By: #### L 501.9985, L500.4050, L500.4100, L100.0100 ####[facility] [address] [place], [address] RBC (Bld) [#/Vol] 5.29 10*6/uL Normal 4.6-6.2 [facility] Comment on above: Order Comment: Order Date: 04/01/25Order Info: [id number] - CBCD Performed By: #### L 501.9985, L500.4050, L500.4100, L100.0100 ####[facility] [address] [place], [address] RDW SD 41.5 fl Normal 35.1-43.9 [facility] Comment on above: Order Comment: Order Date: 04/01/25Order Info: [id number] - CBCD Performed By: #### L 501.9985, L500.4050, L500.4100, L100.0100 ####[facility] [address] [place], [address] WBC (Bld) [#/Vol] 7.8 10*3/uL Normal 4.4-11.0 [facility] Comment on above: Order Comment: Order Date: 04/01/25Order Info: [id number] - CBCD Performed By: #### L 501.9985, L500.4050, L500.4100, L100.0100 ####[facility] [address] [place], [address] Calculated very low density lipoprotein (VLDL) cholesterol measurementOrdered By: Shahzad Bright on 04-02-2025 Calculated very low density lipoprotein (VLDL) cholesterol measurement 35 mg/dL 5-40 [facility] Carbon dioxide, total [Moles /volume] in Central venous bloodOrdered By: Shahzad Bright on 04-02-2025 CO2 [Moles/Vol] 24.8 mmol/L 21.0-32.0 [facility] Chloride assayOrdered By: Isadora Bright on 04-02-2025 Chloride [Moles/Vol] 104 mmol/L 98-108 [facility] Comprehensive Metabolic Prof ilon 04-02-2025 Albumin [Mass/Vol] 4.1 g/dL Normal 3.5-5.0 [facility] Comment on above: Order Comment: Order Date: 04/01/25Order Info: [id number] - CMPOrder Info: [id number] - LIPID Performed By: #### L 501.9985, L500.4050, L500.4100, L100.0100 ####[facility] [address] [place], [address] Albumin/Globulin [Mass ratio] 1.3 {ratio} Normal 0.9-2.4 [facility] Comment on above: Order Comment: Order Date: 04/01/25Order Info: [id number] - CMPOrder Info: [id number] - LIPID Performed By: #### L 501.9985, L500.4050, L500.4100, L100.0100 ####[facility] [address] [place], [address] ALK PHOS 48 U/L Normal 40-129 [facility] Comment on above: Order Comment: Order Date: 04/01/25Order Info: [id number] - CMPOrder Info: [id number] - LIPID Performed By: #### L 501.9985, L500.4050, L500.4100, L100.0100 ####[facility] [address] [place], [address] ALT [Catalytic activity/Vol] 45 U/L Normal <=46 [facility] Comment on above: Order Comment: Order Date: 04/01/25Order Info: [id number] - CMPOrder Info: [id number] - LIPID Performed By: #### L 501.9985, L500.4050, L500.4100, L100.0100 ####[facility] [address] [place], [address] AST [Catalytic activity/Vol] 34 U/L Normal <=37 [facility] Comment on above: Order Comment: Order Date: 04/01/25Order Info: [id number] - CMPOrder Info: [id number] - LIPID Performed By: #### L 501.9985, L500.4050, L500.4100, L100.0100 ####[facility] [address] [place], [address] Bilirubin [Mass/Vol] 0.41 mg/dL Normal 0.00-1.30 [facility] Comment on above: Order Comment: Order Date: 04/01/25Order Info: [id number] - CMPOrder Info: [id number] - LIPID Performed By: #### L 501.9985, L500.4050, L500.4100, L100.0100 ####[facility] [address] [place], [address] BUN/CRE 12.8 RATIO Normal 10-20 [facility] Comment on above: Order Comment: Order Date: 04/01/25Order Info: [id number] - CMPOrder Info: [id number] - LIPID Performed By: #### L 501.9985, L500.4050, L500.4100, L100.0100 ####[facility] [address] [place], [address] Calcium [Mass/Vol] 9.5 mg/dL Normal 7.6-11.0 [facility] Comment on above: Order Comment: Order Date: 04/01/25Order Info: [id number] - CMPOrder Info: [id number] - LIPID Performed By: #### L 501.9985, L500.4050, L500.4100, L100.0100 ####[facility] [address] [place], [address] Chloride [Moles/Vol] 104 mmol/L Normal 98-108 [facility] Comment on above: Order Comment: Order Date: 04/01/25Order Info: [id number] - CMPOrder Info: [id number] - LIPID Performed By: #### L 501.9985, L500.4050, L500.4100, L100.0100 ####[facility] [address] [place], [address] CO2 [Moles/Vol] 24.8 mmol/L Normal 21.0-32.0 [facility] Comment on above: Order Comment: Order Date: 04/01/25Order Info: [id number] - CMPOrder Info: [id number] - LIPID Performed By: #### L 501.9985, L500.4050, L500.4100, L100.0100 ####[facility] [address] [place], [address] Creatinine [Mass/Vol] 0.84 mg/dL Normal 0.70-1.20 [facility] Comment on above: Order Comment: Order Date: 04/01/25Order Info: [id number] - CMPOrder Info: [id number] - LIPID Performed By: #### L 501.9985, L500.4050, L500.4100, L100.0100 ####[facility] [address] [place], [address] GAP 10 Normal 5-15 [facility] Comment on above: Order Comment: Order Date: 04/01/25Order Info: [id number] - CMPOrder Info: [id number] - LIPID Performed By: #### L 501.9985, L500.4050, L500.4100, L100.0100 ####[facility] [address] [place], [address] GFR/1.73 sq M.predicted among non-blacks MDRD (S/P/Bld) [Vol rate/Area] 107 mL/min/{1.73_m2} Normal >60 [facility] Comment on above: Order Comment: Order Date: 04/01/25Order Info: [id number] - CMPOrder Info: [id number] - LIPID Result Comment: mL/m in/1.73m2 CKD-EPI Creatinine Equation (2020) Performed By: #### L 501.9985, L500.4050, L500.4100, L100.0100 ####[facility] [address] [place], [address] Globulin (S) [Mass/Vol] 3.1 g/dL Normal 2.2-4.2 [facility] Comment on above: Order Comment: Order Date: 04/01/25Order Info: [id number] - CMPOrder Info: [id number] - LIPID Performed By: #### L 501.9985, L500.4050, L500.4100, L100.0100 ####[facility] [address] [place], [address] Glucose [Mass/Vol] 99 mg/dL Normal 70-99 [facility] Comment on above: Order Comment: Order Date: 04/01/25Order Info: [id number] - CMPOrder Info: [id number] - LIPID Performed By: #### L 501.9985, L500.4050, L500.4100, L100.0100 ####[facility] [address] [place], [address] Potassium [Moles/Vol] 4.5 mmol/L Normal 3.3-5.1 [facility] Comment on above: Order Comment: Order Date: 04/01/25Order Info: [id number] - CMPOrder Info: [id number] - LIPID Performed By: #### L 501.9985, L500.4050, L500.4100, L100.0100 ####[facility] [address] [place], [address] Sodium [Moles/Vol] 140 mmol/L Normal 133-145 [facility] Comment on above: Order Comment: Order Date: 04/01/25Order Info: [id number] - CMPOrder Info: [id number] - LIPID Performed By: #### L 501.9985, L500.4050, L500.4100, L100.0100 ####[facility] [address] [place], [address] T PROT 7.2 g/dL Normal 5.9-8.4 [facility] Comment on above: Order Comment: Order Date: 04/01/25Order Info: [id number] - CMPOrder Info: [id number] - LIPID Performed By: #### L 501.9985, L500.4050, L500.4100, L100.0100 ####[facility] [address] [place], [address] Urea nitrogen [Mass/Vol] 11 mg/dL Normal 4-19 [facility] Comment on above: Order Comment: Order Date: 04/01/25Order Info: [id number] - CMPOrder Info: [id number] - LIPID Performed By: #### L 501.9985, L500.4050, L500.4100, L100.0100 ####[facility] [address] [place], [address] Eosinophil percentageOrdered By: Shahzad Bright on 04-02-2025 Eosinophils/100 WBC (Bld) 1.9 % 0-5 [facility] Erythrocyte distribution wid th ratioOrdered By: Shahzad Bright on 04-02-2025 Erythrocyte distribution width (RBC) [Ratio] 13.3 % 11.6-14.6 [facility] Erythrocyte distribution wid th standard deviationOrdered By: Shahzad Bright on 04-02-2025 Erythrocyte distribution width (RBC) [Ratio] 41.5 fl 35.1-43.9 [facility] Glomerular filtration rate ( GFR) estimation/1.73 sq m using serum, plasma, or whole bOrdered By: Shahzad Bright on 04-02-2025 GFR/1.73 sq M.predicted among non-blacks MDRD (S/P/Bld) [Vol rate/Area] 107 mL/min/{1.73_m2} >60 [facility] Comment on above: mL/min/1.73m2 CKD-EP I Creatinine Equation (2020) Hematocrit Auto (Bld) [Volum e fraction]Ordered By: Shahzad Bright on 04-02-2025 Hematocrit (Bld) [Volume fraction] 45.5 % 40-54 [facility] Hemoglobin A1con 04-02-2025 HbA1c (Bld) [Mass fraction] 5.9 % High <=5.6 [facility] Comment on above: Order Comment: Order Date: 04/01/25Order Info: [id number] - A1C Result Comment: Norm al < 5.7 % Prediabetic 5.7 - 6.4 % Diabetic >or= 6.5 % Please note range changes. Performed By: #### L 501.9985, L500.4050, L500.4100, L100.0100 ####[facility] [address] [place], [place], [address] Hemoglobin A1c percentageOrd ered By: Shahzad Bright on 04-02-2025 HbA1c (Bld) [Mass fraction] 5.9 % High <5.7 [facility] Comment on above: Normal < 5.7 % Predi abetic 5.7 - 6.4 % Diabetic >or= 6.5 % Please note range changes. Hemoglobin measurementOrdere d By: Shahzad Bright on 04-02-2025 Hemoglobin (Bld) [Mass/Vol] 14.0 g/dL 13.0-16.5 [facility] Immature granulocytes/100 WB C Auto (Bld)Ordered By: Shahzad Bright on 04-02-2025 Immature granulocytes/100 WBC (Bld) 0.300 % 0.0-0.9 [facility] Comment on above: IG% - Immature Granu locytes (promyelocytes, myelocytes and metamyelocytes) > 1% indicates that a LEFT SHIFT is Present. Ketones Test strip Ql (U)Ord ered By: Shahzad Bright on 04-02-2025 Ketones Ql (U) Negative Negative [facility] LDL calc ser/plasOrdered By: Shahzad Bright on 04-02-2025 Cholesterol in LDL [Mass/Vol] 126 mg/dL [facility] Comment on above: Kkfwfjxuue=585-716 m g/dL & Higher Jvrs=977 mg/dL or greater Laboratory - Chemistry and C hemistry - challengeOrdered By: Shahzad Bright on 04-02-2025 AST [Catalytic activity/Vol] 34 U/L <38 [facility] Lipid Profileon 04-02-2025 CHOL:HDL 6.27 Normal [facility] Comment on above: Order Comment: Order Date: 04/01/25Order Info: [id number] - CMPOrder Info: [id number] - LIPID Performed By: #### L 501.9985, L500.4050, L500.4100, L100.0100 ####[facility] [address] [place], [place], [address]) Cholesterol [Mass/Vol] 192 mg/dL Normal <=200 [facility] Comment on above: Order Comment: Order Date: 04/01/25Order Info: [id number] - CMPOrder Info: [id number] - LIPID Result Comment: Chol esterol level, Desirable <200 mg/dL Borderline high cholesterol 200-239 mg/dL High cholesterol >=240 mg/dL Recommendations of the NCEP Adult Treatment Panel for the following risk-cutoff thresholds for the [place] population. Performed By: #### L 501.9985, L500.4050, L500.4100, L100.0100 ####[facility] [address] [place], [place], [address] Cholesterol in HDL [Mass/Vol] 31 mg/dL Low [facility] Comment on above: Order Comment: Order Date: 04/01/25Order Info: [id number] - CMPOrder Info: [id number] - LIPID Result Comment: Birdie onal Cholesterol Education Program (NCEP) guidelines: <40 mg/dL: Low HDL-cholesterol (major risk factor for CHD) >= 60 mg/dL: High HDL-cholesterol (negative risk factor for CHD) HDL-cholesterol is affected by a number of factors, e.g. smoking, exercise, hormones, sex and age. Performed By: #### L 501.9985, L500.4050, L500.4100, L100.0100 ####[facility] [address] [place], [address] Cholesterol in LDL [Mass/Vol] 126 mg/dL Normal [facility] Comment on above: Order Comment: Order Date: 04/01/25Order Info: [id number] - CMPOrder Info: [id number] - LIPID Result Comment: Bord rphbkl=008-564 mg/dL Higher Gtyo=216 mg/dL or greater Performed By: #### L 501.9985, L500.4050, L500.4100, L100.0100 ####[facility] [address] [place], [address] Cholesterol in VLDL [Mass/Vol] 35 mg/dL Normal 5-40 [facility] Comment on above: Order Comment: Order Date: 04/01/25Order Info: [id number] - CMPOrder Info: [id number] - LIPID Performed By: #### L 501.9985, L500.4050, L500.4100, L100.0100 ####[facility] [address] [place], [address] Triglyceride [Mass/Vol] 177 mg/dL Normal [facility] Comment on above: Order Comment: Order Date: 04/01/25Order Info: [id number] - CMPOrder Info: [id number] - LIPID Result Comment: The drugs N-Acetylcysteine and Metamizole may falsely depress this assay. Normal range: <150 mg/dL Borderline High: 150-199 mg/dL High: 200-499 mg/dL Very High: >500 mg/dL Performed By: #### L 501.9985, L500.4050, L500.4100, L100.0100 ####[facility] [address] [place], [address] MCV (mean corpuscular volume ) determinationOrdered By: Shahzad Bright on 04-02-2025 MCV (RBC) [Entitic vol] 86.0 fL 80-94 [facility] Mean corpuscular hemoglobin (MCH) determinationOrdered By: Shahzad Bright on 04-02-2025 MCH (RBC) [Entitic mass] 26.5 pg Low 27.0-32.0 [facility] Mean corpuscular hemoglobin concentration (MCHC) determinationOrdered By: Shahzad Bright on 04-02-2025 MCHC (RBC) [Mass/Vol] 30.8 g/dL Low 32-36 [facility] Mean platelet volume determi nationOrdered By: Shahzad Bright on 04-02-2025 Platelet mean volume (Bld) [Entitic vol] 10.6 fL 6.2-12.0 [facility] Microscopic analysis of urin e for red blood cells (RBC)Ordered By: Shahzad Bright on 04-02-2025 Microscopic analysis of urine for red blood cells (RBC) 0 SEEN /hpf 0-5 [facility] Monocyte percentageOrdered B y: Shahzad Bright on 04-02-2025 Monocytes/100 WBC (Bld) 9.9 % 0-10 [facility] Mucus LM Ql (Urine sed)Order ed By: Shahzad Bright on 04-02-2025 Mucus Ql (Urine sed) 0 SEEN /hpf [facility] Neutrophil percentageOrdered By: Shahzad Bright on 04-02-2025 Neutrophils/100 WBC (Bld) 47.6 % 47-70 [facility] Nitrite Test strip Ql (U)Ord ered By: Shahzad Bright on 04-02-2025 Nitrite Ql (U) Negative Negative [facility] Nucleated red blood cell per centageOrdered By: Shahzad Bright on 04-02-2025 Nucleated RBC/100 WBC (Bld) [Ratio] 0 % 0-5 [facility] Platelet countOrdered By: Isadora Bright on 04-02-2025 Platelets (Bld) [#/Vol] 252 10*3/uL 150-450 [facility] Potassium measurement (mass/ volume)Ordered By: Shahzad Bright on 04-02-2025 Potassium (Unsp spec) [Mass/Vol] 4.5 mmol/L 3.3-5.1 [facility] Protein Test strip Ql (U)Ord ered By: Shahzad Bright on 04-02-2025 Protein Ql (U) Negative Negative [facility] RBC Auto (Bld) [#/Vol]Ordere d By: Shahzad Bright on 04-02-2025 RBC (Bld) [#/Vol] 5.29 10*6/uL 4.6-6.2 [facility] Screening total cholesterol/ high density lipoprotein (HDL) cholesterol ratioOrdered By: Shahzad Bright on 04-02-2025 Cholesterol.total/Choles terol in HDL [Mass ratio] 6.27 {ratio} [facility] Serum creatinine measurement (mass/volume)Ordered By: Shahzad Bright on 04-02-2025 Creatinine [Mass/Vol] 0.84 mg/dL 0.70-1.20 [facility] Serum globulin measurementOr dered By: Shahzad Bright on 04-02-2025 Globulin (S) [Mass/Vol] 3.1 g/dL 2.2-4.2 [facility] Serum glucose measurement (m ass/volume)Ordered By: Shahzad Bright on 04-02-2025 Glucose [Mass/Vol] 99 mg/dL 70-99 [facility] Serum or plasma alanine negro otransferase (ALT) measurementOrdered By: Shahzad Bright on 04-02-2025 ALT [Catalytic activity/Vol] 45 U/L <47 [facility] Serum or plasma albumin renetta urement (mass/volume)Ordered By: Shahzad Bright on 04-02-2025 Albumin [Mass/Vol] 4.1 g/dL 3.5-5.0 [facility] Serum or plasma albumin/glob ulin mass ratioOrdered By: Shahzad Bright on 04-02-2025 Albumin/Globulin [Mass ratio] 1.3 {ratio} 0.9-2.4 [facility] Serum or plasma alkaline aneesh sphatase measurementOrdered By: Shahzad Bright on 04-02-2025 ALP [Catalytic activity/Vol] 48 U/L 40-129 [facility] Serum or plasma calcium renetta urement (mass/volume)Ordered By: Shahzad Bright on 04-02-2025 Calcium [Mass/Vol] 9.5 mg/dL 7.6-11.0 [facility] Serum or plasma cholesterol in HDL measurement (mass/volume)Ordered By: Shahzad Bright on 04-02-2025 Cholesterol in HDL [Mass/Vol] 31 mg/dL Low >40 [facility] Comment on above: National Cholesterol Education Program (NCEP) guidelines:<40 mg/dL: Low HDL-cholesterol (major risk factor for CHD)>= 60 mg/dL: High HDL-cholesterol (negative risk factor for CHD)HDL-cholesterol is affected by a number of factors, e.g. smoking, exercise, hormones, sex and age. Serum or plasma cholesterol measurement (mass/volume)Ordered By: Shahzad Bright on 04-02-2025 Cholesterol [Mass/Vol] 192 mg/dL <201 [facility] Comment on above: Cholesterol level, D esirable <200 mg/dLBorderline high cholesterol 200-239 mg/dLHigh cholesterol >=240 mg/dLRecommendations of the NCEP Adult Treatment Panel for the following risk-cutoff thresholds for the [place] population. Serum or plasma urea nitroge n measurement (mass/volume)Ordered By: Shahzad Bright on 04-02-2025 Urea nitrogen [Mass/Vol] 11 mg/dL 4-19 [facility] Sodium levelOrdered By: Shahzad Bright on 04-02-2025 Sodium [Moles/Vol] 140 mmol/L 133-145 [facility] Squamous epithelial cells de tection in urine sediment by light microscopyOrdered By: Shahzad Bright on 04-02-2025 Epithelial cells.squamous LM Ql (Urine sed) 0 SEEN /hpf 0-5 [facility] Total proteinOrdered By: Abdelrahman Bright on 04-02-2025 Protein [Mass/Vol] 7.2 g/dL 5.9-8.4 [facility] Triglycerides measurementOrd ered By: Shahzad Bright on 04-02-2025 Triglyceride [Mass/Vol] 177 mg/dL <199 [facility] Comment on above: The drugs N-Acetylcy steine and Metamizole may falsely depress this assay. Normal range: <150 mg/dLBorderline High: 150-199 mg/dLHigh: 200-499 mg/dLVery High: >500 mg/dL Urinalysis, Completeon 04-02 WBC 0-5 SEEN Normal 0-5 [facility] Comment on above: Order Comment: CLEAN CATCH Performed By: #### L 400.0001, L506.1001 ####[facility] [address] [place], [address] BILIRUBIN URINE Negative Normal Negative [facility] Comment on above: Order Comment: CLEAN CATCH Performed By: #### L 400.0001, L506.1001 ####[facility] [address] [place], [address] Clarity (U) Clear Normal Clear [facility] Comment on above: Order Comment: CLEAN CATCH Performed By: #### L 400.0001, L506.1001 ####[facility] [address] [place], [address] Color (U) Yellow Normal Yellow [facility] Comment on above: Order Comment: CLEAN CATCH Performed By: #### L 400.0001, L506.1001 ####[facility] [address] [place], [address] GLUCOSE, UR Normal Normal Normal [facility] Comment on above: Order Comment: CLEAN CATCH Performed By: #### L 400.0001, L506.1001 ####[facility] [address] [place], [address] KETONE UR Negative Normal Negative [facility] Comment on above: Order Comment: CLEAN CATCH Performed By: #### L 400.0001, L506.1001 ####[facility] [address] [place], [address] LEUK ESTERASE Negative Normal Negative [facility] Comment on above: Order Comment: CLEAN CATCH Performed By: #### L 400.0001, L506.1001 ####[facility] [address] [place], [address] Nitrite Ql (U) Negative Normal Negative [facility] Comment on above: Order Comment: CLEAN CATCH Performed By: #### L 400.0001, L506.1001 ####[facility] [address] [place], [address] OCCULT BLOOD-UR Negative Normal Negative [facility] Comment on above: Order Comment: CLEAN CATCH Performed By: #### L 400.0001, L506.1001 ####[facility] [address] [place], [address] pH UR 6.5 Normal 5.0 - 8.0 [facility] Comment on above: Order Comment: CLEAN CATCH Performed By: #### L 400.0001, L506.1001 ####[facility] [address] [place], [address] PROT DIPSTX Negative Normal Negative [facility] Comment on above: Order Comment: CLEAN CATCH Performed By: #### L 400.0001, L506.1001 ####[facility] [address] [place], [address] SP.GR. DIPSTX 1.010 Normal 1.002-1.030 [facility] Comment on above: Order Comment: CLEAN CATCH Performed By: #### L 400.0001, L506.1001 ####[facility] [address] [place], [address] UROBILI Normal Normal Normal [facility] Comment on above: Order Comment: CLEAN CATCH Performed By: #### L 400.0001, L506.1001 ####[facility] [address] [place], [address] BACTERIA 0 SEEN Normal None Seen [facility] Comment on above: Order Comment: CLEAN CATCH Performed By: #### L 400.0001, L506.1001 ####[facility] [address] [place], [address] EPI,SQUAMOUS 0 SEEN Normal 0-5 [facility] Comment on above: Order Comment: CLEAN CATCH Performed By: #### L 400.0001, L506.1001 ####[facility] [address] [place], [address] Mucus Ql (Urine sed) 0 SEEN Normal [facility] Comment on above: Order Comment: CLEAN CATCH Performed By: #### L 400.0001, L506.1001 ####[facility] [address] [place], [address] RBC 0 SEEN Normal 0-5 [facility] Comment on above: Order Comment: CLEAN CATCH Performed By: #### L 400.0001, L506.1001 ####[facility] [address] [place], [address] Urine clarityOrdered By: Abdelrahman Bright on 04-02-2025 Clarity (U) Clear Clear [facility] Urine color determinationOrd ered By: Shahzad Bright on 04-02-2025 Color (U) Yellow Yellow [facility] Urine glucose detectionOrder ed By: Shahzad Bright on 04-02-2025 Glucose Ql (U) Normal mg/dl Normal [facility] Urine leukocyte esterase det ection by dipstickOrdered By: Shahzad Bright on 04-02-2025 Leukocyte esterase Test strip Ql (U) Negative Negative [facility] Urine pHOrdered By: Shahzad lezama on 04-02-2025 pH (U) 6.5 [pH] 5.0 - 8.0 [facility] Urine sediment bacteria coun t by microscopy (number/high power field)Ordered By: Shahzad Bright on 04-02-2025 Bacteria LM.HPF (Urine sed) [#/Area] 0 /[HPF] None Seen [facility] Urine specific gravity measu rementOrdered By: Shahzad Bright on 04-02-2025 Specific gravity (U) [Rel density] 1.010 1.002-1.030 [facility] Urine urobilinogen measureme ntOrdered By: Shahzad Bright on 04-02-2025 Urobilinogen Ql (U) Normal mg/dl Normal [facility] Vitamin D,25 Hydroxyon 04-02 Vitamin D 25-OH 30.5 ng/mL Normal 30-100 [facility] Comment on above: Order Comment: Order Date: 04/01/25Order Info: 0786-1 - CMPOrder Info: [id number] - LIPID Result Comment: Jamilah min D Status Deficiency: <20 ng/mL (50nmol/L) Insufficiency: 20-30 ng/mL (50-75 nmol/L) Sufficiency: 30-100 ng/mL (75-250 nmol/L) Toxicity: >100 ng/mL (>250 nmol/L) Performed By: #### L 400.0001, L506.1001 ####[facility] [address] [place], [address] White blood cell (WBC) count Ordered By: Shahzad Bright on 04-02-2025 WBC (Bld) [#/Vol] 7.8 10*3/uL 4.4-11.0 [facility] White blood cell countOrdere d By: Shahzad Bright on 04-02-2025 White blood cell count 0-5 SEEN /hpf 0-5 [facility] Pulmonary Visit Reporton Pulmonary Visit Report [facility] [place] [address] [place] [address] OFFICE VISIT Date of Service: 03/04/25 MR#: [id number] Acct: [id number] Name: ZENA BENNETT Rep #: [id number] : 1975 Provider: CINDY Leavitt Age/Sex: 49/M Location: [facility] [place].PMW Status: Signed Assessment and Plan Assessment and Plan (1) KESHA (obstructive sleep apnea): Status: Chronic Comment: AutoPap 5-15 cmH2O Plan: He is using and benefiting from Pap therapy. No indication for titration study at this time. Contact the office for any new or worsening symptoms in the meantime. Follow-up in October. (2) Morbid obesity: Status: Chronic Plan: Complicates exam, plan, care and prognosis. Continue to encourage weight loss. (3) Cigarette nicotine dependence: Status: Chronic Qualifiers: Substance use status: uncomplicated Qualified Code(s): F17.210 - Nicotine dependence, cigarettes, uncomplicated Comment: Greater than 20 pack years appropriate for LDCT 2025 Plan: Encourage complete smoking and vape cessation. He is appropriate for LDCT. Follow-up in late October to discuss test results. Orders: Orders Low Dose CT Lung Screening 10/26/25 F17.200 - Nicotine dependence, unspecified, uncomplicated, F17.210 - Nicotine dependence, cigarettes, uncomplicated Plan Details Additional Comments: This note was generated with [employer] dictation software. It may contain incorrect words, spelling, and punctuation that were not noted in checking the note before signing. Follow Up: 11/17/25 HPI 1 Y FU Chief Complaint: Routine follow-up HPI Comments Details: This patient presents to the office today for follow-up of his obstructive sleep apnea. He is ambulatory and currently on room air. He has not recently been seen in the ED or urgent care for any respiratory illness. Has not required any antibiotics or prednisone for any breathing problems. He denies any difficulty with shortness of breath. He denies any cough, sputum production or hemoptysis. He denies any wheezing, chest tightness, chest pain or palpitations. He also denies any fever, chills or body aches. He wakes up feeling rested refreshed with use of his PAP device. He is not requiring naps. He is not nodding off to sleep unintentionally. He is not having difficulty with dry mouth or mask leaks. He is not having excessive nocturia. He also denies morning headaches. He successfully cut himself off from cigarettes February 2024. He continues to use an e-cigarette for nicotine. He does have a greater than 74-hxai-gfwz smoking history. Compliance report for the past 30 days shows 100% compliance with nearly 5 hours and 39 minutes of use per night. Current setting is AutoPap 5-15 cmH2O pressures typically being utilized at 11.7 to 14.5 cm of water. Residual AHI of 0.8 events per hour. Leaks do not appear to be problematic. Intake Vital Signs 03/07/24 07:16 03/04/25 07:48 Height 5 ft 6 in 5 ft 6 in Weight: 332 lb BMI 53.6 BP 108/76 Blood Pressure Location Rt brachial Position Sitting Respiration 18 Pulse 70 Pulse Source NIBP Temp 97.4 F L Temperature Source Temporal Artery Pulse Oximetry (%) 96 Oxygen Delivery Method room air Intake Visit Reasons: 1 Y FU Home Health Clinical Supervisor Required: No DME Vendor: Geoff Accompanied by: Self Is patient in pain?: No Allergies Sulfa (Sulfonamide Antibiotics) Allergy (Verified 03/04/25 09:03) Hives Medications ???Medication ???Instructions ???Recorded ???Confirmed ???Type buspirone 7.5 mg tablet 7.5 mg PO BID 12/14/23 03/04/25 Hi story cholecalciferol (vitamin D3) 50 50 mcg PO BID 12/14/23 03/04/25 Hi story mcg (2,000 unit) capsule taifnhrb-uzzrvcjn-nn lic acid 400 tab PO 12/14/23 03/04/25 History mcg-vit K 20 mcg-lycop 300 mcg tablet (One-A-Day Men's Multivitamin) omega-3 fatty acids 1,000 mg 1,000 mg PO TID 12/14/23 03/04/25 History capsule albuterol sulfate 90 mcg/actuation inhalation 03/07/24 03/04/25 His tory aerosol inhaler Have you fallen in the past year?: No PFSH Medical History (Reviewed 03/04/25 @ 09:17 by Sabrina Leavitt MECHANICAL MANUFACTURING TECHNICIAN, MECHANICAL MANUFACTURING TECHNICIAN-C) Sleep related bruxism CTS (carpal tunnel syndrome) Acute sinusitis Inclusion cyst Left shoulder pain Tinnitus, unspecified ear Ankle pain, left Surgical History (Reviewed 03/04/25 @ 09:17 by Sabrina Leavitt MECHANICAL MANUFACTURING TECHNICIAN, MECHANICAL MANUFACTURING TECHNICIAN-C) Hx of tonsillectomy History of appendectomy Family History (Reviewed 03/04/25 @ 09:17 by Sabrina Leavitt MECHANICAL MANUFACTURING TECHNICIAN, MECHANICAL MANUFACTURING TECHNICIAN-C) Mother Diabetes CAD (coronary artery disease) Hypertension Anxiety Depression Father Cancer inoperable brain tumor Social History (Reviewed 03/04/25 @ 09:17 by Sabrina Leavitt MECHANICAL MANUFACTURING TECHNICIAN, MECHANICAL MANUFACTURING TECHNICIAN-C) Smoking Status: Current every day smoker tobacco type: cigarettes (more content not included)... Normal [facility] Testosterone, Total / Freeon 02-23-2025 TESTOSTER,FREE 5.39 ng/dL Normal 5.00-21.00 [facility] Comment on above: Order Comment: Order Date: 02/19/25Order Info: 0024-1 - TESTFN Performed By: #### L 100.0100, L500.4050, L501.9910, L3100.5310, L501.9520, L506.0400 ####[facility] [address] [place], [address] TESTOSTER,TOTAL 205 ng/dL Low 264-916 [facility] Comment on above: Order Comment: Order Date: 02/19/25Order Info: 0024-1 - TESTFN Result Comment: Adul t male reference interval is based on a population of healthy nonobese males (BMI <30) between 19 and 39 years old. melissa Mcclellan.al. JCEM 2017,102;5634-2753. PMID: [id number]. Performed By: #### L 100.0100, L500.4050, L501.9910, L3100.5310, L501.9520, L506.0400 ####[facility] [address] [place], [place], [phone] TESTOSTERONE,%F 2.63 Normal 1.50-4.20 [facility] Comment on above: Order Comment: Order Date: 02/19/25Order Info: 0024-1 - TESTFN Result Comment: Perf ormed at: [facility] [address] [id number] Truck Sales Representative: Mihai Marrufo PhD, Phone: [phone] Performed at: - [facility] [address] [id number] Truck Sales Representative: Balwinder Fan MD, Phone: [phone] Performed By: #### L 100.0100, L500.4050, L501.9910, L3100.5310, L501.9520, L506.0400 ####[facility] [address] [place], [place], [phone] Absolute lymphocyte countOrd ered By: Shahzad Bright on 02-19-2025 Lymphocytes Auto (Unsp spec) [#/Vol] 2.72 10*3/uL 0.83-4.51 [facility] Absolute neutrophil countOrd ered By: Shahzad Bright on 05-28-2025 Neutrophils (Bld) [#/Vol] 4.6 10*3/uL 2.0-7.7 [facility] Anion gap in Serum or Plasma Ordered By: Shahzad Bright on 02-19-2025 Anion gap [Moles/Vol] 12 mmol/L 5- [facility] Automated lymphocyte count a s percentage of total leukocytesOrdered By: Shahzad Bright on 02-19-2025 Lymphocytes/100 WBC Auto (Unsp spec) 32.6 % [facility] BUN/creatinine ratioOrdered By: Shahzad Bright on 02-19-2025 Urea nitrogen/Creatinine [Mass ratio] 17.9 mg/mg 10- [facility] Basophil percentageOrdered B y: Shahzad Bright on 02-19-2025 Basophils/100 WBC (Bld) 0.7 % 0-1 [facility] Bilirubin, totalOrdered By: Shahzad Bright on 02-19-2025 Bilirubin [Mass/Vol] 0.39 mg/dL 0.00-1.30 [facility] CBC W/Diff, Automatedon 01-24 Absolute Lymph 2.72 X10 3/uL Normal 0.83-4.51 [facility] Comment on above: Order Comment: Order Date: 02/19/25Order Info: 0184-1 - CBCD Performed By: #### L 100.0100, L500.4050, L501.9910, L3100.5310, L501.9520, L506.0400 ####[facility] [address] [place], [address] Absolute Neut 4.6 X10 3/uL Normal 2.0-7.7 [facility] Comment on above: Order Comment: Order Date: 02/19/25Order Info: 0184-1 - CBCD Performed By: #### L 100.0100, L500.4050, L501.9910, L3100.5310, L501.9520, L506.0400 ####[facility] [address] [place], [address] Basophils/100 WBC (Bld) 0.7 % Normal 0-1 [facility] Comment on above: Order Comment: Order Date: 02/19/25Order Info: 0184-1 - CBCD Performed By: #### L 100.0100, L500.4050, L501.9910, L3100.5310, L501.9520, L506.0400 ####[facility] [address] [place], [address] Eosinophils/100 WBC (Bld) 1.8 % Normal 0-5 [facility] Comment on above: Order Comment: Order Date: 02/19/25Order Info: 0184-1 - CBCD Performed By: #### L 100.0100, L500.4050, L501.9910, L3100.5310, L501.9520, L506.0400 ####[facility] [address] [place], [address] Erythrocyte distribution width (RBC) [Ratio] 13.2 % Normal 11.6-14.6 [facility] Comment on above: Order Comment: Order Date: 02/19/25Order Info: 0184-1 - CBCD Performed By: #### L 100.0100, L500.4050, L501.9910, L3100.5310, L501.9520, L506.0400 ####[facility] [address] [place], [address] Hematocrit (Bld) [Volume fraction] 46.4 % Normal 40-54 [facility] Comment on above: Order Comment: Order Date: 02/19/25Order Info: 0184-1 - CBCD Performed By: #### L 100.0100, L500.4050, L501.9910, L3100.5310, L501.9520, L506.0400 ####[facility] [address] [place], [address] Hemoglobin (Bld) [Mass/Vol] 14.3 g/dL Normal 13.0-16.5 [facility] Comment on above: Order Comment: Order Date: 02/19/25Order Info: 0184-1 - CBCD Performed By: #### L 100.0100, L500.4050, L501.9910, L3100.5310, L501.9520, L506.0400 ####[facility] [address] [place], [address] IG% 0.500 Normal 0.0-0.9 [facility] Comment on above: Order Comment: Order Date: 02/19/25Order Info: 0184-1 - CBCD Result Comment: IG% - Immature Granulocytes (promyelocytes, myelocytes and metamyelocytes) > 1% indicates that a LEFT SHIFT is Present. Performed By: #### L 100.0100, L500.4050, L501.9910, L3100.5310, L501.9520, L506.0400 ####[facility] [address] [place], [address] Lymphocytes/100 WBC (Bld) 32.6 % Normal 19-41 [facility] Comment on above: Order Comment: Order Date: 02/19/25Order Info: 0184-1 - CBCD Performed By: #### L 100.0100, L500.4050, L501.9910, L3100.5310, L501.9520, L506.0400 ####[facility] [address] [place], [address] MCH (RBC) [Entitic mass] 26.4 pg Low 27.0-32.0 [facility] Comment on above: Order Comment: Order Date: 02/19/25Order Info: 0184-1 - CBCD Performed By: #### L 100.0100, L500.4050, L501.9910, L3100.5310, L501.9520, L506.0400 ####[facility] [address] [place], [address] MCHC (RBC) [Mass/Vol] 30.8 g/dL Low 32-36 [facility] Comment on above: Order Comment: Order Date: 02/19/25Order Info: 0184-1 - CBCD Performed By: #### L 100.0100, L500.4050, L501.9910, L3100.5310, L501.9520, L506.0400 ####[facility] [address] [place], [address] MCV (RBC) [Entitic vol] 85.8 fL Normal 80-94 [facility] Comment on above: Order Comment: Order Date: 02/19/25Order Info: 018- - CBCD Performed By: #### L 100.0100, L500.4050, L501.9910, L3100.5310, L501.9520, L506.0400 ####[facility] [address] [place], [address] Monocytes/100 WBC (Bld) 9.1 % Normal 0-10 [facility] Comment on above: Order Comment: Order Date: 02/19/25Order Info: 0184- - CBCD Performed By: #### L 100.0100, L500.4050, L501.9910, L3100.5310, L501.9520, L506.0400 ####[facility] [address] [place], [address] Neutrophils/100 WBC (Bld) 55.3 % Normal 47-70 [facility] Comment on above: Order Comment: Order Date: 02/19/25Order Info: 0184-1 - CBCD Performed By: #### L 100.0100, L500.4050, L501.9910, L3100.5310, L501.9520, L506.0400 ####[facility] [address] [place], [address] Nucleated RBC (Bld) [#/Vol] 0 10*3/uL Normal 0-5 [facility] Comment on above: Order Comment: Order Date: 02/19/25Order Info: 0184-1 - CBCD Performed By: #### L 100.0100, L500.4050, L501.9910, L3100.5310, L501.9520, L506.0400 ####[facility] [address] [place], [address] Platelet mean volume (Bld) [Entitic vol] 10.7 fL Normal 6.2-12.0 [facility] Comment on above: Order Comment: Order Date: 02/19/25Order Info: 0184-1 - CBCD Performed By: #### L 100.0100, L500.4050, L501.9910, L3100.5310, L501.9520, L506.0400 ####[facility] [address] [facility] [place], [address] Platelets (Bld) [#/Vol] 261 10*3/uL Normal 150-450 [facility] Comment on above: Order Comment: Order Date: 02/19/25Order Info: 0184-1 - CBCD Performed By: #### L 100.0100, L500.4050, L501.9910, L3100.5310, L501.9520, L506.0400 ####[facility] [address] [facility] [place], [address] RBC (Bld) [#/Vol] 5.41 10*6/uL Normal 4.6-6.2 [facility] Comment on above: Order Comment: Order Date: 02/19/25Order Info: 0184-1 - CBCD Performed By: #### L 100.0100, L500.4050, L501.9910, L3100.5310, L501.9520, L506.0400 ####[facility] [address] [facility] [place], [address] RDW SD 41.1 fl Normal 35.1-43.9 [facility] Comment on above: Order Comment: Order Date: 02/19/25Order Info: 0184-1 - CBCD Performed By: #### L 100.0100, L500.4050, L501.9910, L3100.5310, L501.9520, L506.0400 ####[facility] [address] [place], [address] WBC (Bld) [#/Vol] 8.4 10*3/uL Normal 4.4-11.0 [facility] Comment on above: Order Comment: Order Date: 02/19/25Order Info: 0184-1 - CBCD Performed By: #### L 100.0100, L500.4050, L501.9910, L3100.5310, L501.9520, L506.0400 ####[facility] [address] [place], [address] Carbon dioxide, total [Moles /volume] in Central venous bloodOrdered By: Shahzad Bright on 02-19-2025 CO2 [Moles/Vol] 20.7 mmol/L Low 21.0-32.0 [facility] Chloride assayOrdered By: Isadora Bright on 02-19-2025 Chloride [Moles/Vol] 104 mmol/L 98-108 [facility] Comprehensive Metabolic Prof ilon 02-19-2025 Albumin [Mass/Vol] 4.3 g/dL Normal 3.5-5.0 [facility] Comment on above: Order Comment: Order Date: 02/19/25Order Info: 0786-1 - CMPOrder Info: 3016-3 - TSHOrder Info: 2857-1 - PSAOrder Info: 3024-7 - T4F Performed By: #### L 100.0100, L500.4050, L501.9910, L3100.5310, L501.9520, L506.0400 ####[facility] [address] [place], [address] Albumin/Globulin [Mass ratio] 1.4 {ratio} Normal 0.9-2.4 [facility] Comment on above: Order Comment: Order Date: 02/19/25Order Info: 785- - CMPOrder Info: 3015-11 - TSHOrder Info: 2856-09 - PSAOrder Info: 7 - T4F Performed By: #### L 100.0100, L500.4050, L501.9910, L3100.5310, L501.9520, L506.0400 ####[facility] [address] [place], [address] ALK PHOS 51 U/L Normal 40-129 [facility] Comment on above: Order Comment: Order Date: 02/19/25Order Info: 785- - CMPOrder Info: 3015-11 - TSHOrder Info: 2856-09 - PSAOrder Info: 7 - T4F Performed By: #### L 100.0100, L500.4050, L501.9910, L3100.5310, L501.9520, L506.0400 ####[facility] [address] [place], [place], [address](608) ALT [Catalytic activity/Vol] 34 U/L Normal <=46 [facility] Comment on above: Order Comment: Order Date: 02/19/25Order Info: 785-09 - CMPOrder Info: 3015-11 - TSHOrder Info: 2856-09 - PSAOrder Info: 302-7 - T4F Performed By: #### L 100.0100, L500.4050, L501.9910, L3100.5310, L501.9520, L506.0400 ####[facility] [address] [place], [address] AST [Catalytic activity/Vol] 27 U/L Normal <=37 [facility] Comment on above: Order Comment: Order Date: 02/19/25Order Info: 785- - CMPOrder Info: 3015-11 - TSHOrder Info: 2856-09 - PSAOrder Info: 3024-7 - T4F Performed By: #### L 100.0100, L500.4050, L501.9910, L3100.5310, L501.9520, L506.0400 ####[facility] [address] [place], [address] Bilirubin [Mass/Vol] 0.39 mg/dL Normal 0.00-1.30 [facility] Comment on above: Order Comment: Order Date: 02/19/25Order Info: 0786-1 - CMPOrder Info: 3016-3 - TSHOrder Info: 2857-1 - PSAOrder Info: 3024-7 - T4F Performed By: #### L 100.0100, L500.4050, L501.9910, L3100.5310, L501.9520, L506.0400 ####[facility] [address] [place], [address] BUN/CRE 17.9 RATIO Normal 10-20 [facility] Comment on above: Order Comment: Order Date: 02/19/25Order Info: 0786-1 - CMPOrder Info: 3 - TSHOrder Info: 2857-1 - PSAOrder Info: 3024-7 - T4F Performed By: #### L 100.0100, L500.4050, L501.9910, L3100.5310, L501.9520, L506.0400 ####[facility] [address] [place], [address] Calcium [Mass/Vol] 9.5 mg/dL Normal 7.6-11.0 [facility] Comment on above: Order Comment: Order Date: 02/19/25Order Info: 0786-1 - CMPOrder Info: 6-3 - TSHOrder Info: 2857-1 - PSAOrder Info: 3024-7 - T4F Performed By: #### L 100.0100, L500.4050, L501.9910, L3100.5310, L501.9520, L506.0400 ####[facility] [address] [place], [address] Chloride [Moles/Vol] 104 mmol/L Normal 98-108 [facility] Comment on above: Order Comment: Order Date: 02/19/25Order Info: 0786-1 - CMPOrder Info: 3015-3 - TSHOrder Info: 2857-1 - PSAOrder Info: 3024-7 - T4F Performed By: #### L 100.0100, L500.4050, L501.9910, L3100.5310, L501.9520, L506.0400 ####[facility] [address] [place], [address] CO2 [Moles/Vol] 20.7 mmol/L Low 21.0-32.0 [facility] Comment on above: Order Comment: Order Date: 02/19/25Order Info: 86-1 - CMPOrder Info: 3 - TSHOrder Info: 285-1 - PSAOrder Info: 3024-7 - T4F Performed By: #### L 100.0100, L500.4050, L501.9910, L3100.5310, L501.9520, L506.0400 ####[facility] [address] [place], [address] Creatinine [Mass/Vol] 0.80 mg/dL Normal 0.70-1.20 [facility] Comment on above: Order Comment: Order Date: 02/19/25Order Info: 0786-1 - CMPOrder Info: 6-3 - TSHOrder Info: 2857-1 - PSAOrder Info: 3024-7 - T4F Performed By: #### L 100.0100, L500.4050, L501.9910, L3100.5310, L501.9520, L506.0400 ####[facility] [address] [place], [address] GAP 12 Normal 5-15 [facility] Comment on above: Order Comment: Order Date: 02/19/25Order Info: 0786-1 - CMPOrder Info: 3015-3 - TSHOrder Info: 2857-1 - PSAOrder Info: 3024-7 - T4F Performed By: #### L 100.0100, L500.4050, L501.9910, L3100.5310, L501.9520, L506.0400 ####[facility] [address] [place], [place], [address] GFR/1.73 sq M.predicted among non-blacks MDRD (S/P/Bld) [Vol rate/Area] 109 mL/min/{1.73_m2} Normal >60 [facility] Comment on above: Order Comment: Order Date: 02/19/25Order Info: 785- - CMPOrder Info: 3015-11 - TSHOrder Info: 28503-25 - PSAOrder Info: 302-7 - T4F Result Comment: mL/m in/1.73m2 CKD-EPI Creatinine Equation (2020) Performed By: #### L 100.0100, L500.4050, L501.9910, L3100.5310, L501.9520, L506.0400 ####[facility] [address] [place], [place], [address] Globulin (S) [Mass/Vol] 3.1 g/dL Normal 2.2-4.2 [facility] Comment on above: Order Comment: Order Date: 02/19/25Order Info: 785-09 - CMPOrder Info: 3015-11 - TSHOrder Info: 1 - PSAOrder Info: 3024-7 - T4F Performed By: #### L 100.0100, L500.4050, L501.9910, L3100.5310, L501.9520, L506.0400 ####[facility] [address] [place], [address] Glucose [Mass/Vol] 115 mg/dL High 70-99 [facility] Comment on above: Order Comment: Order Date: 02/19/25Order Info: 785- - CMPOrder Info: 3 - TSHOrder Info: 2857-1 - PSAOrder Info: 3024-7 - T4F Performed By: #### L 100.0100, L500.4050, L501.9910, L3100.5310, L501.9520, L506.0400 ####[facility] [address] [place], [address] Potassium [Moles/Vol] 4.1 mmol/L Normal 3.3-5.1 [facility] Comment on above: Order Comment: Order Date: 02/19/25Order Info: 86-1 - CMPOrder Info: 3015-3 - TSHOrder Info: 2857-1 - PSAOrder Info: 3024-7 - T4F Performed By: #### L 100.0100, L500.4050, L501.9910, L3100.5310, L501.9520, L506.0400 ####[facility] [address] [place], [address] Sodium [Moles/Vol] 137 mmol/L Normal 133-145 [facility] Comment on above: Order Comment: Order Date: 02/19/25Order Info: 785-1 - CMPOrder Info: 3 - TSHOrder Info: 2857-1 - PSAOrder Info: 3024-7 - T4F Performed By: #### L 100.0100, L500.4050, L501.9910, L3100.5310, L501.9520, L506.0400 ####[facility] [address] [place], [address] T PROT 7.4 g/dL Normal 5.9-8.4 [facility] Comment on above: Order Comment: Order Date: 02/19/25Order Info: 86-1 - CMPOrder Info: 3015-3 - TSHOrder Info: 2857-1 - PSAOrder Info: 3024-7 - T4F Performed By: #### L 100.0100, L500.4050, L501.9910, L3100.5310, L501.9520, L506.0400 ####[facility] [address] [place], [address] Urea nitrogen [Mass/Vol] 14 mg/dL Normal 4-19 [facility] Comment on above: Order Comment: Order Date: 02/19/25Order Info: [id number] - CMPOrder Info: [id number] - TSHOrder Info: 2857-1 - PSAOrder Info: 3024-7 - T4F Performed By: #### L 100.0100, L500.4050, L501.9910, L3100.5310, L501.9520, L506.0400 ####[facility] [address] [place], [address] Eosinophil percentageOrdered By: Shahzad Bright on 02-19-2025 Eosinophils/100 WBC (Bld) 1.8 % 0-5 [facility] Erythrocyte distribution wid th ratioOrdered By: Shahzad Bright on 02-19-2025 Erythrocyte distribution width (RBC) [Ratio] 13.2 % 11.6-14.6 [facility] Erythrocyte distribution wid th standard deviationOrdered By: Shahzad Bright on 02-19-2025 Erythrocyte distribution width (RBC) [Ratio] 41.1 fl 35.1-43.9 [facility] Free testosterone percentage Ordered By: Shahzad Bright on 02-19-2025 Testosterone Free/Testosterone.total [Mass fraction] 2.63 % 1.50-4.20 [facility] Comment on above: Performed at: [address] [id number] Director: Mihai Marrufo PhD, Phone: [phone] at: [facility] [address] [id number] Director: Balwinder Fan MD, Phone: [phone] Glomerular filtration rate ( GFR) estimation/1.73 sq m using serum, plasma, or whole bOrdered By: Shahzad Bright on 02-19-2025 GFR/1.73 sq M.predicted among non-blacks MDRD (S/P/Bld) [Vol rate/Area] 109 mL/min/{1.73_m2} >60 [facility] Comment on above: mL/min/1.73m2 CKD-EP I Creatinine Equation (2020) Hematocrit Auto (Bld) [Volum e fraction]Ordered By: Shahzad Bright on 02-19-2025 Hematocrit (Bld) [Volume fraction] 46.4 % 40-54 [facility] Hemoglobin measurementOrdere d By: Shahzad Bright on 02-19-2025 Hemoglobin (Bld) [Mass/Vol] 14.3 g/dL 13.0-16.5 [facility] Immature granulocytes/100 WB C Auto (Bld)Ordered By: Shahzad Bright on 02-19-2025 Immature granulocytes/100 WBC (Bld) 0.500 % 0.0-0.9 [facility] Comment on above: IG% - Immature Granu locytes (promyelocytes, myelocytes and metamyelocytes) > 1% indicates that a LEFT SHIFT is Present. Laboratory - Chemistry and C hemistry - challengeOrdered By: Shahzad Bright on 02-19-2025 AST [Catalytic activity/Vol] 27 U/L <38 [facility] MCV (mean corpuscular volume ) determinationOrdered By: Shahzad Bright on 02-19-2025 MCV (RBC) [Entitic vol] 85.8 fL 80-94 [facility] Mean corpuscular hemoglobin (MCH) determinationOrdered By: Shahzad Bright on 02-19-2025 MCH (RBC) [Entitic mass] 26.4 pg Low 27.0-32.0 [facility] Mean corpuscular hemoglobin concentration (MCHC) determinationOrdered By: Shahzad Bright on 02-19-2025 MCHC (RBC) [Mass/Vol] 30.8 g/dL Low 32-36 [facility] Mean platelet volume determi nationOrdered By: Shahzad Bright on 02-19-2025 Platelet mean volume (Bld) [Entitic vol] 10.7 fL 6.2-12.0 [facility] Monocyte percentageOrdered B y: Shahzad Bright on 02-19-2025 Monocytes/100 WBC (Bld) 9.1 % 0-10 [facility] Neutrophil percentageOrdered By: Shahzad Bright on 02-19-2025 Neutrophils/100 WBC (Bld) 55.3 % 47-70 [facility] Nucleated red blood cell per centageOrdered By: Shahzad Bright on 02-19-2025 Nucleated RBC/100 WBC (Bld) [Ratio] 0 % 0-5 [facility] PSA,Total - Annual Screenon 02-19-2025 PSA,TOT SCREEN 1.11 ng/mL Normal 0.02-4.00 [facility] Comment on above: Order Comment: Order Date: 02/19/25Order Info: 0786-1 - CMPOrder Info: 3016-3 - TSHOrder Info: 2857-1 - PSAOrder Info: 3024-7 - T4F Result Comment: This test was performed using the [employer] tPSA method. Measured values of a patient??sample can vary depending on the testing procedure used. PSA values determined on patient samples by different testing procedures cannot be used interchangeably. If there is a change in PSA assays while monitoring therapy, sequential testing should be performed to confirm baseline values. Performed By: #### L 100.0100, L500.4050, L501.9910, L3100.5310, L501.9520, L506.0400 ####[facility] [address] [place], [address] Platelet countOrdered By: Isadora Bright on 02-19-2025 Platelets (Bld) [#/Vol] 261 10*3/uL 150-450 [facility] Potassium measurement (mass/ volume)Ordered By: Shahzad Bright on 02-19-2025 Potassium (Unsp spec) [Mass/Vol] 4.1 mmol/L 3.3-5.1 [facility] RBC Auto (Bld) [#/Vol]Ordere d By: Shahzad Bright on 02-19-2025 RBC (Bld) [#/Vol] 5.41 10*6/uL 4.6-6.2 [facility] Serum creatinine measurement (mass/volume)Ordered By: Shahzad Bright on 02-19-2025 Creatinine [Mass/Vol] 0.80 mg/dL 0.70-1.20 [facility] Serum globulin measurementOr dered By: Shahzad Bright on 02-19-2025 Globulin (S) [Mass/Vol] 3.1 g/dL 2.2-4.2 [facility] Serum glucose measurement (m ass/volume)Ordered By: Shahzad Bright on 02-19-2025 Glucose [Mass/Vol] 115 mg/dL High 70-99 [facility] Serum or plasma alanine negro otransferase (ALT) measurementOrdered By: Shahzad Bright on 02-19-2025 ALT [Catalytic activity/Vol] 34 U/L <47 [facility] Serum or plasma albumin renetta urement (mass/volume)Ordered By: Shahzad Bright on 02-19-2025 Albumin [Mass/Vol] 4.3 g/dL 3.5-5.0 [facility] Serum or plasma albumin/glob ulin mass ratioOrdered By: Shahzad Bright on 02-19-2025 Albumin/Globulin [Mass ratio] 1.4 {ratio} 0.9-2.4 [facility] Serum or plasma alkaline aneesh sphatase measurementOrdered By: Shahzad Bright on 02-19-2025 ALP [Catalytic activity/Vol] 51 U/L 40-129 [facility] Serum or plasma calcium renetta urement (mass/volume)Ordered By: Shahzad Bright on 02-19-2025 Calcium [Mass/Vol] 9.5 mg/dL 7.6-11.0 [facility] Serum or plasma free testost erone measurement (mass/volume)Ordered By: Shahzad Bright on 02-19-2025 Testosterone Free [Mass/Vol] 5.39 ng/dL 5.00-21.00 [facility] Serum or plasma urea nitroge n measurement (mass/volume)Ordered By: Shahzad Bright on 02-19-2025 Urea nitrogen [Mass/Vol] 14 mg/dL 4-19 [facility] Sodium levelOrdered By: Shahzad Bright on 02-19-2025 Sodium [Moles/Vol] 137 mmol/L 133-145 [facility] T4 Free Directon 02-19-2025 T4 FREE DIRECT 1.10 ng/dL Normal 0.76-1.46 [facility] Comment on above: Order Comment: Order Date: 02/19/25Order Info: 0786-1 - CMPOrder Info: 3016-3 - TSHOrder Info: 2857-1 - PSAOrder Info: 3024-7 - T4FN Performed By: #### L 100.0100, L500.4050, L501.9910, L3100.5310, L501.9520, L506.0400 ####[facility] [address] [place], [address] T4 freeOrdered By: Shahzad morrison on 02-19-2025 Free T4 [Mass/Vol] 1.10 ng/dL 0.76-1.46 [facility] TSH DL <= 0.005 mIU/L QnOrde red By: Shahzad Bright on 02-19-2025 TSH Qn 1.160 uIU/mL 0.300-4.200 [facility] Testosterone, totalOrdered B y: Shahzad Bright on 02-19-2025 Testosterone [Mass/Vol] 205 ng/dL Low 264-916 [facility] Comment on above: Adult male reference interval is based on a population ofhealthy nonobese males (BMI <30) between 19 and 39 yearsold. Eleuterio et.al. JCEM 2017,102;7707-7661. PMID:[id number]. Thyroid Stim Hormone (TSH)on 02-19-2025 TSH 1.160 uIU/mL Normal 0.300-4.200 [facility] Comment on above: Order Comment: Order Date: 02/19/25Order Info: 0786-1 - CMPOrder Info: 3016-3 - TSHOrder Info: 2857-1 - PSAOrder Info: 3024-7 - T4F Performed By: #### L 100.0100, L500.4050, L501.9910, L3100.5310, L501.9520, L506.0400 ####[facility] [address] [place], [address] Total proteinOrdered By: Abdelrahman Bright on 02-19-2025 Protein [Mass/Vol] 7.4 g/dL 5.9-8.4 [facility] Vitamin B12on 02-19-2025 Cobalamin (Vitamin B12) [Mass/Vol] 373 pg/mL Normal 180-914 [facility] Comment on above: Order Comment: Order Date: 02/19/25Order Info: 0786-1 - CMPOrder Info: 3015-11 - TSHOrder Info: 2856-1 - PSAOrder Info: 7 - T4F Performed By: #### L 503.0106, L506.1001 ####[facility] [address] [place], [address] Vitamin B12 ser/plasOrdered By: Shahzad Bright on 02-19-2025 Cobalamin (Vitamin B12) [Mass/Vol] 373 pg/mL 180-914 [facility] Vitamin D,25 Hydroxyon 02-19 Vitamin D 25-OH 16.6 ng/mL Low 30-100 [facility] Comment on above: Order Comment: Order Date: 02/19/25Order Info: 0786-1 - CMPOrder Info: 3015-11 - TSHOrder Info: 2856-09 - PSAOrder Info: 7 - T4F Result Comment: Jamilah min D Status Deficiency: <20 ng/mL (50nmol/L) Insufficiency: 20-30 ng/mL (50-75 nmol/L) Sufficiency: 30-100 ng/mL (75-250 nmol/L) Toxicity: >100 ng/mL (>250 nmol/L) Performed By: #### L 503.0106, L506.1001 ####[facility] [address] [place], [address] White blood cell (WBC) count Ordered By: Shahzad Bright on 02-19-2025 WBC (Bld) [#/Vol] 8.4 10*3/uL 4.4-11.0 [facility] CBC W/Diff, Automatedon 09-26 Absolute Lymph 2.65 X10 3/uL Normal 0.83-4.51 [facility] Comment on above: Order Comment: Order Date: 06/20/24 Order Info: 0184-1 - CBCD Performed By: #### L 100.0100, L506.1000, L500.4050, L501.9985 #### [facility] [address] [place], [address] Absolute Neut 3.1 X10 3/uL Normal 2.0-7.7 [facility] Comment on above: Order Comment: Order Date: 06/20/24 Order Info: 0184-1 - CBCD Performed By: #### L 100.0100, L506.1000, L500.4050, L501.9985 #### [facility] [address] [place], [address] Basophils/100 WBC (Bld) 0.8 % Normal 0-1 [facility] Comment on above: Order Comment: Order Date: 06/20/24 Order Info: 0184-1 - CBCD Performed By: #### L 100.0100, L506.1000, L500.4050, L501.9985 #### [facility] [address] [place], [address] Eosinophils/100 WBC (Bld) 2.0 % Normal 0-5 [facility] Comment on above: Order Comment: Order Date: 06/20/24 Order Info: 0184-1 - CBCD Performed By: #### L 100.0100, L506.1000, L500.4050, L501.9985 #### [facility] [address] [place], [address] Erythrocyte distribution width (RBC) [Ratio] 13.5 % Normal 11.6-14.6 [facility] Comment on above: Order Comment: Order Date: 06/20/24 Order Info: 0184-1 - CBCD Performed By: #### L 100.0100, L506.1000, L500.4050, L501.9985 #### [facility] [address] [place], [address] Hematocrit (Bld) [Volume fraction] 43.2 % Normal 40-54 [facility] Comment on above: Order Comment: Order Date: 06/20/24 Order Info: 0184-1 - CBCD Performed By: #### L 100.0100, L506.1000, L500.4050, L501.9985 #### [facility] [address] [place], [address] Hemoglobin (Bld) [Mass/Vol] 13.0 g/dL Normal 13.0-16.5 [facility] Comment on above: Order Comment: Order Date: 06/20/24 Order Info: 0184-1 - CBCD Performed By: #### L 100.0100, L506.1000, L500.4050, L501.9985 #### [facility] [address] [place], [address] IG% 0.200 Normal 0.0-0.9 [facility] Comment on above: Order Comment: Order Date: 06/20/24 Order Info: 018- - CBCD Result Comment: IG% - Immature Granulocytes (promyelocytes, myelocytes and metamyelocytes) > 1% indicates that a LEFT SHIFT is Present. Performed By: #### L 100.0100, L506.1000, L500.4050, L501.9985 #### [facility] [address] [place], [address] Lymphocytes/100 WBC (Bld) 40.5 % Normal 19-41 [facility] Comment on above: Order Comment: Order Date: 06/20/24 Order Info: 0184- - CBCD Performed By: #### L 100.0100, L506.1000, L500.4050, L501.9985 #### [facility] [address] [place], [address] MCH (RBC) [Entitic mass] 26.1 pg Low 27.0-32.0 [facility] Comment on above: Order Comment: Order Date: 06/20/24 Order Info: 0184- - CBCD Performed By: #### L 100.0100, L506.1000, L500.4050, L501.9985 #### [facility] [address] [place], [address] MCHC (RBC) [Mass/Vol] 30.1 g/dL Low 32-36 [facility] Comment on above: Order Comment: Order Date: 06/20/24 Order Info: 018-1 - CBCD Performed By: #### L 100.0100, L506.1000, L500.4050, L501.9985 #### [facility] [address] [place], [address] MCV (RBC) [Entitic vol] 86.7 fL Normal 80-94 [facility] Comment on above: Order Comment: Order Date: 06/20/24 Order Info: 018- - CBCD Performed By: #### L 100.0100, L506.1000, L500.4050, L501.9985 #### [facility] [address] [place], [address] Monocytes/100 WBC (Bld) 10.1 % High 0-10 [facility] Comment on above: Order Comment: Order Date: 06/20/24 Order Info: 018- - CBCD Performed By: #### L 100.0100, L506.1000, L500.4050, L501.9985 #### [facility] [address] [place], [address] Neutrophils/100 WBC (Bld) 46.4 % Low 47-70 [facility] Comment on above: Order Comment: Order Date: 06/20/24 Order Info: 018- - CBCD Performed By: #### L 100.0100, L506.1000, L500.4050, L501.9985 #### [facility] [address] [place], [address] Nucleated RBC (Bld) [#/Vol] 0 10*3/uL Normal 0-5 [facility] Comment on above: Order Comment: Order Date: 06/20/24 Order Info: 0184-1 - CBCD Performed By: #### L 100.0100, L506.1000, L500.4050, L501.9985 #### [facility] [address] [place], [address] Platelet mean volume (Bld) [Entitic vol] 10.5 fL Normal 6.2-12.0 [facility] Comment on above: Order Comment: Order Date: 06/20/24 Order Info: 0184-1 - CBCD Performed By: #### L 100.0100, L506.1000, L500.4050, L501.9985 #### [facility] [address] [place], [address] Platelets (Bld) [#/Vol] 202 10*3/uL Normal 150-450 [facility] Comment on above: Order Comment: Order Date: 06/20/24 Order Info: 0184- - CBCD Performed By: #### L 100.0100, L506.1000, L500.4050, L501.9985 #### [facility] [address] [place], [address] RBC (Bld) [#/Vol] 4.98 10*6/uL Normal 4.6-6.2 [facility] Comment on above: Order Comment: Order Date: 06/20/24 Order Info: 0184- - CBCD Performed By: #### L 100.0100, L506.1000, L500.4050, L501.9985 #### [facility] [address] [place], [address] RDW SD 42.6 fl Normal 35.1-43.9 [facility] Comment on above: Order Comment: Order Date: 06/20/24 Order Info: 0184-1 - CBCD Performed By: #### L 100.0100, L506.1000, L500.4050, L501.9985 #### [facility] [address] [place], [address] WBC (Bld) [#/Vol] 6.6 10*3/uL Normal 4.4-11.0 [facility] Comment on above: Order Comment: Order Date: 06/20/24 Order Info: 0184-1 - CBCD Performed By: #### L 100.0100, L506.1000, L500.4050, L501.9985 #### [facility] [address] [place], [address] Comprehensive Metabolic Prof ilon 10-14-2024 Albumin [Mass/Vol] 3.6 g/dL Normal 3.2-5.0 [facility] Comment on above: Order Comment: Order Date: 06/20/24 Order Info: 0786-1 - CMP Performed By: #### L 100.0100, L506.1000, L500.4050, L501.9985 #### [facility] [address] [place], [address] Albumin/Globulin [Mass ratio] 1.0 {ratio} Normal 0.9-2.4 [facility] Comment on above: Order Comment: Order Date: 06/20/24 Order Info: 0786-1 - CMP Performed By: #### L 100.0100, L506.1000, L500.4050, L501.9985 #### [facility] [address] [place], [address] ALK P 54 U/L Normal 45-117 [facility] Comment on above: Order Comment: Order Date: 06/20/24 Order Info: 0786-1 - CMP Performed By: #### L 100.0100, L506.1000, L500.4050, L501.9985 #### [facility] [address] [place], [address] ALT [Catalytic activity/Vol] 35 U/L Normal 16-61 [facility] Comment on above: Order Comment: Order Date: 06/20/24 Order Info: 0786-1 - CMP Performed By: #### L 100.0100, L506.1000, L500.4050, L501.9985 #### [facility] [address] [place], [address] AST [Catalytic activity/Vol] 19 U/L Normal 15-37 [facility] Comment on above: Order Comment: Order Date: 06/20/24 Order Info: 0786-1 - CMP Performed By: #### L 100.0100, L506.1000, L500.4050, L501.9985 #### [facility] [address] [place], [address] Bilirubin [Mass/Vol] 0.30 mg/dL Normal 0.20-1.00 [facility] Comment on above: Order Comment: Order Date: 06/20/24 Order Info: 0786-1 - CMP Result Comment: For patients on eltrombopag therapy, use of Dimension [place] TBIL is not recommended. Performed By: #### L 100.0100, L506.1000, L500.4050, L501.9985 #### [facility] [address] [place], [address] BUN/CRE 22.0 RATIO High 10-20 [facility] Comment on above: Order Comment: Order Date: 06/20/24 Order Info: 0786-1 - CMP Performed By: #### L 100.0100, L506.1000, L500.4050, L501.9985 #### [facility] [address] [place], [address] CA,Total 8.7 mg/dL Normal 8.5-10.1 [facility] Comment on above: Order Comment: Order Date: 06/20/24 Order Info: 0786-1 - CMP Performed By: #### L 100.0100, L506.1000, L500.4050, L501.9985 #### [facility] [address] [place], [address] Chloride [Moles/Vol] 110 mmol/L High 98-107 [facility] Comment on above: Order Comment: Order Date: 06/20/24 Order Info: 0786-1 - CMP Performed By: #### L 100.0100, L506.1000, L500.4050, L501.9985 #### [facility] [address] [place], [address] CO2 [Moles/Vol] 25.0 mmol/L Normal 21.0-32.0 [facility] Comment on above: Order Comment: Order Date: 06/20/24 Order Info: 0786-1 - CMP Performed By: #### L 100.0100, L506.1000, L500.4050, L501.9985 #### [facility] [address] [place], [address] Creatinine [Mass/Vol] 0.77 mg/dL Normal 0.70-1.30 [facility] Comment on above: Order Comment: Order Date: 06/20/24 Order Info: 0786-1 - CMP Result Comment: The validity of the calculated GFR GFRAA in patients over 70 years has not been determined. Clinical correlation is essential. Performed By: #### L 100.0100, L506.1000, L500.4050, L501.9985 #### [facility] [address] [place], [address] EST GFR - AA 138 mL/min Normal >60 [facility] Comment on above: Order Comment: Order Date: 06/20/24 Order Info: 0786-1 - CMP Result Comment: Afri can Palestinian GFR Calc Performed By: #### L 100.0100, L506.1000, L500.4050, L501.9985 #### [facility] [address] [place], [address] GAP 3 Low 5-15 [facility] Comment on above: Order Comment: Order Date: 06/20/24 Order Info: 0786-1 - CMP Performed By: #### L 100.0100, L506.1000, L500.4050, L501.9985 #### [facility] [address] [place], [address] GFR/1.73 sq M.predicted among non-blacks MDRD (S/P/Bld) [Vol rate/Area] 114 mL/min/{1.73_m2} Normal >60 [facility] Comment on above: Order Comment: Order Date: 06/20/24 Order Info: 0786-1 - CMP Result Comment: Non- GFR Calc Performed By: #### L 100.0100, L506.1000, L500.4050, L501.9985 #### [facility] [address] [place], [address] Globulin (S) [Mass/Vol] 3.7 g/dL Normal 2.2-4.2 [facility] Comment on above: Order Comment: Order Date: 06/20/24 Order Info: 0786-1 - CMP Performed By: #### L 100.0100, L506.1000, L500.4050, L501.9985 #### [facility] [address] [place], [address] Glucose [Mass/Vol] 100 mg/dL Normal 74-106 [facility] Comment on above: Order Comment: Order Date: 06/20/24 Order Info: 0786-1 - CMP Result Comment: Fast ing Glucose result from 100 to 125 mg/dL suggests IMPAIRED HOMEOSTASIS per A.D.A. criteria. Performed By: #### L 100.0100, L506.1000, L500.4050, L501.9985 #### [facility] [address] [place], [address] Potassium [Moles/Vol] 4.3 mmol/L Normal 3.5-5.1 [facility] Comment on above: Order Comment: Order Date: 06/20/24 Order Info: 0786-1 - CMP Performed By: #### L 100.0100, L506.1000, L500.4050, L501.9985 #### [facility] [address] [place], [address] Sodium [Moles/Vol] 138 mmol/L Normal 136-145 [facility] Comment on above: Order Comment: Order Date: 06/20/24 Order Info: 0786-1 - CMP Performed By: #### L 100.0100, L506.1000, L500.4050, L501.9985 #### [facility] [address] [place], [address] T PROT 7.3 g/dL Normal 6.4-8.2 [facility] Comment on above: Order Comment: Order Date: 06/20/24 Order Info: 0786-1 - CMP Performed By: #### L 100.0100, L506.1000, L500.4050, L501.9985 #### [facility] [address] [place], [address] Urea nitrogen [Mass/Vol] 17 mg/dL Normal 7-18 [facility] Comment on above: Order Comment: Order Date: 06/20/24 Order Info: 0786-1 - CMP Performed By: #### L 100.0100, L506.1000, L500.4050, L501.9985 #### [facility] [address] [place], [address] Hemoglobin A1con 10-14-2024 HbA1c (Bld) [Mass fraction] 5.7 % High 3.8-5.6 [facility] Comment on above: Order Comment: Order Date: 06/20/24 Order Info: 4548-4 - A1C Result Comment: Norm al < 5.7 % Prediabetic 5.7 - 6.4 % Diabetic >or= 6.5 % Please note range changes. Performed By: #### L 100.0100, L506.1000, L500.4050, L501.9985 #### [facility] [address] [place], [address] Vitamin D,25 Hydroxyon 10-14 Vitamin D 25-OH 20.7 ng/mL Normal [facility] Comment on above: Order Comment: Order Date: 06/20/24 Order Info: 99062-6 - VITD25 Result Comment: Jamilah min D 25(OH) Status Range Deficiency <20 ng/mL (50nmol/L) Insufficiency 20 - 30 ng/mL (50 - 75 nmol/L) Sufficiency 30 - 100 ng/mL (75 - 250 nmol/L) Toxicity >100 ng/mL (>250 nmol/L) Performed By: #### L 100.0100, L506.1000, L500.4050, L501.9985 #### [facility] [address] [place], [address] Inital Evaluation (1) - PTon 2024 Inital Evaluation (1) - PT [facility] Physical [facility] [address] [place] [address] / REHABILITATION SERVICES INITIAL EVALUATION MR#: [id number] Acct: [id number] Name: ZENA BENNETT Rep #: [id number] : 1975 49 From: Mahin Live DPT, OCS, CSCS Referring Dr.: Dr. Shahzad Bright MD Status: REG R Insurance: [facility] [id number] SELF PAY INSURANCE Patient's Visit Information Visit Information Visit Information: ZENA BENNETT is a 49 year old M referred to Physical Therapy by Dr. Shahzad Bright MD with a diagnosis of R MCL strain. Date of Evaluation: 10/04/24 Physical Therapist: Mahin Live DPT, OCS, CSCS Visit Plan Frequency: 1-2x /Week Duration: 4-6 Weeks Plan: 1-2x/week for 4-6 weeks(start weekly) IE: HEP SLR 3x10, knee flexion end range of motion 10x all 2x/day, activitiy modification to protect MCL, get back to straight line leg press, knee flex, knee ext at gym and continue TM. in clinic progress to lateral strength, ensure full flexion ROM, progreess stresses to R knee and strengthening to I program at [employer]. wean brace. Use US and STM as needed. Next session: quad stretch and gym lateral hip exercises and give via HEP, f/u weekly OR increase frequency for US, STM, ROM and strength if needed. Subjective Subjective: Steppinig into and pivotting on R LE into car (09/16)and was hard to walk on after sharp pain in medial R knee. Now walking is OK but aches if he sits too long and especially when he goes to get up. This is a new pain for him. Pain is medial R knee anterior. Limps for a few steps and then it is OK. sleep is OK. Improving. And is 65% better overall right now. Steps are still painful with R and hard to lead. Has to be careful and wear sleeve if he is on it too long. 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 Activities at home pretty normal but has to be careful. Has avoideed steps descending. Picotting adn twisting hurts. TM gym 30 min and weights when healthy but just started TM again yesterday. Pain R knee: Pain Intensity (Out of 10): 0 Pain Intensity Range: 0 and 6 Comment: sitting at lunch and getting up was 6/10 for transient' Objective Objective: Walks without antalgia today, toe and heel walk easily without pain, march and butt kicks without pain. Trasnfers today readily and no pain. Steps are hesitant and weak descending with R but able up and down reciprocally with one rail. Tender R knee MCL only moderately. AROM 0-112 R and 0-122 L. Slight pain end range of flexion trasniently. strength is 4- in hip abd and ext, 4 hip flexion, 4+ knee flex and extension B. reflexes 1/3 patella and achilles B. Sensation LE WNL to gross light touch. + Valgus stress on r for pain, - varus, - ant drawer, - post sag, - bounce home, - patellar grind. Balance/Special Test Scores Lower Extremity Functional Score: 43 Goals Goal 1:: Walk without bracing without increased pain [id number] idstance Goal Time Frame: 4-6 Weeks Goal 2:: Get up from stool at [place] without limping or pain Goal Time Frame: 4-6 Weeks Goal 3:: Pt feel 95% back to normal workout and pain levels Goal Time Frame: 4-6 Weeks Goal 4:: LEFS score 60 Goal Time Frame: 4-6 Weeks Goal 5:: I appropriate gym program to limit future problems Goal Time Frame: 4-6 Weeks Rehabilitation Potential Physical Therapy Diagnosis: Limited ROM and strength in r knee with pain limiting comfortable function Rehabilitation Potential: Good Anticipated Interventions Patient/Client Instruction: Educate patient on: Condition and Plan of Care For the Purpose of:: To decrease pain, To increase ROM, To improve nutrient delivery to tissue and To improve muscle performance and motor function Therapeutic Exercise to Include: Strength training, Flexibilty training, Passive ROM and Active ROM For the Purpose of:: To decrease pain, To increase ROM, To improve nutrient delivery to tissue, To improve muscle performance and motor function and To increase tolerance to activity/condition/p osition Manual Therapy Techniques to Include: Mobilization, Passive ROM and Soft tissue mobilization For the Purpose of:: To decrease pain and To increase ROM Cryotherapy (ice pack, ice massage): Yes Ultrasound (thermal/non thermal): Yes For the Purpose of:: To decrease swelling/inflammatio n and To improve nutrient delivery to tissue Text: Thank you for the opportunity to evaluate your patient. For Medicare and Medicare HMO plans, please review the plan of care and approve it. It will need to be FAXED BACK to us at [phone] for Medicare purposes. For Medicare only, by signing this I certify the plan of care. Please let me know if there are questions or concerns regarding this plan of care. Physician Signature: (more content not included)... Normal [facility] Knee 4 or More Viewson 09-26 Knee 4 or More Views [facility] Imaging Services [address], [place] [id number] Knee 4 or More Views MR#: [id number] Acct: [id number] Name: ZENA BENNETT Rep #: [id number] : 1975 M 48 From: Kartik Singh MD PCP: Dr. Shahzad Bright MD Status: REG CLI Study: Knee 4 or More Views Date of Exam: 09/26/24 Exam# [id number] Ordering Dr: Shahzad Bright MD [id number] STUDY: X-RAY - LEFT KNEE REASON FOR EXAM: Male, 48 years old. Pain. TECHNIQUE: 4 views of the left knee. COMPARISON: None. FINDINGS: Normal visualized distal femur. Normal visualized proximal tibia and fibula. Normal proximal tibiofibular articulation. There is no demonstrated fracture. Normal medial femorotibial compartment. Normal lateral femorotibial compartment. There is mild lateral patellar subluxation. Otherwise, unremarkable patellofemoral articulation. There is a small joint effusion. The soft tissue structures are unremarkable. RAD/Knee 4 or More Views IMPRESSION: Mild lateral patellar subluxation. Small joint effusion. No demonstrated fracture. Electronically Signed: Kartik Singh MD at 9:37 EST Reading Location ID and State: [facility] / [place] , Service support , CC: Dr. Shahzad Bright MD Injection Molding Engineer: Signed Normal [facility] Knee 4 or More Views [facility] Imaging Services [address] [place] [id number] Knee 4 or More Views MR#: [id number] Acct: [id number] Name: ZENA BENNETT Rep #: [id number] : 1975 48 From: Kartik Singh MD PCP: Dr. Shahzad Bright MD Status: REG CLI Study: Knee 4 or More Views Date of Exam: 09/26/24 Exam# [id number] Ordering Dr: Shahzad Bright MD [id number] STUDY: X-RAY - RIGHT KNEE REASON FOR EXAM: Male, 48 years old. Pain. TECHNIQUE: 4 views of the right knee. COMPARISON: None. FINDINGS: Normal visualized distal femur. Normal visualized proximal tibia and fibula. Normal proximal tibiofibular articulation. There is no demonstrated fracture. Normal medial femorotibial compartment. Normal lateral femorotibial compartment. There is mild lateral patellar subluxation. Otherwise, unremarkable patellofemoral articulation. There is a small joint effusion. The soft tissue structures are unremarkable. RAD/Knee 4 or More Views IMPRESSION: Mild lateral patellar subluxation. Small joint effusion. No demonstrated fracture. Electronically Signed: Kartik Singh MD at 9:36 EST , CC: Dr. Shahzad Bright MD Injection Molding Engineer: Signed Normal [facility] CNCOon 03-27-2024 CNCO Letter Text Normal [facility] CNOVon 03-14-2024 CNOV Office Visit (GENSWS) ZENA BENNETT ([id number]) 1975 M Date Time Provider Department 03/14/24 4:15 PM YARY COBURN GENSWS During your visit today, we recorded the following information about you: Temperature Pulse Blood pressure Weight 98.3 degrees 107/minute 138/86 146 kg Height 1.702 m Bailey Thorpe LPN 03/14/2024 4:10 PM Signed REVIEW OF SYSTEMS: General: The patient denies fatigue, denies weight loss, denies weight gain, denies feeling hot, and denies feelings of cold. Eyes: The patient denies glaucoma, denies eye injury/surgery, wears glasses or contacts. Ear/Nose/Throat: The patient NOTES allergies, denies hayfever, denies ear infections, and denies bloody noses. Cardiovascular: The patient denies chest pain, denies heart disease, denies high blood pressure,denies cardiac stent, denies prior heart attack, denies irregular heart beat, denies high cholesterol, denies poor circulation, denies heart failure, other cardiac issues, denies claudication, denies cold feet, denies peripheral arterial stent. Respiratory: The patient denies tuberculosis, denies pneumonia, denies frequent cough, denies pulmonary embolism, NOTES shortness of breath, and denies coughing up blood. Gastrointestinal: The patient denies difficulty swallowing, NOTES acid reflux, denies ulcers, denies vomiting, denies jaundice/hepatitis, denies gallbladder problems, denies black or tarry stools, NOTES hemorrhoids, denies bleeding from rectum, denies diverticulitis, denies constipation, denies diarrhea, denies loss of stool control, and denies hernias. Kidney/Bladder: The patient denies kidney stones, denies urine infections, and denies bloody urine. Skin: The patient denies a history of skin cancer, denies bleeding/changing moles, and denies a history of skin rash. Neurologic: The patient denies a history of epilepsy/convulsions , denies headaches, denies head/spinal injuries, and denies stroke/TIA. Psychiatric: The patient denies psychiatric medications, denies depression, and denies voices, denies substance abuse. Endocrine: The patient denies thyroid disorders, denies diabetes, and denies hormonal problems. Hematologic: The patient denies a history of bruising, denies bleeding, and denies anemia, denies blood clots. Infections: The patient denies a history of measles and mumps, denies rheumatic fever, and denies sexually transmitted diseases. Musculoskeletal: The patient NOTES back pain/injury, denies back problems, denies sciatica, denies knee/foot trouble, denies arthritis, or denies gout. When was patient's last Mammogram screening? N/A Last Colonoscopy: NO PRIOR MILLIE Ugalde Kimberley, MANPREET.MOLDING PRESS OPERATOR 03/15/2024 8:18 AM Signed HISTORY AND PHYSICAL Zena Ochoaer : 1975 REFERRING PHYSICIAN: MD Willa Sepulveda [facility] [address] [facility] [address] CHIEF COMPLAINT: Patient presents with: Consult: Screening for colon cancer HPI: Zena is a 48 year old male referred for endoscopy. Zena notes due for screening colonoscopy. Patient denies any change in bowel habits, weight changes, blood in stools, black tarry stools or abdominal pain. Denies family history of colon issues. Zena notes no upper GI complaints. He refers he use to have reflux and took a PPI but once he cut back from drinking alcohol everyday over 6 years ago it has gone away and he was able to stop taking the PPI. During conversation he did mention that he has a difficult time swallowing pills, no issues with food or liquid, only pills. He refers he thinks this is all mental. Zena refers that a couple of years ago he had an episode of SOB and went to the ED, while there they did an EKG that had an abnormal finding, his PCP sent him for a stress test, which came back fine. This is all outside of [facility], we are requesting records. Zena has not undergone prior endoscopy. Current Outpatient Medications Medication Sig busPIRone (BUSPAR) 7.5 mg tablet Take 7.5 mg by mouth two times a day. omega-3 fatty acids 1,000 mg cap Take 1 capsule by mouth three times a day. multivit-min/folic/v it K/lycop (MEN'S MULTIVITAMIN ORAL) Take 1 tablet by mouth once daily. Cholecalciferol, Vitamin D3, (VITAMIN D-3) 50 mcg (2,000 unit) cap Take 4 capsules by mouth two times a day. No current facility-administere d medications for this visit. ALLERGIES: Sulfadiazine PAST MEDICAL HISTORY Diagnosis Date Anxiety Hearing loss Hypertriglyceridemia IGT (impaired glucose tolerance) Morbid obesity (HCC) Nicotine dependence KESHA (obstructive sleep apnea) SOB (shortness of breath) on exertion Tinnitus Varicose vein of leg Vitamin D deficiency PAST SURGICAL HISTORY Procedure Laterality Date APPENDECTOMY 1987 TONSILLECTOMY AND ADENOIDECTOMY FAMILY HISTORY Problem Relation Age of Onset D (more content not included)... Normal [facility] Absolute lymphocyte countOrd ered By: Shahzad Bright on 10-13-2023 Lymphocytes Auto (Unsp spec) [#/Vol] 3.47 10*3/uL 0.83-4.51 [facility] Automated lymphocyte count a s percentage of total leukocytesOrdered By: Shahzad Bright on 10-13-2023 Lymphocytes/100 WBC Auto (Unsp spec) 39.2 % 19-41 [facility] Basophil percentageOrdered B y: Shahzad Bright on 10-13-2023 Basophils/100 WBC (Bld) 0.8 % 0-1 [facility] Bilirubin [Mass/Vol] 0.50 mg/dL 0.20-1.00 [facility] Comment on above: For patients on eltr ombopag therapy, use of Dimension [place] TBIL is not recommended. Chloride [Moles/Vol] 112 mmol/L 98-107 [facility] Cholesterol [Mass/Vol] 181 mg/dL <200 [facility] Comment on above: <200 mg/dL Desirable 200-240 mg/dL Borderline >240 mg/dL High Risk Eosinophils/100 WBC (Bld) 1.7 % 0-5 [facility] Glucose [Mass/Vol] 110 mg/dL 74-106 [facility] Comment on above: Fasting Glucose resu lt from 100 to 125 mg/dL suggests IMPAIRED HOMEOSTASIS per A.D.A. criteria. Hemoglobin (Bld) [Mass/Vol] 13.8 g/dL 13.0-16.5 [facility] Monocytes/100 WBC (Bld) 9.0 % 0-10 [facility] Neutrophils (Bld) [#/Vol] 4.3 10*3/uL 2.0-7.7 [facility] Neutrophils/100 WBC (Bld) 49.0 % 47-70 [facility] Potassium [Moles/Vol] 3.9 mmol/L 3.5-5.1 [facility] Protein [Mass/Vol] 7.1 g/dL 6.4-8.2 [facility] Sodium [Moles/Vol] 140 mmol/L 136-145 [facility] Triglyceride [Mass/Vol] 254 mg/dL <199 [facility] Comment on above: The drugs N-Acetylcy steine and Metamizole may falsely depress this assay.Serum Triglycerides Reference Interval Normal <150 mg/dL Borderline high 150 - 199 mg/dL High 200 - 499 mg/dL Very High > or = 500 mg/dL WBC (Bld) [#/Vol] 8.9 10*3/uL 4.4-11.0 [facility] Determination of erythrocyte mean corpuscular volume (MCV)Ordered By: Shahzad Bright on 10-13-2023 MCV (RBC) [Entitic vol] 86.5 fL 80-94 [facility] Erythrocyte distribution wid th ratioOrdered By: Shahzad Bright on 10-13-2023 Erythrocyte distribution width (RBC) [Ratio] 14.3 % 11.6-14.6 [facility] Erythrocyte distribution wid th standard deviationOrdered By: Shahzad Bright on 10-13-2023 Erythrocyte distribution width (RBC) [Entitic vol] 45.3 fL 35.1-43.9 [facility] Hematocrit Auto (Bld) [Volum e fraction]Ordered By: Shahzad Bright on 10-13-2023 Hematocrit (Bld) [Volume fraction] 46.0 % 40-54 [facility] High density lipoprotein (HD L) measurementOrdered By: Shahzad Bright on 10-13-2023 Cholesterol in HDL (Body fld) [Mass/Vol] 33 mg/dL >40 [facility] Comment on above: The drugs N-Acetylcy steine and Metamizole may falsely depress this assay. Reference Range HDL <40 mg/dL Low HDL Cholesterol HDL >or= 60 mg/dL High HDL Cholesterol Immature granulocytes/100 WB C Auto (Bld)Ordered By: Shahzad Bright on 10-13-2023 Immature granulocytes/100 WBC (Bld) 0.300 % 0.0-0.9 [facility] Comment on above: IG% - Immature Granu locytes (promyelocytes, myelocytes and metamyelocytes) > 1% indicates that a LEFT SHIFT is Present. Laboratory - Chemistry and C hemistry - challengeOrdered By: Shahzad Bright on 10-13-2023 Albumin/Globulin [Mass ratio] 1.0 {ratio} 0.9-2.4 [facility] ALP [Catalytic activity/Vol] 53 U/L 45-117 [facility] ALT [Catalytic activity/Vol] 32 U/L 16-61 [facility] CO2 [Moles/Vol] 23.0 mmol/L 21.0-32.0 [facility] Globulin (S) [Mass/Vol] 3.5 g/dL 2.2-4.2 [facility] Urea nitrogen/Creatinine [Mass ratio] 25.4 mg/mg 10-20 [facility] Laboratory - Hematology and Cell countsOrdered By: Shahzad Bright on 10-13-2023 MCH (RBC) [Entitic mass] 25.9 pg 27.0-32.0 [facility] MCHC (RBC) [Mass/Vol] 30.0 g/dL 32-36 [facility] Nucleated RBC/100 WBC (Bld) [Ratio] 0 % 0-5 [facility] Platelets (Bld) [#/Vol] 249 10*3/uL 150-450 [facility] Low density lipoprotein (LDL ) cholesterol measurementOrdered By: Shahzad Bright on 10-13-2023 Cholesterol in LDL (Body fld) [Moles/Vol] 97 mg/dL 0-130 [facility] No Panel InformationOrdered By: Shahzad Bright on 10-13-2023 Estimated GFR (MDRD) Amer 135 mL/min >60 [facility] Comment on above: GFR Calc Estimated GFR (MDRD) Non-Af Amer 112 mL/min >60 [facility] Comment on above: Non- GFR Calc Vitamin D 25-Hydroxy 28.1 ng/mL [facility] Comment on above: Vitamin D 25(OH) Sta tus Range Deficiency <20 ng/mL (50nmol/L) Insufficiency 20 - 30 ng/mL (50 - 75 nmol/L) Sufficiency 30 - 100 ng/mL (75 - 250 nmol/L) Toxicity >100 ng/mL (>250 nmol/L) Platelet mean volume Tyler-Ec ker (Bld) [Entitic vol]Ordered By: Shahzad Bright on 10-13-2023 Platelet mean volume (Bld) [Entitic vol] 10.8 fL 6.2-12.0 [facility] RBC Auto (Bld) [#/Vol]Ordere d By: Shahzad Bright on 10-13-2023 RBC (Bld) [#/Vol] 5.32 10*6/uL 4.6-6.2 [facility] Serum or plasma calcium rneetta urement (mass/volume)Ordered By: Shahzad Bright on 10-13-2023 Calcium [Mass/Vol] 9.3 mg/dL 8.5-10.1 [facility] Serum or plasma creatinine m easurement (mass/volume)Ordered By: Shahzad Bright on 10-13-2023 Creatinine [Mass/Vol] 0.79 mg/dL 0.70-1.30 [facility] Comment on above: The validity of the calculated GFR & GFRAA in patients over 70 years has not been determined. Clinical correlation is essential. Serum or plasma urea nitroge n measurement (mass/volume)Ordered By: Shahzad Bright on 10-13-2023 Urea nitrogen [Mass/Vol] 20 mg/dL 7-18 [facility] Thin prep Papanicolaou smear with manual screeningOrdered By: Shahzad Bright on 10-13-2023 Thin prep Papanicolaou smear with manual screening 3.6 g/dL 3.2-5.0 [facility] Thin prep Papanicolaou smear with manual screening 23 U/L 15-37 [facility] Thin prep Papanicolaou smear with manual screening 5 5-15 [facility] Very low density lipoprotein (VLDL) cholesterol measurementOrdered By: Shahzad Bright on 10-13-2023 Cholesterol in VLDL Calc [Moles/Vol] 51 mg/dL 5-40 [facility] Whole blood hemoglobin A1c/t otal hemoglobin ratio (mass fraction)Ordered By: Shahzad Bright on 10-13-2023 HbA1c (Bld) [Mass fraction] 5.8 % 3.8-5.6 [facility] Comment on above: Normal < 5.7 % Predi abetic 5.7 - 6.4 % Diabetic >or= 6.5 % Please note range changes. Absolute lymphocyte countOrd ered By: Shahzad Bright on 06-09-2023 Lymphocytes Auto (Unsp spec) [#/Vol] 3.26 10*3/uL 0.83-4.51 [facility] Basophil percentageOrdered B y: Shahzad Bright on 06-09-2023 Basophil percentage 0 SEEN /hpf 0-5 [facility] Basophils/100 WBC (Bld) 0.4 % 0-1 [facility] Bilirubin [Mass/Vol] 0.40 mg/dL 0.20-1.00 [facility] Comment on above: For patients on eltr ombopag therapy, use of Dimension [place] TBIL is not recommended. Chloride [Moles/Vol] 110 mmol/L 98-107 [facility] Cholesterol [Mass/Vol] 166 mg/dL <200 [facility] Comment on above: <200 mg/dL Desirable 200-240 mg/dL Borderline >240 mg/dL High Risk Eosinophils/100 WBC (Bld) 1.3 % 0-5 [facility] Glucose [Mass/Vol] 96 mg/dL 74-106 [facility] Neutrophils (Bld) [#/Vol] 5.3 10*3/uL 2.0-7.7 [facility] Neutrophils/100 WBC (Bld) 55.1 % 47-70 [facility] Potassium [Moles/Vol] 4.1 mmol/L 3.5-5.1 [facility] Protein [Mass/Vol] 7.2 g/dL 6.4-8.2 [facility] Sodium [Moles/Vol] 138 mmol/L 136-145 [facility] Triglyceride [Mass/Vol] 225 mg/dL <199 [facility] Comment on above: The drugs N-Acetylcy steine and Metamizole may falsely depress this assay.Serum Triglycerides Reference Interval Normal <150 mg/dL Borderline high 150 - 199 mg/dL High 200 - 499 mg/dL Very High > or = 500 mg/dL WBC (Bld) [#/Vol] 9.6 10*3/uL 4.4-11.0 [facility] Bilirubin Test strip Ql (U)O rdered By: Shahzad Bright on 06-09-2023 Bilirubin Ql (U) Negative Negative [facility] Blood erythrocytes count (nu mber/volume)Ordered By: Shahzad Bright on 06-09-2023 RBC (Bld) [#/Vol] 5.57 10*6/uL 4.6-6.2 [facility] Blood hemoglobin measurement (mass/volume)Ordered By: Shahzad Bright on 06-09-2023 Hemoglobin (Bld) [Mass/Vol] 15.1 g/dL 13.0-16.5 [facility] Blood lymphocytes/100 leukoc ytesOrdered By: Shahzad Bright on 06-09-2023 Lymphocytes/100 WBC (Bld) 34.1 % 19-41 [facility] Blood monocytes/100 leukocyt esOrdered By: Shahzad Bright on 06-09-2023 Monocytes/100 WBC (Bld) 8.8 % 0-10 [facility] Blood platelet mean volumeOr dered By: Shahzad Bright on 06-09-2023 Platelet mean volume (Bld) [Entitic vol] 10.6 fL 6.2-12.0 [facility] Determination of erythrocyte mean corpuscular volume (MCV)Ordered By: Shahzad Bright on 06-09-2023 MCV (RBC) [Entitic vol] 85.6 fL 80-94 [facility] Hematocrit Auto (Bld) [Volum e fraction]Ordered By: Shahzad Bright on 06-09-2023 Hematocrit (Bld) [Volume fraction] 47.7 % 40-54 [facility] Ketones Test strip Ql (U)Ord ered By: Shahzad Bright on 06-09-2023 Ketones Ql (U) Negative Negative [facility] Laboratory - Chemistry and C hemistry - challengeOrdered By: Shahzad Bright on 06-09-2023 ALP [Catalytic activity/Vol] 51 U/L 45-117 [facility] ALT [Catalytic activity/Vol] 30 U/L 16-61 [facility] CO2 [Moles/Vol] 23.0 mmol/L 21.0-32.0 [facility] Globulin (S) [Mass/Vol] 3.6 g/dL 2.2-4.2 [facility] Urea nitrogen/Creatinine [Mass ratio] 20.2 mg/mg 10-20 [facility] Laboratory - Hematology and Cell countsOrdered By: Shahzad Bright on 06-09-2023 Erythrocyte distribution width (RBC) [Entitic vol] 42.2 fL 35.1-43.9 [facility] Erythrocyte distribution width (RBC) [Ratio] 13.5 % 11.6-14.6 [facility] Immature granulocytes/100 WBC (Bld) 0.300 % 0.0-0.9 [facility] Comment on above: IG% - Immature Granu locytes (promyelocytes, myelocytes and metamyelocytes) > 1% indicates that a LEFT SHIFT is Present. MCH (RBC) [Entitic mass] 27.1 pg 27.0-32.0 [facility] Nucleated RBC/100 WBC (Bld) [Ratio] 0 % 0-5 [facility] ([facility]BC) [Mass/Vol]Or dered By: Shahzad Bright on 06-09-2023 MCHC (RBC) [Mass/Vol] 31.7 g/dL 32-36 [facility] Mucus LM Ql (Urine sed)Order ed By: Shahzad Bright on 06-09-2023 Mucus Ql (Urine sed) 1+ /hpf [facility] Nitrite Test strip Ql (U)Ord ered By: Shahzad Bright on 06-09-2023 Nitrite Ql (U) Negative Negative [facility] No Panel InformationOrdered By: Shahzad Bright on 06-09-2023 Estimated GFR (MDRD) Amer 145 mL/min >60 [facility] Comment on above: GFR Calc Estimated GFR (MDRD) Non-Af Amer 120 mL/min >60 [facility] Comment on above: Non- GFR Calc Vitamin D 25-Hydroxy 32.1 ng/mL [facility] Comment on above: Vitamin D 25(OH) Sta tus Range Deficiency <20 ng/mL (50nmol/L) Insufficiency 20 - 30 ng/mL (50 - 75 nmol/L) Sufficiency 30 - 100 ng/mL (75 - 250 nmol/L) Toxicity >100 ng/mL (>250 nmol/L) Platelets bldOrdered By: Abdelrahman Bright on 06-09-2023 Platelets (Bld) [#/Vol] 253 10*3/uL 150-450 [facility] Protein Test strip Ql (U)Ord ered By: Shahzad Bright on 06-09-2023 Protein Ql (U) 15 mg/dl Negative [facility] Serum or plasma albumin renetta urement (mass/volume)Ordered By: Shahzad Bright on 06-09-2023 Albumin [Mass/Vol] 3.6 g/dL 3.2-5.0 [facility] Serum or plasma albumin/glob ulin mass ratioOrdered By: Shahzad Bright on 06-09-2023 Albumin/Globulin [Mass ratio] 1.0 {ratio} 0.9-2.4 [facility] Serum or plasma calcium renetta urement (mass/volume)Ordered By: Shahzad Bright on 06-09-2023 Calcium [Mass/Vol] 8.7 mg/dL 8.5-10.1 [facility] Serum or plasma cholesterol in HDL measurement (mass/volume)Ordered By: Shahzad Bright on 06-09-2023 Cholesterol in HDL [Mass/Vol] 29 mg/dL >40 [facility] Comment on above: The drugs N-Acetylcy steine and Metamizole may falsely depress this assay. Reference Range HDL <40 mg/dL Low HDL Cholesterol HDL >or= 60 mg/dL High HDL Cholesterol Serum or plasma cholesterol in VLDL measurement (mass/volume)Ordered By: Shahzad Bright on 06-09-2023 Cholesterol in VLDL [Mass/Vol] 45 mg/dL 5-40 [facility] Serum or plasma creatinine m easurement (mass/volume)Ordered By: Shahzad Bright on 06-09-2023 Creatinine [Mass/Vol] 0.74 mg/dL 0.70-1.30 [facility] Comment on above: The validity of the calculated GFR & GFRAA in patients over 70 years has not been determined. Clinical correlation is essential. Serum or plasma low density lipoprotein (LDL) cholesterol measurement (mass/volume)Ordered By: Shahzad Bright on 06-09-2023 Cholesterol in LDL [Mass/Vol] 92 mg/dL 0-130 [facility] Serum or plasma urea nitroge n measurement (mass/volume)Ordered By: Shahzad Bright on 06-09-2023 Urea nitrogen [Mass/Vol] 15 mg/dL 7-18 [facility] Squamous epithelial cells de tection in urine sediment by light microscopyOrdered By: Shahzad Bright on 06-09-2023 Epithelial cells.squamous LM Ql (Urine sed) 0 SEEN /hpf 0-5 [facility] Thin prep Papanicolaou smear with manual screeningOrdered By: Shahzad Bright on 06-09-2023 Thin prep Papanicolaou smear with manual screening 21 U/L 15-37 [facility] Thin prep Papanicolaou smear with manual screening 5 5-15 [facility] Urine blood detectionOrdered By: Shahzad Bright on 06-09-2023 RBC Ql (U) 10 /ul Negative [facility] RBC Ql (U) 0-5 SEEN /hpf 0-5 [facility] Urine clarityOrdered By: Abdelrahman Bright on 06-09-2023 Clarity (U) Clear Clear [facility] Urine color determinationOrd ered By: Shahzad Bright on 06-09-2023 Color (U) Yellow Yellow [facility] Urine glucose detectionOrder ed By: Shahzad Bright on 06-09-2023 Glucose Ql (U) Normal mg/dl Normal [facility] Urine leukocyte esterase det ection by dipstickOrdered By: Shahzad Bright on 06-09-2023 Leukocyte esterase Test strip Ql (U) Negative Negative [facility] Urine pHOrdered By: Shahzad lezama on 06-09-2023 pH (U) 5.0 [pH] 5.0 - 8.0 [facility] Urine sediment bacteria coun t by microscopy (number/high power field)Ordered By: Shahzad Bright on 06-09-2023 Bacteria LM.HPF (Urine sed) [#/Area] 0 /[HPF] None Seen [facility] Urine specific gravity measu rementOrdered By: Shahzad Bright on 06-09-2023 Specific gravity (U) [Rel density] 1.025 1.002-1.030 [facility] Urobilinogen Auto test strip Ql (U)Ordered By: Shahzad Bright on 06-09-2023 Urobilinogen Ql (U) Normal mg/dl Normal [facility] Whole blood hemoglobin A1c/t otal hemoglobin ratio (mass fraction)Ordered By: Shahzad Bright on 06-09-2023 HbA1c (Bld) [Mass fraction] 5.8 % 3.8-5.6 [facility] Comment on above: Normal < 5.7 % Predi abetic 5.7 - 6.4 % Diabetic >or= 6.5 % Please note range changes. Absolute lymphocyte countOrd ered By: Dr. Bright on 11-09-2022 Lymphocytes Auto (Unsp spec) [#/Vol] 3.30 10*3/uL 0.83-4.51 [facility] Basophil percentageOrdered B y: Dr. Bright on 11-09-2022 Basophils/100 WBC (Bld) 0.7 % 0-1 [facility] Bilirubin [Mass/Vol] 0.60 mg/dL 0.20-1.00 [facility] Comment on above: For patients on eltr ombopag therapy, use of Dimension [place] TBIL is not recommended. Chloride [Moles/Vol] 109 mmol/L 98-107 [facility] Cholesterol [Mass/Vol] 189 mg/dL <200 [facility] Comment on above: <200 mg/dL Desirable 200-240 mg/dL Borderline >240 mg/dL High Risk Eosinophils/100 WBC (Bld) 1.8 % 0-5 [facility] Glucose [Mass/Vol] 104 mg/dL 74-106 [facility] Comment on above: Fasting Glucose resu lt from 100 to 125 mg/dL suggests IMPAIRED HOMEOSTASIS per A.D.A. criteria. Neutrophils (Bld) [#/Vol] 4.0 10*3/uL 2.0-7.7 [facility] Neutrophils/100 WBC (Bld) 48.3 % 47-70 [facility] Potassium [Moles/Vol] 4.3 mmol/L 3.5-5.1 [facility] Protein [Mass/Vol] 7.5 g/dL 6.4-8.2 [facility] Sodium [Moles/Vol] 139 mmol/L 136-145 [facility] Triglyceride [Mass/Vol] 235 mg/dL <199 [facility] Comment on above: The drugs N-Acetylcy steine and Metamizole may falsely depress this assay.Serum Triglycerides Reference Interval Normal <150 mg/dL Borderline high 150 - 199 mg/dL High 200 - 499 mg/dL Very High > or = 500 mg/dL WBC (Bld) [#/Vol] 8.4 10*3/uL 4.4-11.0 [facility] Blood erythrocytes count (nu mber/volume)Ordered By: Dr. Bright on 11-09-2022 RBC (Bld) [#/Vol] 5.94 10*6/uL 4.6-6.2 [facility] Blood hemoglobin measurement (mass/volume)Ordered By: Dr. Bright on 11-09-2022 Hemoglobin (Bld) [Mass/Vol] 15.4 g/dL 13.0-16.5 [facility] Blood lymphocytes/100 leukoc ytesOrdered By: Dr. Bright on 11-09-2022 Lymphocytes/100 WBC (Bld) 39.5 % 19-41 [facility] Blood monocytes/100 leukocyt esOrdered By: Dr. Bright on 11-09-2022 Monocytes/100 WBC (Bld) 9.3 % 0-10 [facility] Blood platelet mean volumeOr dered By: Dr. Bright on 11-09-2022 Platelet mean volume (Bld) [Entitic vol] 11.1 fL 6.2-12.0 [facility] Determination of erythrocyte mean corpuscular volume (MCV)Ordered By: Dr. Bright on 11-09-2022 MCV (RBC) [Entitic vol] 86.4 fL 80-94 [facility] Hematocrit Auto (Bld) [Volum e fraction]Ordered By: Dr. Bright on 11-09-2022 Hematocrit (Bld) [Volume fraction] 51.3 % 40-54 [facility] Laboratory - Chemistry and C hemistry - challengeOrdered By: Dr. Bright on 11-09-2022 ALP [Catalytic activity/Vol] 49 U/L 45-117 [facility] ALT [Catalytic activity/Vol] 39 U/L 16-61 [facility] CO2 [Moles/Vol] 23.0 mmol/L 21.0-32.0 [facility] Globulin (S) [Mass/Vol] 3.7 g/dL 2.2-4.2 [facility] Urea nitrogen/Creatinine [Mass ratio] 18.8 mg/mg 10-20 [facility] Laboratory - Hematology and Cell countsOrdered By: Dr. Bright on 11-09-2022 Erythrocyte distribution width (RBC) [Entitic vol] 45.3 fL 35.1-43.9 [facility] Erythrocyte distribution width (RBC) [Ratio] 14.4 % 11.6-14.6 [facility] Immature granulocytes/100 WBC (Bld) 0.400 % 0.0-0.9 [facility] Comment on above: IG% - Immature Granu locytes (promyelocytes, myelocytes and metamyelocytes) > 1% indicates that a LEFT SHIFT is Present. MCH (RBC) [Entitic mass] 25.9 pg 27.0-32.0 [facility] Nucleated RBC/100 WBC (Bld) [Ratio] 0 % 0-[facility] ([facility]) [Mass/Vol]Or dered By: Dr. Bright on 11-09-2022 MCHC (RBC) [Mass/Vol] 30.0 g/dL 32-36 [facility] No Panel InformationOrdered By: Dr. Bright on 11-09-2022 Estimated GFR (MDRD) Amer 115 mL/min >60 [facility] Comment on above: GFR Calc Estimated GFR (MDRD) Non-Af Amer 95 mL/min >60 [facility] Comment on above: Non- GFR Calc Vitamin D 25-Hydroxy 30.2 ng/mL [facility] Comment on above: Vitamin D 25(OH) Sta tus Range Deficiency <20 ng/mL (50nmol/L) Insufficiency 20 - 30 ng/mL (50 - 75 nmol/L) Sufficiency 30 - 100 ng/mL (75 - 250 nmol/L) Toxicity >100 ng/mL (>250 nmol/L) Platelets bldOrdered By: Dr. Bright on 11-09-2022 Platelets (Bld) [#/Vol] 228 10*3/uL 150-450 [facility] Serum or plasma albumin renetta urement (mass/volume)Ordered By: Dr. Bright on 11-09-2022 Albumin [Mass/Vol] 3.8 g/dL 3.2-5.0 [facility] Serum or plasma albumin/glob ulin mass ratioOrdered By: Dr. Bright on 11-09-2022 Albumin/Globulin [Mass ratio] 1.0 {ratio} 0.9-2.4 [facility] Serum or plasma calcium renetta urement (mass/volume)Ordered By: Dr. Bright on 11-09-2022 Calcium [Mass/Vol] 9.2 mg/dL 8.5-10.1 [facility] Serum or plasma cholesterol in HDL measurement (mass/volume)Ordered By: Dr. Bright on 11-09-2022 Cholesterol in HDL [Mass/Vol] 32 mg/dL >40 [facility] Comment on above: The drugs N-Acetylcy steine and Metamizole may falsely depress this assay. Reference Range HDL <40 mg/dL Low HDL Cholesterol HDL >or= 60 mg/dL High HDL Cholesterol Serum or plasma cholesterol in VLDL measurement (mass/volume)Ordered By: Dr. Bright on 11-09-2022 Cholesterol in VLDL [Mass/Vol] 47 mg/dL 5-40 [facility] Serum or plasma creatinine m easurement (mass/volume)Ordered By: Dr. Bright on 11-09-2022 Creatinine [Mass/Vol] 0.91 mg/dL 0.70-1.30 [facility] Comment on above: The validity of the calculated GFR & GFRAA in patients over 70 years has not been determined. Clinical correlation is essential. Serum or plasma low density lipoprotein (LDL) cholesterol measurement (mass/volume)Ordered By: Dr. Bright on 11-09-2022 Cholesterol in LDL [Mass/Vol] 110 mg/dL 0-130 [facility] Serum or plasma urea nitroge n measurement (mass/volume)Ordered By: Dr. Bright on 11-09-2022 Urea nitrogen [Mass/Vol] 17 mg/dL 7-18 [facility] Thin prep Papanicolaou smear with manual screeningOrdered By: Dr. Bright on 11-09-2022 Thin prep Papanicolaou smear with manual screening 27 U/L 15-37 [facility] Thin prep Papanicolaou smear with manual screening 7 -15 [facility] Whole blood hemoglobin A1c/t otal hemoglobin ratio (mass fraction)Ordered By: Dr. Bright on 11-09-2022 HbA1c (Bld) [Mass fraction] 5.7 % 3.8-5.6 [facility] Comment on above: Normal < 5.7 % Predi abetic 5.7 - 6.4 % Diabetic >or= 6.5 % Please note range changes. Absolute lymphocyte counton 04-07-2022 Lymphocytes Auto (Unsp spec) [#/Vol] 3.24 10*3/uL 0.83-4.51 [facility] Work Phone: Basophil percentageon 2021 Basophils/100 WBC (Bld) 0.5 % 0-1 [facility] Work Phone: Bilirubin [Mass/Vol] 0.40 mg/dL 0.20-1.00 [facility] Work Phone: Comment on above: For patients on eltr ombopag therapy, use of Dimension [place] TBIL is not recommended. Chloride [Moles/Vol] 109 mmol/L 98-107 [facility] Work Phone: Cholesterol [Mass/Vol] 175 mg/dL <200 [facility] Work Phone: Comment on above: <200 mg/dL Desirable 200-240 mg/dL Borderline >240 mg/dL High Risk Eosinophils/100 WBC (Bld) 1.4 % 0-5 [facility] Work Phone: Glucose [Mass/Vol] 95 mg/dL 74-106 [facility] Work Phone: Neutrophils (Bld) [#/Vol] 4.2 10*3/uL 2.0-7.7 [facility] Work Phone: Neutrophils/100 WBC (Bld) 50.7 % 47-70 [facility] Work Phone: Potassium [Moles/Vol] 4.3 mmol/L 3.5-5.1 [facility] Work Phone: Comment on above: Slight Hemolysis, Re sult may be falsely increased. Protein [Mass/Vol] 7.2 g/dL 6.4-8.2 [facility] Work Phone: Sodium [Moles/Vol] 137 mmol/L 136-145 [facility] Work Phone: Triglyceride [Mass/Vol] 226 mg/dL <199 [facility] Work Phone: Comment on above: The drugs N-Acetylcy steine and Metamizole may falsely depress this assay.Serum Triglycerides Reference Interval Normal <150 mg/dL Borderline high 150 - 199 mg/dL High 200 - 499 mg/dL Very High > or = 500 mg/dL WBC (Bld) [#/Vol] 8.3 10*3/uL 4.4-11.0 [facility] Blood erythrocytes count (nu mber/volume)on 04-07-2022 RBC (Bld) [#/Vol] 5.69 10*6/uL 4.6-6.2 [facility] Blood hemoglobin measurement (mass/volume)on 04-07-2022 Hemoglobin (Bld) [Mass/Vol] 14.8 g/dL 13.0-16.5 [facility] Work Phone: Blood lymphocytes/100 leukoc yteson 04-07-2022 Lymphocytes/100 WBC (Bld) 39.1 % 19-41 [facility] Work Phone: Blood monocytes/100 leukocyt eson 04-07-2022 Monocytes/100 WBC (Bld) 8.1 % 0-10 [facility] Work Phone: Blood platelet mean volumeon 04-07-2022 Platelet mean volume (Bld) [Entitic vol] 10.8 fL 6.2-12.0 [facility] Work Phone: Determination of erythrocyte mean corpuscular volume (MCV)on 04-07-2022 MCV (RBC) [Entitic vol] 85.9 fL 80-94 [facility] Work Phone: Hematocrit Auto (Bld) [Volum e fraction]on 04-07-2022 Hematocrit (Bld) [Volume fraction] 48.9 % 40-54 [facility] Work Phone: Laboratory - Chemistry and C hemistry - challengeon 04-07-2022 ALP [Catalytic activity/Vol] 50 U/L 45-117 [facility] Work Phone: ALT [Catalytic activity/Vol] 35 U/L 16-61 [facility] Work Phone: CO2 [Moles/Vol] 23.0 mmol/L 21.0-32.0 [facility] Work Phone: Globulin (S) [Mass/Vol] 3.7 g/dL 2.2-4.2 [facility] Work Phone: Urea nitrogen/Creatinine [Mass ratio] 18.5 mg/mg 10-20 [facility] Work Phone: Laboratory - Hematology and Cell countson 04-07-2022 Erythrocyte distribution width (RBC) [Entitic vol] 45.3 fL 35.1-43.9 [facility] Work Phone: Erythrocyte distribution width (RBC) [Ratio] 14.5 % 11.6-14.6 [facility] Work Phone: Immature granulocytes/100 WBC (Bld) 0.200 % 0.0-0.9 [facility] Work Phone: Comment on above: IG% - Immature Granu locytes (promyelocytes, myelocytes and metamyelocytes) > 1% indicates that a LEFT SHIFT is Present. MCH (RBC) [Entitic mass] 26.0 pg 27.0-32.0 [facility] Work Phone: Nucleated RBC/100 WBC (Bld) [Ratio] 0 % 0-5 [facility] Work Phone: MCHC Auto (RBC) [Mass/Vol]on 04-07-2022 MCHC (RBC) [Mass/Vol] 30.3 g/dL 32-36 [facility] Work Phone: No Panel Informationon 04-07 Estimated GFR (MDRD) Amer 131 mL/min >60 [facility] Work Phone: Comment on above: GFR Calc Estimated GFR (MDRD) Non-Af Amer 109 mL/min >60 [facility] Work Phone: Comment on above: Non- GFR Calc Vitamin D 25-Hydroxy 27.9 ng/mL [facility] Work Phone: Comment on above: Vitamin D 25(OH) Sta tus Range Deficiency <20 ng/mL (50nmol/L) Insufficiency 20 - 30 ng/mL (50 - 75 nmol/L) Sufficiency 30 - 100 ng/mL (75 - 250 nmol/L) Toxicity >100 ng/mL (>250 nmol/L) Platelets bldon 04-07-2022 Platelets (Bld) [#/Vol] 215 10*3/uL 150-450 [facility] Work Phone: Serum or plasma albumin renetta urement (mass/volume)on 04-07-2022 Albumin [Mass/Vol] 3.5 g/dL 3.2-5.0 [facility] Work Phone: Serum or plasma albumin/glob ulin mass ratioon 04-07-2022 Albumin/Globulin [Mass ratio] 0.9 {ratio} 0.9-2.4 [facility] Work Phone: Serum or plasma calcium renetta urement (mass/volume)on 04-07-2022 Calcium [Mass/Vol] 8.7 mg/dL 8.5-10.1 [facility] Work Phone: Serum or plasma cholesterol in HDL measurement (mass/volume)on 04-07-2022 Cholesterol in HDL [Mass/Vol] 27 mg/dL >40 [facility] Work Phone: Comment on above: The drugs N-Acetylcy steine and Metamizole may falsely depress this assay. Reference Range HDL <40 mg/dL Low HDL Cholesterol HDL >or= 60 mg/dL High HDL Cholesterol Serum or plasma cholesterol in VLDL measurement (mass/volume)on 04-07-2022 Cholesterol in VLDL [Mass/Vol] 45 mg/dL 5-40 [facility] Work Phone: Serum or plasma creatinine m easurement (mass/volume)on 04-07-2022 Creatinine [Mass/Vol] 0.81 mg/dL 0.70-1.30 [facility] Work Phone: Comment on above: The validity of the calculated GFR & GFRAA in patients over 70 years has not been determined. Clinical correlation is essential. Serum or plasma low density lipoprotein (LDL) cholesterol measurement (mass/volume)on 04-07-2022 Cholesterol in LDL [Mass/Vol] 103 mg/dL 0-130 [facility] Work Phone: Serum or plasma urea nitroge n measurement (mass/volume)on 04-07-2022 Urea nitrogen [Mass/Vol] 15 mg/dL 7-18 [facility] Work Phone: Thin prep Papanicolaou smear with manual screeningon 04-07-2022 Thin prep Papanicolaou smear with manual screening 22 U/L 15-37 [facility] Work Phone: Comment on above: Slight Hemolysis, Re sult may be falsely increased. Thin prep Papanicolaou smear with manual screening 5 5-15 [facility] Work Phone: Whole blood hemoglobin A1c/t otal hemoglobin ratio (mass fraction)on 04-07-2022 HbA1c (Bld) [Mass fraction] 5.8 % 3.8-5.6 [facility] Work Phone: Comment on above: Normal < 5.7 % Predi abetic 5.7 - 6.4 % Diabetic >or= 6.5 % Please note range changes. Absolute lymphocyte counton 12-20-2021 Lymphocytes Auto (Unsp spec) [#/Vol] 3.79 10*3/uL 0.83-4.51 [facility] Work Phone: Basophil percentageon 2021 Basophils/100 WBC (Bld) 0.5 % 0-1 [facility] Work Phone: Bilirubin [Mass/Vol] 0.20 mg/dL 0.20-1.00 [facility] Work Phone: Comment on above: For patients on eltr ombopag therapy, use of Dimension [place] TBIL is not recommended. Chloride [Moles/Vol] 109 mmol/L 98-107 [facility] Work Phone: Eosinophils/100 WBC (Bld) 1.9 % 0-5 [facility] Work Phone: Glucose [Mass/Vol] 125 mg/dL 74-106 [facility] Work Phone: Comment on above: Fasting Glucose resu lt from 100 to 125 mg/dL suggests IMPAIRED HOMEOSTASIS per A.D.A. criteria. Neutrophils (Bld) [#/Vol] 4.9 10*3/uL 2.0-7.7 [facility] Work Phone: [phone] Neutrophils/100 WBC (Bld) 50.6 % 47-70 [facility] Work Phone: [phone] Potassium [Moles/Vol] 3.7 mmol/L 3.5-5.1 [facility] Work Phone: [phone] Protein [Mass/Vol] 7.3 g/dL 6.4-8.2 [facility] Work Phone: [phone] Sodium [Moles/Vol] 141 mmol/L 136-145 [facility] Work Phone: [phone] WBC (Bld) [#/Vol] 9.6 10*3/uL 4.4-11.0 [facility] Work Phone: [phone] Blood erythrocytes count (nu mber/volume)on 12-20-2021 RBC (Bld) [#/Vol] 5.32 10*6/uL 4.6-6.2 [facility] Work Phone: Blood hemoglobin measurement (mass/volume)on 12-20-2021 Hemoglobin (Bld) [Mass/Vol] 14.5 g/dL 13.0-16.5 [facility] Work Phone: Blood lymphocytes/100 leukoc yteson 12-20-2021 Lymphocytes/100 WBC (Bld) 39.5 % 19-41 [facility] Work Phone: Blood monocytes/100 leukocyt eson 12-20-2021 Monocytes/100 WBC (Bld) 7.1 % 0-10 [facility] Work Phone: [phone] Blood platelet mean volumeon 12-20-2021 Platelet mean volume (Bld) [Entitic vol] 10.3 fL 6.2-12.0 [facility] Work Phone: Determination of erythrocyte mean corpuscular volume (MCV)on 12-20-2021 MCV (RBC) [Entitic vol] 84.8 fL 80-94 [facility] Work Phone: Hematocrit Auto (Bld) [Volum e fraction]on 12-20-2021 Hematocrit (Bld) [Volume fraction] 45.1 % 40-54 [facility] Work Phone: Laboratory - Chemistry and C hemistry - challengeon 12-20-2021 ALP [Catalytic activity/Vol] 59 U/L 45-117 [facility] Work Phone: ALT [Catalytic activity/Vol] 48 U/L 16-61 [facility] Work Phone: CO2 [Moles/Vol] 25.0 mmol/L 21.0-32.0 [facility] Work Phone: Globulin (S) [Mass/Vol] 3.7 g/dL 2.2-4.2 [facility] Work Phone: Urea nitrogen/Creatinine [Mass ratio] 16.2 mg/mg 10-20 [facility] Work Phone: Laboratory - Hematology and Cell countson 12-20-2021 Erythrocyte distribution width (RBC) [Entitic vol] 45.5 fL 35.1-43.9 [facility] Work Phone: Erythrocyte distribution width (RBC) [Ratio] 14.8 % 11.6-14.6 [facility] Work Phone: Immature granulocytes/100 WBC (Bld) 0.400 % 0.0-0.9 [facility] Work Phone: Comment on above: IG% - Immature Granu locytes (promyelocytes, myelocytes and metamyelocytes) > 1% indicates that a LEFT SHIFT is Present. MCH (RBC) [Entitic mass] 27.3 pg 27.0-32.0 [facility] Work Phone: Nucleated RBC/100 WBC (Bld) [Ratio] 0 % 0-5 [facility] Work Phone: MCHC Auto (RBC) [Mass/Vol]on 12-20-2021 MCHC (RBC) [Mass/Vol] 32.2 g/dL 32-36 [facility] Work Phone: No Panel Informationon 12-20 Estimated Creatinine Clearance Calc 104.12 ml/min [facility] Work Phone: Estimated GFR (MDRD) Amer 134 mL/min >60 [facility] Work Phone: Comment on above: GFR Calc Estimated GFR (MDRD) Non-Af Amer 110 mL/min >60 [facility] Work Phone: Comment on above: Non- GFR Calc Platelets bldon 12-20-2021 Platelets (Bld) [#/Vol] 254 10*3/uL 150-450 [facility] Work Phone: Serum or plasma albumin renetta urement (mass/volume)on 12-20-2021 Albumin [Mass/Vol] 3.6 g/dL 3.2-5.0 [facility] Work Phone: Serum or plasma albumin/glob ulin mass ratioon 12-20-2021 Albumin/Globulin [Mass ratio] 1.0 {ratio} 0.9-2.4 [facility] Work Phone: Serum or plasma calcium renetta urement (mass/volume)on 12-20-2021 Calcium [Mass/Vol] 9.1 mg/dL 8.5-10.1 [facility] Work Phone: Serum or plasma creatinine m easurement (mass/volume)on 12-20-2021 Creatinine [Mass/Vol] 0.80 mg/dL 0.70-1.30 [facility] Work Phone: Comment on above: The validity of the calculated GFR & GFRAA in patients over 70 years has not been determined. Clinical correlation is essential. Serum or plasma urea nitroge n measurement (mass/volume)on 12-20-2021 Urea nitrogen [Mass/Vol] 13 mg/dL 7-18 [facility] Work Phone: Thin prep Papanicolaou smear with manual screeningon 12-20-2021 Thin prep Papanicolaou smear with manual screening 25 U/L 15 [facility] Work Phone: Thin prep Papanicolaou smear with manual screening 7 - [facility] Work Phone: Vital Signs Date Time Vital Sign Value Performing Clinician Facility 06-09-2025 08:31-0400 Body height 170.[address] Shahzad Bright MD Work Phone: [facility] 06-09-2025 08:31-0400 Body mass index (BMI) [Ratio] 49.4 kg/m2 Dr. Shahzad Bright MD Work Phone: [facility] 06-09-2025 08:31-0400 Body temperature 98.2 [degF] Dr. Shahzad Bright MD Work Phone: [facility] 06-09-2025 08:31-0400 Body weight 142.[address] Shahzad Bright MD Work Phone: [facility] 06-09-2025 08:31-0400 Diastolic blood pressure 67 mm[Hg] Dr. Shahzad Bright MD Work Phone: [facility] 06-09-2025 08:31-0400 Heart rate 72 /min Dr. Shahzad Bright MD Work Phone: [facility] 06-09-2025 08:31-0400 Respiratory rate 16 /min Dr. Shahzad Bright MD Work Phone: [facility] 06-09-2025 08:31-0400 SaO2% (BldA) [Mass fraction] 96 % Dr. Shahzad Bright MD Work Phone: [facility] 06-09-2025 08:31-0400 Systolic blood pressure 107 mm[Hg] Dr. Shahzad Bright MD Work Phone: [facility] 05-15-2025 10:00-0400 Body temperature 97.4 [degF] Dr. Shahzad Bright MD Work Phone: [facility] 05-15-2025 10:00-0400 Diastolic blood pressure 65 mm[Hg] Dr. Shahzad Bright MD Work Phone: [phone] [place] [address] 05-15-2025 10:00-0400 Heart rate 67 /min Dr. Shahzad Bright MD Work Phone: [phone] [place] [address] 05-15-2025 10:00-0400 Respiratory rate 16 /min Dr. Shahzad Bright MD Work Phone: [phone] [place] [address] 05-15-2025 10:00-0400 SaO2% (BldA) [Mass fraction] 95 % Dr. Shahzad Bright MD Work Phone: [phone] [place] [address] 05-15-2025 10:00-0400 Systolic blood pressure 129 mm[Hg] Dr. Shahzad Bright MD Work Phone: [phone] [address] 05-15-2025 08:33-0400 Body height 170.[address] Shahzad Bright MD Work Phone: [phone] [place] [address] 05-15-2025 08:33-0400 Body mass index (BMI) [Ratio] 48.9 kg/m2 Dr. Shahzad Bright MD Work Phone: [phone] [place] [address] 05-15-2025 08:33-0400 Body weight 141.[address] Shahzad Bright MD Work Phone: [phone] [address] 05-12-2025 08:34-0400 Body height 167.[address] Shahzad Bright MD Work Phone: [phone])610-157316 [place] [address] 05-12-2025 08:34-0400 Body mass index (BMI) [Ratio] 51.1 kg/m2 Dr. Shahzad Bright MD Work Phone: [phone] [address] 05-12-2025 08:34-0400 Body temperature 97.4 [degF] Dr. Shahzad Bright MD Work Phone: [facility] 05-12-2025 08:34-0400 Body weight 143.[address] Shahzad Bright MD Work Phone: [phone] [place] [address] 05-12-2025 08:34-0400 Diastolic blood pressure 80 mm[Hg] Dr. Shahzad Bright MD Work Phone: [phone])891-700716 [place] [address] 05-12-2025 08:34-0400 Heart rate 66 /min Dr. Shahzad Bright MD Work Phone: [phone])432-245216 [place] [address] 05-12-2025 08:34-0400 Respiratory rate 20 /min Dr. Shahzad Bright MD Work Phone: [phone] [place] [address] 05-12-2025 08:34-0400 SaO2% (BldA) [Mass fraction] 97 % Dr. Shahzad Bright MD Work Phone: [phone])840-168316 [place] [address] 05-12-2025 08:34-0400 Systolic blood pressure 119 mm[Hg] Dr. Shahzad Bright MD Work Phone: [phone] [place] [address] 03-04-2025 07:48-0400 Body mass index (BMI) [Ratio] 53.6 kg/m2 Dr. Shahzad Bright MD Work Phone: [phone])020-740816 [place] [address] 03-04-2025 07:48-0400 Body temperature 97.4 [degF] Dr. Shahzad Bright MD Work Phone: [phone])[phone] [place] [address] 03-04-2025 07:48-0400 Body weight 150.[address] Shahzad Bright MD Work Phone: [phone] [place] [address] 03-04-2025 07:48-0400 Diastolic blood pressure 76 mm[Hg] Dr. Shahzad Bright MD Work Phone: [phone] [place] [address] 03-04-2025 07:48-0400 Heart rate 70 /min Dr. Shahzad Bright MD Work Phone: [phone] [place] [address] 03-04-2025 07:48-0400 Respiratory rate 18 /min Dr. Shahzad Bright MD Work Phone: [facility] 03-04-2025 07:48-0400 SaO2% (BldA) [Mass fraction] 96 % Dr. Shahzad Bright MD Work Phone: [facility] 03-04-2025 07:48-0400 Systolic blood pressure 108 mm[Hg] Dr. Shahzad Bright MD Work Phone: [facility] 03-14-2024 16:03-0400 Body height 170.2 cm Yary Andrae INTERNSHIP.MOLDING PRESS OPERATOR Work Phone: [facility] 03-14-2024 16:03-0400 Body mass index (BMI) [Ratio] 50.4 kg/m2 Yary Andrae INTERNSHIP.MOLDING PRESS OPERATOR Work Phone: [facility] 03-14-2024 16:03-0400 Body temperature 98.29 [degF] Yary Andrae INTERNSHIP.MOLDING PRESS OPERATOR Work Phone: [facility] 03-14-2024 16:03-0400 Body weight 145.97 kg Yary Andrae INTERNSHIP.MOLDING PRESS OPERATOR Work Phone: [facility] 03-14-2024 16:03-0400 Diastolic blood pressure 86 mm[Hg] Yary Andrae INTERNSHIP.MOLDING PRESS OPERATOR Work Phone: [facility] 03-14-2024 16:03-0400 Heart rate 107 /min Yary Andrae INTERNSHIP.MOLDING PRESS OPERATOR Work Phone: [facility] 03-14-2024 16:03-0400 SaO2% (BldA) [Mass fraction] 97 % Yary Andrae INTERNSHIP.MOLDING PRESS OPERATOR Work Phone: [facility] 03-14-2024 16:03-0400 Systolic blood pressure 138 mm[Hg] Yary Andrae INTERNSHIP.MOLDING PRESS OPERATOR Work Phone: [facility] 06-06-2023 13:43-0400 Body height 167.64 cm [facility] 06-06-2023 13:43-0400 Body weight 144.78 kg [facility] 05-02-2023 08:50-0400 Body height 167.[address] Sahhzad Bright Work Phone: [facility] 05-02-2023 08:50-0400 Body weight 144.[address] Shahzad Bright Work Phone: [facility] 04-03-2023 09:24-0400 Body height 167.[address] Shahzad Bright Work Phone: [facility] 04-03-2023 09:24-0400 Body weight 151.[address] Shahzad Bright Work Phone: [facility] 12-20-2021 22:38-0400 Diastolic blood pressure 80 mm[Hg] [facility] Work Phone: 12-20-2021 22:38-0400 Heart rate 78 /min [facility] Work Phone: 12-20-2021 22:38-0400 Respiratory rate 19 /min [facility] Work Phone: 12-20-2021 22:38-0400 Systolic blood pressure 91 mm[Hg] [facility] Work Phone: 12-20-2021 20:08-0400 Body height 167.64 cm [facility] Work Phone: 12-20-2021 20:08-0400 Body mass index (BMI) [Ratio] 52.4 kg/m2 [facility] Work Phone: 12-20-2021 20:08-0400 Body temperature 96.9 [degF] [facility] Work Phone: 12-20-2021 20:08-0400 Body weight 147.41 kg [facility] Work Phone: 12-20-2021 20:08-0400 SaO2% (BldA) [Mass fraction] 98 % [facility] Work Phone: Encounters Encounter Date Encounter Type Care Provider Facility Start: 06-30-2025 ambulatory Shahzad Myers y:[facility] Start: 06-19-2025 ambulatory Kota Kan Facility :[facility] Start: 06-09-2025 End: 06-09-2025 Patient encounter procedure Ca WHITE -[facility] Work Phone: Start: 06-09-2025 End: 06-09-[address] Shahzad Bright MD Work Phone: -[facility] Start: 05-30-2025 End: 05-30-[address] Shahzad Bright MD Work Phone: -[facility] Start: 05-30-2025 End: 05-30-[address] Shahzad Bright MD -[facility] Work Phone: Start: 05-30-2025 End: 05-30-2025 ambulatory Shahzad Bright Facility:[facility] Start: 05-15-2025 ambulatory Kota Kan Facility :[facility] Start: 05-15-2025 Non-patient / Non-visit Kota Kan DO -[facility] Start: 05-15-2025 End: 05-15-2025 Admission to same day surgery center Kota Kan DO -Endoscopy Work Phone: Start: 05-15-2025 End: 05-15-[address] Shahzad Bright MD Work Phone: -Endoscopy Start: 05-12-2025 End: 05-12-2025 Patient encounter procedure Ca WHITE -[facility] Work Phone: Start: 05-12-2025 End: 05-12-[address] Shahzad Bright MD Work Phone: -[facility] Start: 04-09-2025 End: 04-09-[address] Shahzad Bright MD Work Phone: -[facility]iology [facility] Start: 04-09-2025 End: 04-09-[address] Shahzad Bright MD -Radiology [facility] Work Phone: Start: 04-09-2025 End: 04-09-2025 ambulatory Shahzad Bright Facility:[facility] Start: 04-02-2025 End: 04-02-[address] Shahzad Bright MD Work Phone: -[facility] Start: 04-02-2025 End: 04-02-[address] Shahzad Bright MD -[facility] Work Phone: Start: 04-02-2025 End: 04-02-2025 ambulatory Shahzad Bright Facility:[facility] Start: 03-04-2025 End: 03-04-[address] Shahzad Bright MD Work Phone: [facility] Work Phone: Start: 03-04-2025 End: 03-04-2025 Patient encounter procedure Sabrina WHITE -[facility] Work Phone: Start: 02-19-2025 End: 02-19-[address] Shahzad Bright MD Work Phone: [facility] Work Phone: Start: 02-19-2025 End: 02-19-[address] Shahzad Bright MD -[facility] Work Phone: Start: 02-19-2025 End: 02-19-2025 ambulatory Shahzad Bright Facility:[facility] Start: 10-14-2024 End: 10-14-2024 ambulatory Shahzad Bright Facility:[facility] Start: 10-11-2024 End: 10-11-2024 ambulatory Shahzad Bright Facility:[facility] Start: 09-26-2024 End: 09-26-2024 ambulatory Shahzad Bright Facility:[facility] Start: 03-14-2024 End: 03-14-2024 Patient encounter procedure Yary Coburn INTERNSHIP.MOLDING PRESS OPERATOR Work Phone: General Surgery Comment on above: Encounter for screen ing for malignant neoplasm of colon (Primary Dx); Dysphagia, unspecified type Start: 03-14-2024 End: 03-14-2024 ambulatory SHAHZAD BRIGHT Facility:[facility] Start: 10-13-2023 End: 10-13-[address] [facility] Work Phone: Start: 10-13-2023 End: 10-13-2023 Patient encounter procedure [facility] Start: 06-09-2023 End: 06-09-[address] [facility] Work Phone: Start: 06-09-2023 End: 06-09-2023 Patient encounter procedure [facility] Work Phone: Start: 06-06-2023 End: 06-24-[address] [facility] Work Phone: Start: 06-06-2023 End: 06-24-2023 [facility] Start: 06-06-2023 [facility] Start: 05-02-2023 End: 05-25-[address] Shahzad Bright Work Phone: [facility] Work Phone: Start: 05-02-2023 End: 05-25-[address] [facility] Start: 04-03-2023 End: 04-24-[address] Shahzad Bright Work Phone: [facility] Work Phone: Start: 04-03-2023 End: 04-24-[address] [facility] Start: 02-05-2023 Non-patient / Non-visit Dr. Shahzad Bright Work Phone: [facility] Start: 02-03-2023 Non-patient / Non-visit Dr. Shahzad Bright Work Phone: [facility] Start: 02-03-2023 End: 02-03-[address] [facility] Start: 01-17-2023 Non-patient / Non-visit Dr. Shahzad Bright Work Phone: [facility] Start: 01-16-2023 End: 01-16-[address] Shahzad Bright Work Phone: [facility] Work Phone: Start: 01-16-2023 End: 01-16-[address] [facility] Start: 11-09-2022 End: 11-09-[address] [facility] Work Phone: Start: 11-09-2022 End: 11-09-2022 Patient encounter procedure [facility] Start: 04-07-2022 End: 04-07-2022 Patient encounter procedure [facility] Start: 12-20-2021 End: 12-20-2021 Emergency department patient visit [facility] Start: 11-15-2021 End: 11-15-2021 [facility] Procedures Date Procedure Procedure Detail Performing Clinician Start: 05-30-2025 Plain x-ray of wrist Dr. Shahzad Bright MD Work Phone: Start: 05-15-[address] Shahzad morrison MD Work Phone: Start: 04-09-2025 X-ray of esophagus with double contrast Dr. Shahzad Bright MD Work Phone: Start: 04-02-2025 Urnls dip stick/tablet reagent auto microscopy Dr. Shahzad Bright MD Work Phone: Start: 04-02-2025 Vitamin D, 25-hydroxy measurement Dr. Isadora Bright MD Work Phone: Comment on above: Vitamin D StatusDeficiency: <20 ng/mL (5 0nmol/L)Insufficiency: 20-30 ng/mL (50-75 nmol/L)Sufficiency: 30-100 ng/mL (75-250 nmol/L)Toxicity: >100 ng/mL (>250 nmol/L) Start: 02-19-2025 Prostate specific antigen measurement Dr. Shahzad Bright MD Work Phone: Comment on above: This test was performed using the [employer] tPSA method. Measured values of a patient sample can vary depending on the testing procedure used. PSA values determined on patient samples by different testing procedures cannot be used interchangeably. If there is a change in PSA assays while monitoring therapy, sequential testing should be performed to confirm baseline values. Start: 02-19-2025 Vitamin D, 25-hydroxy measurement Dr. Isadora Bright MD Work Phone: Comment on above: Vitamin D StatusDeficiency: <20 ng/mL (5 0nmol/L)Insufficiency: 20-30 ng/mL (50-75 nmol/L)Sufficiency: 30-100 ng/mL (75-250 nmol/L)Toxicity: >100 ng/mL (>250 nmol/L) Start: 02-03-2023 Radionuclide imaging of perfusion of myocardium under exercise stress Dr. Shahzad Bright Work Phone: Start: 11-09-2022 Plain chest X-ray Start: 11-15-2021 Radiography of ankle Plan of Treatment Date Care Activity Detail Author Start: 06-03-2032 Urine microalbumin profile DTaP,Tdap,Td Vaccine (2 - Tdap) [facility] Start: 05-15-2025 Endoscopy upper smal l intestine w/biopsy SMALL BOWEL ENDOSCOPY/BIOPSY [facility] Start: 05-15-2025 Patient discharge [facility] Start: 05-26-2024 Influenza vaccination Influenz a Vaccine (Season Ended) [facility] Start: 09-25-2023 Behavioral Health Screening Behavioral Health Screening [facility] Start: 05-26-2023 Covid-19 Vaccine ( season) Covid-19 Vaccine ( season) [facility] Start: 2020 Diabetes Screening Diabetes Screenin g [facility] Start: 2020 Screening for malign ant neoplasm of colon [facility] Start: 2010 Lipid panel Lipid Screening [facility] Start: 1994 Hepatitis B Vaccine (1 of 3 - 19+ 3-dose series) Hepatitis B Vaccine (1 of 3 - 19+ 3-dose series) [facility] Start: 1993 Hepatitis C screening Hepatitis C Sc pete [facility] Start: 1993 HIV screening HIV Screening [facility] CT Chest [facility] End: 03-15-2025 EGD DIAGNOSTIC EGD DIAGNOSTIC Endoscopy Routine Dysphagia, unspecified type 1 Occurrences starting 03/15/2024 until 03/15/2025 [facility] Work Phone: Comment on above: 1 Occurrences starti ng 03/15/2024 until 03/15/2025 Patient Education ED Hypotension , Orthostatic [facility] Work Phone: Patient referral [facility] Work Phone: End: 03-15-2025 Screening colonoscopy COLONOSCOPY SCREENING Endoscopy Routine Encounter for screening for malignant neoplasm of colon 1 Occurrences starting 03/15/2024 until 03/15/2025 [facility] Comment on above: 1 Occurrences starti ng 03/15/2024 until 03/15/2025 Payers Date Payer Category Payer Private Health Insurance [id number] 2024 Self-pay [id number] 2024 Private Health Insurance [id number] 2024 Private Health Insurance [id number] 2023 Unknown [employer] CARD PPO OOS [id number] 2023-Present [phone] [address] [place] [address] PPO [id number] 2023 Unknown [id number] Unknown [id number] Unknown [id number] Unknown [id number] Unknown [id number] 62 Unknown [id number] 62 Unknown [id number] 62 Unknown [id number] 62 Unknown [id number] 62 Unknown [id number] 62 Unknown [id number] [id number] 62 Unknown [id number] 62 Unknown [id number] [id number] 62 Unknown [id number] 62 Unknown [id number] [id number] 62 Unknown [id number] 62 Unknown [id number] 62 Unknown [id number] 62 Social History Date Type Detail Facility Start: 12-20-2021 End: 12-20-2021 Tobacco smoking status NHIS Unknown if ever smoked [facility] Start: 1975 Sex Assigned At Male [facility] Start: 03-12-2024 End: 06-09-2025 Tobacco smoking status PAIS Smokes tobacco daily [facility] Start: 09-25-1994 History of tobacco use Cigarette Smo ker [facility] Start: 09-03-2020 End: 03-12-2024 Cigarettes smoked current (pack per day) - Reported 2 [facility] Start: 03-12-2024 Tobacco use and exposure Smokeless tobacco non-user [facility] Start: 03-14-2024 Alcohol intake 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 (finding) [facility] Start: 09-03-2020 End: 03-14-2024 Tobacco use panel [facility] Adult Depression Screening Assessment 0 [facility] Start: 03-12-2024 Alcohol Comment quit fall 2022 [facility] Start: 1975 Sex Assigned At Not on file C [facility] Start: 05-12-2025 Tobacco smoking stat us PAIS Ex-smoker (finding) [facility] Goals Date Patient Goal Desired Activity /State Mental Status Date Assessment Result Facility 05-15-2025 Cognitive function Voice/Name [facility] Work Phone: 12-20-2021 Cognitive function Level Of Cons ciousness Awake;Alert;Appropriate;Follow s Commands [facility] Work Phone: Clinical Notes 01-17-2023 to 06-09-2025 Note Date & Type Note Facility 06-09-2025 Progress note [facility] 06-01-2025 Radiology Diagnostic study note [facility] Imaging Services [address] [place] [address] Wrist min 3 Views MR#: [id number] Acct: [id number] Name: ZENA BENNETT Rep #: [id number] : 1975 M 49 From: Ryan Cortez MD PCP: Dr. Shahzad Bright MD Status: RE G CLI Study:Wrist min 3 Views Date of Exam: Exam# [id number] Ordering Dr: Shahzad Bright MD PROCEDURE: WRIST MIN 3 VIEWS 05/30/2025 REASON FOR EXAM: PAIN, EXTENSION INJURY TECHNIQUE: Procedure Code: RADWR Modality: DX Procedure: WRIST MIN 3 VIEWS Laterality: FINDINGS: No evidence of acute fracture or dislocation. Normal carpal alignment. RAD/Wrist min 3 Views IMPRESSION: No acute osseous abnormalities. Reading Location: [address] CC: Dr. Shahzad Bright MD ~ Injection Molding Engineer: Signed [facility] 05-15-2025 Consult note [facility] 05-15-2025 Consult note [facility] 05-15-2025 Procedure note [facility] 05-15-2025 Procedure note [facility] 05-15-2025 Consult note [facility] 05-15-2025 History and physi noni note [facility] 05-15-2025 Consult note [facility] 05-15-2025 Note [facility] Medical Records Department [address] [place] [id number] History Physical Exam 05/15/25 0921 MR#: [id number] Acct: [id number] Name: ZENA BENNETT Rep #: [id number] : 1975 49 From: Kota Kan DO PCP: Dr. Shahzad Bright MD Status:[facility] Location: [place] [address] HPI - General General Date of Admission: 05/15/25 Date of Service: 05/15/25 Chief Complaint: dysphagia, weight loss and CRS HPI Narrative ZENA BENNETT, is a 49 M who presents with the Chief Complaint: dysphagia Details: The patient is a 49-year-old male presenting with dysphagia. He reports a long-standing difficulty swallowing pills, which has recently progressed to difficulty swallowing dense foods such as steak and dry chicken. Approximately eight weeks ago, he noted these symptoms worsening, to the point where he could only consume fruit smoothies. Around seven to eight weeks ago, he developed a sore throat and was diagnosed with an infection in his sinuses, ears, and throat, for which he received antibiotics, leading to partial improvement. Currently, he can consume softer foods like crab, mashed potatoes, noodles, and scrambled eggs, but requires additional liquids to swallow denser foods. The patient underwent a barium swallow study on April 09, which was unremarkable; however, he could not swallow the tablet provided during the test. He experiences the sensation of food getting stuck high in the throat but is relieved by drinking water. No associated nausea, vomiting, or heartburn are reported currently. He has a history of severe heartburn and acid reflux but altered his diet, resulting in symptom improvement. Despite the lack of active symptoms, he was prescribed omeprazole 40 mg daily over a month ago by Dr. Bright, although no change in swallowing difficulty was observed post-medication. The patient's dysphagia exacerbates when his sinuses are active. He reports a 25-pound weight loss over six weeks attributed to reduced food intake due to swallowing difficulty. His pertinent medical history includes carpal tunnel syndrome, sinusitis, left shoulder pain, and surgeries for removed tonsils, adenoids, and appendix. Family history is significant for a brother with colon polyps considered precancerous. He does not consume alcohol and occasionally uses a vape. He expresses concern about his brother's colon issues, having yet to undergo a colonoscopy, and plans to discuss getting scheduled for an EGD and colonoscopy. [facility] Medical History Wears glasses History of MRSA infection Anxiety Injury of back Difficulty swallowing Gastric reflux Smoker History of edema History of echocardiogram History of stress test Sleep apnea CPAP (continuous positive airway pressure) dependence Sleep related bruxism CTS (carpal tunnel syndrome) Acute sinusitis Inclusion cyst Left shoulder pain Tinnitus, unspecified ear Ankle pain, left Home Medications ???Medication ???Instructions ???Recorded ???Last Taken ???Type buspirone 7.5 mg tablet 7.5 mg PO TID 05/05/25 05/14/25 23 :55 History omeprazole 40 mg capsule,delayed 40 mg PO QDAY 05/05/25 05/14/25 07 :00 History release multivitamin 1 tab PO QDAY 05/12/25 Unknown His tory peg 3350-sod sulf,[id number] See Rx Instructions PO .COMPLEX #2 05/12/25 Unknown Rx 178.7-7.3-0.5-1.12-0.9 gram oral mL soln (Suflave) Allergy/AdvReac Type Severity Reaction Status Date / Time Sulfa (Sulfonamide Allergy Hives Verified 05/15/25 08:30 Antibiotics) Family History Mother Diabetes CAD (coronary artery disease) Hypertension Anxiety Depression Father Cancer inoperable brain tumor Surgical History Hx of tonsillectomy History of appendectomy Social History household members: spouse Smoking Status: Current every day smoker tobacco type: e-cigarettes alcohol intake: former substance use type: former substance user Date of last use: 03/2018, marijuana and crack/cocaine frequency: 3-4 times per week ROS Constitutional Constitutional: Denies fatigue, fever(s), poor appetite, weight gain or weight loss Gastrointestinal Gastrointestinal: Denies belching, bloating, change in bowel habits, change in stool character, chewing difficulty, coffee ground emesis, constipation, cramping, diarrhea, dyspepsia, dysphagia, early satiety, excessive flatus, fecal incontinence, heartburn, hematemesis, hematochezia, hemorrhoids, loose stools, melena, nausea, odynophagia, rectal bleeding, tenesmus, vomiting or weight changes Vital Signs Vital Signs Vital Signs: 05/15/25 08:31 (more content not included)... [facility] 05-12-2025 Progress note [facility] 04-09-2025 Radiology Diagnostic study note [facility] Imaging Services [address] [place], [place] [address] Esophagus Dual Contrast MR#: [id number] Acct: [id number] Name: ZENA BENNETT Rep #: [id number] : 1975 M 49 From: Manuel Schultz MD PCP: Dr. Shahzad Bright MD Status: RE G CLI Study:Esophagus Dual Contrast Date of Exam: 04/09/25 Exam# [id number] Ordering Dr: Shahzad Bright MD EXAM: Air-contrast esophagram barium swallow. CLINICAL HISTORY: Difficulty swallowing. COMPARISON: None TECHNIQUE: The patient ingested barium. Multiple fluoroscopic images were obtained. Dose report: Fluoroscopy. 25.4 seconds. 4.5 mGy. FINDINGS: The esophagus is unremarkable. No evidence of obstruction. No filling defect is seen. Free flow of contrast into the stomach. No evidence of gastroesophageal reflux. The patient was unable to swallow the 12 mm tablet the barium. RAD/Esophagus Dual Contrast IMPRESSION: Unremarkable examination. The patient was not capable of swallowing the 12 mm tablet of barium. Reading [facility] CC: Dr. Shahzad Bright MD ~ Injection Molding Engineer: Signed [facility] 03-04-2025 Evaluation note Diagnosis Onset Date Resolution Cigarette nicotine dependence chronic March 04, 2025 8:55am Morbid obesity chronic March 04, 2025 8:55am KESHA (obstructive sleep apnea) chronic March 04, 2025 8:55am [facility] Work Phone: 1(314) 122-980106-10-2025 Evaluation note* Diagnosis Onset Date Resolution Status Admit Date Cigarette nicotine dependence chroni c March 04, 2025 8:55am Morbid obesity chronic March 04, 2025 8:55am KESHA (obstructive sleep apnea) chroni c March 04, 2025 8:55am Dysphagia acute May 12, 2 025 8:20am Encounter for screening colonoscopy acute May 12 8:20am Weight loss acute May 12, 2025 8:20am [facility] Work Phone: 1(349) 107-484506-10-2025 Evaluation note* Diagnosis Onset Date Resolution Status Admit Date Cigarette nicotine dependence chroni c March 04, 2025 8:55am Morbid obesity chronic March 04, 2025 8:55am KESHA (obstructive sleep apnea) chroni c March 04, 2025 8:55am Dysphagia acute May 12, 025 8:20am Encounter for screening colonoscopy acute May 12 8:20am Weight loss acute May 12, 2025 8:20am Dysphagia acute May 15 025 8:17am Encounter for screening colonoscopy acute May 15 8:17am Vitamin deficiency acute May 15, 2025 8:17am Weight loss acute May 15, 2025 8:17am [facility] Work Phone: 1(884) 537-971506-10-2025 Evaluation note* Diagnosis Onset Date Resolution Status Admit Date Cigarette nicotine dependence chroni c March 04, 2025 8:55am Morbid obesity chronic March 04, 2025 8:55am KESHA (obstructive sleep apnea) chroni c March 04, 2025 8:55am Dysphagia acute May 12, 025 8:20am Encounter for screening colonoscopy acute May 12 8:20am Weight loss acute May 12, 2025 8:20am Dysphagia acute May 15 8:17am Encounter for screening colonoscopy acute May 15 8:17am Vitamin deficiency acute May 15, 2025 8:17am Weight loss acute May 15, 2025 8:17am Dysphagia acute May 8:23am [facility] Work Phone: 1(865) 604-912506-21-2024 Instructions* Patient Instructions* Yary Coburn APRN.MOLDING PRESS OPERATOR - 03/15/2024 8:18 AM EDT Images from the original note were not included. Bowel Preparation Instructions for: Miralax-Gatorade Preparations IF YOU DO NOT FOLLOW THESE DIRECTIONS, YOUR COLONOSCOPY WILL BE CANCELLED. Hendrix Instructions: Your bowel must be empty so that your doctor can clearly view your colon. Follow all of the instructions in this handout EXACTLY as they are written. Do NOT eat any solid food the ENTIRE day before your colonoscopy. Buy your bowel preparation at least 5 days before your colonoscopy. Four (4) Dulcolax laxative tablets containing 5mg of bisacodyl each (NOT Dulcolax stool softener) One (1) 8.3oz. bottle Miralax (238 grams) or generic equivalent 2 x 32oz. Bottles of Gatorade (NOT RED) Diabetic Patients: Use G2 (Gatorade 2) TRANSPORTATION on the Day of Your Exam A responsible adult MUST be present with you at Check In prior to your colonoscopy and REMAIN in the endoscopy area until you are discharged. You are NOT ALLOWED to drive, take a taxi or bus, or leave the Endoscopy Center ALONE. If you do not have a responsible route sales driver (family member or friend) withyou to take you home, your exam cannot be done with sedation and will be cancelled. Please bring a list of all of your current medications, including any Xosn-bif-Xsrwcwa medications with you. Medications If you take insulin, diabetic medications or blood thinners such as Coumadin (warfarin), Plavix (clopidogrel), Ticlid (ticlopidine hydrochloride), Agrylin (anagrelide), Xarelto (Rivaroxaban), Pradaxa(Dabigatran), Eliquis (Apixaban), and Effient (Prasugrel). You MUST call the doctors who orders those medicines for instructions on altering the dosage before your colonoscopy. All other medications should be taken the day of the exam with a sip of water including ASPIRIN. Five (5) Days Before Your Colonoscopy Do NOT take medicines that stop diarrhea - such as Imodium, Kaopectate, or Pepto Bismol. Do NOT take fiber supplements - such as Metamucil, Citrucel, or Perdiem. Do NOT take products that contain iron - such as multi-vitamins (the label lists what is in the products). Three (3) Days Before Your Colonoscopy Do NOT eat high-fiber foods - such as popcorn, beans, seeds (flax, sunflower, quinoa), multigrain bread, nuts, salad/vegetables, or fresh and dried fruit. 1 Bowel Preparation Instructions for: Miralax-Gatorade Preparations One (1) Day Before Your Colonoscopy Only drink clear liquids the ENTIRE DAY before your colonoscopy. Do NOT eat any solid foods. Drink at least 8 ounces of clear liquids every hour after waking up. The clear liquids you can drink include: Clear Liquid (NO RED LIQUIDS) DO NOT DRINK Gatorade, Pedialyte or Powerade Clear broth or bouillon Coffee or tea (no milk or non-dairy creamer) Carbonated and non-carbonated soft drinks Lj-Aid or other fruit flavored drinks Strained fruit juices (no pulp) Jell-O, popsicles, hard candy Water Alcohol Milk or non-dairy creamers Noodles or vegetables in soup Juice with pulp Liquid you cannot see through Do not use tobacco/vaping products Mix 1/2 of Miralax bottle (119 grams) in each 32 ounces of Gatorade bottle until dissolved. Keep cool in the refrigerator. DO NOT ADD ICE. The bowel preparation solution will be consumed in two parts. Part 1 5:00 PM - Evening before your colonoscopy Take 4 Dulcolax tablets. 6 PM - Evening before your colonoscopy Drink 32 oz. of the mixed solution. Drink an 8 oz. glass of bowel preparation every 15 minutes for a total of 4 glasses. Fifteen (15) minutes later, drink an 8 oz. glass of of clear liquids every 15 minutes for a total of 2 glasses. You may continue to drink clear liquids till midnight. Part 2 On the day of your colonoscopy you may drink clear liquids up to (three) 3 hours prior to procedure. 4 1/2 hours before your colonoscopy Take another 32 oz. bottle of mixed solution. Drink an 8 oz. glass of bowel prep every 15 minutes for a total of 4 glasses. Fifteen (15) minutes later, drink an 8 oz. glass of clear liquids every 15 minutes for a total of 2glasses. You may continue to drink clear liquids up to (three) 3 hours before your exam. 2 08/2019 [facility] NoteHNO ID: [id number] Author: YARY COBURN APRN.THERESE Service: ? Author Type: Nurse Practitioner Type: Progress Notes Filed: 03/15/2024 08:18 Note Text: HISTORY AND PHYSICAL Zena Bennett : 1975 REFERRING PHYSICIAN: MD Willa Sepulveda [address] [address] CHIEF COMPLAINT: Patient presents with: Consult: Screening for colon cancer HPI: Zena is a 48 year old male referred for endoscopy. Zena notes due for screening colonoscopy. Patient denies any change in bowel habits, weight changes, blood in stools, black tarry stools or abdominal pain. Denies family history of colon issues. Zena notes no upper GI complaints. He refers he use to have reflux and took a PPI but once he cut back from drinking alcohol everyday over 6 years ago it has gone away and he was able to stop taking the PPI. During conversation he did mention that he has a difficult time swallowing pills, no issues with food or liquid, only pills. He refers he thinks this is all mental. Zena refers that a couple of years ago he had an episode of SOB and went to the ED, while there they did an EKG that had an abnormal finding, his PCP sent him for a stress test, which came back fine. This is all outside of [facility], we are requesting records. Zena has not undergone prior endoscopy. Current Outpatient Medications Medication Sig busPIRone (BUSPAR) 7.5 mg tablet Take 7.5 mg by mouth two times a day. omega-3 fatty acids 1,000 mg cap Take 1 capsule by mouth three times a day. multivit-min/folic/vit K/lycop (MEN'S MULTIVITAMIN ORAL) Take 1 tablet by mouth once daily. Cholecalciferol, Vitamin D3, (VITAMIN D-3) 50 mcg (2,000 unit) cap Take 4 capsules by mouth two times a day. No current facility-administered medications for this visit. ALLERGIES: Sulfadiazine PAST MEDICAL HISTORY Diagnosis Date Anxiety Hearing loss Hypertriglyceridemia IGT (impaired glucose tolerance) Morbid obesity (HCC) Nicotine dependence KESHA (obstructive sleep apnea) SOB (shortness of breath) on exertion Tinnitus Varicose vein of leg Vitamin D deficiency PAST SURGICAL HISTORY Procedure Laterality Date APPENDECTOMY 1987 TONSILLECTOMY AND ADENOIDECTOMY FAMILY HISTORY Problem Relation Age of Onset Diabetes Mother Social History Tobacco Use Smoking status: Every Day Packs/day: 2.00 Years: 20.00 Additional pack years: 0.00 Total pack years: 40.00 Types: Cigarettes Start date: 1994 Smokeless tobacco: Never Vaping Use Vaping Use: current everyday user Substances: Nicotine Substance Use Topics Alcohol use: No Comment: quit fall 2022 Drug use: Not Currently Comment: last used cocaine March 2018 REVIEW OF SYMPTOMS: The review of systems data was entered by the nurse and reviewed by me Nursing Notes: Bailey Thorpe LPN 03/14/2024 4:10 PM Signed REVIEW OF SYSTEMS: General: The patient denies fatigue, denies weight loss, denies weight gain, denies feeling hot, and denies feelings of cold. Eyes: The patient denies glaucoma, denies eye injury/surgery, wears glasses or contacts. Ear/Nose/Throat: The patient NOTES allergies, denies hayfever, denies ear infections, and denies bloody noses. Cardiovascular: The patient denies chest pain, denies heart disease, denies high blood pressure,denies cardiac stent, denies prior heart attack, denies irregular heart beat, denies high cholesterol, denies poor circulation, denies heart failure, other cardiac issues, denies claudication, denies cold feet, denies peripheral arterial stent. Respiratory: The patient denies tuberculosis, denies pneumonia, denies frequent cough, denies pulmonary embolism, NOTES shortness of breath, and denies coughing up blood. Gastrointestinal: The patient denies difficulty swallowing, NOTES acid reflux, denies ulcers, denies vomiting, denies jaundice/hepatitis, denies gallbladder problems, denies black or tarry stools, NOTES hemorrhoids, denies bleeding from rectum, denies diverticulitis, denies constipation, denies diarrhea, denies loss of stool control, and denies hernias. Kidney/Bladder: The patient denies kidney stones, denies urine infections, and denies bloody urine. Skin: The patient denies a history of skin cancer, denies bleeding/changing moles, and denies a history of skin rash. Neurologic: The patient denies a history of epilepsy/convulsions, denies headaches, denies head/spinal injuries, and denies stroke/TIA. Psychiatric: The patient denies psychiatric medications, denies depression, and denies voices, denies substance abuse. Endocrine: The patient denies thyroid disorders, denies diabetes, and denies hormonal problems. Hematologic: The patient denies a history of bruising, denies bleeding, and denies anemia, denies blood clots. Infections: The patient denies a history of measles and mumps, denies rheumatic fever, and denies sexually transmitted diseases (more content not included)...[facility]06-20-2024 History of Present illness Narrative* Yary Coburn APRN.MOLDING PRESS OPERATOR - 03/14/2024 4:24 PM EDT HISTORY AND PHYSICAL Zena A Sabrina : 1975 REFERRING PHYSICIAN: MD Willa Sepulveda [place] [id number] CHIEF COMPLAINT: Patient presents with: Consult: Screening for colon cancer HPI: Zena is a 48 year old male referred for endoscopy. Zena notes due for screening colonoscopy. Patient denies any change in bowel habits, weight changes, blood in stools, black tarry stools or abdominal pain. Denies family history of colon issues. Zena notes no upper GI complaints. He refers he use to have reflux and took a PPI but once he cut back from drinking alcohol everyday over 6 years ago it has gone away and he was able to stop takingthe PPI. During conversation he did mention that he has a difficult time swallowing pills, no issues with food or liquid, only pills. He refers he thinks this is all mental. Zena refers that a couple of years ago he had an episode of SOB and went to the ED, while there they did an EKG that had an abnormal finding, his PCP sent him for a stress test, which came back fine. This is all outside of [facility], we are requesting records. Zena has not undergone prior endoscopy. Current Outpatient Medications Medication Sig busPIRone (BUSPAR) 7.5 mg tablet Take 7.5 mg by mouth two times a day. omega-3 fatty acids 1,000 mg cap Take 1 capsule by mouth three times a day. multivit-min/folic/vit K/lycop (MEN'S MULTIVITAMIN ORAL) Take 1 tablet by mouth once daily. Cholecalciferol, Vitamin D3, (VITAMIN D-3) 50 mcg (2,000 unit) cap Take 4 capsules by mouth two times a day. No current facility-administered medications for this visit. ALLERGIES: Sulfadiazine PAST MEDICAL HISTORY Diagnosis Date Anxiety Hearing loss Hypertriglyceridemia IGT (impaired glucose tolerance) Morbid obesity (HCC) Nicotine dependence KESHA (obstructive sleep apnea) SOB (shortness of breath) on exertion Tinnitus Varicose vein of leg Vitamin D deficiency PAST SURGICAL HISTORY Procedure Laterality Date APPENDECTOMY 1987 TONSILLECTOMY & ADENOIDECTOMY <AGE 12 1985 FAMILY HISTORY Problem Relation Age of Onset Diabetes Mother Social History Tobacco Use Smoking status: Every Day Packs/day: 2.00 Years: 20.00 Additional pack years: 0.00 Total pack years: 40.00 Types: Cigarettes Start date: 1994 Smokeless tobacco: Never Vaping Use Vaping Use: current everyday user Substances: Nicotine Substance Use Topics Alcohol use: No Comment: quit fall 2022 Drug use: Not Currently Comment: last used cocaine March 2018 REVIEW OF SYMPTOMS: The review of systems data was entered by the nurse and reviewed by me Nursing Notes: MaurilioMauriceBaileyMILLIE dexter 03/14/2024 4:10 PM Signed REVIEW OF SYSTEMS: General: The patient denies fatigue, denies weight loss, denies weight gain, denies feeling hot, and denies feelings of cold. Eyes: The patient denies glaucoma, denies eye injury/surgery, wears glasses or contacts. Ear/Nose/Throat: The patient NOTES allergies, denies hayfever, denies ear infections, and denies bloody noses. Cardiovascular: The patient denies chest pain, denies heart disease, denies high blood pressure,denies cardiac stent, denies prior heart attack, denies irregular heart beat, denies high cholesterol, denies poor circulation, denies heart failure, other cardiac issues, denies claudication, denies cold feet, denies peripheral arterial stent. Respiratory: The patient denies tuberculosis, denies pneumonia, denies frequent cough, denies pulmonary embolism, NOTES shortness of breath, and denies coughing up blood. Gastrointestinal: The patient denies difficulty swallowing, NOTES acid reflux, denies ulcers, denies vomiting, denies jaundice/hepatitis, denies gallbladder problems, denies black or tarry stools, NOTES hemorrhoids, denies bleeding from rectum, denies diverticulitis, denies constipation, denies diarrhea, denies loss of stool control, and denies hernias. Kidney/Bladder: The patient denies kidney stones, denies urine infections, and denies bloody urine. Skin: The patient denies a history of skin cancer, denies bleeding/changing moles, and denies a history of skin rash. Neurologic: The patient denies a history of epilepsy/convulsions, denies headaches, denies head/spinal injuries, and denies stroke/TIA. Psychiatric: The patient denies psychiatric medications, denies depression, and denies voices, denies substance abuse. Endocrine: The patient denies thyroid disorders, denies diabetes, and denies hormonal problems. Hematologic: The patient denies a history of bruising, denies bleeding, and denies anemia, denies blood clots. Infections: The patient denies a history of measles and mumps, denies rheumatic fever, and denies sexually transmitted diseases. Musculoskeletal: The patient NOTES back pain/injury, denies back problems, denies sciatica, denies knee/foot trouble, denies arthritis, or denies gout. When was patient's last Mammogram screening? N/A Last Colonoscopy: NO PRIOR Bailey Thorpe LPN PHYSICAL EXAMINATION: General: The patient is 48 year old, male well nourished, well hydrated in no acute distress. The patient is oriented to time, place, and person. VITALS: Blood pressure 138/86, pulse 107, temperature 36.8 C (98.3 F), height 170.2 cm (5' 7), weight (!) 146 kg (321 lb 12.8 oz), SpO2 97%. Body mass index is 50.4 kg/m . HEENT: Normal cephalic, ataumatic, pupils are equally round, sclera are anicteric, mucous membranesare moist, oropharynx is clear. Neck has no masses, asymmetry or lymphadenopathy. Respiratory: Clear to auscultation and percussion. Normal respiratory excursion and pattern. Cardiac: Examination is regular rate and rhythm. Normal S1/S2 Abdominal exam: Soft, nontender, with no palpable masses. No hepatosplenomegaly. No palpable hernias. Extremities: no clubbing, cyanosis or edema. No adenopathy. LABORATORY VALUES: As Noted RADIOLOGIC STUDIES: As Noted Assessment IMPRESSION: encounter for colon cancer screening PLAN: I have reviewed my findings with the surgeon. Will plan for upper and lower endoscopy. We discussed the risks and benefits of the planned endoscopy. I have informed the patient that complications can occur including failure to complete the endoscopy and perforation. Zena had the opportunity to ask questions concerning the planned endoscopy. My staff has also explained the procedure to the patient in understandable terms and has given the patient printed material concerning the procedure.Zena freely consents to surgery. I plan to use Miralax bowel preparation I have explained to the patient the difference between IV conscious sedation and MAC anesthesia - and I have offered either, according to the patient's wishes. I have explained that with IV conscioussedation there is no anesthesia provider available and therefore there is a limitation of the amount of IV medications that can be given and that the patient may wake up in the middle of the procedure and/or experience pain/discomfort during the procedure. Further discussion was done and the patient was given the opportunity to ask questions and all questions were answered. MAC anesthesia based on BMI Zena was counseled that if there are changes in his/her medical condition, to let the office know if surgery should proceed. If there are changes in patient's medical condition from time of this encounter to the day of the procedure that preclude anesthesia, patient may have procedure cancelled for patient's safety. At this time Zena is unsure if he would like to move forward with endoscopy. He refers he has no family history and no personal history that would prevent him from completing cologuard. He is going to check with his PCP and then decide on endoscopy. Diagnoses: (Z12.11) Encounter for screening for malignant neoplasm of colon (primary encounter diagnosis) (R13.10) Dysphagia, unspecified type Consultation requested by Dr. Bright for an opinion regarding colorectal cancer screening. My final recommendations will be communicated back to the requesting physician by way of shared Medical record or letter to requesting physician via US mail. Yary Coburn APRN.THERESE [facility] Nurse Note* Bailey Thorpe LPN - 03/14/2024 4:08 PM EDT REVIEW OF SYSTEMS: General: The patient denies fatigue, denies weight loss, denies weight gain, denies feeling hot, and denies feelings of cold. Eyes: The patient denies glaucoma, denies eye injury/surgery, wears glasses or contacts. Ear/Nose/Throat: The patient NOTES allergies, denies hayfever, denies ear infections, and denies bloody noses. Cardiovascular: The patient denies chest pain, denies heart disease, denies high blood pressure,denies cardiac stent, denies prior heart attack, denies irregular heart beat, denies high cholesterol, denies poor circulation, denies heart failure, other cardiac issues, denies claudication, denies cold feet, denies peripheral arterial stent. Respiratory: The patient denies tuberculosis, denies pneumonia, denies frequent cough, denies pulmonary embolism, NOTES shortness of breath, and denies coughing up blood. Gastrointestinal: The patient denies difficulty swallowing, NOTES acid reflux, denies ulcers, denies vomiting, denies jaundice/hepatitis, denies gallbladder problems, denies black or tarry stools, NOTES hemorrhoids, denies bleeding from rectum, denies diverticulitis, denies constipation, denies diarrhea, denies loss of stool control, and denies hernias. Kidney/Bladder: The patient denies kidney stones, denies urine infections, and denies bloody urine. Skin: The patient denies a history of skin cancer, denies bleeding/changing moles, and denies a history of skin rash. Neurologic: The patient denies a history of epilepsy/convulsions, denies headaches, denies head/spinal injuries, and denies stroke/TIA. Psychiatric: The patient denies psychiatric medications, denies depression, and denies voices, denies substance abuse. Endocrine: The patient denies thyroid disorders, denies diabetes, and denies hormonal problems. Hematologic: The patient denies a history of bruising, denies bleeding, and denies anemia, denies blood clots. Infections: The patient denies a history of measles and mumps, denies rheumatic fever, and denies sexually transmitted diseases. Musculoskeletal: The patient NOTES back pain/injury, denies back problems, denies sciatica, denies knee/foot trouble, denies arthritis, or denies gout. When was patient's last Mammogram screening? N/A Last Colonoscopy: NO PRIOR Bailey Thorpe LPN [facility]06[facility] Nurse Note* Bailey Thorpe LPN - 03/14/2024 4:08 PM EDT REVIEW OF SYSTEMS: General: The patient denies fatigue, denies weight loss, denies weight gain, denies feeling hot, and denies feelings of cold. Eyes: The patient denies glaucoma, denies eye injury/surgery, wears glasses or contacts. Ear/Nose/Throat: The patient NOTES allergies, denies hayfever, denies ear infections, and denies bloody noses. Cardiovascular: The patient denies chest pain, denies heart disease, denies high blood pressure,denies cardiac stent, denies prior heart attack, denies irregular heart beat, denies high cholesterol, denies poor circulation, denies heart failure, other cardiac issues, denies claudication, denies cold feet, denies peripheral arterial stent. Respiratory: The patient denies tuberculosis, denies pneumonia, denies frequent cough, denies pulmonary embolism, NOTES shortness of breath, and denies coughing up blood. Gastrointestinal: The patient denies difficulty swallowing, NOTES acid reflux, denies ulcers, denies vomiting, denies jaundice/hepatitis, denies gallbladder problems, denies black or tarry stools, NOTES hemorrhoids, denies bleeding from rectum, denies diverticulitis, denies constipation, denies diarrhea, denies loss of stool control, and denies hernias. Kidney/Bladder: The patient denies kidney stones, denies urine infections, and denies bloody urine. Skin: The patient denies a history of skin cancer, denies bleeding/changing moles, and denies a history of skin rash. Neurologic: The patient denies a history of epilepsy/convulsions, denies headaches, denies head/spinal injuries, and denies stroke/TIA. Psychiatric: The patient denies psychiatric medications, denies depression, and denies voices, denies substance abuse. Endocrine: The patient denies thyroid disorders, denies diabetes, and denies hormonal problems. Hematologic: The patient denies a history of bruising, denies bleeding, and denies anemia, denies blood clots. Infections: The patient denies a history of measles and mumps, denies rheumatic fever, and denies sexually transmitted diseases. Musculoskeletal: The patient NOTES back pain/injury, denies back problems, denies sciatica, denies knee/foot trouble, denies arthritis, or denies gout. When was patient's last Mammogram screening? N/A Last Colonoscopy: NO PRIOR Bailey Thorpe LPN documented [facility] Brown Doan [facility] Note Date/Time May 15, 2025 9: 23am [facility] Medical Records Department [address] [place] [address] Pre-Anesthesia Evaluation 05/15/25922 MR#: [id number] Acct: [id number] Name: ZENA BENNETT Rep #:[id number] 1 : 1975 49 From: Brown Doan MD PCP: Dr. Shahzad Bright MD Status:RE G SDC Y Race: C Location: [place] [address] ASA Classification* ASA Classification ASA Classification: 3 (KESHA) Assessment & Plan Anesthesia* Anesthesia Assessment Anesthesia Assessment: Discussed sedation and/or anesthesia options, risks, benefits, and alternatives with patient/parents/legal guardian/POA. Questions invited. The patient/parents/legal guardian/POA seems to understand and agrees to proceedwith anesthesia plan. Reviewed the physical assessment, medical history, allergy history and patient home medications list prior to surgery/procedure/anesthetic and documented any changes. Performed airway and anesthesia risk assessments. Anesthesia Type Anesthesia Type: MAC History Source History Obtained from:: Patient and Chart Anesthesia Focused Assessment* Temperature: 96.8 F Pulse Rate: 68 Blood Pressure: 126/65 Respiratory Rate: 16 Pulse Ox: 100 Oxygen Delivery Method: Room Air Airway Assessment Mouth opens: >3 cm Mallampati Score: III Teeth Condition: Chipped/Broken Neck Range of motion (ROM): Full ROM Labs Anesthesia Preop lab: CBC WBC 7.8 K/mm3 (4.4-11.0) 04/02/25 07:17 04/02/25 RBC 5.29 M/mm3 (4.6-6.2) 04/02/25 07:04/02/25 Hgb 14.0 g/dL (13.0-16.5) 04/02/25 07:17 04/02/25 Hct 45.5 % (40-54) 04/02/25 07:17 04/02/25 Plt Count 252 K/mm3 (150-450) 04/02/25 07:17 04/02/25 CHEMISTRY Potassium 4.5 mmol/L (3.3-5.1) 04/02/25 07:17 04/02/25 Sodium 140 mmol/L (133-145) 04/02/25 07:17 04/02/25 BUN 11 mg/dL (4-19) 04/02/25 07:17 04/02/25 Creatinine 0.84 mg/dL (0.70-1.20) 04/02/25 07:17 04/02/25 Glucose 99 mg/dL (70-99) 04/02/25 07:17 04/02/25 POC Glucose 99 mg/dL (70-110) 10/18/19 11:43 10/18/19 TSH 1.160 uIU/mL (0.300-4.200) 02/19/25 08:48 0505/19 COAG Pre-Assessment Diagnosis/Proposed Procedure Planned Operative Procedure(s): EGD Anesthesia History Anesthesia History - ethnoarchaeologist: Anesthesia History - ethnoarchaeologist Hx Hospitalization No 05/14/25 09:03 Any Problems With Anesthesia No 05/14/25 09:03 Cholinesterase deficiency No 05/14/25 09:03 You/Your Family Experience No 05/14/25 09:03 fever (hyperthermia) with Relationship Recent Exposure to Contagious No 05/15/25 08:31 Disease Does patient have nerve No 05/14/25 09:03 stimulator Patient instructed to have device shut off --Does patient have Pacemaker No 05/15/25 08:33 or ICD? When Was Last Pacemaker Check QUESTION #4 FULL TEXT: You/Your Family Experience fever (hyperthermia) with Anesthesia Last Oral Intake Last Oral intake: Last Oral Intake NPO since 04:00 05/15/25 08:33 Meds taken in AM with sips of water? Meds patient instructed to take am of surgery PONV PONV - ethnoarchaeologist: PONV - ethnoarchaeologist Female No 05/14/25 09:03 HX of Motion Sickness Yes 05/14/25 09:03 HX of N/V After Surgery No 05/14/25 09:03 Non-Smoker No 05/14/25 09:03 Duration of Surgery greater No 05/14/25 09:03 than 60 minutes Number of Risk Factors 1 05/14/25 09:03 PONV Score Low Risk 05/14/25 09:03 Height & Weight Height & Weight: Anesthesia: Height & Weight Height 5 ft 7 in 05/15/25 08:33 Weight: 141.521 kg 05/15/25 08:33 Body Mass Index (BMI) 48.9 05/15/25 08:33 Respiratory Assessment Respiratory Assessment - ethnoarchaeologist: Respiratory Tract Infection Hx - ethnoarchaeologist Hx Respiratory Tract Infection No 05/14/25 09:03 STOP Sleep Apnea STOP Sleep Apnea - ethnoarchaeologist: STOP Sleep Apnea - ethnoarchaeologist Hx Hypertension No 05/14/25 09:03 Hx Sleep Apnea Yes 05/14/25 09:03 CPAP Yes 05/14/25 09:03 BIPAP No 05/14/25 09:03 Do you snore loudly (louder than talking or can be heard Do you often feel tired/ fatigued/ sleepy during daytime? Has anyone observed you stop breathing during sleep? STOP Results Positive 05/14/25 09:03 QUESTION #5 FULL TEXT : Do you snore loudly (louder than talking or can be heard through closed doors)? Tobacco Use History Tobacco Use History - ethnoarchaeologist: Tobacco Use History - ethnoarchaeologist Tobacco Use Smoking Status Current every day smoker 05/14/25 09:03 Hx Tobacco Use Yes 05/14/25 09:03 Years Smoking Packs Smoked per Day Smoking Cessation Date was within the last 15 years Hx Smoking Cessation Date Hx Smoking Cessation Counseling Hematologic Medial History Hematologic Hx - ethnoarchaeologist: Hematologic Medical Hx - documentation improvement specialist Hx of Blood Transfusion No 05/14/25 09:03 Hx of Transfusion in last 3 No 05/14/25 09:03 Months Date of Last Transfusion (if within last 3 months) Ever experience any problems No 05/14/25 09:03 with transfusion(s)? Specify any problems Hx of Preganancy in last 3 N/A 05/14/25 09:03 Months Nurse Filling Out Transfusion MGRIFFITH 05/14/25 09:03 & Questions: Date: 05/14/25 05/14/25 09:03 Time: 09:04 05/14/25 09:03 Patient unable to answer at this time (ie. confused, unrespo /Reproduction History /Reproductive History - ethnoarchaeologist: /Reproductive Hx- ethnoarchaeologist Hx Now No 05/14/25 09:03 Gestational Age (in weeks): EDC: Hx Hx Para Hx Section SAB No 05/14/25 09:03 Active Medications Active Medications: Current Medications Generic Name Dose Route Start Last Admin Trade Name Freq PRN Reason Stop Dose Admin Lactated Ringer's 1,000 mls @ 15 mls/hr 05/15/25 08:30 05/15/25 08:35 IV 15 mls/hr .Q48H ALANA Administration PFSH Medical History (Updated 05/14/25 @ 09:12 by Pia Almodovar) Wears glasses History of MRSA infection Anxiety Injury of back Difficulty swallowing Gastric reflux Smoker History of edema History of echocardiogram History of stress test Sleep apnea CPAP (continuous positive airway pressure) dependence Sleep related bruxism CTS (carpal tunnel syndrome) Acute sinusitis Inclusion cyst Left shoulder pain Tinnitus, unspecified ear Ankle pain, left Home Medications ?Medication ?Instructions ?Recorded ?Last Taken ?Type buspirone 7.5 mg tablet 7.5 mg PO TID 05/05/2505/14 23:55 History omeprazole 40 mg capsule,delayed 40 mg PO QDAY 5 05/14/25 07:00 History release multivitamin 1 tab PO QDAY 05/12/25 Unkno wn History peg 3350-sod sulf,[id number]-kwg-ukq See Rx Instructions PO .COMPLEX #2 05/12/25 Unknown Rx 178.7-7.3-0.5-1.12-0.9 gram oral mL soln (Suflave) Allergy/AdvReac Type Severity Reaction Status Date / Time Sulfa (Sulfonamide Allergy Hives Verified 05/15/25 08:30 Antibiotics) Family History Mother Diabetes CAD (coronary artery disease) Hypertension Anxiety Depression Father Cancer inoperable brain tumor Surgical History Hx of tonsillectomy History of appendectomy Social History household members: spouse Smoking Status: Current every day smoker tobacco type: e-cigarettes alcohol intake: former substance use type: former substance user Date of last use: 03/2018, marijuana and crack/cocaine frequency: 3-4 times per week Review of Systems (Anesthesia) ROS Narrative System reviewed and no additional complaints, except as documented. 05/15/25922 <Electronically signed by Brown Muñoz> Date _ Brown Boucher Signature: Date CC: ~ Signed [facility] Work Phone: Consult note Author Obey Marquez [facility] Note Date/Time May 15, 2025 9: 45am [facility] Medical Records Department [address] [facility] [facility] [address] Anesthesia Postop Eval I 05/15/25943 MR#: [id number] Acct: [id number] Name: ZENA BENNETT Rep #:[id number] : 1975 49 From: Obey Jain RNA PCP: Dr. Shahzad Bright MD Status: G [facility] Y Race: C Location: [place] [address] Anesthesia: Postop Eval I Current Vital Signs Temperature: 97 F Pulse Rate: 77 Blood Pressure: 116/66 Respiratory Rate: 18 Pulse Ox: 100 Oxygen Delivery Method: Room Air Assessment Airway patent: Yes Spontaneous unlabored respirations: Yes Mental status: Awake and Calm nausea: No Vomiting: No Anesthesia Complication: No Fluid Hydration Crystalloid volume administer (ml): 100 Total IV fluid infused: 100 Progress Note Anesthesia document: Postop Eval 1 completed: Yes 05/15/25944 <Electronically signed by Obey Marquez CRNA> Date _ Obey Calderonignkaroline Signature: Date CC: ~ Signed [facility] Work Phone: Consult note Author Obey Marquez [facility] Note Date/Time May 15, 2025 9: 49am [facility] Medical Records Department [address] [place] [address] Anesthesia Postop Eval II 05/15/25 0948 MR#: [id number] Acct: [id number] Name: ZENA BENNETT Rep #:[id number] : 1975 49 From: Obey Jain RNA PCP: Dr. Shahzad Bright MD Status:RE G [facility] Y Race: C Location: [place] [address] Anesthesia Postop Eval I Sum Postop Eval Completion status Anesthesia document: Postop Eval 1 completed: Yes Anesthesia Postop Eval I Summary Anesthesia Postop Eval I Summary: Anesthesia Postop Eval I: Assessment Summary Airway patent Yes 05/15/25 09:45 ONION TOPPER.MDOT Spontaneous unlabored Yes 05/15/25 09:45 ONION TOPPER.MDOT respirations Mental status Awake,Calm 05/15/25 09:45 ONION TOPPER.MDOT nausea No 05/15/25 09:45 ONION TOPPER.MDOT Vomiting No 05/15/25 09:45 ONION TOPPER.MDOT Anesthesia Postop Eval I: Fluid Summary Crystalloid volume administer 100 05/15/25 09:45 ONION TOPPER.MDOT (ml) Colloids volume administered ( ml) Blood Product volume administered (ml) Total IV fluid infused 100 05/15/25 09:45 ONION TOPPER.XAVI Anesthesia Postop Eval I: Summary Notes Anesthesia Complication No 05/15/25 09:45 ONION TOPPER.MDOT Anesthesia Complication Comment: Post-operative progress note Anesthesia: Postop Eval II Evaluation Mental status: Awake and Calm Pain Level: 0 nausea: No Vomiting: No Complications Anesthesia Complication: No 05/15/2549 <Electronically signed by Obey Marquez CRNA> Date _ Obey Marquez CRNA Cosigner Signature: Date CC: ~ Signed [facility] Work Phone: consult note Author Brown Doan [facility] Note Date/Time May 15, 2025 10 :25am [facility] Medical Records Department [address] [place] [address] [place] [address] Anesthesia Postop Eval II 05/15/25 1017 MR#: [id number] Acct: [id number] Name: ZENA BENNETT Rep #:[id number] : 1975 49 From: Brown Doan MD PCP: Dr. Shahzad Bright MD Status:RE G [facility] Y Race: C Location: [place] [address] Anesthesia Postop Eval I Sum Postop Eval Completion status Anesthesia document: Postop Eval 1 completed: Yes Anesthesia Postop Eval I Summary Anesthesia Postop Eval I Summary: Anesthesia Postop Eval I: Assessment Summary Airway patent Yes 05/15/25 09:45 ONION TOPPER.MDOT Spontaneous unlabored Yes 05/15/25 09:45 ONION TOPPER.MDOT respirations Mental status Awake,Calm 05/15/25 09:49 ONION TOPPER.MDOT nausea No 05/15/25 09:49 ONION TOPPER.MDOT Vomiting No 05/15/25 09:49 ONION TOPPER.MDOT Anesthesia Postop Eval I: Fluid Summary Crystalloid volume administer 100 05/15/25 09:45 ONION TOPPER.MDOT (ml) Colloids volume administered ( ml) Blood Product volume administered (ml) Total IV fluid infused 100 05/15/25 09:45 ONION TOPPER.MDOT Anesthesia Postop Eval I: Summary Notes Anesthesia Complication No 05/15/25 09:49 ONION TOPPER.MDOT Anesthesia Complication Comment: Post-operative progress note Anesthesia: Postop Eval II Evaluation Mental status: Awake Pain Level: 0 nausea: No Vomiting: No Complications Anesthesia Complication: No 05/15/25 1017 <Electronically signed by Brown Muñoz> Date _ Brown Boucher Signature: Date CC: ~ Signed [facility] Work Phone: Evaluation noteNo assessment information available [facility] Work Phone: Evaluation note* Diagnosis Encounter for screening for malignant neoplasm of colon- Primary Special screening for malignant neoplasms, colon Dysphagia, unspecified type [facility] Kota Kan [facility] Note Date/Time May 15, 2025 9: 24am [facility] Medical Records Department [address] [place] [address] History & Physical Exam 05/15/25 0921 MR#: [id number] Acct: [id number] Name: ZENA BENNETT Rep #:[id number] : 1975 49 From: Kota Kan DO PCP: Dr. Shahzad Bright MD Status:[facility] Location: [place] [address] HPI - General General Date of Admission: 05/15/25 Date of Service: 05/15/25 Chief Complaint: dysphagia, weight loss and CRS HPI Narrative ZENA BENNETT, is a 49 M who presents with the Chief Complaint: dysphagia Details: The patient is a 49-year-old male presenting with dysphagia. He reports a long-standing difficulty swallowing pills, which has recently progressed to difficulty swallowing dense foods such as steak and dry chicken. Approximately eight weeks ago, he noted these symptoms worsening, to the point where he could only consume fruit smoothies. Around seven to eight weeks ago, he developed a sore throat and was diagnosed with an infection in his sinuses, ears, and throat, for which he received antibiotics, leading to partial improvement. Currently, he can consume softer foods like crab, mashed potatoes, noodles, and scrambled eggs, but requires additional liquids to swallow denser foods. The patient underwent a barium swallow study on April 09, which was unremarkable; however, he could not swallow the tablet provided during the test.He experiences the sensation of food getting stuck high in the throat but is relieved by drinking water. No associated nausea, vomiting, or heartburn are reported currently. He has a history of severe heartburn and acid reflux but altered his diet, resulting in symptom improvement. Despite the lack of active symptoms, he was prescribed omeprazole 40 mg daily over a month ago by Dr. Bright, although no change in swallowing difficulty was observed post-medication. The patient's dysphagia exacerbates when his sinuses are active. He reports a 25-pound weight loss over six weeks attributed to reduced food intake due to swallowing difficulty. His pertinent medical history includes carpal tunnel syndrome, sinusitis, left shoulder pain, and surgeries for removed tonsils, adenoids, and appendix. Familyhistory is significant for a brother with colon polyps considered precancerous. He does not consume alcohol and occasionally uses a vape. He expresses concern about his brother's colon issues, having yet to undergo a colonoscopy, and plansto discuss getting scheduled for an EGD and colonoscopy. [facility] Medical History Wears glasses History of MRSA infection Anxiety Injury of back Difficulty swallowing Gastric reflux Smoker History of edema History of echocardiogram History of stress test Sleep apnea CPAP (continuous positive airway pressure) dependence Sleep related bruxism CTS (carpal tunnel syndrome) Acute sinusitis Inclusion cyst Left shoulder pain Tinnitus, unspecified ear Ankle pain, left Home Medications ?Medication ?Instructions ?Recorded ?Last Taken ?Type buspirone 7.5 mg tablet 7.5 mg PO TID 05/05/2505/14 23:55 History omeprazole 40 mg capsule,delayed 40 mg PO QDAY 5 05/14/25 07:00 History release multivitamin 1 tab PO QDAY 05/12/25 Unkno wn History peg 3350-sod sulf,bhwvn-crb-lbh See Rx Instructions PO .COMPLEX #2 05/12/25 Unknown Rx 178.7-7.3-0.5-1.12-0.9 gram oral mL soln (Suflave) Allergy/AdvReac Type Severity Reaction Status Date / Time Sulfa (Sulfonamide Allergy Hives Verified 05/15/25 08:30 Antibiotics) Family History Mother Diabetes CAD (coronary artery disease) Hypertension Anxiety Depression Father Cancer inoperable brain tumor Surgical History Hx of tonsillectomy History of appendectomy Social History household members: spouse Smoking Status: Current every day smoker tobacco type: e-cigarettes alcohol intake: former substance use type: former substance user Date of last use: 03/2018, marijuana and crack/cocaine frequency: 3-4 times per week ROS Constitutional Constitutional: Denies fatigue, fever(s), poor appetite, weight gain or weight loss Gastrointestinal Gastrointestinal: Denies belching, bloating, change in bowel habits, change in stool character, chewing difficulty, coffee ground emesis, constipation, cramping, diarrhea, dyspepsia, dysphagia, early satiety, excessive flatus, fecalincontinence, heartburn, hematemesis, hematochezia, hemorrhoids, loose stools, melena, nausea, odynophagia, rectal bleeding, tenesmus, vomiting or weight changes Vital Signs Vital Signs Vital Signs: 05/15/25 08:31 05/15/25 08:33 Temperature 96.8 F L Temperature Source Temporal Pulse Rate 68 Respiratory Rate 16 Respiratory Pattern Normal Blood Pressure 126/65 H Blood Pressure Mean 85 Blood Pressure Source Monitor Blood Pressure Position Supine Blood Pressure Location Left Arm Pulse Ox 100 Oxygen Delivery Method Room Air Weight Weight: 312 lb Body Mass Index (BMI) 48.9 Physical Exam Const alert, oriented x3, no apparent distress and healthy appearing General Appearance: cooperative GI normal to inspection, nondistended, normoactive bowel sounds, soft to palpation,non-tender and non-distended Percussion: normal to percussion Rectal Exam: deferred Assessment & Plan Assessment/Plan (1) Weight loss: (2) Encounter for screening colonoscopy: (3) Dysphagia: (4) Vitamin deficiency: PLAN: Assessment and Plan Assessment and Plan (1) Dysphagia: Status: Acute (2) Weight loss: Status: Acute (3) Encounter for screening colonoscopy: Status: Acute Medications: New peg 3350-sod sulf,zqhh-zfh-gps 178.7-7.3-0.5 gram (Suflave) Take as directed for split dose bowel prep 2 mL 0RF Plan 49y/o male presents for consultation with complaints of dysphagia x8 weeks. Reports he has always had trouble swallowing pills, but the past 8 weeks he has had difficulty with solid foods (dry foods). Esophagram was unremarkable 04/09/2025, although unable to swallow tablet. He denies any heartburn, N/V. He did start Omeprazole 40mg daily one month ago and denies any improvement in dysphagia. He vapes but denies any alcohol intake. He reports a weight loss of 25lbs in the past 6 weeks. He denies any abdominal pain or change in bowel habits. He denies any prior colon cancer screening. Patient Instructions: EGD now Colonoscopy next available - SuFlave 05/15/25 0924 <Electronically signed by Kota Kan DO> Cosigner Signature (if applicable): CC: Dr. Shahzad Bright MD; Kota Kan DO~ Signed [facility] Work Phone: Progress note Author Ca Menchaca [facility] Note Date/Time May 12, 2025 8: 55am [facility] [address] [place] [address] OFFICE VISIT Date of Service: 05/12/25 MR#: [id number] Acct: [id number] Name: ZENA BENNETT Rep #: [id number] : 1975 Provider: CINDY Menchaca Age/Sex: 49/M Location: [facility] Status: Signed Intake Vital Signs 03/04/25 07:48 05/12/25 08:34 Height 5 ft 6 in 5 ft 6 in Weight: 332 lb 317 lb BMI 53.6 51.1 BP 108/76 119/80 Blood Pressure Location Rt brachial Position Sitting Respiration 18 20 H Pulse 70 66 Pulse Source NIBP Temp 97.4 F L 97.4 F L Temp Source Temporal Pulse Oximetry (%) 96 97 Oxygen Delivery Method room air room air Intake Visit Reasons: Dysphagia Chief Complaint: dysphagia Home Health Clinical Supervisor Required: No Accompanied by: Self Is patient in pain?: No Allergies Sulfa (Sulfonamide Antibiotics) Allergy (Verified 05/05/25 13:39) Hives Medications ?Medication ?Instructions ?Recorded ?Confirmed ?Type buspirone 7.5 mg tablet 7.5 mg PO TID 05/05/2505/05 History omeprazole 40 mg capsule,delayed 40 mg PO QDAY 5 05/05/25 History release multivitamin 1 tab PO QDAY 05/12/2505/12 History peg 3350-sod sulf,wayfj-lqm-dhf See Rx Instructions PO .COMPLEX #2 05/12/25 05/12/25 Rx 178.7-7.3-0.5-1.12-0.9 gram oral mL soln (Suflave) Nurse's Note: Has had problems with swallowing for 8 weeks now. Anything gets stuck in his throat.It gets worse when his sinus' get worse. [facility] Medical History Sleep related bruxism CTS (carpal tunnel syndrome) Acute sinusitis Inclusion cyst Left shoulder pain Tinnitus, unspecified ear Ankle pain, left Surgical History Hx of tonsillectomy History of appendectomy Family History Mother Diabetes CAD (coronary artery disease) Hypertension Anxiety Depression Father Cancer inoperable brain tumor Social History household members: spouse Smoking Status: Former smoker alcohol intake: former substance use type: former substance user Date of last use: 03/2018, marijuana and crack/cocaine frequency: 3-4 times per week HPI HPI Chief Complaint: dysphagia Details: The patient is a 49-year-old male presenting with dysphagia. He reports a long-standing difficulty swallowing pills, which has recently progressed to difficulty swallowing dense foods such as steak and dry chicken. Approximately eight weeks ago, he noted these symptoms worsening, to the point where he could only consume fruit smoothies. Around seven to eight weeks ago, he developed a sore throat and was diagnosed with an infection in his sinuses, ears, and throat, for which he received antibiotics, leading to partial improvement. Currently, he can consume softer foods like crab, mashed potatoes, noodles, and scrambled eggs, but requires additional liquids to swallow denser foods. The patient underwent a barium swallow study on April 09, which was unremarkable; however, he could not swallow the tablet provided during the test.He experiences the sensation of food getting stuck high in the throat but is relieved by drinking water. No associated nausea, vomiting, or heartburn are reported currently. He has a history of severe heartburn and acid reflux but altered his diet, resulting in symptom improvement. Despite the lack of active symptoms, he was prescribed omeprazole 40 mg daily over a month ago by Dr. Bright, although no change in swallowing difficulty was observed post-medication. The patient's dysphagia exacerbates when his sinuses are active. He reports a 25-pound weight loss over six weeks attributed to reduced food intake due to swallowing difficulty. His pertinent medical history includes carpal tunnel syndrome, sinusitis, left shoulder pain, and surgeries for removed tonsils, adenoids, and appendix. Familyhistory is significant for a brother with colon polyps considered precancerous. He does not consume alcohol and occasionally uses a vape. He expresses concern about his brother's colon issues, having yet to undergo a colonoscopy, and plansto discuss getting scheduled for an EGD and colonoscopy. ROS Const Constitutional: Positive for fatigue and weight change (loss); No fever(s) ENT ENT: Positive for difficulty swallowing Gastro GI: Positive for difficulty swallowing; No abdominal pain, belching, bloating, change in bowel habits, change in stool character, coffee ground emesis, constipation, cramping, diarrhea, heartburn, feeling full early, excessive flatus, incontinent of stools, Vomiting blood/hematemesis, Blood in stool, loose stools, Black,tarry stools, nausea/dyspepsia, pain with swallowing, vomiting or other Musc Musculoskeletal: Positive for joint pain and back pain Skin Skin: No yellowing of the eye or itchy eyes Psych Psychiatric: Positive for anxiety and No depression Endo Endocrine: Positive for fatigue and weight change (loss) Aller/Imm Allergy/Immunologic: No itchy eyes Filiberto/Lymp Hematologic/Lymphatic: No easy bleeding or easy bruising Exam Const General: cooperative, healthy appearing, no acute distress and well developed Nutritional Appearance: well nourished and obese morbidly obese Orientation: alert and oriented x3 HENMT Head: normocephalic Ears: hearing grossly normal bilaterally Mouth: moist mucous membranes Teeth and gingiva: dentition normal Eyes Conjunctivae: conjunctivae normal Sclera: sclerae normal Neck Neck: normal visual inspection, full ROM and trachea midline Resp Effort & Inspection: normal respiratory effort, able to speak in complete sentences and symmetric chest movement Neuro General: patient alert and patient oriented x3 Cranial Nerves: other (CN's grossly intact, non-focal exam) Cognition: normal cognition Speech: speech normal Gait: normal gait Extrem General: normal to inspection (no edema noted) Psych Appearance: grossly normal and well kempt Affect: normal affect Attitude: cooperative Thought Process: normal Assessment and Plan Assessment and Plan (1) Dysphagia: Status: Acute (2) Weight loss: Status: Acute (3) Encounter for screening colonoscopy: Status: Acute Medications: New peg 3350-sod sulf,hukc-opu-isl 178.7-7.3-0.5 gram (Suflave) Take as directed for split dose bowel prep 2 mL 0RF Plan 49y/o male presents for consultation with complaints of dysphagia x8 weeks. Reports he has always had trouble swallowing pills, but the past 8 weeks he has had difficulty with solid foods (dry foods). Esophagram was unremarkable 04/09/2025, although unable to swallow tablet. He denies any heartburn, N/V. He did start Omeprazole 40mg daily one month ago and denies any improvement in dysphagia. He vapes but denies any alcohol intake. He reports a weight loss of 25lbs in the past 6 weeks. He denies any abdominal pain or change in bowel habits. He denies any prior colon cancer screening. Patient Instructions: EGD now Colonoscopy next available - Lucy Coding Level of Care Code Off vis,new,level 3 Diagnoses Dysphagia R13.10 Weight loss R63.4 Encounter for screening colonoscopy Z12.11 Clinical Quality Measures Smoking Screening Smoking Status: Former smoker 05/12/25 0855 <Electronically signed by Ca WHITE> Date _ Ca WHITE Cosigner Signature: Date (if applicable) CC: Dr. Shahzad Bright MD ~ [facility] Work Phone: Progress note Author Ca Menchaca [facility] Note Date/Time June 09, 2025 8:58am [facility] [address] [place] [address] OFFICE VISIT Date of Service: 06/09/25 MR#: [id number] Acct: [id number] Name: ZENA BENNETT Rep #: [id number] : 1975 Provider: CINDY Menchaca Age/Sex: 49/M Location: [facility] Status: Signed Intake Vital Signs 05/15/25 08:33 06/09/25 08:31 Height 5 ft 7 in 5 ft 7 in Weight: 315 lb 4 oz BMI 49.4 BP 107/67 Respiration 16 Pulse 72 Temp 98.2 F Temp Source Temporal Pulse Oximetry (%) 96 Oxygen Delivery Method room air Intake Visit Reasons: Dysphagia Chief Complaint: dysphagia Home Health Clinical Supervisor Required: No Accompanied by: Is patient in pain?: No Allergies Sulfa (Sulfonamide Antibiotics) Allergy (Verified 06/09/25 08:29) Hives Medications ?Medication ?Instructions ?Recorded ?Confirmed ?Type buspirone 7.5 mg tablet 7.5 mg PO TID 05/05/2506/09 History multivitamin 1 tab PO QDAY 05/12/2506/09 History omeprazole 40 mg capsule,delayed 40 mg PO BID #180 cap s 06/09/25 06/09/25 Rx release PFSH Medical History Wears glasses History of MRSA infection Anxiety Injury of back Difficulty swallowing Gastric reflux Smoker History of edema History of echocardiogram History of stress test Sleep apnea CPAP (continuous positive airway pressure) dependence Sleep related bruxism CTS (carpal tunnel syndrome) Acute sinusitis Inclusion cyst Left shoulder pain Tinnitus, unspecified ear Ankle pain, left Surgical History Hx of tonsillectomy History of appendectomy Family History Mother Diabetes CAD (coronary artery disease) Hypertension Anxiety Depression Father Cancer inoperable brain tumor Social History household members: spouse Smoking Status: Current every day smoker tobacco type: e-cigarettes alcohol intake: former substance use type: former substance user Date of last use: 03/2018, marijuana and crack/cocaine frequency: 3-4 times per week HPI HPI Chief Complaint: dysphagia Details: OV 05/12/2025 49y/o male presents for consultation with complaints of dysphagia x8 weeks. Reports he has always had trouble swallowing pills, but the past 8 weeks he has had difficulty with solid foods (dry foods). Esophagram was unremarkable 04/09/2025, although unable to swallow tablet. He denies any heartburn, N/V. He did start Omeprazole 40mg daily one month ago and denies any improvement in dysphagia. He vapes but denies any alcohol intake. He reports a weight loss of 25lbs in the past 6 weeks. He denies any abdominal pain or change in bowel habits. He denies any prior colon cancer screening. ABD US 04/15/2025 1. Simple cyst in the right liver. 2. Mild hepatomegaly. 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 Biopsied. -One benign-appearing, intrinsic moderate stenosiswas found 18 to 21 cm from the incisors. This stenosis measured 5 cm (in length). The stenosis was traversed. A guidewire was placed and the scope was withdrawn. Dilation was performed with a Savary dilator with no resistance at 54 Fr - Abnormal esophageal motility. - Z-line irregular, 39 cm from the incisors. Biopsied. - No gross lesions in the entire stomach. - No gross lesions in the entire examined duodenum. COLON scheduled 06/19/2025 Ordered TissueCypher Rasheed's Esophagus test to assess patient's risk of progression to high-grade dysplasia or esophageal cancer. Results will inform subsequent management plan. - weight loss of 2lbs since last seen in office 1 month ago - swallowing pills is much easier - still having trouble with food, some days are worse than others - he reports trouble swallowing is high in the esophagus-throat, denies any coughing with swallowing, sensation of choking - dry mouth, has been using Biotene mouth wash - reports shaky voice has always been an issue, denies any hoarseness - he does reports swallowing issues began post initiation of vaping two years ago - Cookie Swallow ordered by PCP - vapes routinely for the past 2 years - he is taking Omeprazole 40mg once daily - rare alcohol use, 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, sober now for 7 years ROS Const Constitutional: Positive for weight change (loss); No fatigue or fever(s) ENT ENT: Positive for difficulty swallowing Gastro GI: Positive for difficulty swallowing; No abdominal pain, belching, bloating, change in bowel habits, change in stool character, coffee ground emesis, constipation, cramping, diarrhea, heartburn, feeling full early, excessive flatus, incontinent of stools, Vomiting blood/hematemesis, Blood in stool, loose stools, Black,tarry stools, nausea/dyspepsia, pain with swallowing, vomiting or other Musc Musculoskeletal: Positive for joint pain Skin Skin: No yellowing of the eye or itchy eyes Psych Psychiatric: Positive for anxiety and No depression Endo Endocrine: Positive for weight change (loss); No fatigue Aller/Imm Allergy/Immunologic: No itchy eyes Filiberto/Lymp Hematologic/Lymphatic: No easy bleeding or easy bruising ROS Narrative - Gastrointestinal: Reports persistent difficulty with swallowing primarily solid foods; denies nausea, vomiting, and heartburn. - Constitutional: Reports significant weight loss, denies intentional dieting leading to a 40-pound weight reduction. - ENT: Reports chronic hoarseness, consistent dry mouth; denies respiratory distress during swallowing. - Respiratory: Denies coughing while swallowing. Exam Const General: cooperative, healthy appearing, no acute distress and well developed Nutritional Appearance: well nourished and obese morbidly obese Orientation: alert and oriented x3 HENNH Head: normocephalic Ears: hearing grossly normal bilaterally Mouth: moist mucous membranes Teeth and gingiva: dentition normal Other: vocal quality is shaky Eyes Conjunctivae: conjunctivae normal Sclera: sclerae normal Neck Neck: normal visual inspection, full ROM and trachea midline Resp Effort & Inspection: normal respiratory effort, able to speak in complete sentences and symmetric chest movement Neuro General: patient alert and patient oriented x3 Cranial Nerves: other (CN's grossly intact, non-focal exam) Cognition: normal cognition Speech: speech normal Gait: normal gait Extrem General: normal to inspection (no edema noted) Psych Appearance: grossly normal and well kempt Affect: normal affect Attitude: cooperative Thought Process: normal Assessment and Plan Assessment and Plan (1) Dysphagia: Status: Acute Qualifiers: Dysphagia type: oropharyngeal phase Qualified Code(s): R13.12 - Dysphagia, oropharyngeal phase Medications: Refilled omeprazole 40 mg PO BID 180 caps 1RF Plan 49-year-old male presents for follow-up of dysphagia. He was initially seen in the office on May 12, 2025 with worsening of dysphagia over past 8 weeks. Esophagram was unremarkable performed April 09, 2025, although he was unable to swallow the tablet. He had also reported a weight loss of 25 pounds. EGD was performed May 15, 2025 and revealed 1 benign-appearing intrinsic moderate stenosis 18 to 21 cm from the incisors (5 cm in length). Savary dilation was performed. 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 Ordered TissueCypher Rasheed's Esophagus test to assess patient's risk of progression to high-grade dysplasia or esophageal cancer. Results will inform subsequent management plan. He denies any improvement in dysphagia post dilation and will increase PPI to twice daily. He reports dysphagia is oropharyngeal, having significant difficulty initiating a swallow. He is scheduled for an MBS and we will plan to repeat EGD with dilation as multiple dilations are often required. He will proceed with colonoscopy as scheduled. Patient Instructions: Increase omeprazole to twice a day. Proceed with MBS as scheduled. Proceed with colonoscopy as scheduled. Smoking cessation and weight loss have been strongly encouraged. Will plan to repeat EGD with dilation. May refer to ENT. Will plan to repeat EGD for Rasheed's screening in 3 years pending TissueCypher pathology. Coding Level of Care Code Off vis,est,level 4 Diagnoses Oropharyngeal dysphagia R13.12 Dysphagia type: oropharyngeal phase Clinical Quality Measures Smoking Screening Smoking Status: Current every day smoker Tobacco counseling given: Smoking cessation education 06/09/25 [id number] <Electronically signed by Ca WHITE> Date _ Ca WHITE Cosigner Signature: Date (if applicable) CC: ~ [employer] Work Phone: Reason for referral (narrative)* Outpatient Procedure (Routine) - Pending Review Specialty Diagnoses / Procedures Referred By Jessy carias Referred To Contact [facility] Diagnoses Encounter for screening for malignant neoplasm of colon Procedures COLONOSCOPY SCREENING COLONOSCOPY FLX DX W/COLLJ SPEC WHEN Yary Osuna APRN.CNP [address] [place] [address] [facility] [address] [place] [id number] Referral ID Status Reason Start Date Expiration Date Visits Requested Visits Authorized [id number] Pending Review Auto-Generat ed Referral 03/15/2024 03/15/2025 1 1 * Outpatient Procedure (Routine) - Pending Review Specialty Diagnoses / Procedures Referred By Jessy carias Referred To Contact [facility] Diagnoses Dysphagia, unspecified type Procedures EGD DIAGNOSTIC ESOPHAGOGASTRODUODENOSC OPY TRANSORAL DIAGNOSTIC Yary Coburn APRN.CNP [address] [place] [address] [facility] [address] [place] [address] Referral ID Status Reason Start Date Expiration Date Visits Requested Visits Authorized [id number] Pending Review Auto-Generat ed Referral 03/15/2024 03/15/2025 1 1 [facility] for referral (narrative)No reason for referral [facility] Work Phone: Chief Complaint and Reason for Visit Chief Complaint dizz Chief Complaint EORDER FOR LABS Chief Complaint EORDER FOR LABS SOB ON EXERTION SOB ON EXERTION Chief Complaint SOB ON EXERTION SOB ON EXERTION ABNORMAL EKG ABNORMAL EKG MORBID OBESITY Chief Complaint ABNORMAL EKG ABNORMAL EKG MORBID OBESITY MORBID OBESITY Chief Complaint MORBID OBESITY MORBID OBESITY MORBID OBESITY EORDER Chief Complaint Admit Date EORDERS February 19, 2025 8:43a m Chief Complaint Admit Date EORDERS February 19, 2025 8:43a m 1 Y FU March 04, 2025 8:55 am Chief Complaint Admit Date EORDERS February 19, 2025 8:43a m 1 Y FU March 04, 2025 8:55 am EORDERS April 02, 2025 7:15a m Reason for Visit Admit Date Cigarette nicotine dependence March 04, 2025 8:55am Morbid obesity March 04, 2025 8:55 am KESHA (obstructive sleep apnea) March 04, 2025 8:55am Chief Complaint Admit Date EORDERS February 19, 2025 8:43a m 1 Y FU March 04, 2025 8:55 am EORDERS April 02, 2025 7:15a m DYSPHAGIA April 09, 2025 7:48 am Chief Complaint Admit Date EORDERS February 19, 2025 8:43a m 1 Y FU March 04, 2025 8:55 am EORDERS April 02, 2025 7:15a m DYSPHAGIA April 09, 2025 7:48 am Dysphagia May 12, 2025 8: 20am Reason for Visit Admit Date Cigarette nicotine dependence March 04, 2025 8:55am Morbid obesity March 04, 2025 8:55 am KESHA (obstructive sleep apnea) March 04, 2025 8:55am Dysphagia May 12, 2025 8: 20am Encounter for screening colonoscopy Aug 2024 8:20am Weight loss May 12, 2025 8: 20am Reason for Visit Admit Date Cigarette nicotine dependence March 04, 2025 8:55am Morbid obesity March 04, 2025 8:55 am KESHA (obstructive sleep apnea) March 04, 2025 8:55am Dysphagia May 12, 2025 8: 20am Encounter for screening colonoscopy Apr 2024 8:20am Weight loss May 12, 2025 8: 20am Dysphagia May 15, 2025 8: 17am Encounter for screening colonoscopy Aug 2024 8:17am Vitamin deficiency May 15, 2025 8: 17am Weight loss May 15, 2025 8: 17am Chief Complaint Admit Date EORDERS February 19, 2025 8:43a m 1 Y FU March 04, 2025 8:55 am EORDERS April 02, 2025 7:15a m DYSPHAGIA April 09, 2025 7:48 am Dysphagia May 12, 2025 8: 20am pain, extension injury May 30 2:30pm Chief Complaint Admit Date EORDERS February 19, 2025 8:43a m 1 Y FU March 04, 2025 8:55 am EORDERS April 02, 2025 7:15a m DYSPHAGIA April 09, 2025 7:48 am Dysphagia May 12, 2025 8: 20am pain, extension injury May 30 2:30pm Dysphagia June 09, 2025 8:23am Reason for Visit Admit Date Cigarette nicotine dependence March 04, 2025 8:55am Morbid obesity March 04, 2025 8:55 am KESHA (obstructive sleep apnea) March 04, 2025 8:55am Dysphagia May 12, 2025 8: 20am [facility] Weight loss May 12, 2025 8: 20am Dysphagia May 15, 2025 8: 17am Encounter for screening colonoscopy Apr 2024 8:17am Vitamin deficiency May 15, 2025 8: 17am Weight loss May 15, 2025 8: 17am Dysphagia June 09, 2025 8:23am Advance Directives No Advanced Directives Records Found Advance Directive Response Recorded Date/ Time Living Will No December 20, 2021 8:49pm Power of Car Wrecker No December 20 8:49pm Advance Directive Response Recorded Date/ Time Living Will No December 20, 2021 7:49pm Power of Car Wrecker No December 20 7:49pm Advance Directive Response Recorded Date/ Time Living Will No December 20, 2021 8:49pm Do you have a Healthcare Power of Car Wrecker? No December 20, 2021 8:49pm Advance Directive Response Recorded Date/ Time Living Will No December 20, 2021 8:49pm Do you have a Healthcare Power of Car Wrecker? No December 20, 2021 8:49pm Do you have a Healthcare Power of Car Wrecker? No May 14, 2025 9:03am Summary Purpose Family History No Family History Records Found Relationship Condition Age at Onset Recorded Date/T dom mother Diabetes mellitus Unknown Coronary artery disease Unknown Hypertension Unknown Anxiety Unknown Depression Unknown father Malignant neoplasm Unknown Additional Source Comments Goals (unrecognized section and content) Goals may be documented in a n alternate sectionGoals may be documented in an alternate sectionGoals may be documented in an alternate sectionGoals may be documented in an alternate sectionGoals may be documented in an alternate sectionGoals may be documented in an alternate sectionGoals may be documented in an alternate sectionGoals may be documented in an alternate sectionGoals may be documented in an alternate sectionGoals may be documented in an alternate sectionGoals may be documented in an alternate sectionGoals may be documented in an alternate sectionGoals may be documented in an alternate sectionGoals may be documented in an alternate section Care Teams (unrecognized sec tion and content) Team Status: Active Member Role Status Dates Dr. Shahzad Bright MD Family Provider Active Dr. Shahzad Bright MD Primary Care Provider Active Team Status: Inactive Member Role Status Dates Dr. Shahzad Bright MD Primary Care Pr ovider, Attending Provider, Referring Provider Active Team Status: Active Member Role Status Dates Dr. Shahzad Bright MD Primary Care Pr ovider, Referring Provider, Other Provider Active Dr. Zeyad Diaz MD Attending Provider Active Team Status: Active Member Role Status Dates Dr. Shahzad Bright MD Primary Care Provider Active Dr. Suellen De Santiago MD Attending Provider Activ e Team Status: Active Member Role Status Dates Dr. Shahzad Bright MD Primary Care Pr ovider, Referring Provider, Other Provider Active Dr. Suellen De Santiago MD Attending Provider Activ e Team Status: Active Member Role Status Dates Dr. Shahzad Bright MD Primary Care Pr ovider, Attending Provider, Referring Provider Active Team Status: Inactive Member Role Status Dates Dr. Shahzad Bright MD Primary Care Provider, Attend ing Provider Active Team Status: Inactive Member Role Status Dates Dr. Shahzad Bright MD Primary Care Provider Active Start: February 19, 2025 End: February 19, 2025 Dr. Shahzad Bright MD Attending Provider Active Start: February 19, 2025 End: February 19, 2025 Dr. Shahzad Bright MD Referring Provider Active Start: February 19, 2025 End: February 19, 2025 Team Status: Active Member Role Status Dates Dr. Shahzad Bright MD Primary Care Provider Active Team Status: Inactive Member Role Status Dates Dr. Shahzad Bright MD Primary Care Provider Active Start: March 04, 2025 End: March 04, 2025 Dr. Shahzad Bright MD Referring Provider Active Start: March 04, 2025 End: March 04, 2025 Sabrina Leavitt MECHANICAL MANUFACTURING TECHNICIAN, MECHANICAL MANUFACTURING TECHNICIAN-C Attending Provider Active Start: March 04, 2025 End: March 04, 2025 Team Status: Active Member Role/Relationship Status Dates Dr. Shahzad Bright MD Primary Care Provider Active Team Status: Inactive Member Role/Relationship Status Dates Dr. Shahzad Bright MD Primary Care Provider Active Start: February 19, 2025 End: February 19, 2025 Dr. Shahzad Bright MD Attending Provider Active Start: February 19, 2025 End: February 19, 2025 Dr. Shahzad Bright MD Referring Provider Active Start: February 19, 2025 End: February 19, 2025 Team Status: Inactive Member Role/Relationship Status Dates Dr. Shahzad Bright MD Primary Care Provider Active Start: March 04, 2025 End: March 04, 2025 Dr. Shahzad Bright MD Referring Provider Active Start: March 04, 2025 End: March 04, 2025 Sabrina Leavitt NP, NP-C Attending Provider Active Start: March 04, 2025 End: March 04, 2025 Team Status: Inactive Member Role/Relationship Status Dates Dr. Shahzad Bright MD Primary Care Provider Active Start: April 02, 2025 End: April 02, 2025 Dr. Shahzad Bright MD Attending Provider Active Start: April 02, 2025 End: April 02, 2025 Dr. Shahzad Bright MD Referring Provider Active Start: April 02, 2025 End: April 02, 2025 Team Status: Inactive Member Role/Relationship Status Dates Dr. Shahzad Bright MD Primary Care Provider Active Start: April 09, 2025 End: April 09, 2025 Dr. Shahzad Bright MD Attending Provider Active Start: April 09, 2025 End: April 09, 2025 Dr. Shahzad Bright MD Referring Provider Active Start: April 09, 2025 End: April 09, 2025 Team Status: Inactive Member Role/Relationship Status Dates Dr. Shahzad Bright MD Primary Care Provider Active Start: May 12, 2025 End: May 12, 2025 Dr. Shahzad Brgiht MD Referring Provider Active Start: May 12, 2025 End: May 12, 2025 BAUDILIO ChambersC Attending Provider Active Start: May 12, 2025 End: May 12, 2025 Team Status: Inactive Member Role/Relationship Status Dates Dr. Shahzad Bright MD Primary Care Provider Active Start: May 15, 2025 End: May 15, 2025 Dr. Shahzad Bright MD Referring Provider Active Start: May 15, 2025 End: May 15, 2025 Dr. Kota Kan DO Attending Provider Active Start: May 15, 2025 End: May 15, 2025 Team Status: Active Member Role/Relationship Status Dates Dr. Shahzad Bright MD Primary Care Provider Active Start: May 15, 2025 Dr. Shahzad Bright MD Referring Provider Active Start: May 15, 2025 Dr. Kota Kan DO Attending Provider Active Start: May 15, 2025 Dr. Kota Kan DO Other Provider Active St art: May 15, 2025 Team Status: Inactive Member Role/Relationship Status Dates Dr. Shahzad Bright MD Primary Care Provider Active Start: May 30, 2025 End: May 30, 2025 Dr. Shahzad Bright MD Attending Provider Active Start: May 30, 2025 End: May 30, 2025 Dr. Shahzad Bright MD Referring Provider Active Start: May 30, 2025 End: May 30, 2025 Team Status: Inactive Member Role/Relationship Status Dates Dr. Shahzad Bright MD Primary Care Provider Active Start: June 09, 2025 End: June 09, 2025 Dr. Shahzad Bright MD Referring Provider Active Start: June 09, 2025 End: June 09, 2025 CINDY Chambers Attending Provider Active Start: June 09, 2025 End: June 09, 2025 Source Comments (unrecognize d section and content) In the event this informatio n is protected by the Federal Confidentiality of Alcohol and Drug Abuse Patient Records regulations: The Federal rules restrict any use of the information to criminally investigate or prosecute any alcohol or drug abuse patient.[facility] Reason for Visit (unrecogniz ed section and content) Reason Comments Consult Screening for colon cancer (unrecognized sect ion and content) No Status Records FoundNo Status Records Found INFORMATION SOURCE (unrecogn ized section and content) DATE CREATED AUTHOR 03/28/2024 [facility] DATE CREATED AUTHOR AUTHOR'S ORGANIZ ATION 06/18/2025 [facility] FOR RECORDS PERTAINING TO PATIENTS WHO ARE [...] BE BASED ON THE PRIMARY CLINICAL RECORDS. [facility]. provides no warranty or guarantee of the accuracy or completeness of information in this document.
[2025-06-19] MEDS: Lactated Ringers 1,000 ML 15 ML IV (06:02)
--- NOTE | 2025-06-19 06:28 | PRE.ANES_ITS ---
ASA Classification* ASA Classification ASA Classification: 3 Assessment & Plan Anesthesia* Anesthesia Assessment Anesthesia Assessment: Discussed sedation and/or anesthesia options, risks, benefits, and alternatives with patient/parents/legal guardian/POA. Questions invited. The patient/parents/legal guardian/POA seems to understand and agrees to proceed with anesthesia plan. Reviewed the physical assessment, medical history, allergy history and patient home medications list prior to surgery/procedure/anesthetic and documented any changes. Performed airway and anesthesia risk assessments. Anesthesia Type Anesthesia Type: MAC History Source History Obtained from:: Patient and Chart Anesthesia Focused Assessment* Temperature: 97.7 F Pulse Rate: 76 Blood Pressure: 129/68 Respiratory Rate: 20 Pulse Ox: 96 Oxygen Delivery Method: Room Air Airway Assessment Mouth opens: >3 cm Mallampati Score: III Teeth Condition: Missing (Multiple missing teeth. Rest are tight.) Neck Range of motion (ROM): Limited ROM (Somewhat Decreased) Labs Anesthesia Preop lab: CBC WBC, (4.4-11.0) 7.8 K/mm3 04/02/25, 07:17 RBC, (4.6-6.2) 5.29 M/mm3 04/02/25, 07:17 Hgb, (13.0-16.5) 14.0 g/dL 04/02/25, 07:17 Hct, (40-54) 45.5 % 04/02/25, 07:17 Plt Count, (150-450) 252 K/mm3 04/02/25, 07:17 CHEMISTRY Potassium, (3.3-5.1) 4.5 mmol/L 04/02/25, 07:17 Sodium, (133-145) 140 mmol/L 04/02/25, 07:17 BUN, (4-19) 11 mg/dL 04/02/25, 07:17 Creatinine, (0.70-1.20) 0.84 mg/dL 04/02/25, 07:17 Glucose, (70-99) 99 mg/dL 04/02/25, 07:17 POC Glucose, (70-110) 99 mg/dL 10/18/19, 11:43 TSH, (0.300-4.200) 1.160 uIU/mL 02/19/25, 08:48 COAG Pre-Assessment Diagnosis/Proposed Procedure Planned Operative Procedure(s): EGD, COLONOSCOPY Anesthesia History 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 When Was Last Pacemaker Check QUESTION #4 FULL TEXT: You/Your Family Experience fever (hyperthermia) with Anesthesia Last Oral Intake Last Oral intake: Last Oral Intake NPO since 04:30 06/19/25 05:54 Meds taken in AM with sips of water? Meds patient instructed to take am of surgery Any additional information?: Yes NPO since: 04:30 (Patient had water at 4:30 AM.) Meds taken in AM with sips of water?: No PONV PONV - agile scrum master: PONV - agile scrum master Female No 06/16/25 13:05 HX of Motion Sickness Yes 06/16/25 13:05 HX of N/V After Surgery No 06/16/25 13:05 Non-Smoker No 06/16/25 13:05 Duration of Surgery greater No 06/16/25 13:05 than 60 minutes Number of Risk Factors 1 06/16/25 13:05 PONV Score Low Risk 06/16/25 13:05 Height & Weight Height & Weight: Anesthesia: Height & Weight Height 5 ft 7 in 06/19/25 05:54 Weight: 139.3 kg 06/19/25 05:54 Body Mass Index (BMI) 48.1 06/19/25 05:54 Respiratory Assessment Respiratory Assessment - agile scrum master: Respiratory Tract Infection Hx - agile scrum master Hx Respiratory Tract Infection No 06/16/25 13:05 STOP Sleep Apnea STOP Sleep Apnea - agile scrum master: STOP Sleep Apnea - agile scrum master Hx Hypertension No 06/16/25 13:05 Hx Sleep Apnea Yes 06/16/25 13:05 CPAP Yes 06/16/25 13:05 BIPAP No 06/16/25 13:05 Do you snore loudly (louder than talking or can be heard Do you often feel tired/ fatigued/ sleepy during daytime? Has anyone observed you stop breathing during sleep? STOP Results Positive 06/16/25 13:05 QUESTION #5 FULL TEXT : Do you snore loudly (louder than talking or can be heard through closed doors)? 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 Specify any problems Hx of Preganancy in last 3 N/A 06/16/25 13:05 Months Nurse Filling Out Transfusion MGRIFFITH 06/16/25 13:05 & Questions: Date: 06/16/25 06/16/25 13:05 Time: 13:07 06/16/25 13:05 Patient unable to answer at this time (ie. confused, unrespo /Reproduction History /Reproductive History - agile scrum master: /Reproductive Hx- agile scrum master Hx Now No 06/16/25 13:05 Gestational Age (in weeks): EDC: Hx Hx Para Hx Section SAB No 06/16/25 13:05 Active Medications Active Medications: Current Medications Generic Name Dose Route Start Last Admin Trade Name Freq PRN Reason Stop Dose Admin Lactated Ringer's 1,000 mls @ 15 mls/hr 06/19/25 05:45 06/19/25 06:02 IV 15 mls/hr .Q48H ALANA Administration PFSH Medical History Wears glasses History of MRSA infection Anxiety Injury of back Difficulty swallowing Gastric reflux Smoker History of edema History of echocardiogram History of stress test Sleep apnea CPAP (continuous positive airway pressure) dependence Sleep related bruxism CTS (carpal tunnel syndrome) Acute sinusitis Inclusion cyst Left shoulder pain Tinnitus, unspecified ear Ankle pain, left Home Medications ?Medication ?Instructions ?Recorded ?Last Taken ?Type buspirone 7.5 mg tablet 7.5 mg PO TID 05/05/2506/18 History multivitamin 1 tab PO QDAY 05/12/25 Unkno wn History omeprazole 40 mg capsule,delayed 40 mg PO BID #180 cap s 06/09/25 06/18/25 Rx release Allergy/AdvReac Type Severity Reaction Status Date / Time Sulfa (Sulfonamide Allergy Hives Verified 06/19/25 05:52 Antibiotics) Family History Mother Diabetes CAD (coronary artery disease) Hypertension Anxiety Depression Father Cancer inoperable brain tumor Surgical History History of esophagogastroduodenoscopy (EGD) Hx of tonsillectomy History of appendectomy Social History household members: spouse Smoking Status: Current every day smoker tobacco type: e-cigarettes alcohol intake: former substance use type: former substance user Date of last use: 03/2018, marijuana and crack/cocaine frequency: 3-4 times per week Review of Systems (Anesthesia) ROS Narrative System reviewed and no additional complaints, except as documented.
--- NOTE | 2025-06-19 06:30 | COLBX_PTH ---
PATIENT: ZENA SQUIRES LOC: EN U#:[id number] AGE/SX: 49/M ROOM: RE06/19/[address]: Dr. Kota Kan DO : 1975 BED: DIS: 06/19/2025 SPEC #: [id number] RECD: 06/19/25 09:30 STATUS: YAMILA REJohn #: [id number] MILES: 06/19/25 06:[address]: Kota Kan DEPT: SURGICAL PATHOLOGY RECD BY: Willian Gonzalez ENTERED: 06/19/25 13:51 SP TYPE: COLON BX OTHR DR: Dr. Víctor Morgan MD Tissues: A - Esophagus, NOS B - Esophagus, NOS C - Sigmoid colon biopsy D - Rectum, NOS Procedures: Surgery Specimen Level IV HEADER OPERATION: Colonoscopy with polypectomy and biopsy, EGD with biopsy PRE-OP DIAGNOSIS: Encounter for screening colonoscopy, dysphagia TISSUE SUBMITTED: A- Distal esophagus biopsy, B- GE junction nodule biopsy, C- Sigmoid polyp, D- Rectal polyp biopsy MICROSCOPIC DIAGNOSIS A. Distal esophagus, biopsy: * Benign squamous mucosa. 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 * Reactive epithelial changes, negative for dysplasia. Note: The diagnosis depends on the location of the biopsy and the extent of the mucosal irregularity. If the biopsy originates from the tubular esophagus and the mucosal irregularity extends at least 1 cm above the top of the gastric folds, this represents Rasheed mucosa. If the biopsy originates from the gastric cardia and/or the mucosal irregularity is less than 1 cm in extent, this represents intestinal metaplasia. B. Esophagus, biopsy: * Squamocolumnar mucosa negative for goblet cell metaplasia. * Negative for dysplasia. C. Sigmoid colon, polyp, biopsy: * Hyperplastic polyp with prolapse features. D. Rectum, polyp, biopsy: * Hyperplastic polyp with prolapse features. MICROSCOPIC DESCRIPTION Slides are reviewed. GROSS DESCRIPTION A. Received in fixative is one container labeled with the patient's name and designated Distal esophagus biopsy. The specimen consists of multiple irregular fragments of castaneda tissue that in aggregate measure 1.1 x 0.6 x 0.2 cm. The specimen is totally submitted in one cassette. B. Received in fixative is one container labeled with the patient's name and designated GE junction nodule biopsy. The specimen consists of multiple irregular fragments of castaneda tissue that in aggregate measure 0.7 x 0.3 x 0.2 cm. Smaller fragments unlikely to survive processing. The specimen is totally submitted in one cassette. C. Received in fixative is one container labeled with the patient's name and designated Sigmoid polyp. The specimen consists of two irregular fragments of castaneda tissue that measure 0.5 and 0.8 cm. The specimen is totally submitted in one cassette. D. Received in fixative is one container labeled with the patient's name and designated Rectal polyp biopsy. The specimen consists of one irregular fragment of castaneda tissue that measures 0.5 cm. The specimen is totally submitted in one cassette. NH 06/19/2025 CPT:37753s1
--- NOTE | 2025-06-19 06:39 | HP.PCM_ITS ---
HPI - General General Date of Admission: 06/19/25 Date of Service: 06/19/25 HPI Narrative ZENA SQUIRES, is a 49 M who presents Chief Complaint: dysphagia Details: OV 05/12/2025 49y/o male presents for consultation with complaints of dysphagia x8 weeks. Reports he has always had trouble swallowing pills, but the past 8 weeks he has had difficulty with solid foods (dry foods). Esophagram was unremarkable 04/09/2025, although unable to swallow tablet. He denies any heartburn, N/V. He did start Omeprazole 40mg daily one month ago and denies any improvement in dysphagia. He vapes but denies any alcohol intake. He reports a weight loss of 2 5lbs in the past 6 weeks. He denies any abdominal pain or change in bowel habits. He denies any prior colon cancer screening. ABD US 04/15/2025 1. Simple cyst in the right liver. 2. Mild hepatomegaly. 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 Biopsied. -One benign-appearing, intrinsic moderate stenosis was found 18 to 21 cm from the incisors. This stenosis measured 5 cm (in length). The stenosis was traversed. A guidewire was placed and the scope was withdrawn. Dilation was performed with a Savary dilator with no resistance at 54 Fr - Abnormal esophageal motility. - Z-line irregular, 39 cm from the incisors. Biopsied. - No gross lesions in the entire stomach. - No gross lesions in the entire examined duodenum. COLON scheduled 06/19/2025 Ordered TissueCypher Rasheed's Esophagus test to assess patient's risk of progression to high-grade dysplasia or esophageal cancer. Results will inform subsequent management plan. - weight loss of 2lbs since last seen in office 1 month ago - swallowing pills is much easier - still having trouble with food, some days are worse than others - he reports trouble swallowing is high in the esophagus-throat, denies any coughing with swallowing, sensation of choking - dry mouth, has been using Biotene mouth wash - reports shaky voice has always been an issue, denies any hoarseness - he does reports swallowing issues began post initiation of vaping two years ago - Cookie Swallow ordered by PCP - vapes routinely for the past 2 years - he is taking Omeprazole 40mg once daily - rare alcohol use, 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, sober now for 7 years [facility] Medical History Wears glasses History of MRSA infection Anxiety Injury of back Difficulty swallowing Gastric reflux Smoker History of edema History of echocardiogram History of stress test Sleep apnea CPAP (continuous positive airway pressure) dependence Sleep related bruxism CTS (carpal tunnel syndrome) Acute sinusitis Inclusion cyst Left shoulder pain Tinnitus, unspecified ear Ankle pain, left Home Medications ?Medication ?Instructions ?Recorded ?Last Taken ?Type buspirone 7.5 mg tablet 7.5 mg PO TID 05/05/2506/18 History multivitamin 1 tab PO QDAY 05/12/25 Unkno wn History omeprazole 40 mg capsule,delayed 40 mg PO BID #180 cap s 06/09/25 06/18/25 Rx release Allergy/AdvReac Type Severity Reaction Status Date / Time Sulfa (Sulfonamide Allergy Hives Verified 06/19/25 05:52 Antibiotics) Family History Mother Diabetes CAD (coronary artery disease) Hypertension Anxiety Depression Father Cancer inoperable brain tumor Surgical History History of esophagogastroduodenoscopy (EGD) Hx of tonsillectomy History of appendectomy Social History household members: spouse Smoking Status: Current every day smoker tobacco type: e-cigarettes alcohol intake: former substance use type: former substance user Date of last use: 03/2018, marijuana and crack/cocaine frequency: 3-4 times per week ROS Constitutional Constitutional: Denies fatigue, fever(s), poor appetite, weight gain or weight loss Gastrointestinal Gastrointestinal: Denies belching, bloating, change in bowel habits, change in stool character, chewing difficulty, coffee ground emesis, constipation, cramping, diarrhea, dyspepsia, dysphagia, early satiety, excessive flatus, fecal incontinence, heartburn, hematemesis, hematochezia, hemorrhoids, loose stools, melena, nausea, odynophagia, rectal bleeding, tenesmus, vomiting or weight changes Vital Signs Vital Signs Vital Signs: 06/19/25 05:54 06/19/25 05:54 06/19/25 06:33 Temperature 97.7 F L 97.7 F L Temperature Source Temporal Pulse Rate 76 76 Respiratory Rate 20 H 20 H Respiratory Pattern Normal Blood Pressure 129/68 H 129/68 H Blood Pressure Mean 88 Blood Pressure Source Monitor Blood Pressure Position Semi-Fowlers Blood Pressure Location Left Arm Pulse Ox 96 96 Oxygen Delivery Method Room Air Room Air Weight Weight: 307 lb 1.663 oz Body Mass Index (BMI) 48.1 Physical Exam Const alert, oriented x3, no apparent distress and healthy appearing General Appearance: cooperative GI normal to inspection, nondistended, normoactive bowel sounds, soft to palpation, non-tender and non-distended Percussion: normal to percussion Rectal Exam: deferred Assessment & Plan Assessment/Plan (1) Encounter for screening colonoscopy: (2) Dysphagia: PLAN: Assessment and Plan Assessment and Plan (1) Dysphagia: Status: Acute Qualifiers: Dysphagia type: oropharyngeal phase Qualified Code(s): R13.12 - Dysphagia, oropharyngeal phase Medications: Refilled omeprazole 40 mg PO BID 180 caps 1RF Plan 49-year-old male presents for follow-up of dysphagia. He was initially seen in the office on May 12, 2025 with worsening of dysphagia over past 8 weeks. Esophagram was unremarkable performed April 09, 2025, although he was unable to swallow the tablet. He had also reported a weight loss of 25 pounds. EGD was performed May 15, 2025 and revealed 1 benign-appearing intrinsic moderate stenosis 18 to 21 cm from the incisors (5 cm in length). Savary dilation was performed. 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 Ordered TissueCypher Rasheed's Esophagus test to assess patient's risk of progression to high-grade dysplasia or esophageal cancer. Results will inform subsequent management plan. He denies any improvement in dysphagia post dilation and will increase PPI to twice daily. He reports dysphagia is oropharyngeal, having significant difficulty initiating a swallow. He is scheduled for an MBS and we will plan to repeat EGD with dilation as multiple dilations are often required. He will proceed with colonoscopy as scheduled. Patient Instructions: Increase omeprazole to twice a day. Proceed with MBS as scheduled. Proceed with colonoscopy as scheduled. Smoking cessation and weight loss have been strongly encouraged. Will plan to repeat EGD with dilation. May refer to ENT. Will plan to repeat EGD for Rasheed's screening in 3 years pending TissueCypher pathology.
--- NOTE | 2025-06-19 07:30 | OP.PROVAT_ITS ---
06/19/2025 Víctor Morgan [address] [place] [address] Re : Upper GI endoscopy procedure for Rudy Bennett Dear Dr. Morgan This procedure was performed on May. My impressions and recommendations are as follows: Impressions : - Z-line irregular, 40 cm from the incisors. Biopsied. - Mucosal nodule found in the esophagus. Biopsied. - Moderate Schatzki ring. Dilated. - Hiatal hernia. - No gross lesions in the entire stomach. - No gross lesions in the entire examined duodenum. Recommendations : - Discharge patient to home. - Resume previous diet. - Continue present medications. - Await pathology results. My findings are described in the full procedure note, which is enclosed. If I can be of further assistance, please feel free to contact me at . Sincerely, Kota Kan, 06/19/2025 7:28:58 AM This report has been signed electronically.
--- NOTE | 2025-06-19 07:30 | OP.EGD_ITS ---
Patient Name: Rudy Bennett Procedure Date: 06/19/2025 6:25 AM Date of : 1975 Age: 49 Procedure: Upper GI endoscopy Indications: Dysphagia, Heartburn Providers: Kota Kan DO Referring MD: Víctor Morgan Medicines: Monitored Anesthesia Care Patient Profile: This is a 49 year old male. Refer to note in patient chart for documentation of history and physical. Patient has symptoms of chronic dysphagia, dysphagia with solids and chronic heartburn. Complications: No immediate complications. Procedure: Pre-Anesthesia Assessment: - Prior to the procedure, a History and Physical was performed, and patient medications and allergies were reviewed. The patient is competent. The risks and benefits of the procedure and the sedation options and risks were discussed with the patient. All questions were answered and informed consent was obtained. Patient identification and proposed procedure were verified by the physician in the pre-procedure area. Mental Status Examination: alert and oriented. Airway Examination: normal oropharyngeal airway and neck mobility. Respiratory Examination: clear to auscultation. CV Examination: normal. Prophylactic Antibiotics: The patient does not require prophylactic antibiotics. Prior Anticoagulants: The patient has taken no anticoagulant or antiplatelet agents except for NSAID medication. ASA Grade Assessment: II - A patient with mild systemic disease. After reviewing the risks and benefits, the patient was deemed in satisfactory condition to undergo the procedure. The anesthesia plan was to use monitored anesthesia care (MAC). Immediately prior to administration of medications, the patient was re-assessed for adequacy to receive sedatives. The heart rate, respiratory rate, oxygen saturations, blood pressure, adequacy of pulmonary ventilation, and response to care were monitored throughout the procedure. The physical status of the patient was re-assessed after the procedure. After obtaining informed consent, the endoscope was passed under direct vision. Throughout the procedure, the patient's blood pressure, pulse, and oxygen saturations were monitored continuously. The Colonoscope was introduced through the mouth, and advanced to the second part of duodenum. The upper GI endoscopy was accomplished without difficulty. The patient tolerated the procedure well. Scope In: 6:50:42 AM Scope Out: 6:57:25 AM Total Procedure Duration Time 0 hours 6 minutes 43 seconds Findings: The Z-line was irregular and was found 40 cm from the incisors. Biopsies were taken with a cold forceps for histology. Verification of patient identification for the specimen was done. Estimated blood loss was minimal. A single 5 mm mucosal nodule with a localized distribution was found at the gastroesophageal junction, 42 cm from the incisors. Biopsies were taken with a cold forceps for histology. Verification of patient identification for the specimen was done. Estimated blood loss was minimal. A moderate Schatzki ring was found in the lower third of the esophagus. A guidewire was placed and the scope was withdrawn. Dilation was performed with a Savary dilator with no resistance at 60 Fr. The dilation site was examined and showed. Estimated blood loss was minimal. A hiatal hernia was present. No gross lesions were noted in the entire examined stomach. No gross lesions were noted in the entire examined duodenum. Impression: - Z-line irregular, 40 cm from the incisors. Biopsied. - Mucosal nodule found in the esophagus. Biopsied. - Moderate Schatzki ring. Dilated. - Hiatal hernia. - No gross lesions in the entire stomach. - No gross lesions in the entire examined duodenum. Recommendation: - Discharge patient to home. - Resume previous diet. - Continue present medications. - Await pathology results. Procedure Code(s): --- Professional --- 42762, Esophagogastroduodenoscopy, flexible, transoral; with insertion of guide wire followed by passage of dilator(s) through esophagus over guide wire 53840, 59,51, Esophagogastroduodenoscopy, flexible, transoral; with biopsy, single or multiple CPT copyright 2021 [employer]. All rights reserved. The codes documented in this report are preliminary and upon air transportation provider review may be revised to meet current compliance requirements. Kota Kan DO 06/19/2025 7:28:58 AM This report has been signed electronically. Number of Addenda: 0 Note Initiated On: 06/19/2025 6:25 AM
--- NOTE | 2025-06-19 07:33 | OP.COLON_ITS ---
Patient Name: Rudy Bennett Procedure Date: 06/19/2025 6:57 AM Date of : 1975 Age: 49 Procedure: Colonoscopy Indications: Screening for colorectal malignant neoplasm Providers: Kota Kan DO Referring MD: Víctor Morgan Medicines: Monitored Anesthesia Care Patient Profile: This is a 49 year old male. Refer to note in patient chart for documentation of history and physical. Patient has symptoms of chronic dysphagia, dysphagia with solids and chronic heartburn. Last Colonoscopy: none. The patient's first colonoscopy is today. Complications: No immediate complications. Procedure: Pre-Anesthesia Assessment: - Prior to the procedure, a History and Physical was performed, and patient medications and allergies were reviewed. The patient is competent. The risks and benefits of the procedure and the sedation options and risks were discussed with the patient. All questions were answered and informed consent was obtained. Patient identification and proposed procedure were verified by the physician in the pre-procedure area. Mental Status Examination: alert and oriented. Airway Examination: normal oropharyngeal airway and neck mobility. Respiratory Examination: clear to auscultation. CV Examination: normal. Prophylactic Antibiotics: The patient does not require prophylactic antibiotics. Prior Anticoagulants: The patient has taken no anticoagulant or antiplatelet agents except for NSAID medication. ASA Grade Assessment: II - A patient with mild systemic disease. After reviewing the risks and benefits, the patient was deemed in satisfactory condition to undergo the procedure. The anesthesia plan was to use monitored anesthesia care (MAC). Immediately prior to administration of medications, the patient was re-assessed for adequacy to receive sedatives. The heart rate, respiratory rate, oxygen saturations, blood pressure, adequacy of pulmonary ventilation, and response to care were monitored throughout the procedure. The physical status of the patient was re-assessed after the procedure. After I obtained informed consent, the scope was passed under direct vision. Throughout the procedure, the patient's blood pressure, pulse, and oxygen saturations were monitored continuously. The Colonoscope was introduced through the anus and advanced to the cecum, identified by appendiceal orifice and ileocecal valve. The colonoscopy was performed without difficulty. The patient tolerated the procedure well. The quality of the bowel preparation was adequate. The ileocecal valve, appendiceal orifice, and rectum were photographed. Scope In: 7:00:00 AM Scope Withdrawal Time 0 hours 8 minutes 58 seconds Scope Out: 7:22:04 AM Total Procedure Duration Time 0 hours 22 minutes 4 seconds Findings: The perianal and digital rectal examinations were normal. Multiple small and large-mouthed diverticula were found in the recto-sigmoid colon, sigmoid colon and descending colon. An 8 mm polyp was found in the sigmoid colon. The polyp was sessile. The polyp was removed with a hot snare. Resection and retrieval were complete. Verification of patient identification for the specimen was done. Estimated blood loss was minimal. A 4 mm polyp was found in the rectum. The polyp was sessile. The polyp was removed with a jumbo cold forceps. Resection and retrieval were complete. Verification of patient identification for the specimen was done. Estimated blood loss was minimal. Impression: - Diverticulosis in the recto-sigmoid colon, in the sigmoid colon and in the descending colon. - One 8 mm polyp in the sigmoid colon, removed with a hot snare. Resected and retrieved. - One 4 mm polyp in the rectum, removed with a jumbo cold forceps. Resected and retrieved. Recommendation: - Repeat colonoscopy in 5 years for surveillance. - Continue present medications. Procedure Code(s): --- Professional --- 20890, Colonoscopy, flexible; with removal of tumor(s), polyp(s), or other lesion(s) by snare technique 12132, 59, Colonoscopy, flexible; with biopsy, single or multiple CPT copyright 2021 [employer]. All rights reserved. The codes documented in this report are preliminary and upon manipulator operator review may be revised to meet current compliance requirements. Kota Kan DO 06/19/2025 7:33:06 AM This report has been signed electronically. Number of Addenda: 0 Note Initiated On: 06/19/2025 6:57 AM
--- NOTE | 2025-06-19 07:33 | OP.PROVAT_ITS ---
06/19/2025 Víctor Morgan [address] [place] [address] Re : Colonoscopy procedure for Rudy Bennett Dear Dr. Morgan This procedure was performed on May. My impressions and recommendations are as follows: Impressions : - Diverticulosis in the recto-sigmoid colon, in the sigmoid colon and in the descending colon. - One 8 mm polyp in the sigmoid colon, removed with a hot snare. Resected and retrieved. - One 4 mm polyp in the rectum, removed with a jumbo cold forceps. Resected and retrieved. Recommendations : - Repeat colonoscopy in 5 years for surveillance. - Continue present medications. My findings are described in the full procedure note, which is enclosed. If I can be of further assistance, please feel free to contact me at . Sincerely, Kota Kan, 06/19/2025 7:33:06 AM This report has been signed electronically.
--- NOTE | 2025-06-19 07:35 | PCM.POST.ANE ---
Anesthesia: Postop Eval I Current Vital Signs Temperature: 97.4 F Pulse Rate: 74 Blood Pressure: 106/72 Respiratory Rate: 16 Pulse Ox: 100 Oxygen Delivery Method: Room Air Assessment Airway patent: Yes Spontaneous unlabored respirations: Yes Mental status: Awake nausea: No Vomiting: No Anesthesia Complication: No Fluid Hydration Crystalloid volume administer (ml): 500 Total IV fluid infused: 500 Progress Note Anesthesia document: Postop Eval 1 completed: Yes
--- NOTE | 2025-06-19 10:44 | PCM.POSTANE2 ---
Anesthesia Postop Eval I Sum Postop Eval Completion status Anesthesia document: Postop Eval 1 completed: Yes Anesthesia Postop Eval I Summary Anesthesia Postop Eval I Summary: Anesthesia Postop Eval I: Assessment Summary Airway patent Yes 06/19/25 07:36 [email or web address] Spontaneous unlabored Yes 06/19/25 07:36 [email or web address] respirations Mental status Awake 06/19/25 07:36 [email or web address] nausea No 06/19/25 07:36 [email or web address] Vomiting No 06/19/25 07:36 [email or web address] Anesthesia Postop Eval I: Fluid Summary Crystalloid volume administer 500 06/19/25 07:36 [email or web address] (ml) Colloids volume administered ( ml) Blood Product volume administered (ml) Total IV fluid infused 500 06/19/25 07:36 [email or web address] Anesthesia Postop Eval I: Summary Notes Anesthesia Complication No 06/19/25 07:36 [email or web address] Anesthesia Complication Comment: Post-operative progress note Anesthesia: Postop Eval II Evaluation Mental status: Awake and Calm Pain Level: 0 nausea: No Vomiting: No Complications Anesthesia Complication: No
== END 2025-06-19 08:04 | disposition home or self-care (01) ==
LOC: EN 05:20 → AC 05:21
PROVIDERS: PCP Family Medicine; Referring Provider Family Medicine; Visit Provider Internal Medicine Gastroenterology
PROC: 0DJD8ZZ Inspection of Lower Intestinal Tract, Via Natural or Artificial Opening Endoscopic (ICD-10-PCS; CPT 45378; principal; 2025-06-19 06:25)
DX: Z12.11 Encounter for screening for malignant neoplasm of colon (principal); K44.9 Diaphragmatic hernia without obstruction or gangrene; K57.30 Diverticulosis of large intestine without perforation or abscess without bleeding; K63.5 Polyp of colon; K62.1 Rectal polyp; R13.12 Dysphagia, oropharyngeal phase; K21.9 Gastro-esophageal reflux disease without esophagitis; K22.9 Disease of esophagus, unspecified; G47.30 Sleep apnea, unspecified; Z99.89 Dependence on other enabling machines and devices; F41.9 Anxiety disorder, unspecified; Z79.899 Other long term (current) drug therapy; Z90.49 Acquired absence of other specified parts of digestive tract; F17.290 Nicotine dependence, other tobacco product, uncomplicated; K22.2 Esophageal obstruction; K22.89 Other specified disease of esophagus; K31.A19 Gastric intestinal metaplasia without dysplasia, unspecified site
CPT/HCPCS: 45380; 43239; 45385; 43248; 88305; C1769; J2405

== ENCOUNTER → 2025-06-30 | Outpatient (CLI) | payer OTHER, SELFPAY ==
--- NOTE | 2025-06-30 12:46 | SP.MBSS_ITS ---
Modified Barium Swallow Patient Information Study Date: 06/30/25 Study Time: 13:00 Direct Billable Minutes: 100 Total Minutes procedure & reportin Diagnosis: Dysphagia R13.10 Referring Physician: Víctor Morgan Reason for Referral: Assess swallow function, assess risk for aspiration, and determine recommendations for least restrictive diet textures and compensatory strategies to improve swallowing safety. Medical History: Patient follows w/ [facility] for management of dysphagia. Barium Esophagram 04/09/2025: Unremarkable examination. The patient was not capable of swallowing the 12 mm tablet of barium. EGD was performed 05/15/2025 and revealed 1 benign-appearing intrinsic moderate stenosis 18 to 21 cm from the incisors (5 cm in length). Savary dilation was performed. 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 He denied any improvement in dysphagia post dilation, so JOSE Chambers increased PPI to 2X daily. He reported concerns for oropharyngeal dysphagia to GI. He was recommended for this MBSS and repeat EGD, which took place 06/19/2025: Z-line irregular, 40 cm from the incisors. Biopsied. - Mucosal nodule found in the esophagus. Biopsied. - Moderate Schatzki ring. Dilated. - Hiatal hernia. - No gross lesions in the entire stomach. - No gross lesions in the entire examined duodenum. Patient provided additional history. He reports difficulty w/ transfer from his mouth to his throat, states tongue is too dry, has difficulty sending food back. He feels as if foods become stuck behind his tongue. Prior to EGDs, he was only able to consume purees and smoothies. Now, he can eat soft solids that are moistened or followed by a puree or liquid wash. His swallowing difficulty w/ food began January 2025. He reports having trouble swallowing pills for most of adulthood. He denied hx of choking, but stated concern for choking 2X, pt stating he felt very panicked when food felt caught. He has a sore throat intermittently. He also has hoarseness intermittently. Medical History Wears glasses History of MRSA infection Anxiety Injury of back Difficulty swallowing Gastric reflux Smoker History of edema History of echocardiogram History of stress test Sleep apnea CPAP (continuous positive airway pressure) dependence Sleep related bruxism CTS (carpal tunnel syndrome) Acute sinusitis Inclusion cyst Left shoulder pain Tinnitus, unspecified ear Ankle pain, left Current Diet Ordered: Easy to Chew / Thin Dentition: Natural Teeth and Missing Teeth Mental Status: WNL Respiratory Status: Oxygenating on Room Air Penetration-Aspiration Scale Penetration-Aspiration Scale: OBJECTIVE ASSESSMENT OF SWALLOW FUNCTION (QUANTITATIVE ? PER TRIAL): PENETRATION / ASPIRATION SCALE (FREEMAN): 1 = does not enter airway 2 = enters airway/above vocal folds/ejected 3 = enters airway/above vocal folds/not ejected 4 = enters airway/contacts vocal folds/ejected 5 = enters airway/contacts vocal folds/not ejected 6 = enters airway/below vocal folds/ejected 7 = enters airway/below vocal folds/not ejected despite effort 8 = enters airway/below vocal folds/no effort VIDEOFLOROSCOPIC SCALE SCORE (FREEMAN): Grade I = aspiration of material that has penetrated into the laryngeal vestibule, intact cough reflex Grade II = aspiration < 10 % of the bolus, intact cough reflex Grade III = aspiration of < 10 % of the bolus, reduced cough reflex or aspiration of > 10 % of the bolus, intact cough reflex Grade IV = aspiration of > 10 % of the bolus, reduced cough reflex Penetration-Aspiration Scale Score Thin Liquid via teaspoon: Result: 1= does not enter airway Thin Liquid via teaspoon Trial 2: Result: 1= does not enter airway Thin Liquid via small single sip: cup: Result: 1= does not enter airway Thin Liquid via sequential sips: cup: Result: 2= enter airway/above vocal folds/ejected Pudding via teaspoon: Result: 1= does not enter airway Comment: Esophageal screen - Complete clearance; however, due to pt's body habitus, view of esophagus was limited. 1/2 Cookie: Result: 1= does not enter airway Comment: Esophageal screen - Minimal retention in the middle and lower esophagus. Thin Liquid via single sip: straw: Result: 1= does not enter airway Thin Liquid via single sip: straw Trial 2: Result: 1= does not enter airway Oral Phase Labial Seal: Interlabial escape, no progression to anterior lip Tongue Control During Bolus Hold: Posterior escape of greater than half of bolus Bolus Preparation/Mastication: Timely and efficient chewing and mashing Bolus Transport/Lingual Motion: Delayed initiation of tongue motion Oral Residue: Minimal to no clearance (Pt expectorated barium tablet) Pharyngeal Phase Initiation of Pharyngeal Swallow: Bolus head at posterior laryngeal surgace of epiglottis Soft Palate Elevation: Trace column of contrast/air between soft palate and pharyngeal wall Laryngeal Elevation: Comp. Superior move thyroid cart w/comp. apprx arytenoid cart-epig pet Anterior Hyoid Excursion: Partial anterior movement Epiglottic Movement: Complete inversion Laryngeal Vestibule Closure at Height of Swallow: Incomplete; narrow column of air/contrast in laryngeal vestibule (trace laryngeal penetration 1X w/ complete ejection) Pharyngeal Stripping Wave: Present - diminished Pharyngoesophageal Segment Opening: Parital distension and partial duration; parital obstruction of flow Tongue Base Retraction: Narrow column of contrast between tongue base & post. pharyngeal wall Pharyngeal Residue: Trace residue within or on pharyngeal structures Esophageal Phase Esophageal Clearance: Esophageal retention Diagnosis/Impression Diagnosis: Mild oropharyngeal dysphagia R13.12 MBS Impressions: The oral phase is primarily marked by... -Posterior loss of >1/2 of pudding and liquids to the oropharynx prior to swallow onset. -Delayed tongue motion for A-P transport. -Pt quickly expectorated barium tablet provided in tsp of pudding, stating he could not swallow it. -Mild oral residue of cookie, which cleared w/ liquid wash. The pharyngeal phase is primarily marked by... -Mildly decreased TB retraction and pharyngeal stripping wave w/ trace pharyngeal residues for majority of trials. Trace pharyngeal residues of cookie on the soft palate, in the vallecula, and a crumb on the posterior pharyngeal wall w/ pt immediately requesting a drink to wash due to sensation of food on the back of his tongue/in his throat. Liquid wash cleared these residues. Pt appears to be hypersensitive to these trace oropharyngeal residues. -Overall good airway closure during the swallow w/ trace laryngeal penetration 1X w/ complete ejection. No aspiration. The esophageal phase is primarily marked by... -Minimal retention of cookie in the middle and lower esophagus. Recommendations Diet: Regular Textures (Moisten Dry Textures) and Thin Liquids Compensatory Strategies: Small Bites, Small Sips, Slow Rate, Alternate bites/solids and sips/liquids, Sitting upright and Remain sitting upright for 30 minutes after PO intake Recommend Repeat Modified Barium Swallow: No Need for Skilled Speech Therapy Services: Yes Comment: -Please discuss consideration for further assessment of oropharyngeal swallow function via FEES (Fiberoptic Endoscopic Evaluation of Swallowing) w/ your PCP, especially given intermittent hoarseness and odynophagia. -Train pt in exercises to improve bolus control, TB retraction, and stripping wave (lingual resistance, Linda, effortful). Recommended Referrals: GI Consult (Continue to follow w/ [facility] as recommended for hx of esophageal swallowing difficulty) Education Completed: 1. Described result of evaluation. and 2. Pt understands evaluation & agrees with goals and treatment plan. Status Active ST Patient: Active Contact Information [facility] Speech Therapy:: Betty Pierce M.A. [facility] Speech-Language Pathologist [facility] [address] [place] [address] [email or web address] [phone]
== END | disposition home or self-care (01) ==
LOC: RAD 12:47
PROVIDERS: PCP Family Medicine; Referring Provider Family Medicine; Visit Provider Family Medicine
DX: R13.10 Dysphagia, unspecified (principal); K22.4 Dyskinesia of esophagus
CPT/HCPCS: 74230; 92611

== ENCOUNTER 2025-07-11 07:07 | Outpatient (CLI) | payer OTHER, SELFPAY ==
--- OUTSIDE RECORDS SUMMARY | 2025-07-11 07:17 | XMS RPT_ITS | CCD ---
Author Organization [facility] Care Team Providers Care Train Control Technician Name Role Phone Dr. Shahzad Bright Primary Care Provider Dr. Shahzad Bright Referring Provider Dr. Shahzad Bright Other Provider Dr. Zeyad Diaz Attending Provider Dr. Suellen De Santiago Attending Provider Dr. Shahzad Bright Primary Care Provider Dr. Shahzad Bright Referring Provider [phone] Dr. Shahzad Bright Other Provider [phone] Unavailable Primary Care Provider UnavailSHAHZAD Tee Referring Unavailable YARY COBURN Attending Unavailable Dr. Shahzad Bright MD Primary Care Provider [phone] Dr. Shahzad Bright MD Attending Provider Dr. Shahzad Bright MD Referring Provider Sabrina Franco Attending Provider Ca Gee Attending Provider Dr. Kota Kan DO Attending Provider Dr. Kota Kan DO Other Provider Dr. Shahzad Bright MD Primary Care Physician Dr. Shahzad Bright MD Referring Provider [phone] Sabrina Franco Attending Physician Dr. Shahzad Bright MD Attending Physician Nikolai WHITE, Ca Attending Physician [phone] Friend , Dr. Escudero Attending Physician Friend , Dr. Escudero Nurse Practitioner Shahzad Bright Attending Unavailable SchShahzad lezama Primary Care Unavailable SchShahzad lezama Referring Unavailable SchShahzad lezama Referring Unavailable SchShahzad lezama Attending Unavailable Shahzad Bright Primary Care Unavailable SchShahzad lezama Referring Unavailable Kota Kan Attending Unavailable Shahzad Bright Primary Care Unavailable Kota Kan Consulting Unavailable Shahzad Bright Referring Unavailable Kota Kan Attending Unavailable Shahzad Bright Primary Care Unavailable Kota Kan Consulting Unavailable SchShahzad lezama Referring Unavailable Schinalexandru, Shahzad Redmond Primary Care Unavailable Ca Menchaca Attending Unavailable Shahzad Bright Referring Unavailable SchShahzad lezama Primary Care Unavailable Sabrina Leavitt NP Attending Unavailable Shahzad Bright Referring Unavailable SchShahzad lezama Primary Care Unavailable Ca Menchaca Attending Unavailable Shahzad Bright Attending Unavailable Shahzad Bright Primary Care Unavailable Shahzad Bright Attending Unavailable Shahzad Bright Referring Unavailable SchShahzad lezama Primary Care Unavailable Shahzad Bright Attending Unavailable SchShahzad lezama Referring Unavailable SchShahzad lezama Primary Care Unavailable Shahzad Bright Attending Unavailable Shahzad Bright Referring Unavailable SchShahzad lezama Primary Care Unavailable Shahzad Bright Attending Unavailable Shahzad Bright Referring Unavailable SchShahzad lezama Primary Care Unavailable Kota Kan Attending Unavailable Shahzad Bright Primary Care Unavailable Shahzad Bright Referring Unavailable SchShahzad lezama Referring Unavailable Kota Kan Attending Unavailable Shahzad Bright Primary Care Unavailable Shahzad Bright Referring Unavailable Shahzad Bright Attending Unavailable Shahzad Bright Primary Care Unavailable Shahzad Bright Referring Unavailable SchShahzad lezama Attending Unavailable Shahzad Bright Primary Care Unavailable Allergies Allergy Classification Reported Allergen(s) Allergy Type Date of Onset Reaction(s) Facility Sulfonamides (antibiotic) (1 source) sulfADIAZINE Drug Allergy 4 [facility] (19 sources) Sulfonamides (Antibiotic); Translations: [Sulfa (Sulfonamide Antibiotics)] Allergy to substance 2 [facility] (1 source) sulfADIAZINE; Translations: [SULFADIAZINE] Drug Allergy 4 [facility] Medications Current Medications Medication Drug Class(es) Dates Sig (Normalized) Sig (Original) busPIRone hydrochloride 7.5 mg oral tablet (15 sources) Start: 05-05-2025 take 1 tablet by mouth three times daily Start: 12-14-2023 End: 05-05-2025 take 1 tablet by mouth twice daily Buspirone 7.5 mg tablet Discontinued 7.5 mg PO TWICE A DAY December 14, 2023 12:00am May 05, 2025 1:46pm multivit-min/folic/vit K/lyc op (MEN'S MULTIVITAMIN ORAL) (1 source) take 1 tablet by mouth once daily multivit-min/folic/vit K/lycop (MEN'S MULTIVITAMIN ORAL) Take 1 tablet by mouth once daily. 0 Active Multivitamin tablet (5 sources) Start: 05-12-20 Start: 05-12-2025 Multivitamin t ablet Active 1 {tbl} PO daily May 12, 2025 12:00am omega-3 fatty acids 1,000 mg cap (1 source) take 1 capsule by mouth three times daily omega-3 fatty acids 1,000 mg cap Take 1 capsule by mouth three times a day. 0 Active omeprazole 40 mg delayed release oral capsule (20 sources) Proton Pump Inhibitor Start: 05-27-2025 End: 06-09-2025 take 1 capsule by mouth twice daily Start: 05-05-2025 End: 05-27-2025 take 1 capsule [...] Drug Class(es) Dates Sig (Normalized) Sig (Original) [id number] 200 actuat albuterol 0.09 mg/actuat metered dose inhaler (9 sources) beta2-Adrenergi c Agonist Start: 03-07-2024 End: 05-05-2025 Albuterol Sulfate 90 mcg/actuation HFA aerosol inhaler Discontinued INHALATION March 07, 2024 12:00am May 05, 2025 1:46pm cholecalciferol 0.05 mg oral capsule (15 sources) Vitamin D Start: 05-05-2025 End: 05-12-2025 [...] at lunch take 4 capsules by m outh twice daily Cholecalciferol, Vitamin D3, (VITAMIN D-3) 50 mcg (2,000 unit) cap Take 4 capsules by mouth two times a day. 0 Active Lqcwvtdi-Zsr-Pywhb-Vit K-Lyc op (One-A-Day Men's Multivitamin) 400-20-300 mcg tablet (9 sources) Start: 12-14-2023 End: 05-12-2025 Edfbvyzv-Asv-Ijysx-Vit K-Lyc op (One-A-Day Men's Multivitamin) 400-20-300 mcg tablet Discontinued {tbl} PO December 14, 2023 12:00am May 12, 2025 8:28am Start: 12-14-2023 Rcgagzwb-Woe-B olic-Vit K-Lycop (One-A-Day Men's Multivitamin) 400-20-300 mcg tablet Active {tbl} PO December 14, 2023 12:00am [place]-3 Fatty Acids 1,000 mg capsule (9 sources) Start: 12-14-2023 End: 05-12-2025 take 1 capsule by mouth three times daily [place]-3 Fatty Acids 1,000 mg capsule Discontinued 1000 mg PO THREE TIMES A DAY December 14, 2023 12:00am May 12, 2025 8:28am Start: 12-14-2023 take 1 capsule by mo [facility] three times daily [place]-3 Fatty Acids 1,000 mg capsule Active 1000 mg PO THREE TIMES A DAY December 14, 2023 12:00am Peg 3350-Sod Sulf,Chlr-Pot-M ag (1 source) Start: 05-12-2025 End: 05-27-2025 Peg 3350-Sod Sulf,Chlr-Pot-M ag (Suflave) 178.7-7.3-0.5 gram recon soln Discontinued 0 PO .COMPLEX 2 0 May 12, 2025 12:00am May 27, 2025 8:36pm Take as directed for split dose bowel prep Peg 3350-Sod Sulf,Chlr-Pot-M ag (Suflave) 178.7-7.3-0.5 gram recon soln (4 sources) Start: 05-12-2025 End: 05-27-2025 Peg 3350-Sod Sulf,Chlr-Pot-M ag (Suflave) 178.7-7.3-0.5 gram recon soln Discontinued 0 PO .COMPLEX 2 0 May 12, 2025 12:00am May 27, 2025 8:36pm Take as directed for split dose bowel prep Start: 05-12-2025 Peg 3350-Sod S ulf,Rbtl-Ydn-Udy (Suflave) 178.7-7.3-0.5 gram recon soln Active 0 PO .COMPLEX 2 0 May 12, 2025 12:00am Take as directed for split dose bowel prep Problems Active Problems Problem Classification Problem Date Documented Da te Episodic/Chronic Alcohol-related disorders (5 sources) Alcohol abuse; Translations: [Alcohol abuse, uncomplicated] 05-12-2025 Chronic Allergic reactions (5 sources) Allergic condition; Translations: [Allergy, unspecified, initial encounter] 05-12-2025 Episodic Anxiety disorders (9 sources) Anxiety; Translations: [Anxiety disorder, unspecified] 12-14-2023 Chronic Disorders of lipid metabolism (9 sources) Hypertriglyceridemia; Translations: [Pure hyperglyceridemia] 12-14-2023 Chronic Esophageal disorders (5 sources) Gastroesophageal reflux disease; Translations: [Gastro-esophageal reflux disease without esophagitis] 05-12-2025 Chronic Malaise and fatigue (9 sources) Physical deconditioning; Translations: [Other malaise] 12-14-2023 Episodic Miscellaneous mental health disorders (5 sources) Emotional problems; Translations: [Other symptoms and signs involving emotional state] 05-12-2025 Episodic Nutritional deficiencies (10 sources) Vitamin D deficiency; Translations: [Vitamin D deficiency, unspecified] Onset: 5 12-14-2023 Chronic Nutritional deficiencies (10 sources) Vitamin deficiency; Translations: [Vitamin deficiency, unspecified] Onset: 5 05-12-2025 Episodic Other ear and sense organ disorders (9 sources) Hearing loss; Translations: [Unspecified hearing loss, unspecified ear] 12-14-2023 Chronic Other ear and sense organ disorders (5 sources) Hearing disorder; Translations: [Unspecified hearing loss, unspecified ear] 05-12-2025 Chronic Other gastrointestinal disorders (20 sources) Dysphagia; Translations: [Dysphagia, unspecified] 03-15-2024 Episodic Other gastrointestinal disorders (3 sources) Dysphagia, unspecified; Translations: [Dysphagia, unspecified type] Onset: 4 Episodic Other gastrointestinal disorders (5 sources) Gastrointestinal tract problem; Translations: [Other specified symptoms and signs involving the digestive system and abdomen] 05-12-2025 Episodic Other gastrointestinal disorders (2 sources) Dysphagia, oropharyngeal phase; Translations: [Dysphagia, oropharyngeal phase] Onset: 5 Episodic Other injuries and conditions due to external causes (1 source) Other specified injuries of left wrist, hand and finger(s), initial encounter; Translations: [Other specified injuries of left wrist, hand and finger(s), initial encounter] Onset: 5 Episodic Other lower respiratory disease (14 sources) Dyspnea on exertion; Translations: [Shortness of breath] 12-14-2023 Episodic Other lower respiratory disease (5 sources) Cough; Translations: [Cough] 05-05-2025 Episodic Other nutritional; endocrine; and metabolic disorders (16 sources) Morbid obesity; Translations: [Morbid (severe) obesity due to excess calories] 12-18-2023 Chronic Other nutritional; endocrine; and metabolic disorders (14 sources) Weight decreased; Translations: [Abnormal weight loss] 05-12-2025 Episodic Other nutritional; endocrine; and metabolic disorders (2 sources) Abnormal weight loss; Translations: [Abnormal weight loss] Onset: Episodic Other screening for suspected conditions (not mental disorders or infectious disease) (20 sources) Patient encounter status; Translations: [Encounter for screening for malignant neoplasm of colon] Onset: 03-15-2024 Episodic Residual codes; unclassified (16 sources) Obstructive sleep apnea syndrome; Translations: [Obstructive sleep apnea (adult) (pediatric)] 03-07-2024 Chronic Comment on above: AutoPap 5-15 cmH2O Spondylosis; intervertebral disc disorders; other back problems (5 sources) Back problem; Translations: [Dorsopathy, unspecified] 05-12-2025 Episodic Sprains and strains (5 sources) Sprain of medial collateral ligament of right knee, initial encounter; Translations: [Sprain of medial collateral ligament of right knee] 05-05-2025 Episodic Substance-related disorders (20 sources) Tobacco dependence caused by cigarettes; Translations: [Nicotine dependence, cigarettes, uncomplicated] 03-07-2024 Chronic Comment on above: Greater than 20 pack years appropriate for LDCT 2025 quit February of 2024 Varicose veins of lower extremity (9 sources) Varicose veins of lower extremity; Translations: [Asymptomatic varicose veins of unspecified lower extremity] 12-14-2023 Episodic Past or Other Problems Problem Classification Problem Date Documented Da te Episodic/Chronic Diabetes mellitus without complication (10 sources) Impaired glucose tolerance; Translations: [Impaired glucose tolerance (oral)] Onset: 11-03-2024 12-14-2023 Episodic Other non-traumatic joint disorders (1 source) Pain in right knee; Translations: [Pain in right knee] Onset: 10-20-2024 Episodic Results Test Name Value Interpretation Reference Range Facility Modified Barium Swallow Stud [facility] 06-30-2025 Modified Barium Swallow Study [facility] Speech Pathology [address] [place] [address] Modified Barium Swallow Study MR#: [id number] Acct: [id number] Name: ZENA BENNETT Rep #: [id number] : 1975 49 From: Betty Pierce M.A., CCC-VP STRATEGY Due to intermittent changes in vocal quality, will recommend the patient for ENT consult. Modified Barium Swallow Patient Information Study Date: 06/30/25 Study Time: 13:00 Direct Billable Minutes: 100 Total Minutes procedure reportin Diagnosis: Dysphagia R13.10 Referring Physician: Shahzad Bright Reason for Referral: Assess swallow function, assess risk for aspiration, and determine recommendations for least restrictive diet textures and compensatory strategies to improve swallowing safety. Medical History: Patient follows w/ [facility] for management of dysphagia. Barium Esophagram 04/09/2025: Unremarkable examination. The patient was not capable of swallowing the 12 mm tablet of barium. EGD was performed 05/15/2025 and revealed 1 benign-appearing intrinsic moderate stenosis 18 to 21 cm from the incisors (5 cm in length). Savary dilation was performed. 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 He denied any improvement in dysphagia post dilation, so JOSE Chambers increased PPI to 2X daily. He reported concerns for oropharyngeal dysphagia to GI. He was recommended for this MBSS and repeat EGD, which took place 06/19/2025: Z-line irregular, 40 cm from the incisors. Biopsied. - Mucosal nodule found in the esophagus. Biopsied. - Moderate Schatzki ring. Dilated. - Hiatal hernia. - No gross lesions in the entire stomach. - No gross lesions in the entire examined duodenum. Patient provided additional history. He reports difficulty w/ transfer from his mouth to his throat, states tongue is too dry, has difficulty sending food back. He feels as if foods become stuck behind his tongue. Prior to EGDs, he was only able to consume purees and smoothies. Now, he can eat soft solids that are moistened or followed by a puree or liquid wash. His swallowing difficulty w/ food began January 2025. He reports having trouble swallowing pills for most of adulthood. He denied hx of choking, but stated concern for choking 2X, pt stating he felt very panicked when food felt caught. He has a sore throat intermittently. He also has hoarseness intermittently. Medical History Wears glasses History of MRSA infection Anxiety Injury of back Difficulty swallowing Gastric reflux Smoker History of edema History of echocardiogram History of stress test Sleep apnea CPAP (continuous positive airway pressure) dependence Sleep related bruxism CTS (carpal tunnel syndrome) Acute sinusitis Inclusion cyst Left shoulder pain Tinnitus, unspecified ear Ankle pain, left Current Diet Ordered: Easy to Chew / Thin Dentition: Natural Teeth and Missing Teeth Mental Status: WNL Respiratory Status: Oxygenating on Room Air Penetration-Aspirati on Scale Penetration-Aspirati on Scale: OBJECTIVE ASSESSMENT OF SWALLOW FUNCTION (QUANTITATIVE ??? PER TRIAL): PENETRATION / ASPIRATION SCALE (FREEMAN): 1 = does not enter airway 2 = enters airway/above vocal folds/ejected 3 = enters airway/above vocal folds/not ejected 4 = enters airway/contacts vocal folds/ejected 5 = enters airway/contacts vocal folds/not ejected 6 = enters airway/below vocal folds/ejected 7 = enters airway/below vocal folds/not ejected despite effort 8 = enters airway/below vocal folds/no effort VIDEOFLOROSCOPIC SCALE SCORE (FREEMAN): Grade I = aspiration of material that has penetrated into the laryngeal vestibule, intact cough reflex Grade II = aspiration < 10 % of the bolus, intact cough reflex Grade III = aspiration of < 10 % of the bolus, reduced cough reflex or aspiration of > 10 % of the bolus, intact cough reflex Grade IV = aspiration of > 10 % of the bolus, reduced cough reflex Penetration-Aspirati on Scale Score Thin Liquid via teaspoon: Result: 1= does not enter airway Thin Liquid via teaspoon Trial 2: Result: 1= does not enter airway Thin Liquid via small single sip: cup: Result: 1= does not enter airway Thin Liquid via sequential sips: cup: Result: 2= enter airway/above vocal folds/ejected Pudding via teaspoon: Result: 1= does not enter airway Comment: Esophageal screen - Complete clearance; however, due to pt's body habitus, view of esophagus was limited. 1/2 Cookie: Result: 1= does not enter airway Comment: Esophageal screen - Minimal retention in the middle and lower esophagus. Thin Liquid via single sip: straw: Result: 1= does not enter airway Thin Liquid via single sip: straw Trial 2: Result: 1= does not enter airway Oral Phase Labial Seal: Interlabial escape, no progression to anterior lip Tongue Control During Bolus Hold: Posterior escape of greate (more content not included)... Normal [facility] Colonoscopy Reporton 025 Colonoscopy Report [facility] Medical Records Department [address] [place] [address] Colonoscopy Report MR#: [id number] Acct: [id number] Name: ZENA BENNETT Rep #: [id number] : 1975 49 From: Kota Kan DO PCP: Dr. Shahzad Bright MD [place] [place] Name: Zena Bennett Procedure Date: 06/19/2025 6:57 AM Date of : 1975 Age: 49 Procedure: Colonoscopy Indications: Screening for colorectal malignant neoplasm Providers: Kota Kan DO Referring MD: Shahzad Bright Medicines: Monitored Anesthesia Care Patient Profile: This is a 49 year old male. Refer to note in patient chart for documentation of history and physical. Patient has symptoms of chronic dysphagia, dysphagia with solids and chronic heartburn. Last Colonoscopy: none. The patient's first colonoscopy is today. Complications: No immediate complications. Procedure: Pre-Anesthesia Assessment: [...] patient was re-assessed after the procedure. After I obtained informed consent, the scope was passed under direct vision. Throughout the procedure, the patient's blood pressure, pulse, and oxygen saturations were monitored continuously. The Colonoscope was introduced through the anus and advanced to the cecum, identified by appendiceal orifice and ileocecal valve. The colonoscopy was performed without difficulty. The patient tolerated the procedure well. The quality of the bowel preparation was adequate. The ileocecal valve, appendiceal orifice, and rectum were photographed. Scope In: 7:00:00 AM Scope Withdrawal Time 0 hours 8 minutes 58 seconds Scope Out: 7:22:04 AM Total Procedure Duration Time 0 hours 22 minutes 4 seconds Findings: The perianal and digital rectal examinations were normal. Multiple small and large-mouthed diverticula were found in the recto-sigmoid colon, sigmoid colon and descending colon. An 8 mm polyp was found in the sigmoid colon. The polyp was sessile. The polyp was removed with a hot snare. Resection and retrieval were complete. Verification of patient identification for the specimen was done. Estimated blood loss was minimal. A 4 mm polyp was found in the rectum. The polyp was sessile. The polyp was removed with a jumbo cold forceps. Resection and retrieval were complete. Verification of patient identification for the specimen was done. Estimated blood loss was minimal. Impression: - Diverticulosis in the recto-sigmoid colon, in the sigmoid colon and in the descending colon. - One 8 mm polyp in the sigmoid colon, removed with a hot snare. Resected and retrieved. - One 4 mm polyp in the rectum, removed with a jumbo cold forceps. Resected and retrieved. Recommendation: - Repeat colonoscopy in 5 years for surveillance. - Continue present medications. Procedure Code(s): --- Professional --- 43406, Colonoscopy, flexible; with removal of tumor(s), polyp(s), or other lesion(s) by snare technique 11006, 59, Colonoscopy, flexible; with biopsy, single or multiple CPT copyright 2021 [employer]. All rights reserved. The codes documented in this report are preliminary and upon botany professor review may be revised to meet current compliance requirements. Kota Kan DO 06/19/2025 7:33:06 AM This report has been signed electronically. Number of Addenda: 0 Note Initiated On: 06/19/2025 6:57 AM 06/19/25 0733 Date Kota Trejo Signature: (more content not included)... Normal [facility] EGD Reporton 06-19-2025 EGD Report [facility] Medical Records Department [address] [place] [address] EGD Report MR#: [id number] Acct: [id number] Name: ZENA BENNETT Rep #: [id number] : 1975 49 From: Kota Kan DO PCP: Dr. Shahzad Bright MD Status[facility] Patient Name: Zena Bennett Procedure Date: 06/19/2025 6:25 AM Date of : 1975 Age: 49 Procedure: Upper GI endoscopy Indications: Dysphagia, Heartburn Providers: Kota Kan DO Referring MD: Shahzad Bright Medicines: Monitored Anesthesia Care Patient Profile: This is a 49 year old male. Refer to note in patient chart for documentation of history and physical. Patient has symptoms of chronic dysphagia, dysphagia with solids and chronic heartburn. Complications: No immediate complications. Procedure: Pre-Anesthesia Assessment: [...] and oxygen saturations were monitored continuously. The Colonoscope was introduced through the mouth, and advanced to the second part of duodenum. The upper GI endoscopy was accomplished without difficulty. The patient tolerated the procedure well. Scope In: 6:50:42 AM Scope Out: 6:57:25 AM Total Procedure Duration Time 0 hours 6 minutes 43 seconds Findings: The Z-line was irregular and was found 40 cm from the incisors. Biopsies were taken with a cold forceps for histology. Verification of patient identification for the specimen was done. Estimated blood loss was minimal. A single 5 mm mucosal nodule with a localized distribution was found at the gastroesophageal junction, 42 cm from the incisors. Biopsies were taken with a cold forceps for histology. Verification of patient identification for the specimen was done. Estimated blood loss was minimal. A moderate Schatzki ring was found in the lower third of the esophagus. A guidewire was placed and the scope was withdrawn. Dilation was performed with a Savary dilator with no resistance at 60 Fr. The dilation site was examined and showed. Estimated blood loss was minimal. A hiatal hernia was present. No gross lesions were noted in the entire examined stomach. No gross lesions were noted in the entire examined duodenum. Impression: - Z-line irregular, 40 cm from the incisors. Biopsied. - Mucosal nodule found in the esophagus. Biopsied. - Moderate Schatzki ring. Dilated. - Hiatal hernia. - No gross lesions in the entire stomach. - No gross lesions in the entire examined duodenum. Recommendation: - Discharge patient to home. - Resume previous diet. - Continue present medications. - Await pathology results. Procedure Code(s): --- Professional --- 12420, Esophagogastroduoden oscopy, flexible, transoral; with insertion of guide wire followed by passage of dilator(s) through esophagus over guide wire 27843, 59,51, Esophagogastroduoden oscopy, flexible, transoral; with biopsy, single or multiple CPT copyright 2021 [employer]. All rights reserved. The codes documented in this report are preliminary and upon botany professor review may be revised to meet current compliance requirements. Kota Kan DO 06/19/2025 7:28:58 AM This report has been signed electronically. Number of Addenda: 0 Note Initiated On: 06/19/2025 6:25 AM 06/19/25 0729 Date __ (more content not included)... Normal [facility] MR/OP.[facility] 06-19-2025 MR/OP.[facility] Medical Records Department [address] [place] [address] Provation Physician Letter MR#: [id number] Acct: [id number] Name: ZENA BENNETT Rep #: [id number] : 1975 49 From: Kota Kan DO PCP: Dr. Shahzad Bright MD [place] [place]/19/2025 Shahzad Bright [address] [facility] [address] [place] [address] Re : Colonoscopy procedure for Zena Bennett Dear Dr. Bright This procedure was performed on May. My impressions and recommendations are as follows: Impressions : - Diverticulosis in the recto-sigmoid colon, in the sigmoid colon and in the descending colon. - One 8 mm polyp in the sigmoid colon, removed with a hot snare. Resected and retrieved. - One 4 mm polyp in the rectum, removed with a jumbo cold forceps. Resected and retrieved. Recommendations : - Repeat colonoscopy in 5 years for surveillance. - Continue present medications. My findings are described in the full procedure note, which is enclosed. If I can be of further assistance, please feel free to contact me at . Sincerely, Kota Kan DO 06/19/2025 7:33:06 AM This report has been signed electronically. 06/19/25 0733 Date Kota Trejo Signature: Date (if indicated) CC: Dr. Shahzad Bright MD; Kota Kan DO Date Dictated: 06/19/25656 Date Transcribed: Lithograph Designer: RF Signed [facility] MR/OP.[facility] Medical Records Department [address] [place] [address] Provation Physician Letter MR#: [id number] Acct: [id number] Name: ZENA BENNETT Rep #: [id number] : 1975 49 From: Kota Kan DO PCP: Dr. Shahzad Bright MD [place] [facility] [place]20[place] Shahzad Bright [address] [facility] [address] [place] [address] Re : Upper GI endoscopy procedure for Zena Bennett Dear Dr. Bright This procedure was performed on May. My impressions and recommendations are as follows: Impressions : - Z-line irregular, 40 cm from the incisors. Biopsied. - Mucosal nodule found in the esophagus. Biopsied. - Moderate Schatzki ring. Dilated. - Hiatal hernia. - No gross lesions in the entire [...] me at . Sincerely, Kota Kan DO 06/19/2025 7:28:58 AM This report has been signed electronically. 06/19/2529 Date Kota Trejo Signature: Date (if indicated) CC: Dr. Shahzad Bright MD; Kota Kan DO Date Dictated: 06/19/25624 Date Transcribed: Lithograph Designer: RF Signed [facility] MR/POSTOP.ANE 06-19-2025 MR/POSTOP.[facility] Medical Records Department [address] [place] [address] Anesthesia Postop Eval I 06/19/25 0735 MR#: [id number] Acct: [id number] Name: ZENA BENNETT Rep #: [id number] : 1975 49 From: Willie Whitehead PCP: Dr. Shahzad Bright MD Status[place] [facility] [place] Race: C Location: [place] [address] Anesthesia: Postop Eval I Current Vital Signs Temperature: 97.4 F Pulse Rate: 74 Blood Pressure: 106/72 Respiratory Rate: 16 Pulse Ox: 100 Oxygen Delivery Method: Room Air Assessment Airway patent: Yes Spontaneous unlabored respirations: Yes Mental status: Awake nausea: No Vomiting: No Anesthesia Complication: No Fluid Hydration Crystalloid volume administer (ml): 500 Total IV fluid infused: 500 Progress Note Anesthesia document: Postop Eval 1 completed: Yes 06/19/25735 Date Willie Boucher Signature: Date CC: Signed [facility] MR/SCHVLAGO8tf 06-19-2025 MR/POSTOPAN2 [facility] Medical Records Department [address] [place] [address] Anesthesia Postop Eval II 06/19/25 1044 MR#: [id number] Acct: [id number] Name: ZENA BENNETT Rep #: [id number] : 1975 49 From: Elva Hammond CRNA PCP: Dr. Shahzad Bright MD Status[place] [place] Race: C Location: EN Anesthesia Postop Eval I Sum Postop Eval Completion status Anesthesia document: Postop Eval 1 completed: Yes Anesthesia Postop Eval I Summary Anesthesia Postop Eval I Summary: Anesthesia Postop Eval I: Assessment Summary Airway patent Yes 06/19/25 07:36 [email or web address] Spontaneous unlabored Yes 06/19/25 07:36 [email or web address] respirations Mental status Awake 06/19/25 07:36 [email or web address] nausea No 06/19/25 07:36 [email or web address] Vomiting No 06/19/25 07:36 [email or web address] Anesthesia Postop Eval I: Fluid Summary Crystalloid volume administer 500 06/19/25 07:36 [email or web address] (ml) Colloids volume administered ( ml) Blood Product volume administered (ml) Total IV fluid infused 500 06/19/25 07:36 [email or web address] Anesthesia Postop Eval I: Summary Notes Anesthesia Complication No 06/19/25 07:36 [email or web address] Anesthesia Complication Comment: Post-operative progress note Anesthesia: Postop Eval II Evaluation Mental status: Awake and Calm Pain Level: 0 nausea: No Vomiting: No Complications Anesthesia Complication: No 06/19/25 1044 Date Elva Calderonignkaroline Signature: Date CC: Signed [facility] Surgery Specimen Level Thao 06-19-2025 Surgery Specimen Level IV Patient Age/Sex Location Account Attending Physician ZENA BENNETT 49/M EN [id number] Kota Kan DO Specimen: [id number] Received: 06/19/25 Status: YAMILA Valente Num: [id number] Spec Type: COLON BX Subm Dr: DO GEORGE Adams OPERATION: Colonoscopy with polypectomy and biopsy, EGD with biopsy PRE-OP DIAGNOSIS: Encounter for screening colonoscopy, dysphagia TISSUE SUBMITTED: A- Distal esophagus biopsy, B- GE junction nodule biopsy, C- Sigmoid polyp, D- Rectal polyp biopsy MICROSCOPIC DIAGNOSIS A. Distal esophagus, biopsy: * Benign squamous mucosa. 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 * Reactive epithelial changes, negative for dysplasia. Note: The diagnosis depends on the location of the biopsy and the extent of the mucosal irregularity. If the biopsy originates from the tubular esophagus and the mucosal irregularity extends at least 1 cm above the top of the gastric folds, this represents Rasheed mucosa. If the biopsy originates from the gastric cardia and/or the mucosal irregularity is less than 1 cm in extent, this represents intestinal metaplasia. B. Esophagus, biopsy: * Squamocolumnar mucosa negative for goblet cell metaplasia. * Negative for dysplasia. C. Sigmoid colon, polyp, biopsy: * Hyperplastic polyp with prolapse features. D. Rectum, polyp, biopsy: * Hyperplastic polyp with prolapse features. MICROSCOPIC DESCRIPTION Slides are reviewed. GROSS DESCRIPTION A. Received in fixative is one container labeled with the patient's name and designated Distal esophagus biopsy. The specimen consists of multiple irregular fragments of castaneda tissue that in aggregate measure 1.1 x 0.6 x 0.2 cm. The specimen is totally submitted in one cassette. B. Received in fixative is one container labeled with the patient's name and designated GE junction nodule biopsy. The specimen consists of multiple irregular fragments of castaneda tissue that in aggregate measure 0.7 x 0.3 x 0.2 cm. Smaller fragments unlikely to survive processing. The specimen is totally submitted in one cassette. C. Received in fixative is one container labeled with the patient's name and designated Sigmoid polyp. The specimen consists of two irregular fragments of castaneda tissue that Patient Age/Sex Location Account Attending Physician ZENA BENNETT/Scott EN [id number] Kota Kan DO measure 0.5 and 0.8 cm. The specimen is totally submitted in one cassette. D. Received in fixative is one container labeled with the patient's name and designated Rectal polyp biopsy. The specimen consists of one irregular fragment of castaneda tissue that measures 0.5 cm. The specimen is totally submitted in one cassette. MS 06/19/2025 [facility]:[id number] Patient Age/Sex Location Account Attending Physician ZENA BENNETT/Scott EN [id number] Kota Kan DO Signed (signature on file) Dr. Adeline Salazar MD 06/26/25 1340 [facility] Comment on above: Performed By: #### P SUIV ####[facility] [address] [place], [address] MR/PAT.[facility]on 06-16-2025 MR/PAT.LUCIEN [facility] Medical Records Department [address] [place] [address] PAT - Anesthesia 06/16/25 1316 MR#: [id number] Acct: [id number] Name: ZENA BENNETT Rep #: [id number] : 1975 49 From: Adam Valerio MD PCP: Dr. Shahzad Bright MD Status[place] [facility] [place]: C Location: EN Pre-Assessment Diagnosis/Proposed Procedure Planned Operative Procedure(s): EGD, COLONOSCOPY Anesthesia History Anesthesia History - net fisher: Anesthesia History - net fisher Hx Hospitalization No 06/16/25 13:05 Any Problems [...] take am of surgery PONV PONV - net fisher: PONV - net fisher Female No 06/16/25 13:05 HX of Motion [...] 05/15/25 08:33 Respiratory Assessment Respiratory Assessment - net fisher: Respiratory Tract Infection Hx - net fisher Hx Respiratory Tract Infection No 06/16/25 13:05 STOP Sleep Apnea STOP Sleep Apnea - net fisher: STOP Sleep Apnea - net fisher Hx Hypertension No 06/16/25 13:05 Hx Sleep [...] Tobacco Use History Tobacco Use History - net fisher: Tobacco Use History - net fisher Tobacco Use Smoking Status Current every day smoker 06/16/25 13:05 Hx Tobacco Use Yes 06/16/25 13:05 Years Smoking Packs Smoked per Day Smoking Cessation Date was within the last 15 years Hx Smoking Cessation Date Hx Smoking Cessation Counseling Hematologic Medial History Hematologic Hx - net fisher: Hematologic Medical Hx - care transition mgr Hx of Blood Transfusion No 06/16/25 13:05 [...] /Reproducti on History /Reproducti ve History - net fisher: /Reproducti ve Hx- net fisher Hx Now No 06/16/25 13:05 Gestational Age (in weeks): EDC: Hx Hx Para Hx Section SAB No 06/16/25 13:05 [facility] Medical History (Updated 06/09/25 @ 08:53 by [...] 08:36 b (more content not included)... [facility] Gastroenterology Visit Repor ton 06-09-2025 Gastroenterology Visit Report [facility] Gastroenterology [address] [place] [address] OFFICE VISIT Date of Service: 06/09/25 MR#: [id number] Acct: [id number] Name: ZENA BENNETT Rep #: [id number] : 1975 Provider: CINDY bearden Age/Sex: 49/M [place] [facility]: Signed Intake Vital Signs 05/15/25 08:33 06/09/25 08:31 Height 5 ft 7 in 5 ft 7 in Weight: 315 lb 4 oz BMI 49.4 BP 107/67 Respiration 16 Pulse 72 Temp 98.2 F Temp Source Temporal Pulse Oximetry (%) 96 Oxygen Delivery Method room air Intake Visit Reasons: Dysphagia Chief Complaint: dysphagia Director Social Required: No Accompanied by: Is patient in [...] heartburn, fee (more content not included)... [facility] Wrist min 3 Viewson 05-30-20 25 Wrist min 3 Views [facility] Imaging Services [address] [place], [place] [address] Wrist min 3 Views MR#: [id number] Acct: [id number] Name: ZENA BENNETT Rep #: [id number] : 1975 M 49 From: Erik Cortez MD PCP: Dr. Shahzad Bright MD Status: REG [facility] Study: Wrist min 3 Views Date of Exam: 05/30/25 Exam# [id number] Ordering Dr: Shahzad Bright MD PROCEDURE: WRIST MIN 3 VIEWS 05/30/2025 REASON FOR EXAM: PAIN, EXTENSION INJURY TECHNIQUE: Procedure Code: RADWR Modality: DX Procedure: WRIST MIN 3 VIEWS Laterality: FINDINGS: No evidence of acute fracture or dislocation. Normal carpal alignment. RAD/Wrist min 3 Views IMPRESSION: No acute osseous abnormalities. Reading Location: [address] CC: Dr. Shahzad Bright MD Lithograph Designer: Signed [facility] EGD Reporton 05-15-2025 EGD Report [facility] Medical Records Department [address] [place] [address] EGD Report MR#: [id number] Acct: [id number] Name: ZENA BENNETT Rep #: [id number] : 1975 49 From: Kota Kan DO PCP: Dr. Shahzad Bright MD Status[place] [facility] Patient Name: Zena Bennett Procedure Date: 05/15/2025 [...] pathology results. Procedure Code(s): --- Professional --- 86362, Esophagogastroduoden oscopy, flexible, transoral; with insertion of guide wire followed by passage of dilator(s) through esophagus over guide wire 25597, 59,51, Small intestinal endoscopy, enteroscopy beyond second portion of (more content not included)... [facility] Medical Records Department [address] [place] [address] Provation Physician Letter MR#: [id number] Acct: [id number] Name: ZENA BENNETT Rep #: [id number] : 1975 49 From: Kota Kan DO PCP: Dr. Shahzad Bright MD Status:[place] [facility] 05/15/2025 Shahzad Bright [address] [facility] [address] [place] [address] Re : Upper GI endoscopy procedure for [...] Kan DO Date Dictated: 05/15/25923 Date Transcribed: Lithograph Designer: RF Signed [facility] MR/POSTOP.[facility] 05-15-2025 MR/POSTOP.[facility] Medical Records Department [address] [place] [address] Anesthesia Postop Eval I 05/15/25943 MR#: [id number] Acct: [id number] Name: ZENA BENNETT Rep #: [id number] : 1975 49 From: Obey Marquez CRNA PCP: Dr. Shahzad Bright MD Status:REG [facility] Y Race: C Location: [place] [address] Anesthesia: Postop Eval I Current Vital Signs [...] Eval 1 completed: Yes 05/15/25944 Date Obey Marquez FELTING MACHINE OPERATOR HELPER Cosigner Signature: Date CC: Signed [facility] MR/MOXXAQAA7mr 05-15-2025 MR/POSTOPAN2 [facility] Medical Records Department [address] [place] [address] Anesthesia Postop Eval II 05/15/25 1017 MR#: [id number] Acct: [id number] Name: ZENA BENNETT Rep #: [id number] : 1975 49 From: Brown Doan MD PCP: Dr. Shahzad Bright MD Status:[place] [facility] [place]: C Location: [address] Anesthesia Postop Eval I Sum Postop Eval Completion status Anesthesia document: Postop Eval 1 completed: Yes Anesthesia Postop Eval I Summary Anesthesia Postop Eval I Summary: Anesthesia Postop Eval I: Assessment Summary Airway patent Yes 05/15/25 09:45 FELTING MACHINE OPERATOR HELPER.MDOT Spontaneous unlabored Yes 05/15/25 09:45 FELTING MACHINE OPERATOR HELPER.MDOT respirations Mental status Awake,Calm 05/15/25 09:49 FELTING MACHINE OPERATOR HELPER.MDOT nausea No 05/15/25 09:49 FELTING MACHINE OPERATOR HELPER.MDOT Vomiting No 05/15/25 09:49 FELTING MACHINE OPERATOR HELPER.MDOT Anesthesia Postop Eval I: Fluid Summary Crystalloid volume administer 100 05/15/25 09:45 FELTING MACHINE OPERATOR HELPER.MDOT (ml) Colloids volume administered ( ml) Blood Product volume administered (ml) Total IV fluid infused 100 05/15/25 09:45 FELTING MACHINE OPERATOR HELPER.MDOT Anesthesia Postop Eval I: Summary Notes Anesthesia Complication No 05/15/25 09:49 FELTING MACHINE OPERATOR HELPER.MDOT Anesthesia Complication Comment: Post-operative progress note Anesthesia: Postop Eval II Evaluation Mental status: Awake Pain Level: 0 nausea: No Vomiting: No Complications Anesthesia Complication: No 05/15/25 1017 Date Brown Doan MD Cosigner Signature: Date CC: Signed [facility] MR/POSTOPAN2 [facility] Medical Records Department [address] [place] [address] Anesthesia Postop Eval II 05/15/25 0948 MR#: [id number] Acct: [id number] Name: ZENA BENNETT Rep #: [id number] : 1975 49 From: Obey Marquez FELTING MACHINE OPERATOR HELPER PCP: Dr. Shahzad Bright MD Status:REG [facility] Y Race: C Location: [place] [address] Anesthesia Postop Eval I Sum Postop Eval Completion status Anesthesia document: Postop Eval 1 completed: Yes Anesthesia Postop Eval I Summary Anesthesia Postop Eval I Summary: Anesthesia Postop Eval I: Assessment Summary Airway patent Yes 05/15/25 09:45 FELTING MACHINE OPERATOR HELPER.MDOT Spontaneous unlabored Yes 05/15/25 09:45 FELTING MACHINE OPERATOR HELPER.MDOT respirations Mental status Awake,Calm 05/15/25 09:45 FELTING MACHINE OPERATOR HELPER.MDOT nausea No 05/15/25 09:45 FELTING MACHINE OPERATOR HELPER.MDOT Vomiting No 05/15/25 09:45 FELTING MACHINE OPERATOR HELPER.MDOT Anesthesia Postop Eval I: Fluid Summary Crystalloid volume administer 100 05/15/25 09:45 FELTING MACHINE OPERATOR HELPER.MDOT (ml) Colloids volume administered ( ml) Blood Product volume administered (ml) Total IV fluid infused 100 05/15/25 09:45 FELTING MACHINE OPERATOR HELPER.MDOT Anesthesia Postop Eval I: Summary Notes Anesthesia Complication No 05/15/25 09:45 FELTING MACHINE OPERATOR HELPER.MDOT Anesthesia Complication Comment: Post-operative progress note Anesthesia: Postop Eval II Evaluation Mental status: Awake and Calm Pain Level: 0 nausea: No Vomiting: No Complications Anesthesia Complication: No 05/15/25 0949 Date Obey Marquez FELTING MACHINE OPERATOR HELPER Cosigner Signature: Date CC: Signed [facility] Surgery Specimen Level Thao 05-15-2025 Surgery Specimen Level IV Patient Age/Sex Location Account Attending Physician ZENA BENNETT 49/M EN [id number] Kota Kan DO Specimen: [id number] Received: 05/15/25 Status: YAMILA Valente Num: [id number] Spec Type: EGD BIOPSY Subm Dr: Kota Friend, DO HEADER OPERATION: EGD with biopsy and [...] specimen is totally submitted in one cassette. MS 05/15/2025 CPT:93308y1 ADDENDUM Addendum 1 Entered: 06/26/25 This addendum is added to incorporate an outside pathology consultation report. [place] [employer] - TISSUE CYPHER REPORT - BLOCK A1: Patient Age/Sex Location Account Attending Physician SHAWZENA RODRIGUEZ 49/M EN [id number] Kotalouie Kan DO ADDENDUM (Continued) Risk Class: LOW Risk Score: 3.5 5-year probability of progression: 2% Please see complete above mentioned consultation report in EMR Addendum Signed (signature on file) Dr. Adeline Salazar MD 06/26/25 0957 Patient Age/Sex Location Account Attending Physician SHAWZENA FELICIANO 49/M EN [id number] Kota Kan, DO Signed (signature on file) Dr. Mary Ann Astorga DO 05/16/25 1052 [facility] Comment on above: Performed By: #### P SUIV #### [facility] [address] [place], [place], [address] MR/PATRita 05-14-2025 /PAT.[facility] Medical Records Department [address] [place] [address] PAT - Anesthesia 05/14/25 1514 MR#: [id number] Acct: [id number] Name: ZENA BENNETT Rep #: [id number] : 1975 49 From: Justin Palmer MD PCP: Dr. Shahzad Bright MD Status:PRE [facility] [place] Race: C Location: EN Pre-Assessment Diagnosis/Proposed Procedure Planned Operative Procedure(s): EGD Anesthesia History Anesthesia History - net fisher: Anesthesia History - net fisher Hx Hospitalization No 05/14/25 09:03 Any Problems [...] take am of surgery PONV PONV - net fisher: PONV - net fisher Female No 05/14/25 09:03 HX of Motion [...] 05/12/25 08:34 Respiratory Assessment Respiratory Assessment - net fisher: Respiratory Tract Infection Hx - net fisher Hx Respiratory Tract Infection No 05/14/25 09:03 STOP Sleep Apnea STOP Sleep Apnea - net fisher: STOP Sleep Apnea - net fisher Hx Hypertension No 05/14/25 09:03 Hx Sleep [...] Tobacco Use History Tobacco Use History - net fisher: Tobacco Use History - net fisher Tobacco Use Smoking Status Current every day smoker 05/14/25 09:03 Hx Tobacco Use Yes 05/14/25 09:03 Years Smoking Packs Smoked per Day Smoking Cessation Date was within the last 15 years Hx Smoking Cessation Date Hx Smoking Cessation Counseling Hematologic Medial History Hematologic Hx - net fisher: Hematologic Medical Hx - care transition mgr Hx of Blood Transfusion No 05/14/25 09:03 [...] /Reproducti on History /Reproducti ve History - net fisher: /Reproducti ve Hx- net fisher Hx Now No 05/14/25 09:03 Gestational Age (in weeks): EDC: Hx Hx Para Hx Section SAB No 05/14/25 09:03 [facility] Medical History (Updated 05/14/25 @ 09:12 by [...] QDAY 05/12/25 Unknown His tory peg 3350-sod sulf,skcul-izo-rbk See Rx Instructions PO .COMPLEX #2 05/12/25 Unknown Rx 178.7-7.3-0.5-1.12-0 .9 gram oral mL soln (Suflave) Allergy/AdvReac Type Severity Reaction Status Date / Time Sulfa (Sulfonamid (more content not included)... [facility] Gastroenterology Visit Repor ton 05-12-2025 Gastroenterology Visit Report [facility] Gastroenterology [address] [place] [address] OFFICE VISIT Date of Service: 05/12/25 MR#: [id number] Acct: [id number] Name: ZENA BENNETT Rep #: [id number] : 1975 Provider: CINDY bearden Age/Sex: 49/M Location[place] [facility] [place]: Signed Intake Vital Signs 03/04/25 07:48 [...] Intake Visit Reasons: Dysphagia Chief Complaint: dysphagia Director Social Required: No Accompanied by: Self Is patient in pain?: No Allergies Sulfa (Sulfonamide Antibiotics) Allergy (Verified 05/05/25 13:39) Hives Medications ???Medication ???Instructions ???Recorded ???Confirmed ???Type buspirone 7.5 mg tablet 7.5 mg PO TID 05/05/25 05/05/25 Hi story omeprazole 40 mg capsule,delayed 40 mg PO QDAY 05/05/25 05/05/25 Hi story release multivitamin 1 tab PO QDAY 05/12/25 05/12/25 Hi story peg 3350-sod sulf,ovqyq-cpw-uvx See Rx Instructions PO .COMPLEX #2 05/12/25 05/12/25 Rx 178.7-7.3-0.5-1.12-0 .9 gram oral mL soln (Suflave) Nurse's Note: Has had problems with swallowing for 8 weeks now. Anything gets stuck in his throat.It gets worse when his sinus' get worse. [facility] Medical History Sleep related bruxism CTS (carpal [...] stools, Bl (more content not included)... [facility] Esophagus Dual Contraston Esophagus Dual Contrast [facility] Imaging Services [address] [place] [address] Esophagus Dual Contrast MR#: [id number] Acct: [id number] Name: ZENA BENNETT Rep #: [id number] : 1975 M 49 From: Elliot gonzales MD PCP: Dr. Shahzad Bright MD Status: REG CLI Study: Esophagus Dual Contrast Date of Exam: 04/09/25 Exam# [id number] Ordering Dr: Shahzad Bright MD EXAM: Air-contrast [...] 12 mm tablet of barium. Reading Location: [place] [address] CC: Dr. Shahzad Bright MD Lithograph Designer: Signed [facility] Absolute lymphocyte countOrd ered By: Shahzad Bright on 04-02-2025 Lymphocytes Auto (Unsp spec) [#/Vol] 3.10 10*3/uL 0.83-4.51 [facility] Absolute neutrophil countOrd ered By: Shahzad Bright on 04-02-2025 Neutrophils (Bld) [#/Vol] 3.7 10*3/uL 2.0-7.7 [facility] Anion gap in Serum or Plasma Ordered By: Shahzad Bright on 04-02-2025 Anion gap [Moles/Vol] 10 mmol/L 5-15 [facility] Automated lymphocyte count a s percentage of total leukocytesOrdered By: Shahzad Bright on 04-02-2025 Lymphocytes/100 WBC Auto (Unsp spec) 39.7 % - [facility] BUN/creatinine ratioOrdered By: Shahzad Bright on 04-02-2025 Urea nitrogen/Creatinine [Mass ratio] 12.8 mg/mg 10- [facility] Basophil percentageOrdered B y: Shahzad Bright on 04-02-2025 Basophils/100 WBC (Bld) 0.6 % 0-1 [facility] Bilirubin Test strip Ql (U)O rdered By: Shahzad Bright on 04-02-2025 Bilirubin Ql (U) Negative Negative [facility] Bilirubin, totalOrdered By: Shahzad Bright on 04-02-2025 Bilirubin [Mass/Vol] 0.41 mg/dL 0.00-1.30 [facility] CBC W/Diff, Automatedon Absolute Lymph 3.10 X10 3/uL Normal 0.83-4.51 [facility] Comment on above: Order Comment: Order Date: 04/01/25Order Info: 0184-1 - CBCD Performed By: #### L 501.9985, L500.4050, L500.4100, L100.0100 ####[facility] [address] [place], [place], [address] Absolute Neut 3.7 X10 3/uL Normal 2.0-7.7 [facility] Comment on above: Order Comment: Order Date: 04/01/25Order Info: 0184-1 - CBCD Performed By: #### L 501.9985, L500.4050, L500.4100, L100.0100 ####[facility] [address] [place], [address] Basophils/100 WBC (Bld) 0.6 % Normal 0-1 [facility] Comment on above: Order Comment: Order Date: 04/01/25Order Info: 0184-1 - CBCD Performed By: #### L 501.9985, L500.4050, L500.4100, L100.0100 ####[facility] [address] [place], [address] Eosinophils/100 WBC (Bld) 1.9 % Normal 0-5 [facility] Comment on above: Order Comment: Order Date: 04/01/25Order Info: 0184-1 - CBCD Performed By: #### L 501.9985, L500.4050, L500.4100, L100.0100 ####[facility] [address] [place], [address] Erythrocyte distribution width (RBC) [Ratio] 13.3 % Normal 11.6-14.6 [facility] Comment on above: Order Comment: Order Date: 04/01/25Order Info: 0184-1 - CBCD Performed By: #### L 501.9985, L500.4050, L500.4100, L100.0100 ####[facility] [address] [place], [address] Hematocrit (Bld) [Volume fraction] 45.5 % Normal 40-54 [facility] Comment on above: Order Comment: Order Date: 04/01/25Order Info: 0184-1 - CBCD Performed By: #### L 501.9985, L500.4050, L500.4100, L100.0100 ####[facility] [address] [place], [address] Hemoglobin (Bld) [Mass/Vol] 14.0 g/dL Normal 13.0-16.5 [facility] Comment on above: Order Comment: Order Date: 04/01/25Order Info: 0184-1 - CBCD Performed By: #### L 501.9985, L500.4050, L500.4100, L100.0100 ####[facility] [facility] [address] [place], [address] IG% 0.300 Normal 0.0-0.9 [facility] Comment on above: Order Comment: Order Date: 04/01/25Order Info: [id number] - CBCD Result Comment: IG% - Immature Granulocytes (promyelocytes, myelocytes and metamyelocytes) > 1% indicates that a LEFT SHIFT is Present. Performed By: #### L 501.9985, L500.4050, L500.4100, L100.0100 ####[facility] [address] [place], [address] Lymphocytes/100 WBC (Bld) 39.7 % Normal 19-41 [facility] Comment on above: Order Comment: Order Date: 04/01/25Order Info: [id number] - CBCD Performed By: #### L 501.9985, L500.4050, L500.4100, L100.0100 ####[facility] [address] [place], [address] MCH (RBC) [Entitic mass] 26.5 pg Low 27.0-32.0 [facility] Comment on above: Order Comment: Order Date: 04/01/25Order Info: [id number] - CBCD Performed By: #### L 501.9985, L500.4050, L500.4100, L100.0100 ####[facility] [address] [place], [address] MCHC (RBC) [Mass/Vol] 30.8 g/dL Low 32-36 [facility] Comment on above: Order Comment: Order Date: 04/01/25Order Info: [id number] - CBCD Performed By: #### L 501.9985, L500.4050, L500.4100, L100.0100 ####[facility] [address] [place], [address] MCV (RBC) [Entitic vol] 86.0 fL Normal 80-94 [facility] Comment on above: Order Comment: Order Date: 04/01/25Order Info: [id number] - CBCD Performed By: #### L 501.9985, L500.4050, L500.4100, L100.0100 ####[facility] [address] [place], [address] Monocytes/100 WBC (Bld) 9.9 % Normal 0-10 [facility] Comment on above: Order Comment: Order Date: 04/01/25Order Info: [id number] - CBCD Performed By: #### L 501.9985, L500.4050, L500.4100, L100.0100 ####[facility] [address] [place], [address] Neutrophils/100 WBC (Bld) 47.6 % Normal 47-70 [facility] Comment on above: Order Comment: Order Date: 04/01/25Order Info: [id number] - CBCD Performed By: #### L 501.9985, L500.4050, L500.4100, L100.0100 ####[facility] [address] [place], [address] Nucleated RBC (Bld) [#/Vol] 0 10*3/uL Normal 0-5 [facility] Comment on above: Order Comment: Order Date: 04/01/25Order Info: [id number] - CBCD Performed By: #### L 501.9985, L500.4050, L500.4100, L100.0100 ####[facility] [address] [place], [address] Platelet mean volume (Bld) [Entitic vol] 10.6 fL Normal 6.2-12.0 [facility] Comment on above: Order Comment: Order Date: 04/01/25Order Info: [id number] - CBCD Performed By: #### L 501.9985, L500.4050, L500.4100, L100.0100 ####[facility] [address] [place], [address] Platelets (Bld) [#/Vol] 252 10*3/uL Normal 150-450 [facility] Comment on above: Order Comment: Order Date: 04/01/25Order Info: [id number] - CBCD Performed By: #### L 501.9985, L500.4050, L500.4100, L100.0100 ####[facility] [address] [place], [address] RBC (Bld) [#/Vol] 5.29 10*6/uL Normal 4.6-6.2 [facility] Comment on above: Order Comment: Order Date: 04/01/25Order Info: [id number] - CBCD Performed By: #### L 501.9985, L500.4050, L500.4100, L100.0100 ####[facility] [address] [place], [address] RDW SD 41.5 fl Normal 35.1-43.9 [facility] Comment on above: Order Comment: Order Date: 04/01/25Order Info: [id number] - CBCD Performed By: #### L 501.9985, L500.4050, L500.4100, L100.0100 ####[facility] [address] [place], [address] WBC (Bld) [#/Vol] 7.8 10*3/uL Normal 4.4-11.0 [facility] Comment on above: Order Comment: Order Date: 04/01/25Order Info: [id number] - CBCD Performed By: #### L 501.9985, L500.4050, L500.4100, L100.0100 ####[facility] [address] [place], [address] Calculated very low density lipoprotein (VLDL) cholesterol measurementOrdered By: Shahzad Bright on 04-02-2025 Calculated very low density lipoprotein (VLDL) cholesterol measurement 35 mg/dL 5-40 [facility] Carbon dioxide, total [Moles /volume] in Central venous bloodOrdered By: hSahzad Bright on 04-02-2025 CO2 [Moles/Vol] 24.8 mmol/L 21.0-32.0 [facility] Chloride assayOrdered By: Isadora Bright on 04-02-2025 Chloride [Moles/Vol] 104 mmol/L 98-108 [facility] Comprehensive Metabolic Prof ilon 04-02-2025 Albumin [Mass/Vol] 4.1 g/dL Normal 3.5-5.0 [facility] Comment on above: Order Comment: Order Date: 04/01/25Order Info: [id number] - CMPOrder Info: [id number] - LIPID Performed By: #### L 501.9985, L500.4050, L500.4100, L100.0100 ####[facility] [address] [place], [address] Albumin/Globulin [Mass ratio] 1.3 {ratio} Normal 0.9-2.4 [facility] Comment on above: Order Comment: Order Date: 04/01/25Order Info: [id number] - CMPOrder Info: [id number] - LIPID Performed By: #### L 501.9985, L500.4050, L500.4100, L100.0100 ####[facility] [address] [place], [address] ALK PHOS 48 U/L Normal 40-129 [facility] Comment on above: Order Comment: Order Date: 04/01/25Order Info: [id number] - CMPOrder Info: [id number] - LIPID Performed By: #### L 501.9985, L500.4050, L500.4100, L100.0100 ####[facility] [address] [place], [address] ALT [Catalytic activity/Vol] 45 U/L Normal <=46 [facility] Comment on above: Order Comment: Order Date: 04/01/25Order Info: [id number] - CMPOrder Info: [id number] - LIPID Performed By: #### L 501.9985, L500.4050, L500.4100, L100.0100 ####[facility] [address] [place], [address] AST [Catalytic activity/Vol] 34 U/L Normal <=37 [facility] Comment on above: Order Comment: Order Date: 04/01/25Order Info: [id number] - CMPOrder Info: [id number] - LIPID Performed By: #### L 501.9985, L500.4050, L500.4100, L100.0100 ####[facility] [address] [place], [address] Bilirubin [Mass/Vol] 0.41 mg/dL Normal 0.00-1.30 [facility] Comment on above: Order Comment: Order Date: 04/01/25Order Info: [id number] - CMPOrder Info: [id number] - LIPID Performed By: #### L 501.9985, L500.4050, L500.4100, L100.0100 ####[facility] [address] [place], [address] BUN/CRE 12.8 RATIO Normal 10-20 [facility] Comment on above: Order Comment: Order Date: 04/01/25Order Info: [id number] - CMPOrder Info: [id number] - LIPID Performed By: #### L 501.9985, L500.4050, L500.4100, L100.0100 ####[facility] [address] [place], [address] Calcium [Mass/Vol] 9.5 mg/dL Normal 7.6-11.0 [facility] Comment on above: Order Comment: Order Date: 04/01/25Order Info: [id number] - CMPOrder Info: [id number] - LIPID Performed By: #### L 501.9985, L500.4050, L500.4100, L100.0100 ####[facility] [address] [place], [address] Chloride [Moles/Vol] 104 mmol/L Normal 98-108 [facility] Comment on above: Order Comment: Order Date: 04/01/25Order Info: [id number] - CMPOrder Info: [id number] - LIPID Performed By: #### L 501.9985, L500.4050, L500.4100, L100.0100 ####[facility] [address] [place], [address] CO2 [Moles/Vol] 24.8 mmol/L Normal 21.0-32.0 [facility] Comment on above: Order Comment: Order Date: 04/01/25Order Info: 07- - CMPOrder Info: [id number] - LIPID Performed By: #### L 501.9985, L500.4050, L500.4100, L100.0100 ####[facility] [address] [place], [address] Creatinine [Mass/Vol] 0.84 mg/dL Normal 0.70-1.20 [facility] Comment on above: Order Comment: Order Date: 04/01/25Order Info: [id number]- - CMPOrder Info: [id number] - LIPID Performed By: #### L 501.9985, L500.4050, L500.4100, L100.0100 ####[facility] [address] [place], [address] GAP 10 Normal 5-15 [facility] Comment on above: Order Comment: Order Date: 04/01/25Order Info: [id number] - CMPOrder Info: [id number] - LIPID Performed By: #### L 501.9985, L500.4050, L500.4100, L100.0100 ####[facility] [address] [place], [address] GFR/1.73 sq M.predicted among non-blacks MDRD (S/P/Bld) [Vol rate/Area] 107 mL/min/{1.73_m2} Normal >60 [facility] Comment on above: Order Comment: Order Date: 04/01/25Order Info: [id number] - CMPOrder Info: [id number] - LIPID Result Comment: mL/m in/1.73m2 CKD-EPI Creatinine Equation (2020) Performed By: #### L 501.9985, L500.4050, L500.4100, L100.0100 ####[facility] [address] [place], [address] Globulin (S) [Mass/Vol] 3.1 g/dL Normal 2.2-4.2 [facility] Comment on above: Order Comment: Order Date: 04/01/25Order Info: [id number]- - CMPOrder Info: [id number] - LIPID Performed By: #### L 501.9985, L500.4050, L500.4100, L100.0100 ####[facility] [address] [place], [address] Glucose [Mass/Vol] 99 mg/dL Normal 70-99 [facility] Comment on above: Order Comment: Order Date: 04/01/25Order Info: [id number] - CMPOrder Info: [id number] - LIPID Performed By: #### L 501.9985, L500.4050, L500.4100, L100.0100 ####[facility] [address] [place], [address] Potassium [Moles/Vol] 4.5 mmol/L Normal 3.3-5.1 [facility] Comment on above: Order Comment: Order Date: 04/01/25Order Info: [id number] - CMPOrder Info: [id number] - LIPID Performed By: #### L 501.9985, L500.4050, L500.4100, L100.0100 ####[facility] [address] [place], [address] Sodium [Moles/Vol] 140 mmol/L Normal 133-145 [facility] Comment on above: Order Comment: Order Date: 04/01/25Order Info: [id number] - CMPOrder Info: [id number] - LIPID Performed By: #### L 501.9985, L500.4050, L500.4100, L100.0100 ####[facility] [address] [place], [address] T PROT 7.2 g/dL Normal 5.9-8.4 [facility] Comment on above: Order Comment: Order Date: 04/01/25Order Info: [id number] - CMPOrder Info: [id number] - LIPID Performed By: #### L 501.9985, L500.4050, L500.4100, L100.0100 ####[facility] [address] [place], [address] Urea nitrogen [Mass/Vol] 11 mg/dL Normal 4-19 [facility] Comment on above: Order Comment: Order Date: 04/01/25Order Info: [id number] - CMPOrder Info: [id number] - LIPID Performed By: #### L 501.9985, L500.4050, L500.4100, L100.0100 ####[facility] [address] [place], [address] Eosinophil percentageOrdered By: Shahzad Bright on 04-02-2025 Eosinophils/100 WBC (Bld) 1.9 % 0-5 [facility] Erythrocyte distribution wid th ratioOrdered By: Shahzad Bright on 04-02-2025 Erythrocyte distribution width (RBC) [Ratio] 13.3 % 11.6-14.6 [facility] Erythrocyte distribution wid th standard deviationOrdered By: Shahzad Bright on 04-02-2025 Erythrocyte distribution width (RBC) [Ratio] 41.5 fl 35.1-43.9 [facility] Glomerular filtration rate ( GFR) estimation/1.73 sq m using serum, plasma, or whole bOrdered By: Shahzad Bright on 04-02-2025 GFR/1.73 sq M.predicted among non-blacks MDRD (S/P/Bld) [Vol rate/Area] 107 mL/min/{1.73_m2} >60 [facility] Comment on above: mL/min/1.73m2 CKD-EP I Creatinine Equation (2020) Hematocrit Auto (Bld) [Volum e fraction]Ordered By: Shahzad Bright on 04-02-2025 Hematocrit (Bld) [Volume fraction] 45.5 % 40-54 [facility] Hemoglobin A1con 04-02-2025 HbA1c (Bld) [Mass fraction] 5.9 % High <=5.6 [facility] Comment on above: Order Comment: Order Date: 04/01/25Order Info: [id number] - A1C Result Comment: Norm al < 5.7 % Prediabetic 5.7 - 6.4 % Diabetic >or= 6.5 % Please note range changes. Performed By: #### L 501.9985, L500.4050, L500.4100, L100.0100 ####[facility] [address] [place], [address] Hemoglobin A1c percentageOrd ered By: Shahzad Bright on 04-02-2025 HbA1c (Bld) [Mass fraction] 5.9 % High <5.7 [facility] Comment on above: Normal < 5.7 % Predi abetic 5.7 - 6.4 % Diabetic >or= 6.5 % Please note range changes. Hemoglobin measurementOrdere d By: Shahzad Bright on 04-02-2025 Hemoglobin (Bld) [Mass/Vol] 14.0 g/dL 13.0-16.5 [facility] Immature granulocytes/100 WB C Auto (Bld)Ordered By: Shahzad Bright on 04-02-2025 Immature granulocytes/100 WBC (Bld) 0.300 % 0.0-0.9 [facility] Comment on above: IG% - Immature Granu locytes (promyelocytes, myelocytes and metamyelocytes) > 1% indicates that a LEFT SHIFT is Present. Ketones Test strip Ql (U)Ord ered By: Shahzad Bright on 04-02-2025 Ketones Ql (U) Negative Negative [facility] LDL calc ser/plasOrdered By: Shahzad Bright on 04-02-2025 Cholesterol in LDL [Mass/Vol] 126 mg/dL [facility] Comment on above: Qcxlsswwkv=570-088 m g/dL & Higher Igpg=468 mg/dL or greater Laboratory - Chemistry and C hemistry - challengeOrdered By: Shahzad Bright on 04-02-2025 AST [Catalytic activity/Vol] 34 U/L <38 [facility] Lipid Profileon 04-02-2025 CHOL:HDL 6.27 Normal [facility] Comment on above: Order Comment: Order Date: 04/01/25Order Info: [id number] - CMPOrder Info: [id number] - LIPID Performed By: #### L 501.9985, L500.4050, L500.4100, L100.0100 ####[facility] [address] [place], [address] Cholesterol [Mass/Vol] 192 mg/dL Normal <=200 [facility] Comment on above: Order Comment: Order Date: 04/01/25Order Info: [id number] - CMPOrder Info: [id number] - LIPID Result Comment: Chol esterol level, Desirable <200 mg/dL Borderline high cholesterol 200-239 mg/dL High cholesterol >=240 mg/dL Recommendations of the NCEP Adult Treatment Panel for the following risk-cutoff thresholds for the [place] population. Performed By: #### L 501.9985, L500.4050, L500.4100, L100.0100 ####[facility] [address] [place], [address] Cholesterol in HDL [Mass/Vol] 31 mg/dL Low [facility] Comment on above: Order Comment: Order Date: 04/01/25Order Info: [id number] - CMPOrder Info: [id number] - LIPID Result Comment: Birdie onal Cholesterol Education Program (NCEP) guidelines: <40 mg/dL: Low HDL-cholesterol (major risk factor for CHD) >= 60 mg/dL: High HDL-cholesterol (negative risk factor for CHD) HDL-cholesterol is affected by a number of factors, e.g. smoking, exercise, hormones, sex and age. Performed By: #### L 501.9985, L500.4050, L500.4100, L100.0100 ####[facility] [address] [place], [address] Cholesterol in LDL [Mass/Vol] 126 mg/dL Normal [facility] Comment on above: Order Comment: Order Date: 04/01/25Order Info: [id number] - CMPOrder Info: [id number] - LIPID Result Comment: Bord jyzfvi=535-681 mg/dL Higher Yrge=472 mg/dL or greater Performed By: #### L 501.9985, L500.4050, L500.4100, L100.0100 ####[facility] [address] [place], [address] Cholesterol in VLDL [Mass/Vol] 35 mg/dL Normal 5-40 [facility] Comment on above: Order Comment: Order Date: 04/01/25Order Info: [id number] - CMPOrder Info: [id number] - LIPID Performed By: #### L 501.9985, L500.4050, L500.4100, L100.0100 ####[facility] [address] [place], [address] Triglyceride [Mass/Vol] 177 mg/dL Normal [facility] Comment on above: Order Comment: Order Date: 04/01/25Order Info: [id number] - CMPOrder Info: [id number] - LIPID Result Comment: The drugs N-Acetylcysteine and Metamizole may falsely depress this assay. Normal range: <150 mg/dL Borderline High: 150-199 mg/dL High: 200-499 mg/dL Very High: >500 mg/dL Performed By: #### L 501.9985, L500.4050, L500.4100, L100.0100 ####[facility] [address] [place], [address] MCV (mean corpuscular volume ) determinationOrdered By: Shahzad Bright on 04-02-2025 MCV (RBC) [Entitic vol] 86.0 fL 80-94 [facility] Mean corpuscular hemoglobin (MCH) determinationOrdered By: Shahzad Bright on 04-02-2025 MCH (RBC) [Entitic mass] 26.5 pg Low 27.0-32.0 [facility] Mean corpuscular hemoglobin concentration (MCHC) determinationOrdered By: Shahzad Bright on 04-02-2025 MCHC (RBC) [Mass/Vol] 30.8 g/dL Low 32-36 [facility] Mean platelet volume determi nationOrdered By: Shahzad Bright on 04-02-2025 Platelet mean volume (Bld) [Entitic vol] 10.6 fL 6.2-12.0 [facility] Microscopic analysis of urin e for red blood cells (RBC)Ordered By: Shahzad Bright on 04-02-2025 Microscopic analysis of urine for red blood cells (RBC) 0 SEEN /hpf 0-5 [facility] Monocyte percentageOrdered B y: Shahzad Bright on 04-02-2025 Monocytes/100 WBC (Bld) 9.9 % 0-10 [facility] Mucus LM Ql (Urine sed)Order ed By: Shahzad Bright on 04-02-2025 Mucus Ql (Urine sed) 0 SEEN /hpf [facility] Neutrophil percentageOrdered By: Shahzad Bright on 04-02-2025 Neutrophils/100 WBC (Bld) 47.6 % 47-70 [facility] Nitrite Test strip Ql (U)Ord ered By: Shahzad Bright on 04-02-2025 Nitrite Ql (U) Negative Negative [facility] Nucleated red blood cell per centageOrdered By: Shahzad Bright on 04-02-2025 Nucleated RBC/100 WBC (Bld) [Ratio] 0 % 0-5 [facility] Platelet countOrdered By: Isadora Bright on 04-02-2025 Platelets (Bld) [#/Vol] 252 10*3/uL 150-450 [facility] Potassium measurement (mass/ volume)Ordered By: Shahzad Bright on 04-02-2025 Potassium (Unsp spec) [Mass/Vol] 4.5 mmol/L 3.3-5.1 [facility] Protein Test strip Ql (U)Ord ered By: Shahzad Bright on 04-02-2025 Protein Ql (U) Negative Negative [facility] RBC Auto (Bld) [#/Vol]Ordere d By: Shahzad Bright on 04-02-2025 RBC (Bld) [#/Vol] 5.29 10*6/uL 4.6-6.2 [facility] Screening total cholesterol/ high density lipoprotein (HDL) cholesterol ratioOrdered By: Shahzad Bright on 04-02-2025 Cholesterol.total/Choles terol in HDL [Mass ratio] 6.27 {ratio} [facility] Serum creatinine measurement (mass/volume)Ordered By: Shahzad Bright on 04-02-2025 Creatinine [Mass/Vol] 0.84 mg/dL 0.70-1.20 [facility] Serum globulin measurementOr dered By: Shahzad Bright on 04-02-2025 Globulin (S) [Mass/Vol] 3.1 g/dL 2.2-4.2 [facility] Serum glucose measurement (m ass/volume)Ordered By: Shahzad Bright on 04-02-2025 Glucose [Mass/Vol] 99 mg/dL 70-99 [facility] Serum or plasma alanine negro otransferase (ALT) measurementOrdered By: Sahhzad Bright on 04-02-2025 ALT [Catalytic activity/Vol] 45 U/L <47 [facility] Serum or plasma albumin renetta urement (mass/volume)Ordered By: Shahzad Bright on 04-02-2025 Albumin [Mass/Vol] 4.1 g/dL 3.5-5.0 [facility] Serum or plasma albumin/glob ulin mass ratioOrdered By: Shahzad Bright on 04-02-2025 Albumin/Globulin [Mass ratio] 1.3 {ratio} 0.9-2.4 [facility] Serum or plasma alkaline aneesh sphatase measurementOrdered By: Shahzad Bright on 04-02-2025 ALP [Catalytic activity/Vol] 48 U/L 40-129 [facility] Serum or plasma calcium renetta urement (mass/volume)Ordered By: Shahzad Bright on 04-02-2025 Calcium [Mass/Vol] 9.5 mg/dL 7.6-11.0 [facility] Serum or plasma cholesterol in HDL measurement (mass/volume)Ordered By: Shahzad Bright on 04-02-2025 Cholesterol in HDL [Mass/Vol] 31 mg/dL Low >40 [facility] Comment on above: National Cholesterol Education Program (NCEP) guidelines:<40 mg/dL: Low HDL-cholesterol (major risk factor for CHD)>= 60 mg/dL: High HDL-cholesterol (negative risk factor for CHD)HDL-cholesterol is affected by a number of factors, e.g. smoking, exercise, hormones, sex and age. Serum or plasma cholesterol measurement (mass/volume)Ordered By: Shahzad Bright on 04-02-2025 Cholesterol [Mass/Vol] 192 mg/dL <201 [facility] Comment on above: Cholesterol level, D esirable <200 mg/dLBorderline high cholesterol 200-239 mg/dLHigh cholesterol >=240 mg/dLRecommendations of the NCEP Adult Treatment Panel for the following risk-cutoff thresholds for the [place] population. Serum or plasma urea nitroge n measurement (mass/volume)Ordered By: Shahzad Bright on 04-02-2025 Urea nitrogen [Mass/Vol] 11 mg/dL 4-19 [facility] Sodium levelOrdered By: Shahzad Bright on 04-02-2025 Sodium [Moles/Vol] 140 mmol/L 133-145 [facility] Squamous epithelial cells de tection in urine sediment by light microscopyOrdered By: Shahzad Bright on 04-02-2025 Epithelial cells.squamous LM Ql (Urine sed) 0 SEEN /hpf 0-5 [facility] Total proteinOrdered By: Abdelrahman Bright on 04-02-2025 Protein [Mass/Vol] 7.2 g/dL 5.9-8.4 [facility] Triglycerides measurementOrd ered By: Shahzad Bright on 04-02-2025 Triglyceride [Mass/Vol] 177 mg/dL <199 [facility] Comment on above: The drugs N-Acetylcy steine and Metamizole may falsely depress this assay. Normal range: <150 mg/dLBorderline High: 150-199 mg/dLHigh: 200-499 mg/dLVery High: >500 mg/dL Urinalysis, Completeon 04-02 WBC 0-5 SEEN Normal 0-5 [facility] Comment on above: Order Comment: CLEAN CATCH Performed By: #### L 400.0001, L506.1001 ####[facility] [address] [place], [address] BILIRUBIN URINE Negative Normal Negative [facility] Comment on above: Order Comment: CLEAN CATCH Performed By: #### L 400.0001, L506.1001 ####[facility] [address] [place], [address] Clarity (U) Clear Normal Clear [facility] Comment on above: Order Comment: CLEAN CATCH Performed By: #### L 400.0001, L506.1001 ####[facility] [address] [place], [address] Color (U) Yellow Normal Yellow [facility] Comment on above: Order Comment: CLEAN CATCH Performed By: #### L 400.0001, L506.1001 ####[facility] [address] [place], [address] GLUCOSE, UR Normal Normal Normal [facility] Comment on above: Order Comment: CLEAN CATCH Performed By: #### L 400.0001, L506.1001 ####[facility] [address] [place], [address] KETONE UR Negative Normal Negative [facility] Comment on above: Order Comment: CLEAN CATCH Performed By: #### L 400.0001, L506.1001 ####[facility] [address] [place], [address] LEUK ESTERASE Negative Normal Negative [facility] Comment on above: Order Comment: CLEAN CATCH Performed By: #### L 400.0001, L506.1001 ####[facility] [address] [place], [address] Nitrite Ql (U) Negative Normal Negative [facility] Comment on above: Order Comment: CLEAN CATCH Performed By: #### L 400.0001, L506.1001 ####[facility] [address] [place], [address] OCCULT BLOOD-UR Negative Normal Negative [facility] Comment on above: Order Comment: CLEAN CATCH Performed By: #### L 400.0001, L506.1001 ####[facility] [address] [place], [address] pH UR 6.5 Normal 5.0 - 8.0 [facility] Comment on above: Order Comment: CLEAN CATCH Performed By: #### L 400.0001, L506.1001 ####[facility] [address] [place], [address] PROT DIPSTX Negative Normal Negative [facility] Comment on above: Order Comment: CLEAN CATCH Performed By: #### L 400.0001, L506.1001 ####[facility] [address] [place], [address] SP.GR. DIPSTX 1.010 Normal 1.002-1.030 [facility] Comment on above: Order Comment: CLEAN CATCH Performed By: #### L 400.0001, L506.1001 ####[facility] [address] [place], [address] UROBILI Normal Normal Normal [facility] Comment on above: Order Comment: CLEAN CATCH Performed By: #### L 400.0001, L506.1001 ####[facility] [address] [place], [address] BACTERIA 0 SEEN Normal None Seen [facility] Comment on above: Order Comment: CLEAN CATCH Performed By: #### L 400.0001, L506.1001 ####[facility] [address] [place], [address] EPI,SQUAMOUS 0 SEEN Normal 0-5 [facility] Comment on above: Order Comment: CLEAN CATCH Performed By: #### L 400.0001, L506.1001 ####[facility] [address] [place], [address] Mucus Ql (Urine sed) 0 SEEN Normal [facility] Comment on above: Order Comment: CLEAN CATCH Performed By: #### L 400.0001, L506.1001 ####[facility] [address] [place], [address] RBC 0 SEEN Normal 0-5 [facility] Comment on above: Order Comment: CLEAN CATCH Performed By: #### L 400.0001, L506.1001 ####[facility] [address] [place], [address] Urine clarityOrdered By: Abdelrahman Bright on 04-02-2025 Clarity (U) Clear Clear [facility] Urine color determinationOrd ered By: Shahzad Bright on 04-02-2025 Color (U) Yellow Yellow [facility] Urine glucose detectionOrder ed By: Shahzad Bright on 04-02-2025 Glucose Ql (U) Normal mg/dl Normal [facility] Urine leukocyte esterase det ection by dipstickOrdered By: Shahzad Bright on 04-02-2025 Leukocyte esterase Test strip Ql (U) Negative Negative [facility] Urine pHOrdered By: Shahzad lezama on 04-02-2025 pH (U) 6.5 [pH] 5.0 - 8.0 [facility] Urine sediment bacteria coun t by microscopy (number/high power field)Ordered By: Shahzad Bright on 04-02-2025 Bacteria LM.HPF (Urine sed) [#/Area] 0 /[HPF] None Seen [facility] Urine specific gravity measu rementOrdered By: Shahzad Bright on 04-02-2025 Specific gravity (U) [Rel density] 1.010 1.002-1.030 [facility] Urine urobilinogen measureme ntOrdered By: Shahzad Bright on 04-02-2025 Urobilinogen Ql (U) Normal mg/dl Normal [facility] Vitamin D,25 Hydroxyon 04-02 Vitamin D 25-OH 30.5 ng/mL Normal 30-100 [facility] Comment on above: Order Comment: Order Date: 04/01/25Order Info: 0786-1 - CMPOrder Info: 52784-8 - LIPID Result Comment: Jamilah min D Status Deficiency: <20 ng/mL (50nmol/L) Insufficiency: 20-30 ng/mL (50-75 nmol/L) Sufficiency: 30-100 ng/mL (75-250 nmol/L) Toxicity: >100 ng/mL (>250 nmol/L) Performed By: #### L 400.0001, L506.1001 ####[facility] [address] [place], [address] White blood cell (WBC) count Ordered By: Shahzad Bright on 04-02-2025 WBC (Bld) [#/Vol] 7.8 10*3/uL 4.4-11.0 [facility] White blood cell countOrdere d By: Shahzad Bright on 04-02-2025 White blood cell count 0-5 SEEN /hpf 0-5 [facility] Pulmonary Visit Reporton Pulmonary Visit Report [facility] [address] [place] [address] OFFICE VISIT Date of Service: 03/04/25 MR#: [id number] Acct: [id number] Name: ZENA BENNETT Rep #: [id number] : 1975 Provider: CINDY Leavitt Age/Sex: 49/M Location: [facility] [place].PMW Status: Signed Assessment and Plan Assessment and [...] Additional Comments: This note was generated with [employer] dictation software. It may contain incorrect words, [...] nicotine. He does have a greater than 62-lylt-uojs smoking history. 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 Social Required: No DME Vendor: Geoff Accompanied by: Self Is patient in pain?: No Allergies Sulfa (Sulfonamide Antibiotics) Allergy (Verified 03/04/25 09:03) Hives Medications ???Medication ???Instructions ???Recorded ???Confirmed ???Type buspirone 7.5 mg tablet 7.5 mg PO BID 12/14/23 03/04/25 Hi story cholecalciferol (vitamin D3) 50 50 mcg PO BID 12/14/23 03/04/25 Hi story mcg (2,000 unit) capsule vehldjwo-tlnijstg-od lic acid 400 tab PO 12/14/23 03/04/25 History mcg-vit K 20 mcg-lycop 300 mcg tablet (One-A-Day Men's Multivitamin) omega-3 fatty acids 1,000 mg 1,000 mg PO TID 12/14/23 03/04/25 History capsule albuterol sulfate 90 mcg/actuation inhalation 03/07/24 03/04/25 His tory aerosol inhaler Have you fallen in the past year?: No PFSH Medical History Sleep related bruxism CTS (carpal tunnel syndrome) Acute sinusitis Inclusion cyst Left shoulder pain Tinnitus, unspecified ear Ankle pain, left Surgical History Hx of tonsillectomy History of appendectomy Family History Mother Diabetes CAD (coronary artery disease) Hypertension Anxiety Depression Father Cancer inoperable brain tumor Social History Smoking Status: Current every day smoker tobacco type: cigarettes (more content not included)... Normal [facility] Testosterone, Total / Freeon 02-23-2025 TESTOSTER,FREE 5.39 ng/dL Normal 5.00-21.00 [facility] Comment on above: Order Comment: Order Date: 02/19/25Order Info: 0024-1 - TESTFN Performed By: #### L 100.0100, L500.4050, L501.9910, L3100.5310, L501.9520, L506.0400 ####[facility] [address] [place], [place], [address](184) TESTOSTER,TOTAL 205 ng/dL Low 264-916 [facility] Comment on above: Order Comment: Order Date: 02/19/25Order Info: 0024-1 - TESTFN Result Comment: Adul t male reference interval is based on a population of healthy nonobese males (BMI <30) between 19 and 39 years old. melissa Mcclellan.al. JCEM 2017,102;6375-7170. PMID: [id number]. Performed By: #### L 100.0100, L500.4050, L501.9910, L3100.5310, L501.9520, L506.0400 ####[facility] [address] [place], [place], [id number] TESTOSTERONE,%F 2.63 Normal 1.50-4.20 [facility] Comment on above: Order Comment: Order Date: 02/19/25Order Info: 0024-1 - TESTFN Result Comment: Perf ormed at: - [facility] [id number] Metal Fitter: Mihai Marrufo PhD, Phone: [phone] Performed at: - [facility] [id number] Metal Fitter: Balwinder Fan MD, Phone: [phone] Performed By: #### L 100.0100, L500.4050, L501.9910, L3100.5310, L501.9520, L506.0400 ####[facility] [address] [place], [place], [id number] Absolute lymphocyte countOrd ered By: Shahzad Bright on 02-19-2025 Lymphocytes Auto (Unsp spec) [#/Vol] 2.72 10*3/uL 0.83-4.51 [facility] Absolute neutrophil countOrd ered By: Shahzad Bright on 02-19-2025 Neutrophils (Bld) [#/Vol] 4.6 10*3/uL 2.0-7.7 [facility] Anion gap in Serum or Plasma Ordered By: Shahzad Bright on 02-19-2025 Anion gap [Moles/Vol] 12 mmol/L 5- [facility] Automated lymphocyte count a s percentage of total leukocytesOrdered By: Shahzad Bright on 02-19-2025 Lymphocytes/100 WBC Auto (Unsp spec) 32.6 % - [facility] BUN/creatinine ratioOrdered By: Shahzad Bright on 02-19-2025 Urea nitrogen/Creatinine [Mass ratio] 17.9 mg/mg 10- [facility] Basophil percentageOrdered B y: Shahzad Bright on 02-19-2025 Basophils/100 WBC (Bld) 0.7 % 0-1 [facility] Bilirubin, totalOrdered By: Shahzad Bright on 02-19-2025 Bilirubin [Mass/Vol] 0.39 mg/dL 0.00-1.30 [facility] CBC W/Diff, Automatedon 01-24 Absolute Lymph 2.72 X10 3/uL Normal 0.83-4.51 [facility] Comment on above: Order Comment: Order Date: 02/19/25 Order Info: 0184-1 - CBCD Performed By: #### L 100.0100, L500.4050, L501.9910, L3100.5310, L501.9520, L506.0400 #### [facility] [address] [place], [place], [address] Absolute Neut 4.6 X10 3/uL Normal 2.0-7.7 [facility] Comment on above: Order Comment: Order Date: 02/19/25 Order Info: 0184-1 - CBCD Performed By: #### L 100.0100, L500.4050, L501.9910, L3100.5310, L501.9520, L506.0400 #### [facility] [address] [place], [address] Basophils/100 WBC (Bld) 0.7 % Normal 0-1 [facility] Comment on above: Order Comment: Order Date: 02/19/25 Order Info: 0184-1 - CBCD Performed By: #### L 100.0100, L500.4050, L501.9910, L3100.5310, L501.9520, L506.0400 #### [facility] [address] [place], [address] Eosinophils/100 WBC (Bld) 1.8 % Normal 0-5 [facility] Comment on above: Order Comment: Order Date: 02/19/25 Order Info: 0184-1 - CBCD Performed By: #### L 100.0100, L500.4050, L501.9910, L3100.5310, L501.9520, L506.0400 #### [facility] [address] [place], [address] Erythrocyte distribution width (RBC) [Ratio] 13.2 % Normal 11.6-14.6 [facility] Comment on above: Order Comment: Order Date: 02/19/25 Order Info: 0184-1 - CBCD Performed By: #### L 100.0100, L500.4050, L501.9910, L3100.5310, L501.9520, L506.0400 #### [facility] [address] [place], [address] Hematocrit (Bld) [Volume fraction] 46.4 % Normal 40-54 [facility] Comment on above: Order Comment: Order Date: 02/19/25 Order Info: 0184-1 - CBCD Performed By: #### L 100.0100, L500.4050, L501.9910, L3100.5310, L501.9520, L506.0400 #### [facility] [address] [place], [address] Hemoglobin (Bld) [Mass/Vol] 14.3 g/dL Normal 13.0-16.5 [facility] Comment on above: Order Comment: Order Date: 02/19/25 Order Info: 01812-24 - CBCD Performed By: #### L 100.0100, L500.4050, L501.9910, L3100.5310, L501.9520, L506.0400 #### [facility] [address] [place], [address] IG% 0.500 Normal 0.0-0.9 [facility] Comment on above: Order Comment: Order Date: 02/19/25 Order Info: 01812-24 - CBCD Result Comment: IG% - Immature Granulocytes (promyelocytes, myelocytes and metamyelocytes) > 1% indicates that a LEFT SHIFT is Present. Performed By: #### L 100.0100, L500.4050, L501.9910, L3100.5310, L501.9520, L506.0400 #### [facility] [address] [place], [address] Lymphocytes/100 WBC (Bld) 32.6 % Normal 19-41 [facility] Comment on above: Order Comment: Order Date: 02/19/25 Order Info: 01812-24 - CBCD Performed By: #### L 100.0100, L500.4050, L501.9910, L3100.5310, L501.9520, L506.0400 #### [facility] [address] [place], [address] MCH (RBC) [Entitic mass] 26.4 pg Low 27.0-32.0 [facility] Comment on above: Order Comment: Order Date: 02/19/25 Order Info: 01812-24 - CBCD Performed By: #### L 100.0100, L500.4050, L501.9910, L3100.5310, L501.9520, L506.0400 #### [facility] [address] [place], [address] MCHC (RBC) [Mass/Vol] 30.8 g/dL Low 32-36 [facility] Comment on above: Order Comment: Order Date: 02/19/25 Order Info: 018- - CBCD Performed By: #### L 100.0100, L500.4050, L501.9910, L3100.5310, L501.9520, L506.0400 #### [facility] [address] [place], [address] MCV (RBC) [Entitic vol] 85.8 fL Normal 80-94 [facility] Comment on above: Order Comment: Order Date: 02/19/25 Order Info: 018- - CBCD Performed By: #### L 100.0100, L500.4050, L501.9910, L3100.5310, L501.9520, L506.0400 #### [facility] [address] [place], [address] Monocytes/100 WBC (Bld) 9.1 % Normal 0-10 [facility] Comment on above: Order Comment: Order Date: 02/19/25 Order Info: 018- - CBCD Performed By: #### L 100.0100, L500.4050, L501.9910, L3100.5310, L501.9520, L506.0400 #### [facility] [address] [place], [address] Neutrophils/100 WBC (Bld) 55.3 % Normal 47-70 [facility] Comment on above: Order Comment: Order Date: 02/19/25 Order Info: 018- - CBCD Performed By: #### L 100.0100, L500.4050, L501.9910, L3100.5310, L501.9520, L506.0400 #### [facility] [address] [place], [address] Nucleated RBC (Bld) [#/Vol] 0 10*3/uL Normal 0-5 [facility] Comment on above: Order Comment: Order Date: 02/19/25 Order Info: 0184-1 - CBCD Performed By: #### L 100.0100, L500.4050, L501.9910, L3100.5310, L501.9520, L506.0400 #### [facility] [address] [place], [address] Platelet mean volume (Bld) [Entitic vol] 10.7 fL Normal 6.2-12.0 [facility] Comment on above: Order Comment: Order Date: 02/19/25 Order Info: 0184-1 - CBCD Performed By: #### L 100.0100, L500.4050, L501.9910, L3100.5310, L501.9520, L506.0400 #### [facility] [address] [place], [address] Platelets (Bld) [#/Vol] 261 10*3/uL Normal 150-450 [facility] Comment on above: Order Comment: Order Date: 02/19/25 Order Info: 0184-1 - CBCD Performed By: #### L 100.0100, L500.4050, L501.9910, L3100.5310, L501.9520, L506.0400 #### [facility] [address] [place], [address] RBC (Bld) [#/Vol] 5.41 10*6/uL Normal 4.6-6.2 [facility] Comment on above: Order Comment: Order Date: 02/19/25 Order Info: 0184-1 - CBCD Performed By: #### L 100.0100, L500.4050, L501.9910, L3100.5310, L501.9520, L506.0400 #### [facility] [address] [place], [address] RDW SD 41.1 fl Normal 35.1-43.9 [facility] Comment on above: Order Comment: Order Date: 02/19/25 Order Info: 018- - CBCD Performed By: #### L 100.0100, L500.4050, L501.9910, L3100.5310, L501.9520, L506.0400 #### [facility] [address] [place], [address] WBC (Bld) [#/Vol] 8.4 10*3/uL Normal 4.4-11.0 [facility] Comment on above: Order Comment: Order Date: 02/19/25 Order Info: 183-09 - CBCD Performed By: #### L 100.0100, L500.4050, L501.9910, L3100.5310, L501.9520, L506.0400 #### [facility] [address] [place], [place], [id number] Carbon dioxide, total [Moles /volume] in Central venous bloodOrdered By: Shahzad Bright on 02-19-2025 CO2 [Moles/Vol] 20.7 mmol/L Low 21.0-32.0 [facility] Chloride assayOrdered By: Isadora Bright on 02-19-2025 Chloride [Moles/Vol] 104 mmol/L 98-108 [facility] Comprehensive Metabolic Prof ilon 02-19-2025 Albumin [Mass/Vol] 4.3 g/dL Normal 3.5-5.0 [facility] Comment on above: Order Comment: Order Date: 02/19/25 Order Info: 0786-1 - CMP Order Info: 3016-3 - TSH Order Info: 2857-1 - PSA Order Info: 3024-7 - T4F Performed By: #### L 100.0100, L500.4050, L501.9910, L3100.5310, L501.9520, L506.0400 #### [facility] [address] [place], [address] Albumin/Globulin [Mass ratio] 1.4 {ratio} Normal 0.9-2.4 [facility] Comment on above: Order Comment: Order Date: 02/19/25 Order Info: 0786-1 - CMP Order Info: 3015-3 - TSH Order Info: 2856-09 - PSA Order Info: 3024-7 - T4F Performed By: #### L 100.0100, L500.4050, L501.9910, L3100.5310, L501.9520, L506.0400 #### [facility] [address] [place], [address] ALK PHOS 51 U/L Normal 40-129 [facility] Comment on above: Order Comment: Order Date: 02/19/25 Order Info: 785-1 - CMP Order Info: 3 - TSH Order Info: 2856-09 - PSA Order Info: 3024-7 - T4F Performed By: #### L 100.0100, L500.4050, L501.9910, L3100.5310, L501.9520, L506.0400 #### [facility] [address] [place], [address] ALT [Catalytic activity/Vol] 34 U/L Normal <=46 [facility] Comment on above: Order Comment: Order Date: 02/19/25 Order Info: 07-1 - CMP Order Info: 3015-3 - TSH Order Info: 28503-25 - PSA Order Info: 3024-7 - T4F Performed By: #### L 100.0100, L500.4050, L501.9910, L3100.5310, L501.9520, L506.0400 #### [facility] [address] [place], [address] AST [Catalytic activity/Vol] 27 U/L Normal <=37 [facility] Comment on above: Order Comment: Order Date: 02/19/25 Order Info: 0786-1 - CMP Order Info: 3016-3 - TSH Order Info: 2856-09 - PSA Order Info: 3024-7 - T4F Performed By: #### L 100.0100, L500.4050, L501.9910, L3100.5310, L501.9520, L506.0400 #### [facility] [address] [place], [address] Bilirubin [Mass/Vol] 0.39 mg/dL Normal 0.00-1.30 [facility] Comment on above: Order Comment: Order Date: 02/19/25 Order Info: 785-09 - CMP Order Info: 3015-11 - TSH Order Info: 2856-09 - PSA Order Info: 3024-7 - T4F Performed By: #### L 100.0100, L500.4050, L501.9910, L3100.5310, L501.9520, L506.0400 #### [facility] [address] [place], [address] BUN/CRE 17.9 RATIO Normal 10-20 [facility] Comment on above: Order Comment: Order Date: 02/19/25 Order Info: 785-09 - CMP Order Info: 3015-11 - TSH Order Info: 2856-09 - PSA Order Info: 3024-7 - T4F Performed By: #### L 100.0100, L500.4050, L501.9910, L3100.5310, L501.9520, L506.0400 #### [facility] [address] [place], [address] Calcium [Mass/Vol] 9.5 mg/dL Normal 7.6-11.0 [facility] Comment on above: Order Comment: Order Date: 02/19/25 Order Info: 785- - CMP Order Info: 3 - TSH Order Info: 2856-09 - PSA Order Info: 3024-7 - T4F Performed By: #### L 100.0100, L500.4050, L501.9910, L3100.5310, L501.9520, L506.0400 #### [facility] [address] [place], [address] Chloride [Moles/Vol] 104 mmol/L Normal 98-108 [facility] Comment on above: Order Comment: Order Date: 02/19/25 Order Info: 0786-1 - CMP Order Info: 3016-3 - TSH Order Info: 2851 - PSA Order Info: 3024-7 - T4F Performed By: #### L 100.0100, L500.4050, L501.9910, L3100.5310, L501.9520, L506.0400 #### [facility] [address] [place], [address] CO2 [Moles/Vol] 20.7 mmol/L Low 21.0-32.0 [facility] Comment on above: Order Comment: Order Date: 02/19/25 Order Info: 785-1 - CMP Order Info: 3 - TSH Order Info: 2856-09 - PSA Order Info: 3024-7 - T4F Performed By: #### L 100.0100, L500.4050, L501.9910, L3100.5310, L501.9520, L506.0400 #### [facility] [address] [place], [address] Creatinine [Mass/Vol] 0.80 mg/dL Normal 0.70-1.20 [facility] Comment on above: Order Comment: Order Date: 02/19/25 Order Info: 0786-1 - CMP Order Info: 6-3 - TSH Order Info: 28571 - PSA Order Info: 3024-7 - T4F Performed By: #### L 100.0100, L500.4050, L501.9910, L3100.5310, L501.9520, L506.0400 #### [facility] [address] [place], [address] GAP 12 Normal 5-15 [facility] Comment on above: Order Comment: Order Date: 02/19/25 Order Info: 785-09 - CMP Order Info: 3015-11 - TSH Order Info: 2856-09 - PSA Order Info: 3023-7 - T4F Performed By: #### L 100.0100, L500.4050, L501.9910, L3100.5310, L501.9520, L506.0400 #### [facility] [address] [place], [address] GFR/1.73 sq M.predicted among non-blacks MDRD (S/P/Bld) [Vol rate/Area] 109 mL/min/{1.73_m2} Normal >60 [facility] Comment on above: Order Comment: Order Date: 02/19/25 Order Info: 785-09 - CMP Order Info: 3015-11 - TSH Order Info: 2856-09 - PSA Order Info: 3023-7 - T4F Result Comment: mL/m in/1.73m2 CKD-EPI Creatinine Equation (2020) Performed By: #### L 100.0100, L500.4050, L501.9910, L3100.5310, L501.9520, L506.0400 #### [facility] [address] [place], [address] Globulin (S) [Mass/Vol] 3.1 g/dL Normal 2.2-4.2 [facility] Comment on above: Order Comment: Order Date: 02/19/25 Order Info: 785-09 - CMP Order Info: 3015-11 - TSH Order Info: 2856-09 - PSA Order Info: 3023-7 - T4F Performed By: #### L 100.0100, L500.4050, L501.9910, L3100.5310, L501.9520, L506.0400 #### [facility] [address] [place], [address] Glucose [Mass/Vol] 115 mg/dL High 70-99 [facility] Comment on above: Order Comment: Order Date: 02/19/25 Order Info: 785-09 - CMP Order Info: 3 - TSH Order Info: 2856-09 - PSA Order Info: 3024-7 - T4F Performed By: #### L 100.0100, L500.4050, L501.9910, L3100.5310, L501.9520, L506.0400 #### [facility] [address] [place], [address] Potassium [Moles/Vol] 4.1 mmol/L Normal 3.3-5.1 [facility] Comment on above: Order Comment: Order Date: 02/19/25 Order Info: 785- - CMP Order Info: 3 - TSH Order Info: 2856-09 - PSA Order Info: 3024-7 - T4F Performed By: #### L 100.0100, L500.4050, L501.9910, L3100.5310, L501.9520, L506.0400 #### [facility] [address] [place], [address] Sodium [Moles/Vol] 137 mmol/L Normal 133-145 [facility] Comment on above: Order Comment: Order Date: 02/19/25 Order Info: 785-09 - CMP Order Info: 3 - TSH Order Info: 2856-09 - PSA Order Info: 3024-7 - T4F Performed By: #### L 100.0100, L500.4050, L501.9910, L3100.5310, L501.9520, L506.0400 #### [facility] [address] [place], [address] T PROT 7.4 g/dL Normal 5.9-8.4 [facility] Comment on above: Order Comment: Order Date: 02/19/25 Order Info: 785-09 - CMP Order Info: 3 - TSH Order Info: 2856-09 - PSA Order Info: 3024-7 - T4F Performed By: #### L 100.0100, L500.4050, L501.9910, L3100.5310, L501.9520, L506.0400 #### [facility] [address] [place], [address] Urea nitrogen [Mass/Vol] 14 mg/dL Normal 4-19 [facility] Comment on above: Order Comment: Order Date: 02/19/25 Order Info: 0786-1 - CMP Order Info: 3016-3 - TSH Order Info: 2857-1 - PSA Order Info: 3024-7 - T4F Performed By: #### L 100.0100, L500.4050, L501.9910, L3100.5310, L501.9520, L506.0400 #### [facility] [address] [place], [address] Eosinophil percentageOrdered By: Shahzad Bright on 02-19-2025 Eosinophils/100 WBC (Bld) 1.8 % 0-5 [facility] Erythrocyte distribution wid th ratioOrdered By: Shahzad Bright on 02-19-2025 Erythrocyte distribution width (RBC) [Ratio] 13.2 % 11.6-14.6 [facility] Erythrocyte distribution wid th standard deviationOrdered By: Shahzad Bright on 02-19-2025 Erythrocyte distribution width (RBC) [Ratio] 41.1 fl 35.1-43.9 [facility] Free testosterone percentage Ordered By: Shahzad Bright on 02-19-2025 Testosterone Free/Testosterone.total [Mass fraction] 2.63 % 1.50-4.20 [facility] Comment on above: Performed at: [address] [id number] Director: Mihai Marrufo PhD, Phone: [phone] at: [facility] [address] [id number] Director: Balwinder Fan MD, Phone: [phone] Glomerular filtration rate ( GFR) estimation/1.73 sq m using serum, plasma, or whole bOrdered By: Shahzad Bright on 02-19-2025 GFR/1.73 sq M.predicted among non-blacks MDRD (S/P/Bld) [Vol rate/Area] 109 mL/min/{1.73_m2} >60 [facility] Comment on above: mL/min/1.73m2 CKD-EP I Creatinine Equation (2020) Hematocrit Auto (Bld) [Volum e fraction]Ordered By: Shahzad Bright on 02-19-2025 Hematocrit (Bld) [Volume fraction] 46.4 % 40-54 [facility] Hemoglobin measurementOrdere d By: Shahzad Bright on 02-19-2025 Hemoglobin (Bld) [Mass/Vol] 14.3 g/dL 13.0-16.5 [facility] Immature granulocytes/100 WB C Auto (Bld)Ordered By: Shahzad Bright on 02-19-2025 Immature granulocytes/100 WBC (Bld) 0.500 % 0.0-0.9 [facility] Comment on above: IG% - Immature Granu locytes (promyelocytes, myelocytes and metamyelocytes) > 1% indicates that a LEFT SHIFT is Present. Laboratory - Chemistry and C hemistry - challengeOrdered By: Shahzad Bright on 02-19-2025 AST [Catalytic activity/Vol] 27 U/L <38 [facility] MCV (mean corpuscular volume ) determinationOrdered By: Shahzad Bright on 02-19-2025 MCV (RBC) [Entitic vol] 85.8 fL 80-94 [facility] Mean corpuscular hemoglobin (MCH) determinationOrdered By: Shahzad Bright on 02-19-2025 MCH (RBC) [Entitic mass] 26.4 pg Low 27.0-32.0 [facility] Mean corpuscular hemoglobin concentration (MCHC) determinationOrdered By: Shahzad Bright on 02-19-2025 MCHC (RBC) [Mass/Vol] 30.8 g/dL Low 32-36 [facility] Mean platelet volume determi nationOrdered By: Shahzad Bright on 02-19-2025 Platelet mean volume (Bld) [Entitic vol] 10.7 fL 6.2-12.0 [facility] Monocyte percentageOrdered B y: Shahzad Bright on 02-19-2025 Monocytes/100 WBC (Bld) 9.1 % 0-10 [facility] Neutrophil percentageOrdered By: Shahzad Bright on 02-19-2025 Neutrophils/100 WBC (Bld) 55.3 % 47-70 [facility] Nucleated red blood cell per centageOrdered By: Shahzad Bright on 02-19-2025 Nucleated RBC/100 WBC (Bld) [Ratio] 0 % 0-5 [facility] PSA,Total - Annual Screenon 02-19-2025 PSA,TOT SCREEN 1.11 ng/mL Normal 0.02-4.00 [facility] Comment on above: Order Comment: Order Date: 02/19/25 Order Info: 0786-1 - CMP Order Info: 3016-3 - TSH Order Info: 2857-1 - PSA Order Info: 3024-7 - T4F Result Comment: This test was performed using the Gavin DecideQuick tPSA method. Measured values of a patient??sample can vary depending on the testing procedure used. PSA values determined on patient samples by different testing procedures cannot be used interchangeably. If there is a change in PSA assays while monitoring therapy, sequential testing should be performed to confirm baseline values. Performed By: #### L 100.0100, L500.4050, L501.9910, L3100.5310, L501.9520, L506.0400 #### [facility] [address] [place], [address] Platelet countOrdered By: Isadora Bright on 02-19-2025 Platelets (Bld) [#/Vol] 261 10*3/uL 150-450 [facility] Potassium measurement (mass/ volume)Ordered By: Shahzad Bright on 02-19-2025 Potassium (Unsp spec) [Mass/Vol] 4.1 mmol/L 3.3-5.1 [facility] RBC Auto (Bld) [#/Vol]Ordere d By: Shahzad Bright on 02-19-2025 RBC (Bld) [#/Vol] 5.41 10*6/uL 4.6-6.2 [facility] Serum creatinine measurement (mass/volume)Ordered By: Shahzad Bright on 02-19-2025 Creatinine [Mass/Vol] 0.80 mg/dL 0.70-1.20 [facility] Serum globulin measurementOr dered By: Shahzad Bright on 02-19-2025 Globulin (S) [Mass/Vol] 3.1 g/dL 2.2-4.2 [facility] Serum glucose measurement (m ass/volume)Ordered By: Shahzad Bright on 02-19-2025 Glucose [Mass/Vol] 115 mg/dL High 70-99 [facility] Serum or plasma alanine negro otransferase (ALT) measurementOrdered By: Shahzad Bright on 02-19-2025 ALT [Catalytic activity/Vol] 34 U/L <47 [facility] Serum or plasma albumin renetta urement (mass/volume)Ordered By: Shahzad Bright on 02-19-2025 Albumin [Mass/Vol] 4.3 g/dL 3.5-5.0 [facility] Serum or plasma albumin/glob ulin mass ratioOrdered By: Shahzad Bright on 02-19-2025 Albumin/Globulin [Mass ratio] 1.4 {ratio} 0.9-2.4 [facility] Serum or plasma alkaline aneesh sphatase measurementOrdered By: Shahzad Bright on 02-19-2025 ALP [Catalytic activity/Vol] 51 U/L 40-129 [facility] Serum or plasma calcium renetta urement (mass/volume)Ordered By: Shahzad Bright on 02-19-2025 Calcium [Mass/Vol] 9.5 mg/dL 7.6-11.0 [facility] Serum or plasma free testost erone measurement (mass/volume)Ordered By: Shahzad Bright on 02-19-2025 Testosterone Free [Mass/Vol] 5.39 ng/dL 5.00-21.00 [facility] Serum or plasma urea nitroge n measurement (mass/volume)Ordered By: Shahzad Bright on 02-19-2025 Urea nitrogen [Mass/Vol] 14 mg/dL 4-19 [facility] Sodium levelOrdered By: Shahzad Bright on 02-19-2025 Sodium [Moles/Vol] 137 mmol/L 133-145 [facility] T4 Free Directon 02-19-2025 T4 FREE DIRECT 1.10 ng/dL Normal 0.76-1.46 [facility] Comment on above: Order Comment: Order Date: 02/19/25Order Info: 0786-1 - CMPOrder Info: 3016-3 - TSHOrder Info: 2856-09 - PSAOrder Info: 3024-7 - T4FN Performed By: #### L 100.0100, L500.4050, L501.9910, L3100.5310, L501.9520, L506.0400 ####[facility] [address] [place], [place], [id number] T4 freeOrdered By: Shahzad morrison on 02-19-2025 Free T4 [Mass/Vol] 1.10 ng/dL 0.76-1.46 [facility] TSH DL <= 0.005 mIU/L QnOrde red By: Shahzad Bright on 02-19-2025 TSH Qn 1.160 uIU/mL 0.300-4.200 [facility] Testosterone, totalOrdered B y: Shahzad Bright on 02-19-2025 Testosterone [Mass/Vol] 205 ng/dL Low 264-916 [facility] Comment on above: Adult male reference interval is based on a population ofhealthy nonobese males (BMI <30) between 19 and 39 yearsold. Eleuterio et.al. JCEM 2017,102;1275-6741. PMID:13906129. Thyroid Stim Hormone (TSH)on 02-19-2025 TSH 1.160 uIU/mL Normal 0.300-4.200 [facility] Comment on above: Order Comment: Order Date: 02/19/25 Order Info: 0786-1 - CMP Order Info: 3 - TSH Order Info: 2856-09 - PSA Order Info: 3023-7 - T4F Performed By: #### L 100.0100, L500.4050, L501.9910, L3100.5310, L501.9520, L506.0400 #### [facility] [address] [place], [place], [id number] (369) Total proteinOrdered By: Abdelrahman Bright on 02-19-2025 Protein [Mass/Vol] 7.4 g/dL 5.9-8.4 [facility] Vitamin B12on 02-19-2025 Cobalamin (Vitamin B12) [Mass/Vol] 373 pg/mL Normal 180-914 [facility] Comment on above: Order Comment: Order Date: 02/19/25Order Info: 0786-1 - CMPOrder Info: 6-3 - TSHOrder Info: 2857-1 - PSAOrder Info: 3024-7 - T4F Performed By: #### L 503.0106, L506.1001 ####[facility] [address] [place], [place], [id number] Vitamin B12 ser/plasOrdered By: Shahzad Bright on 02-19-2025 Cobalamin (Vitamin B12) [Mass/Vol] 373 pg/mL 180-914 [facility] Vitamin D,25 Hydroxyon 02-19 Vitamin D 25-OH 16.6 ng/mL Low 30-100 [facility] Comment on above: Order Comment: Order Date: 02/19/25Order Info: 0786- - CMPOrder Info: 6-3 - TSHOrder Info: 2857-1 - PSAOrder Info: 3024-7 - T4F Result Comment: Jamilah min D Status Deficiency: <20 ng/mL (50nmol/L) Insufficiency: 20-30 ng/mL (50-75 nmol/L) Sufficiency: 30-100 ng/mL (75-250 nmol/L) Toxicity: >100 ng/mL (>250 nmol/L) Performed By: #### L 503.0106, L506.1001 ####[facility] [address] [facility] [facility] [place], [place], [address] White blood cell (WBC) count Ordered By: Shahzad Bright on 02-19-2025 WBC (Bld) [#/Vol] 8.4 10*3/uL 4.4-11.0 [facility] CBC W/Diff, Automatedon 09-26 Absolute Lymph 2.65 X10 3/uL Normal 0.83-4.51 [facility] Comment on above: Order Comment: Order Date: 06/20/24Order Info: 0184-1 - CBCD Performed By: #### L 100.0100, L506.1000, L500.4050, L501.9985 ####[facility] [address] [place], [address] Absolute Neut 3.1 X10 3/uL Normal 2.0-7.7 [facility] Comment on above: Order Comment: Order Date: 06/20/24Order Info: 0184-1 - CBCD Performed By: #### L 100.0100, L506.1000, L500.4050, L501.9985 ####[facility] [address] [place], [address] Basophils/100 WBC (Bld) 0.8 % Normal 0-1 [facility] Comment on above: Order Comment: Order Date: 06/20/24Order Info: 018-1 - CBCD Performed By: #### L 100.0100, L506.1000, L500.4050, L501.9985 ####[facility] [address] [place], [address] Eosinophils/100 WBC (Bld) 2.0 % Normal 0-5 [facility] Comment on above: Order Comment: Order Date: 06/20/24Order Info: 018-1 - CBCD Performed By: #### L 100.0100, L506.1000, L500.4050, L501.9985 ####[facility] [address] [place], [address] Erythrocyte distribution width (RBC) [Ratio] 13.5 % Normal 11.6-14.6 [facility] Comment on above: Order Comment: Order Date: 06/20/24Order Info: 0184-1 - CBCD Performed By: #### L 100.0100, L506.1000, L500.4050, L501.9985 ####[facility] [address] [place], [address] Hematocrit (Bld) [Volume fraction] 43.2 % Normal 40-54 [facility] Comment on above: Order Comment: Order Date: 06/20/24Order Info: 018-1 - CBCD Performed By: #### L 100.0100, L506.1000, L500.4050, L501.9985 ####[facility] [address] [place], [address] Hemoglobin (Bld) [Mass/Vol] 13.0 g/dL Normal 13.0-16.5 [facility] Comment on above: Order Comment: Order Date: 06/20/24Order Info: 018- - CBCD Performed By: #### L 100.0100, L506.1000, L500.4050, L501.9985 ####[facility] [address] [place], [address] IG% 0.200 Normal 0.0-0.9 [facility] Comment on above: Order Comment: Order Date: 06/20/24Order Info: 018- - CBCD Result Comment: IG% - Immature Granulocytes (promyelocytes, myelocytes and metamyelocytes) > 1% indicates that a LEFT SHIFT is Present. Performed By: #### L 100.0100, L506.1000, L500.4050, L501.9985 ####[facility] [address] [place], [address] Lymphocytes/100 WBC (Bld) 40.5 % Normal 19-41 [facility] Comment on above: Order Comment: Order Date: 06/20/24Order Info: 018- - CBCD Performed By: #### L 100.0100, L506.1000, L500.4050, L501.9985 ####[facility] [address] [place], [address] MCH (RBC) [Entitic mass] 26.1 pg Low 27.0-32.0 [facility] Comment on above: Order Comment: Order Date: 06/20/24Order Info: 018- - CBCD Performed By: #### L 100.0100, L506.1000, L500.4050, L501.9985 ####[facility] [address] [place], [address] MCHC (RBC) [Mass/Vol] 30.1 g/dL Low 32-36 [facility] Comment on above: Order Comment: Order Date: 06/20/24Order Info: 183-1 - CBCD Performed By: #### L 100.0100, L506.1000, L500.4050, L501.9985 ####[facility] [address] [place], [address] MCV (RBC) [Entitic vol] 86.7 fL Normal 80-94 [facility] Comment on above: Order Comment: Order Date: 06/20/24Order Info: 183- - CBCD Performed By: #### L 100.0100, L506.1000, L500.4050, L501.9985 ####[facility] [address] [place], [address] Monocytes/100 WBC (Bld) 10.1 % High 0-10 [facility] Comment on above: Order Comment: Order Date: 06/20/24Order Info: 183- - CBCD Performed By: #### L 100.0100, L506.1000, L500.4050, L501.9985 ####[facility] [address] [place], [address] Neutrophils/100 WBC (Bld) 46.4 % Low 47-70 [facility] Comment on above: Order Comment: Order Date: 06/20/24Order Info: 183-1 - CBCD Performed By: #### L 100.0100, L506.1000, L500.4050, L501.9985 ####[facility] [address] [place], [address] Nucleated RBC (Bld) [#/Vol] 0 10*3/uL Normal 0-5 [facility] Comment on above: Order Comment: Order Date: 06/20/24Order Info: 0184-1 - CBCD Performed By: #### L 100.0100, L506.1000, L500.4050, L501.9985 ####[facility] [address] [place], [address] Platelet mean volume (Bld) [Entitic vol] 10.5 fL Normal 6.2-12.0 [facility] Comment on above: Order Comment: Order Date: 06/20/24Order Info: 0184-1 - CBCD Performed By: #### L 100.0100, L506.1000, L500.4050, L501.9985 ####[facility] [address] [place], [address] Platelets (Bld) [#/Vol] 202 10*3/uL Normal 150-450 [facility] Comment on above: Order Comment: Order Date: 06/20/24Order Info: 018-1 - CBCD Performed By: #### L 100.0100, L506.1000, L500.4050, L501.9985 ####[facility] [address] [place], [address] RBC (Bld) [#/Vol] 4.98 10*6/uL Normal 4.6-6.2 [facility] Comment on above: Order Comment: Order Date: 06/20/24Order Info: 0184-1 - CBCD Performed By: #### L 100.0100, L506.1000, L500.4050, L501.9985 ####[facility] [address] [place], [address] RDW SD 42.6 fl Normal 35.1-43.9 [facility] Comment on above: Order Comment: Order Date: 06/20/24Order Info: 0184-1 - CBCD Performed By: #### L 100.0100, L506.1000, L500.4050, L501.9985 ####[facility] [address] [place], [address] WBC (Bld) [#/Vol] 6.6 10*3/uL Normal 4.4-11.0 [facility] Comment on above: Order Comment: Order Date: 06/20/24Order Info: 0184-1 - CBCD Performed By: #### L 100.0100, L506.1000, L500.4050, L501.9985 ####[facility] [address] [place], [address] Comprehensive Metabolic Prof ilon 10-14-2024 Albumin [Mass/Vol] 3.6 g/dL Normal 3.2-5.0 [facility] Comment on above: Order Comment: Order Date: 06/20/24Order Info: 0786-1 - CMP Performed By: #### L 100.0100, L506.1000, L500.4050, L501.9985 ####[facility] [address] [place], [address] Albumin/Globulin [Mass ratio] 1.0 {ratio} Normal 0.9-2.4 [facility] Comment on above: Order Comment: Order Date: 06/20/24Order Info: 0786-1 - CMP Performed By: #### L 100.0100, L506.1000, L500.4050, L501.9985 ####[facility] [address] [place], [address] ALK P 54 U/L Normal 45-117 [facility] Comment on above: Order Comment: Order Date: 06/20/24Order Info: 0786-1 - CMP Performed By: #### L 100.0100, L506.1000, L500.4050, L501.9985 ####[facility] [address] [place], [address] ALT [Catalytic activity/Vol] 35 U/L Normal 16-61 [facility] Comment on above: Order Comment: Order Date: 06/20/24Order Info: 0786-1 - CMP Performed By: #### L 100.0100, L506.1000, L500.4050, L501.9985 ####[facility] [address] [place], [address] AST [Catalytic activity/Vol] 19 U/L Normal 15-37 [facility] Comment on above: Order Comment: Order Date: 06/20/24Order Info: 0786-1 - CMP Performed By: #### L 100.0100, L506.1000, L500.4050, L501.9985 ####[facility] [address] [place], [address] Bilirubin [Mass/Vol] 0.30 mg/dL Normal 0.20-1.00 [facility] Comment on above: Order Comment: Order Date: 06/20/24Order Info: 0786-1 - CMP Result Comment: For patients on eltrombopag therapy, use of Dimension [place] TBIL is not recommended. Performed By: #### L 100.0100, L506.1000, L500.4050, L501.9985 ####[facility] [address] [place], [address] BUN/CRE 22.0 RATIO High 10-20 [facility] Comment on above: Order Comment: Order Date: 06/20/24Order Info: 0786-1 - CMP Performed By: #### L 100.0100, L506.1000, L500.4050, L501.9985 ####[facility] [address] [place], [address] CA,Total 8.7 mg/dL Normal 8.5-10.1 [facility] Comment on above: Order Comment: Order Date: 06/20/24Order Info: 0786-1 - CMP Performed By: #### L 100.0100, L506.1000, L500.4050, L501.9985 ####[facility] [address] [place], [address] Chloride [Moles/Vol] 110 mmol/L High 98-107 [facility] Comment on above: Order Comment: Order Date: 06/20/24Order Info: 0786-1 - CMP Performed By: #### L 100.0100, L506.1000, L500.4050, L501.9985 ####[facility] [address] [place], [address] CO2 [Moles/Vol] 25.0 mmol/L Normal 21.0-32.0 [facility] Comment on above: Order Comment: Order Date: 06/20/24Order Info: 0786-1 - CMP Performed By: #### L 100.0100, L506.1000, L500.4050, L501.9985 ####[facility] [address] [place], [address] Creatinine [Mass/Vol] 0.77 mg/dL Normal 0.70-1.30 [facility] Comment on above: Order Comment: Order Date: 06/20/24Order Info: 0786-1 - CMP Result Comment: The validity of the calculated GFR GFRAA in patients over 70 years has not been determined. Clinical correlation is essential. Performed By: #### L 100.0100, L506.1000, L500.4050, L501.9985 ####[facility] [address] [place], [address] EST GFR - AA 138 mL/min Normal >60 [facility] Comment on above: Order Comment: Order Date: 06/20/24Order Info: 0786-1 - CMP Result Comment: Afri can [facility] GFR Calc Performed By: #### L 100.0100, L506.1000, L500.4050, L501.9985 ####[facility] [address] [place], [address] GAP 3 Low 5-15 [facility] Comment on above: Order Comment: Order Date: 06/20/24Order Info: 0786-1 - CMP Performed By: #### L 100.0100, L506.1000, L500.4050, L501.9985 ####[facility] [address] [place], [address] GFR/1.73 sq M.predicted among non-blacks MDRD (S/P/Bld) [Vol rate/Area] 114 mL/min/{1.73_m2} Normal >60 [facility] Comment on above: Order Comment: Order Date: 06/20/24Order Info: 0786-1 - CMP Result Comment: Non- GFR Calc Performed By: #### L 100.0100, L506.1000, L500.4050, L501.9985 ####[facility] [address] [place], [address] Globulin (S) [Mass/Vol] 3.7 g/dL Normal 2.2-4.2 [facility] Comment on above: Order Comment: Order Date: 06/20/24Order Info: 0786-1 - CMP Performed By: #### L 100.0100, L506.1000, L500.4050, L501.9985 ####[facility] [address] [place], [address] Glucose [Mass/Vol] 100 mg/dL Normal 74-106 [facility] Comment on above: Order Comment: Order Date: 06/20/24Order Info: 0786-1 - CMP Result Comment: Fast ing Glucose result from 100 to 125 mg/dL suggests IMPAIRED HOMEOSTASIS per A.D.A. criteria. Performed By: #### L 100.0100, L506.1000, L500.4050, L501.9985 ####[facility] [address] [place], [address] Potassium [Moles/Vol] 4.3 mmol/L Normal 3.5-5.1 [facility] Comment on above: Order Comment: Order Date: 06/20/24Order Info: 0786-1 - CMP Performed By: #### L 100.0100, L506.1000, L500.4050, L501.9985 ####[facility] [address] [place], [address] Sodium [Moles/Vol] 138 mmol/L Normal 136-145 [facility] Comment on above: Order Comment: Order Date: 06/20/24Order Info: 0786-1 - CMP Performed By: #### L 100.0100, L506.1000, L500.4050, L501.9985 ####[facility] [address] [place], [address] T PROT 7.3 g/dL Normal 6.4-8.2 [facility] Comment on above: Order Comment: Order Date: 06/20/24Order Info: 0786-1 - CMP Performed By: #### L 100.0100, L506.1000, L500.4050, L501.9985 ####[facility] [address] [place], [address] Urea nitrogen [Mass/Vol] 17 mg/dL Normal 7-18 [facility] Comment on above: Order Comment: Order Date: 06/20/24Order Info: 0786-1 - CMP Performed By: #### L 100.0100, L506.1000, L500.4050, L501.9985 ####[facility] [address] [place], [address] Hemoglobin A1con 10-14-2024 HbA1c (Bld) [Mass fraction] 5.7 % High 3.8-5.6 [facility] Comment on above: Order Comment: Order Date: 06/20/24Order Info: 4548-4 - A1C Result Comment: Norm al < 5.7 % Prediabetic 5.7 - 6.4 % Diabetic >or= 6.5 % Please note range changes. Performed By: #### L 100.0100, L506.1000, L500.4050, L501.9985 ####[facility] [address] [place], [address] Vitamin D,25 Hydroxyon 10-14 Vitamin D 25-OH 20.7 ng/mL Normal [facility] Comment on above: Order Comment: Order Date: 06/20/24Order Info: 45271-2 - VITD25 Result Comment: Jamilah min D 25(OH) Status Range Deficiency <20 ng/mL (50nmol/L) Insufficiency 20 - 30 ng/mL (50 - 75 nmol/L) Sufficiency 30 - 100 ng/mL (75 - 250 nmol/L) Toxicity >100 ng/mL (>250 nmol/L) Performed By: #### L 100.0100, L506.1000, L500.4050, L501.9985 ####[facility] [address] [place], [address] Inital Evaluation (1) - PTon 2024 Inital Evaluation (1) - PT [facility] [address] [place] [address]. [address] [place] [address] / REHABILITATION SERVICES INITIAL EVALUATION MR#: [id number] Acct: [id number] Name: ZENA BENNETT Rep #: [id number] : 1975 49 From: Mahin Live DPT, OCS, CSCS Referring Dr.: Dr. Shahzad Bright MD Status: REG RCR Insurance: [facility] [id number] SELF PAY INSURANCE Patient's Visit Information Visit [...] knee and strengthening to I program at [employer]. wean brace. Use US and STM as [...] 1:: Walk without bracing without increased pain [id number] idstance Goal Time Frame: 4-6 Weeks Goal 2:: Get up from stool at [facility] without limping or pain Goal Time Frame: [...] to be FAXED BACK to us at [phone] for Medicare purposes. For Medicare only, by signing this I certify the plan of care. Please let me know if there are questions or concerns regarding this plan of care. Physician Signature: (more content not included)... Normal [facility] Knee 4 or More Viewson 09-26 Knee 4 or More Views [facility] Imaging Services [address] [place], [place] [id number] Knee 4 or More Views MR#: [id number] Acct: [id number] Name: DAMIAN BENNETTSADIA RODRIGUEZ Rep #: [id number] : 1975 M 48 From: Kartik Singh MD PCP: Dr. Shahzad Bright MD Status: REG CLI Study: Knee 4 or More Views Date of Exam: 09/26/24 Exam# [id number] Ordering Dr: Shahzad Bright MD [id number] STUDY: X-RAY - LEFT KNEE REASON FOR [...] 9:37 EST Reading Location ID and State: [address] [place] [address] , Service support , CC: Dr. Shahzad Bright MD Lithograph Designer: Signed Normal [facility] Knee 4 or More Views [facility] Imaging Services [address] [place] [address] Knee 4 or More Views MR#: [id number] Acct: [id number] Name: ZENA BENNETT Rep #: [id number] : 1975 M 48 From: Kartik Singh MD PCP: Dr. Shahzad Bright MD Status: REG CLI Study: Knee 4 or More Views Date of Exam: 09/26/24 Exam# [id number] Ordering Dr: Shahzad Bright MD [id number] STUDY: X-RAY - RIGHT KNEE REASON FOR [...] EST , CC: Dr. Shahzad Bright MD Lithograph Designer: Signed Normal [facility] CNCOon 03-27-2024 CNCO Letter Text Normal [facility] CNOVon 03-14-2024 CNOV Office Visit (GENSWS) ZENA BENNETT ([id number]) 1975 M Date Time Provider Department 03/14/24 [...] Last Colonoscopy: NO PRIOR MILLIE Ugalde Kimberley, FOUNDING PARTNER.MERCHANDISING DIRECTOR 03/15/2024 8:18 AM Signed HISTORY AND PHYSICAL Zena Bennett : 1975 REFERRING PHYSICIAN: MD Willa Sepulveda [address] [facility] [address] CHIEF COMPLAINT: Patient presents with: Consult: Screening [...] Onset D (more content not included)... Normal [facility] Absolute lymphocyte countOrd ered By: Shahzad Bright on 10-13-2023 Lymphocytes Auto (Unsp spec) [#/Vol] 3.47 10*3/uL 0.83-4.51 [facility] Automated lymphocyte count a s percentage of total leukocytesOrdered By: Shahzad Bright on 10-13-2023 Lymphocytes/100 WBC Auto (Unsp spec) 39.2 % 19-41 [facility] Basophil percentageOrdered B y: Shahzad Bright on 10-13-2023 Basophils/100 WBC (Bld) 0.8 % 0-1 [facility] Bilirubin [Mass/Vol] 0.50 mg/dL 0.20-1.00 [facility] Comment on above: For patients on eltr ombopag therapy, use of Dimension [place] TBIL is not recommended. Chloride [Moles/Vol] 112 mmol/L 98-107 [facility] Cholesterol [Mass/Vol] 181 mg/dL <200 [facility] Comment on above: <200 mg/dL Desirable 200-240 mg/dL Borderline >240 mg/dL High Risk Eosinophils/100 WBC (Bld) 1.7 % 0-5 [facility] Glucose [Mass/Vol] 110 mg/dL 74-106 [facility] Comment on above: Fasting Glucose resu lt from 100 to 125 mg/dL suggests IMPAIRED HOMEOSTASIS per A.D.A. criteria. Hemoglobin (Bld) [Mass/Vol] 13.8 g/dL 13.0-16.5 [facility] Monocytes/100 WBC (Bld) 9.0 % 0-10 [facility] Neutrophils (Bld) [#/Vol] 4.3 10*3/uL 2.0-7.7 [facility] Neutrophils/100 WBC (Bld) 49.0 % 47-70 [facility] Potassium [Moles/Vol] 3.9 mmol/L 3.5-5.1 [facility] Protein [Mass/Vol] 7.1 g/dL 6.4-8.2 [facility] Sodium [Moles/Vol] 140 mmol/L 136-145 [facility] Triglyceride [Mass/Vol] 254 mg/dL <199 [facility] Comment on above: The drugs N-Acetylcy steine and Metamizole may falsely depress this assay.Serum Triglycerides Reference Interval Normal <150 mg/dL Borderline high 150 - 199 mg/dL High 200 - 499 mg/dL Very High > or = 500 mg/dL WBC (Bld) [#/Vol] 8.9 10*3/uL 4.4-11.0 [facility] Determination of erythrocyte mean corpuscular volume (MCV)Ordered By: Shahzad Bright on 10-13-2023 MCV (RBC) [Entitic vol] 86.5 fL 80-94 [facility] Erythrocyte distribution wid th ratioOrdered By: Shahzad Bright on 10-13-2023 Erythrocyte distribution width (RBC) [Ratio] 14.3 % 11.6-14.6 [facility] Erythrocyte distribution wid th standard deviationOrdered By: Shahzad Bright on 10-13-2023 Erythrocyte distribution width (RBC) [Entitic vol] 45.3 fL 35.1-43.9 [facility] Hematocrit Auto (Bld) [Volum e fraction]Ordered By: Shahzad Bright on 10-13-2023 Hematocrit (Bld) [Volume fraction] 46.0 % 40-54 [facility] High density lipoprotein (HD L) measurementOrdered By: Shahzad Bright on 10-13-2023 Cholesterol in HDL (Body fld) [Mass/Vol] 33 mg/dL >40 [facility] Comment on above: The drugs N-Acetylcy steine and Metamizole may falsely depress this assay. Reference Range HDL <40 mg/dL Low HDL Cholesterol HDL >or= 60 mg/dL High HDL Cholesterol Immature granulocytes/100 WB C Auto (Bld)Ordered By: Shahzad Bright on 10-13-2023 Immature granulocytes/100 WBC (Bld) 0.300 % 0.0-0.9 [facility] Comment on above: IG% - Immature Granu locytes (promyelocytes, myelocytes and metamyelocytes) > 1% indicates that a LEFT SHIFT is Present. Laboratory - Chemistry and C hemistry - challengeOrdered By: Shahzad Bright on 10-13-2023 Albumin/Globulin [Mass ratio] 1.0 {ratio} 0.9-2.4 [facility] ALP [Catalytic activity/Vol] 53 U/L 45-117 [facility] ALT [Catalytic activity/Vol] 32 U/L 16-61 [facility] CO2 [Moles/Vol] 23.0 mmol/L 21.0-32.0 [facility] Globulin (S) [Mass/Vol] 3.5 g/dL 2.2-4.2 [facility] Urea nitrogen/Creatinine [Mass ratio] 25.4 mg/mg 10-20 [facility] Laboratory - Hematology and Cell countsOrdered By: Shahzad Bright on 10-13-2023 MCH (RBC) [Entitic mass] 25.9 pg 27.0-32.0 [facility] MCHC (RBC) [Mass/Vol] 30.0 g/dL 32-36 [facility] Nucleated RBC/100 WBC (Bld) [Ratio] 0 % 0-5 [facility] Platelets (Bld) [#/Vol] 249 10*3/uL 150-450 [facility] Low density lipoprotein (LDL ) cholesterol measurementOrdered By: Shahzad Bright on 10-13-2023 Cholesterol in LDL (Body fld) [Moles/Vol] 97 mg/dL 0-130 [facility] No Panel InformationOrdered By: Shahzad Bright on 10-13-2023 Estimated GFR (MDRD) Amer 135 mL/min >60 [facility] Comment on above: GFR Calc Estimated GFR (MDRD) Non-Af Amer 112 mL/min >60 [facility] Comment on above: Non- GFR Calc Vitamin D 25-Hydroxy 28.1 ng/mL [facility] Comment on above: Vitamin D 25(OH) Sta tus Range Deficiency <20 ng/mL (50nmol/L) Insufficiency 20 - 30 ng/mL (50 - 75 nmol/L) Sufficiency 30 - 100 ng/mL (75 - 250 nmol/L) Toxicity >100 ng/mL (>250 nmol/L) Platelet mean volume [place] (Bld) [Entitic vol]Ordered By: Shahzad Bright on 10-13-2023 Platelet mean volume (Bld) [Entitic vol] 10.8 fL 6.2-12.0 [facility] RBC Auto (Bld) [#/Vol]Ordere d By: Shahzad Bright on 10-13-2023 RBC (Bld) [#/Vol] 5.32 10*6/uL 4.6-6.2 [facility] Serum or plasma calcium renetta urement (mass/volume)Ordered By: Shahzad Bright on 10-13-2023 Calcium [Mass/Vol] 9.3 mg/dL 8.5-10.1 [facility] Serum or plasma creatinine m easurement (mass/volume)Ordered By: Shahzad Bright on 10-13-2023 Creatinine [Mass/Vol] 0.79 mg/dL 0.70-1.30 [facility] Comment on above: The validity of the calculated GFR & GFRAA in patients over 70 years has not been determined. Clinical correlation is essential. Serum or plasma urea nitroge n measurement (mass/volume)Ordered By: Shahzad Bright on 10-13-2023 Urea nitrogen [Mass/Vol] 20 mg/dL 7-18 [facility] Thin prep Papanicolaou smear with manual screeningOrdered By: Shahzad Bright on 10-13-2023 Thin prep Papanicolaou smear with manual screening 3.6 g/dL 3.2-5.0 [facility] Thin prep Papanicolaou smear with manual screening 23 U/L 15-37 [facility] Thin prep Papanicolaou smear with manual screening 5 5-15 [facility] Very low density lipoprotein (VLDL) cholesterol measurementOrdered By: Shahzad Bright on 10-13-2023 Cholesterol in VLDL Calc [Moles/Vol] 51 mg/dL 5-40 [facility] Whole blood hemoglobin A1c/t otal hemoglobin ratio (mass fraction)Ordered By: Shahzad Bright on 10-13-2023 HbA1c (Bld) [Mass fraction] 5.8 % 3.8-5.6 [facility] Comment on above: Normal < 5.7 % Predi abetic 5.7 - 6.4 % Diabetic >or= 6.5 % Please note range changes. Absolute lymphocyte countOrd ered By: Shahzad Bright on 06-09-2023 Lymphocytes Auto (Unsp spec) [#/Vol] 3.26 10*3/uL 0.83-4.51 [facility] Basophil percentageOrdered B y: Shahzad Bright on 06-09-2023 Basophil percentage 0 SEEN /hpf 0-5 [facility] Basophils/100 WBC (Bld) 0.4 % 0-1 [facility] Bilirubin [Mass/Vol] 0.40 mg/dL 0.20-1.00 [facility] Comment on above: For patients on eltr ombopag therapy, use of Dimension [place] TBIL is not recommended. Chloride [Moles/Vol] 110 mmol/L 98-107 [facility] Cholesterol [Mass/Vol] 166 mg/dL <200 [facility] Comment on above: <200 mg/dL Desirable 200-240 mg/dL Borderline >240 mg/dL High Risk Eosinophils/100 WBC (Bld) 1.3 % 0-5 [facility] Glucose [Mass/Vol] 96 mg/dL 74-106 [facility] Neutrophils (Bld) [#/Vol] 5.3 10*3/uL 2.0-7.7 [facility] Neutrophils/100 WBC (Bld) 55.1 % 47-70 [facility] Potassium [Moles/Vol] 4.1 mmol/L 3.5-5.1 [facility] Protein [Mass/Vol] 7.2 g/dL 6.4-8.2 [facility] Sodium [Moles/Vol] 138 mmol/L 136-145 [facility] Triglyceride [Mass/Vol] 225 mg/dL <199 [facility] Comment on above: The drugs N-Acetylcy steine and Metamizole may falsely depress this assay.Serum Triglycerides Reference Interval Normal <150 mg/dL Borderline high 150 - 199 mg/dL High 200 - 499 mg/dL Very High > or = 500 mg/dL WBC (Bld) [#/Vol] 9.6 10*3/uL 4.4-11.0 [facility] Bilirubin Test strip Ql (U)O rdered By: Shahzad Bright on 06-09-2023 Bilirubin Ql (U) Negative Negative [facility] Blood erythrocytes count (nu mber/volume)Ordered By: Shahzad Bright on 06-09-2023 RBC (Bld) [#/Vol] 5.57 10*6/uL 4.6-6.2 [facility] Blood hemoglobin measurement (mass/volume)Ordered By: Shahzad Bright on 06-09-2023 Hemoglobin (Bld) [Mass/Vol] 15.1 g/dL 13.0-16.5 [facility] Blood lymphocytes/100 leukoc ytesOrdered By: Shahzad Bright on 06-09-2023 Lymphocytes/100 WBC (Bld) 34.1 % 19-41 [facility] Blood monocytes/100 leukocyt esOrdered By: Shahzad Bright on 06-09-2023 Monocytes/100 WBC (Bld) 8.8 % 0-10 [facility] Blood platelet mean volumeOr dered By: Shahzad Bright on 06-09-2023 Platelet mean volume (Bld) [Entitic vol] 10.6 fL 6.2-12.0 [facility] Determination of erythrocyte mean corpuscular volume (MCV)Ordered By: Shahzad Bright on 06-09-2023 MCV (RBC) [Entitic vol] 85.6 fL 80-94 [facility] Hematocrit Auto (Bld) [Volum e fraction]Ordered By: Shahzad Bright on 06-09-2023 Hematocrit (Bld) [Volume fraction] 47.7 % 40-54 [facility] Ketones Test strip Ql (U)Ord ered By: Shahzad Bright on 06-09-2023 Ketones Ql (U) Negative Negative [facility] Laboratory - Chemistry and C hemistry - challengeOrdered By: Shahzad Bright on 06-09-2023 ALP [Catalytic activity/Vol] 51 U/L 45-117 [facility] ALT [Catalytic activity/Vol] 30 U/L 16-61 [facility] CO2 [Moles/Vol] 23.0 mmol/L 21.0-32.0 [facility] Globulin (S) [Mass/Vol] 3.6 g/dL 2.2-4.2 [facility] Urea nitrogen/Creatinine [Mass ratio] 20.2 mg/mg 10-20 [facility] Laboratory - Hematology and Cell countsOrdered By: Shahzad Bright on 06-09-2023 Erythrocyte distribution width (RBC) [Entitic vol] 42.2 fL 35.1-43.9 [facility] Erythrocyte distribution width (RBC) [Ratio] 13.5 % 11.6-14.6 [facility] Immature granulocytes/100 WBC (Bld) 0.300 % 0.0-0.9 [facility] Comment on above: IG% - Immature Granu locytes (promyelocytes, myelocytes and metamyelocytes) > 1% indicates that a LEFT SHIFT is Present. MCH (RBC) [Entitic mass] 27.1 pg 27.0-32.0 [facility] Nucleated RBC/100 WBC (Bld) [Ratio] 0 % 0-5 [facility] MCHC Auto (RBC) [Mass/Vol]Or dered By: Shahzad Bright on 06-09-2023 MCHC (RBC) [Mass/Vol] 31.7 g/dL 32-36 [facility] Mucus LM Ql (Urine sed)Order ed By: Shahzad Bright on 06-09-2023 Mucus Ql (Urine sed) 1+ /hpf [facility] Nitrite Test strip Ql (U)Ord ered By: Shahzad Bright on 06-09-2023 Nitrite Ql (U) Negative Negative [facility] No Panel InformationOrdered By: Shahzad Bright on 06-09-2023 Estimated GFR (MDRD) Amer 145 mL/min >60 [facility] Comment on above: GFR Calc Estimated GFR (MDRD) Non-Af Amer 120 mL/min >60 [facility] Comment on above: Non- GFR Calc Vitamin D 25-Hydroxy 32.1 ng/mL [facility] Comment on above: Vitamin D 25(OH) Sta tus Range Deficiency <20 ng/mL (50nmol/L) Insufficiency 20 - 30 ng/mL (50 - 75 nmol/L) Sufficiency 30 - 100 ng/mL (75 - 250 nmol/L) Toxicity >100 ng/mL (>250 nmol/L) Platelets bldOrdered By: Abdelrahman Bright on 06-09-2023 Platelets (Bld) [#/Vol] 253 10*3/uL 150-450 [facility] Protein Test strip Ql (U)Ord ered By: Shahzad Bright on 06-09-2023 Protein Ql (U) 15 mg/dl Negative [facility] Serum or plasma albumin renetta urement (mass/volume)Ordered By: Shahzad Bright on 06-09-2023 Albumin [Mass/Vol] 3.6 g/dL 3.2-5.0 [facility] Serum or plasma albumin/glob ulin mass ratioOrdered By: Shahzad Bright on 06-09-2023 Albumin/Globulin [Mass ratio] 1.0 {ratio} 0.9-2.4 [facility] Serum or plasma calcium renetta urement (mass/volume)Ordered By: Shahzad Bright on 06-09-2023 Calcium [Mass/Vol] 8.7 mg/dL 8.5-10.1 [facility] Serum or plasma cholesterol in HDL measurement (mass/volume)Ordered By: Shahzad Bright on 06-09-2023 Cholesterol in HDL [Mass/Vol] 29 mg/dL >40 [facility] Comment on above: The drugs N-Acetylcy steine and Metamizole may falsely depress this assay. Reference Range HDL <40 mg/dL Low HDL Cholesterol HDL >or= 60 mg/dL High HDL Cholesterol Serum or plasma cholesterol in VLDL measurement (mass/volume)Ordered By: Shahzad Bright on 06-09-2023 Cholesterol in VLDL [Mass/Vol] 45 mg/dL 5-40 [facility] Serum or plasma creatinine m easurement (mass/volume)Ordered By: Shahzad Bright on 06-09-2023 Creatinine [Mass/Vol] 0.74 mg/dL 0.70-1.30 [facility] Comment on above: The validity of the calculated GFR & GFRAA in patients over 70 years has not been determined. Clinical correlation is essential. Serum or plasma low density lipoprotein (LDL) cholesterol measurement (mass/volume)Ordered By: Shahzad Bright on 06-09-2023 Cholesterol in LDL [Mass/Vol] 92 mg/dL 0-130 [facility] Serum or plasma urea nitroge n measurement (mass/volume)Ordered By: Shahzad Bright on 06-09-2023 Urea nitrogen [Mass/Vol] 15 mg/dL 7-18 [facility] Squamous epithelial cells de tection in urine sediment by light microscopyOrdered By: Shahzad Bright on 06-09-2023 Epithelial cells.squamous LM Ql (Urine sed) 0 SEEN /hpf 0-5 [facility] Thin prep Papanicolaou smear with manual screeningOrdered By: Shahzad Bright on 06-09-2023 Thin prep Papanicolaou smear with manual screening 21 U/L 15-37 [facility] Thin prep Papanicolaou smear with manual screening 5 5-15 [facility] Urine blood detectionOrdered By: Shahzad Bright on 06-09-2023 RBC Ql (U) 10 /ul Negative [facility] RBC Ql (U) 0-5 SEEN /hpf 0-5 [facility] Urine clarityOrdered By: Abdelrahman Bright on 06-09-2023 Clarity (U) Clear Clear [facility] Urine color determinationOrd ered By: Shahzad Bright on 06-09-2023 Color (U) Yellow Yellow [facility] Urine glucose detectionOrder ed By: Shahzad Bright on 06-09-2023 Glucose Ql (U) Normal mg/dl Normal [facility] Urine leukocyte esterase det ection by dipstickOrdered By: Shahzad Bright on 06-09-2023 Leukocyte esterase Test strip Ql (U) Negative Negative [facility] Urine pHOrdered By: Shahzad lezama on 06-09-2023 pH (U) 5.0 [pH] 5.0 - 8.0 [facility] Urine sediment bacteria coun t by microscopy (number/high power field)Ordered By: Shahzad Bright on 06-09-2023 Bacteria LM.HPF (Urine sed) [#/Area] 0 /[HPF] None Seen [facility] Urine specific gravity measu rementOrdered By: Shahzad Bright on 06-09-2023 Specific gravity (U) [Rel density] 1.025 1.002-1.030 [facility] Urobilinogen Auto test strip Ql (U)Ordered By: Shahzad Bright on 06-09-2023 Urobilinogen Ql (U) Normal mg/dl Normal [facility] Whole blood hemoglobin A1c/t otal hemoglobin ratio (mass fraction)Ordered By: Shahzad Bright on 06-09-2023 HbA1c (Bld) [Mass fraction] 5.8 % 3.8-5.6 [facility] Comment on above: Normal < 5.7 % Predi abetic 5.7 - 6.4 % Diabetic >or= 6.5 % Please note range changes. Absolute lymphocyte countOrd ered By: Dr. Bright on 11-09-2022 Lymphocytes Auto (Unsp spec) [#/Vol] 3.30 10*3/uL 0.83-4.51 [facility] Basophil percentageOrdered B y: Dr. Bright on 11-09-2022 Basophils/100 WBC (Bld) 0.7 % 0-1 [facility] Bilirubin [Mass/Vol] 0.60 mg/dL 0.20-1.00 [facility] Comment on above: For patients on eltr ombopag therapy, use of Dimension [place] TBIL is not recommended. Chloride [Moles/Vol] 109 mmol/L 98-107 [facility] Cholesterol [Mass/Vol] 189 mg/dL <200 [facility] Comment on above: <200 mg/dL Desirable 200-240 mg/dL Borderline >240 mg/dL High Risk Eosinophils/100 WBC (Bld) 1.8 % 0-5 [facility] Glucose [Mass/Vol] 104 mg/dL 74-106 [facility] Comment on above: Fasting Glucose resu lt from 100 to 125 mg/dL suggests IMPAIRED HOMEOSTASIS per A.D.A. criteria. Neutrophils (Bld) [#/Vol] 4.0 10*3/uL 2.0-7.7 [facility] Neutrophils/100 WBC (Bld) 48.3 % 47-70 [facility] Potassium [Moles/Vol] 4.3 mmol/L 3.5-5.1 [facility] Protein [Mass/Vol] 7.5 g/dL 6.4-8.2 [facility] Sodium [Moles/Vol] 139 mmol/L 136-145 [facility] Triglyceride [Mass/Vol] 235 mg/dL <199 [facility] Comment on above: The drugs N-Acetylcy steine and Metamizole may falsely depress this assay.Serum Triglycerides Reference Interval Normal <150 mg/dL Borderline high 150 - 199 mg/dL High 200 - 499 mg/dL Very High > or = 500 mg/dL WBC (Bld) [#/Vol] 8.4 10*3/uL 4.4-11.0 [facility] Blood erythrocytes count (nu mber/volume)Ordered By: Dr. Bright on 11-09-2022 RBC (Bld) [#/Vol] 5.94 10*6/uL 4.6-6.2 [facility] Blood hemoglobin measurement (mass/volume)Ordered By: Dr. Bright on 11-09-2022 Hemoglobin (Bld) [Mass/Vol] 15.4 g/dL 13.0-16.5 [facility] Blood lymphocytes/100 leukoc ytesOrdered By: Dr. Bright on 11-09-2022 Lymphocytes/100 WBC (Bld) 39.5 % 19-41 [facility] Blood monocytes/100 leukocyt esOrdered By: Dr. Bright on 11-09-2022 Monocytes/100 WBC (Bld) 9.3 % 0-10 [facility] Blood platelet mean volumeOr dered By: Dr. Bright on 11-09-2022 Platelet mean volume (Bld) [Entitic vol] 11.1 fL 6.2-12.0 [facility] Determination of erythrocyte mean corpuscular volume (MCV)Ordered By: Dr. Bright on 11-09-2022 MCV (RBC) [Entitic vol] 86.4 fL 80-94 [facility] Hematocrit Auto (Bld) [Volum e fraction]Ordered By: Dr. Bright on 11-09-2022 Hematocrit (Bld) [Volume fraction] 51.3 % 40-54 [facility] Laboratory - Chemistry and C hemistry - challengeOrdered By: Dr. Bright on 11-09-2022 ALP [Catalytic activity/Vol] 49 U/L 45-117 [facility] ALT [Catalytic activity/Vol] 39 U/L 16-61 [facility] CO2 [Moles/Vol] 23.0 mmol/L 21.0-32.0 [facility] Globulin (S) [Mass/Vol] 3.7 g/dL 2.2-4.2 [facility] Urea nitrogen/Creatinine [Mass ratio] 18.8 mg/mg 10-20 [facility] - Hematology and Cell countsOrdered By: Dr. Bright on 11-09-2022 Erythrocyte distribution width (RBC) [Entitic vol] 45.3 fL 35.1-43.9 [facility] Erythrocyte distribution width (RBC) [Ratio] 14.4 % 11.6-14.6 [facility] Immature granulocytes/100 WBC (Bld) 0.400 % 0.0-0.9 [facility] Comment on above: IG% - Immature Granu locytes (promyelocytes, myelocytes and metamyelocytes) > 1% indicates that a LEFT SHIFT is Present. MCH (RBC) [Entitic mass] 25.9 pg 27.0-32.0 [facility] Nucleated RBC/100 WBC (Bld) [Ratio] 0 % 0-5 [facility] MCHC Auto (RBC) [Mass/Vol]Or dered By: Dr. Bright on 11-09-2022 MCHC (RBC) [Mass/Vol] 30.0 g/dL 32-36 [facility] No Panel InformationOrdered By: Dr. Bright on 11-09-2022 Estimated GFR (MDRD) Amer 115 mL/min >60 [facility] Comment on above: GFR Calc Estimated GFR (MDRD) Non-Af Amer 95 mL/min >60 [facility] Comment on above: Non- GFR Calc Vitamin D 25-Hydroxy 30.2 ng/mL [facility] Comment on above: Vitamin D 25(OH) Sta tus Range Deficiency <20 ng/mL (50nmol/L) Insufficiency 20 - 30 ng/mL (50 - 75 nmol/L) Sufficiency 30 - 100 ng/mL (75 - 250 nmol/L) Toxicity >100 ng/mL (>250 nmol/L) Platelets bldOrdered By: Dr. Bright on 11-09-2022 Platelets (Bld) [#/Vol] 228 10*3/uL 150-450 [facility] Serum or plasma albumin renetta urement (mass/volume)Ordered By: Dr. Bright on 11-09-2022 Albumin [Mass/Vol] 3.8 g/dL 3.2-5.0 [facility] Serum or plasma albumin/glob ulin mass ratioOrdered By: Dr. Bright on 11-09-2022 Albumin/Globulin [Mass ratio] 1.0 {ratio} 0.9-2.4 [facility] Serum or plasma calcium renetta urement (mass/volume)Ordered By: Dr. Bright on 11-09-2022 Calcium [Mass/Vol] 9.2 mg/dL 8.5-10.1 [facility] Serum or plasma cholesterol in HDL measurement (mass/volume)Ordered By: Dr. Bright on 11-09-2022 Cholesterol in HDL [Mass/Vol] 32 mg/dL >40 [facility] Comment on above: The drugs N-Acetylcy steine and Metamizole may falsely depress this assay. Reference Range HDL <40 mg/dL Low HDL Cholesterol HDL >or= 60 mg/dL High HDL Cholesterol Serum or plasma cholesterol in VLDL measurement (mass/volume)Ordered By: Dr. Bright on 11-09-2022 Cholesterol in VLDL [Mass/Vol] 47 mg/dL 5-40 [facility] Serum or plasma creatinine m easurement (mass/volume)Ordered By: Dr. Bright on 11-09-2022 Creatinine [Mass/Vol] 0.91 mg/dL 0.70-1.30 [facility] Comment on above: The validity of the calculated GFR & GFRAA in patients over 70 years has not been determined. Clinical correlation is essential. Serum or plasma low density lipoprotein (LDL) cholesterol measurement (mass/volume)Ordered By: Dr. Bright on 11-09-2022 Cholesterol in LDL [Mass/Vol] 110 mg/dL 0-130 [facility] Serum or plasma urea nitroge n measurement (mass/volume)Ordered By: Dr. Bright on 11-09-2022 Urea nitrogen [Mass/Vol] 17 mg/dL 7-18 [facility] Thin prep Papanicolaou smear with manual screeningOrdered By: Dr. Bright on 11-09-2022 Thin prep Papanicolaou smear with manual screening 27 U/L [facility] Thin prep Papanicolaou smear with manual screening 7 - [facility] Whole blood hemoglobin A1c/t otal hemoglobin ratio (mass fraction)Ordered By: Dr. Bright on 11-09-2022 HbA1c (Bld) [Mass fraction] 5.7 % 3.8-5.6 [facility] Comment on above: Normal < 5.7 % Predi abetic 5.7 - 6.4 % Diabetic >or= 6.5 % Please note range changes. Absolute lymphocyte counton 04-07-2022 Lymphocytes Auto (Unsp spec) [#/Vol] 3.24 10*3/uL 0.83-4.51 [facility] Work Phone: Basophil percentageon 2021 Basophils/100 WBC (Bld) 0.5 % 0-1 [facility] Work Phone: Bilirubin [Mass/Vol] 0.40 mg/dL 0.20-1.00 [facility] Work Phone: Comment on above: For patients on eltr ombopag therapy, use of Dimension [place] TBIL is not recommended. Chloride [Moles/Vol] 109 mmol/L 98-107 [facility] Work Phone: Cholesterol [Mass/Vol] 175 mg/dL <200 [facility] Work Phone: Comment on above: <200 mg/dL Desirable 200-240 mg/dL Borderline >240 mg/dL High Risk Eosinophils/100 WBC (Bld) 1.4 % 0-5 [facility] Work Phone: Glucose [Mass/Vol] 95 mg/dL 74-106 [facility] Work Phone: Neutrophils (Bld) [#/Vol] 4.2 10*3/uL 2.0-7.7 [facility] Work Phone: Neutrophils/100 WBC (Bld) 50.7 % 47-70 [facility] Work Phone: Potassium [Moles/Vol] 4.3 mmol/L 3.5-5.1 [facility] Work Phone: Comment on above: Slight Hemolysis, Re sult may be falsely increased. Protein [Mass/Vol] 7.2 g/dL 6.4-8.2 [facility] Work Phone: Sodium [Moles/Vol] 137 mmol/L 136-145 [facility] Work Phone: Triglyceride [Mass/Vol] 226 mg/dL <199 [facility] Work Phone: Comment on above: The drugs N-Acetylcy steine and Metamizole may falsely depress this assay.Serum Triglycerides Reference Interval Normal <150 mg/dL Borderline high 150 - 199 mg/dL High 200 - 499 mg/dL Very High > or = 500 mg/dL WBC (Bld) [#/Vol] 8.3 10*3/uL 4.4-11.0 [facility] Work Phone: Blood erythrocytes count (nu mber/volume)on 04-07-2022 RBC (Bld) [#/Vol] 5.69 10*6/uL 4.6-6.2 [facility] Work Phone: Blood hemoglobin measurement (mass/volume)on 04-07-2022 Hemoglobin (Bld) [Mass/Vol] 14.8 g/dL 13.0-16.5 [facility] Work Phone: Blood lymphocytes/100 leukoc yteson 04-07-2022 Lymphocytes/100 WBC (Bld) 39.1 % 19-41 [facility] Work Phone: Blood monocytes/100 leukocyt eson 04-07-2022 Monocytes/100 WBC (Bld) 8.1 % 0-10 [facility] Work Phone: Blood platelet mean volumeon 04-07-2022 Platelet mean volume (Bld) [Entitic vol] 10.8 fL 6.2-12.0 [facility] Work Phone: Determination of erythrocyte mean corpuscular volume (MCV)on 04-07-2022 MCV (RBC) [Entitic vol] 85.9 fL 80-94 [facility] Work Phone: Hematocrit Auto (Bld) [Volum e fraction]on 04-07-2022 Hematocrit (Bld) [Volume fraction] 48.9 % 40-54 [facility] Work Phone: Laboratory - Chemistry and C hemistry - challengeon 04-07-2022 ALP [Catalytic activity/Vol] 50 U/L 45-117 [facility] Work Phone: ALT [Catalytic activity/Vol] 35 U/L 16-61 [facility] Work Phone: CO2 [Moles/Vol] 23.0 mmol/L 21.0-32.0 [facility] Work Phone: Globulin (S) [Mass/Vol] 3.7 g/dL 2.2-4.2 [facility] Work Phone: Urea nitrogen/Creatinine [Mass ratio] 18.5 mg/mg 10-20 [facility] Work Phone: Laboratory - Hematology and Cell countson 04-07-2022 Erythrocyte distribution width (RBC) [Entitic vol] 45.3 fL 35.1-43.9 [facility] Work Phone: Erythrocyte distribution width (RBC) [Ratio] 14.5 % 11.6-14.6 [facility] Work Phone: Immature granulocytes/100 WBC (Bld) 0.200 % 0.0-0.9 [facility] Work Phone: Comment on above: IG% - Immature Granu locytes (promyelocytes, myelocytes and metamyelocytes) > 1% indicates that a LEFT SHIFT is Present. MCH (RBC) [Entitic mass] 26.0 pg 27.0-32.0 [facility] Work Phone: Nucleated RBC/100 WBC (Bld) [Ratio] 0 % 0-5 [facility] Work Phone: MCHC Auto (RBC) [Mass/Vol]on 04-07-2022 MCHC (RBC) [Mass/Vol] 30.3 g/dL 32-36 [facility] Work Phone: No Panel Informationon 04-07 Estimated GFR (MDRD) Amer 131 mL/min >60 [facility] Work Phone: Comment on above: GFR Calc Estimated GFR (MDRD) Non-Af Amer 109 mL/min >60 [facility] Work Phone: Comment on above: Non- GFR Calc Vitamin D 25-Hydroxy 27.9 ng/mL [facility] Work Phone: Comment on above: Vitamin D 25(OH) Sta tus Range Deficiency <20 ng/mL (50nmol/L) Insufficiency 20 - 30 ng/mL (50 - 75 nmol/L) Sufficiency 30 - 100 ng/mL (75 - 250 nmol/L) Toxicity >100 ng/mL (>250 nmol/L) Platelets bldon 04-07-2022 Platelets (Bld) [#/Vol] 215 10*3/uL 150-450 [facility] Work Phone: Serum or plasma albumin renetta urement (mass/volume)on 04-07-2022 Albumin [Mass/Vol] 3.5 g/dL 3.2-5.0 [facility] Work Phone: Serum or plasma albumin/glob ulin mass ratioon 04-07-2022 Albumin/Globulin [Mass ratio] 0.9 {ratio} 0.9-2.4 [facility] Work Phone: Serum or plasma calcium renetta urement (mass/volume)on 04-07-2022 Calcium [Mass/Vol] 8.7 mg/dL 8.5-10.1 [facility] Work Phone: Serum or plasma cholesterol in HDL measurement (mass/volume)on 04-07-2022 Cholesterol in HDL [Mass/Vol] 27 mg/dL >40 [facility] Work Phone: Comment on above: The drugs N-Acetylcy steine and Metamizole may falsely depress this assay. Reference Range HDL <40 mg/dL Low HDL Cholesterol HDL >or= 60 mg/dL High HDL Cholesterol Serum or plasma cholesterol in VLDL measurement (mass/volume)on 04-07-2022 Cholesterol in VLDL [Mass/Vol] 45 mg/dL 5-40 [facility] Work Phone: Serum or plasma creatinine m easurement (mass/volume)on 04-07-2022 Creatinine [Mass/Vol] 0.81 mg/dL 0.70-1.30 [facility] Work Phone: Comment on above: The validity of the calculated GFR & GFRAA in patients over 70 years has not been determined. Clinical correlation is essential. Serum or plasma low density lipoprotein (LDL) cholesterol measurement (mass/volume)on 04-07-2022 Cholesterol in LDL [Mass/Vol] 103 mg/dL 0-130 [facility] Work Phone: Serum or plasma urea nitroge n measurement (mass/volume)on 04-07-2022 Urea nitrogen [Mass/Vol] 15 mg/dL 7-18 [facility] Work Phone: Thin prep Papanicolaou smear with manual screeningon 04-07-2022 Thin prep Papanicolaou smear with manual screening 22 U/L 15-37 [facility] Work Phone: Comment on above: Slight Hemolysis, Re sult may be falsely increased. Thin prep Papanicolaou smear with manual screening 5 5-15 [facility] Work Phone: Whole blood hemoglobin A1c/t otal hemoglobin ratio (mass fraction)on 04-07-2022 HbA1c (Bld) [Mass fraction] 5.8 % 3.8-5.6 [facility] Work Phone: Comment on above: Normal < 5.7 % Predi abetic 5.7 - 6.4 % Diabetic >or= 6.5 % Please note range changes. Absolute lymphocyte counton 12-20-2021 Lymphocytes Auto (Unsp spec) [#/Vol] 3.79 10*3/uL 0.83-4.51 [facility] Work Phone: Basophil percentageon 2021 Basophils/100 WBC (Bld) 0.5 % 0-1 [facility] Work Phone: Bilirubin [Mass/Vol] 0.20 mg/dL 0.20-1.00 [facility] Work Phone: Comment on above: For patients on eltr ombopag therapy, use of Dimension [place] TBIL is not recommended. Chloride [Moles/Vol] 109 mmol/L 98-107 [facility] Work Phone: [phone] Eosinophils/100 WBC (Bld) 1.9 % 0-5 [facility] Work Phone: [phone] Glucose [Mass/Vol] 125 mg/dL 74-106 [facility] Work Phone: [phone] Comment on above: Fasting Glucose resu lt from 100 to 125 mg/dL suggests IMPAIRED HOMEOSTASIS per A.D.A. criteria. Neutrophils (Bld) [#/Vol] 4.9 10*3/uL 2.0-7.7 [facility] Work Phone: [phone] Neutrophils/100 WBC (Bld) 50.6 % 47-70 [facility] Work Phone: [phone] Potassium [Moles/Vol] 3.7 mmol/L 3.5-5.1 [facility] Work Phone: [phone] Protein [Mass/Vol] 7.3 g/dL 6.4-8.2 [facility] Work Phone: [phone] Sodium [Moles/Vol] 141 mmol/L 136-145 [facility] Work Phone: [phone] WBC (Bld) [#/Vol] 9.6 10*3/uL 4.4-11.0 [facility] Work Phone: Blood erythrocytes count (nu mber/volume)on 12-20-2021 RBC (Bld) [#/Vol] 5.32 10*6/uL 4.6-6.2 [facility] Work Phone: [phone] Blood hemoglobin measurement (mass/volume)on 12-20-2021 Hemoglobin (Bld) [Mass/Vol] 14.5 g/dL 13.0-16.5 [facility] Work Phone: [phone] Blood lymphocytes/100 leukoc yteson 12-20-2021 Lymphocytes/100 WBC (Bld) 39.5 % 19-41 [facility] Work Phone: [phone] Blood monocytes/100 leukocyt eson 03-28-2022 Monocytes/100 WBC (Bld) 7.1 % 0-10 [facility] Work Phone: Blood platelet mean volumeon 12-20-2021 Platelet mean volume (Bld) [Entitic vol] 10.3 fL 6.2-12.0 [facility] Work Phone: Determination of erythrocyte mean corpuscular volume (MCV)on 12-20-2021 MCV (RBC) [Entitic vol] 84.8 fL 80-94 [facility] Work Phone: Hematocrit Auto (Bld) [Volum e fraction]on 12-20-2021 Hematocrit (Bld) [Volume fraction] 45.1 % 40-54 [facility] Work Phone: Laboratory - Chemistry and C hemistry - challengeon 12-20-2021 ALP [Catalytic activity/Vol] 59 U/L 45-117 [facility] Work Phone: ALT [Catalytic activity/Vol] 48 U/L 16-61 [facility] Work Phone: CO2 [Moles/Vol] 25.0 mmol/L 21.0-32.0 [facility] Work Phone: Globulin (S) [Mass/Vol] 3.7 g/dL 2.2-4.2 [facility] Work Phone: Urea nitrogen/Creatinine [Mass ratio] 16.2 mg/mg 10-20 [facility] Work Phone: Laboratory - Hematology and Cell countson 12-20-2021 Erythrocyte distribution width (RBC) [Entitic vol] 45.5 fL 35.1-43.9 [facility] Work Phone: Erythrocyte distribution width (RBC) [Ratio] 14.8 % 11.6-14.6 [facility] Work Phone: Immature granulocytes/100 WBC (Bld) 0.400 % 0.0-0.9 [facility] Work Phone: Comment on above: IG% - Immature Granu locytes (promyelocytes, myelocytes and metamyelocytes) > 1% indicates that a LEFT SHIFT is Present. MCH (RBC) [Entitic mass] 27.3 pg 27.0-32.0 [facility] Work Phone: Nucleated RBC/100 WBC (Bld) [Ratio] 0 % 0-5 [facility] Work Phone: MCHC Auto (RBC) [Mass/Vol]on 12-20-2021 MCHC (RBC) [Mass/Vol] 32.2 g/dL 32-36 [facility] Work Phone: No Panel Informationon 12-20 Estimated Creatinine Clearance Calc 104.12 ml/min [facility] Work Phone: Estimated GFR (MDRD) Amer 134 mL/min >60 [facility] Work Phone: Comment on above: GFR Calc Estimated GFR (MDRD) Non-Af Amer 110 mL/min >60 [facility] Work Phone: Comment on above: Non- GFR Calc Platelets bldon 12-20-2021 Platelets (Bld) [#/Vol] 254 10*3/uL 150-450 [facility] Work Phone: Serum or plasma albumin renetta urement (mass/volume)on 12-20-2021 Albumin [Mass/Vol] 3.6 g/dL 3.2-5.0 [facility] Work Phone: Serum or plasma albumin/glob ulin mass ratioon 12-20-2021 Albumin/Globulin [Mass ratio] 1.0 {ratio} 0.9-2.4 [facility] Work Phone: Serum or plasma calcium renetta urement (mass/volume)on 12-20-2021 Calcium [Mass/Vol] 9.1 mg/dL 8.5-10.1 [facility] Work Phone: Serum or plasma creatinine m easurement (mass/volume)on 12-20-2021 Creatinine [Mass/Vol] 0.80 mg/dL 0.70-1.30 [facility] Work Phone: Comment on above: The validity of the calculated GFR & GFRAA in patients over 70 years has not been determined. Clinical correlation is essential. Serum or plasma urea nitroge n measurement (mass/volume)on 12-20-2021 Urea nitrogen [Mass/Vol] 13 mg/dL 7-18 [facility] Work Phone: Thin prep Papanicolaou smear with manual screeningon 12-20-2021 Thin prep Papanicolaou smear with manual screening 25 U/L 15-37 [facility] Work Phone: Thin prep Papanicolaou smear with manual screening 7 5-15 [facility] Work Phone: Vital Signs Date Time Vital Sign Value Performing Clinician Facility 06-19-2025 07:45-0400 Body temperature 97.3 [degF] Dr. Shahzad Bright MD Work Phone: [facility] 06-19-2025 07:45-0400 Diastolic blood pressure 75 mm[Hg] Dr. Shahzad Bright MD Work Phone: [facility] 06-19-2025 07:45-0400 Heart rate 67 /min Dr. Shahzad Bright MD Work Phone: [facility] 06-19-2025 07:45-0400 Respiratory rate 16 /min Dr. Shahzad Bright MD Work Phone: [facility] 06-19-2025 07:45-0400 SaO2% (BldA) [Mass fraction] 100 % Dr. Shahzad Bright MD Work Phone: [facility] 06-19-2025 07:45-0400 Systolic blood pressure 105 mm[Hg] Dr. Shahzad Bright MD Work Phone: [facility] 06-19-2025 05:54-0400 Body height 170.[address] Shahzad Bright MD Work Phone: [facility] 06-19-2025 05:54-0400 Body mass index (BMI) [Ratio] 48.1 kg/m2 Dr. Shahzad Bright MD Work Phone: 4(321)795-418088 [place] [address] 06-19-2025 05:54-0400 Body weight 139.[address] Shahzad Bright MD Work Phone: 3(554)753-381198 [place] [address] 06-09-2025 08:31-0400 Body height 170.[address] Shahzad Bright MD Work Phone: 5(445)803-644498 [place] [address] 06-09-2025 08:31-0400 Body mass index (BMI) [Ratio] 49.4 kg/m2 Dr. Shahzad Bright MD Work Phone: 1(436)208-042598 [place] [address] 06-09-2025 08:31-0400 Body temperature 98.2 [degF] Dr. Shahzad Bright MD Work Phone: 3(073)927-172898 [place] [address] 06-09-2025 08:31-0400 Body weight 142.[address] Shahzad Bright MD Work Phone: 8(840)853-541398 [place] [address] 06-09-2025 08:31-0400 Diastolic blood pressure 67 mm[Hg] Dr. Shahzad Bright MD Work Phone: 8(911)590-553098 [place] [address] 06-09-2025 08:31-0400 Heart rate 72 /min Dr. Shahzad Bright MD Work Phone: 2(472)787-364598 [place] [address] 06-09-2025 08:31-0400 Respiratory rate 16 /min Dr. Shahzad Bright MD Work Phone: 7(434)322-866498 [place] [address] 06-09-2025 08:31-0400 SaO2% (BldA) [Mass fraction] 96 % Dr. Shahzad Bright MD Work Phone: 2(488)278-769398 [place] [address] 06-09-2025 08:31-0400 Systolic blood pressure 107 mm[Hg] Dr. Shahzad Bright MD Work Phone: 3(258)038-288098 [place] [address] 05-15-2025 10:00-0400 Body temperature 97.4 [degF] Dr. Shahzad Bright MD Work Phone: 3(200)241-384498 [place] [address] 05-15-2025 10:00-0400 Diastolic blood pressure 65 mm[Hg] Dr. Shahzad Bright MD Work Phone: [facility] 05-15-2025 10:00-0400 Heart rate 67 /min Dr. Shahzad Bright MD Work Phone: [facility] 05-15-2025 10:00-0400 Respiratory rate 16 /min Dr. Shahzad Bright MD Work Phone: [facility] 05-15-2025 10:00-0400 SaO2% (BldA) [Mass fraction] 95 % Dr. Shahzad Bright MD Work Phone: [facility] 05-15-2025 10:00-0400 Systolic blood pressure 129 mm[Hg] Dr. Shahzad Bright MD Work Phone: [facility] 05-15-2025 08:33-0400 Body height 170.[address] Shahzad Bright MD Work Phone: [facility] 05-15-2025 08:33-0400 Body mass index (BMI) [Ratio] 48.9 kg/m2 Dr. Shahzad Bright MD Work Phone: [facility] 05-15-2025 08:33-0400 Body weight 141.[address] Shahzad Bright MD Work Phone: [facility] 05-12-2025 08:34-0400 Body height 167.[address] Shahzad Bright MD Work Phone: [facility] 05-12-2025 08:34-0400 Body mass index (BMI) [Ratio] 51.1 kg/m2 Dr. Shahzad Bright MD Work Phone: [facility] 05-12-2025 08:34-0400 Body temperature 97.4 [degF] Dr. Shahzad Bright MD Work Phone: [facility] 05-12-2025 08:34-0400 Body weight 143.[address] Shahzad Bright MD Work Phone: [facility] 05-12-2025 08:34-0400 Diastolic blood pressure 80 mm[Hg] Dr. Shahzad Bright MD Work Phone: 3(512)037-657788 [place] [address] 05-12-2025 08:34-0400 Heart rate 66 /min Dr. Shahzad Bright MD Work Phone: 9(299)018-656798 [place] [address] 05-12-2025 08:34-0400 Respiratory rate 20 /min Dr. Shahzad Bright MD Work Phone: 9(394)736-930231 [address] 05-12-2025 08:34-0400 SaO2% (BldA) [Mass fraction] 97 % Dr. Shahzad Bright MD Work Phone: 7(860)312-506698 [place] [address] 05-12-2025 08:34-0400 Systolic blood pressure 119 mm[Hg] Dr. Shahzad Bright MD Work Phone: 3(161)942-546698 [place] [address] 03-04-2025 07:48-0400 Body mass index (BMI) [Ratio] 53.6 kg/m2 Dr. Shahzad Bright MD Work Phone: 4(492)083-819898 [place] [address] 03-04-2025 07:48-0400 Body temperature 97.4 [degF] Dr. Shahzad Bright MD Work Phone: 3(789)739-262198 [place] [address] 03-04-2025 07:48-0400 Body weight 150.[address] Shahzad Bright MD Work Phone: 6(079)177-860788 [place] [address] 03-04-2025 07:48-0400 Diastolic blood pressure 76 mm[Hg] Dr. Shahzad Bright MD Work Phone: 8(864)391-167298 [place] [address] 03-04-2025 07:48-0400 Heart rate 70 /min Dr. Shahzad Bright MD Work Phone: 6(235)316-167188 [place] [address] 03-04-2025 07:48-0400 Respiratory rate 18 /min Dr. Shahzad Bright MD Work Phone: 9(776)361-799988 [place] [address] 03-04-2025 07:48-0400 SaO2% (BldA) [Mass fraction] 96 % Dr. Shahzad Bright MD Work Phone: [facility] 03-04-2025 07:48-0400 Systolic blood pressure 108 mm[Hg] Dr. Shahzad Bright MD Work Phone: [facility] 03-14-2024 16:03-0400 Body height 170.2 cm Yary Andrae FOUNDING PARTNER.MERCHANDISING DIRECTOR Work Phone: [facility] 03-14-2024 16:03-0400 Body mass index (BMI) [Ratio] 50.4 kg/m2 Yary Andrae FOUNDING PARTNER.MERCHANDISING DIRECTOR Work Phone: [facility] 03-14-2024 16:03-0400 Body temperature 98.29 [degF] Yary Andrae FOUNDING PARTNER.MERCHANDISING DIRECTOR Work Phone: [facility] 03-14-2024 16:03-0400 Body weight 145.97 kg Yary Andrae FOUNDING PARTNER.MERCHANDISING DIRECTOR Work Phone: [facility] 03-14-2024 16:03-0400 Diastolic blood pressure 86 mm[Hg] Yary Andrae FOUNDING PARTNER.MERCHANDISING DIRECTOR Work Phone: [facility] 03-14-2024 16:03-0400 Heart rate 107 /min Yary Andrae FOUNDING PARTNER.MERCHANDISING DIRECTOR Work Phone: [facility] 03-14-2024 16:03-0400 SaO2% (BldA) [Mass fraction] 97 % Yary Andrae FOUNDING PARTNER.MERCHANDISING DIRECTOR Work Phone: [facility] 03-14-2024 16:03-0400 Systolic blood pressure 138 mm[Hg] Yary Andrae FOUNDING PARTNER.MERCHANDISING DIRECTOR Work Phone: [facility] 06-06-2023 13:43-0400 Body height 167.[address] [facility] 06-06-2023 13:43-0400 Body weight 144.[address] [facility] 05-02-2023 08:50-0400 Body height 167.[address] Shahzad Bright Work Phone: [facility] 05-02-2023 08:50-0400 Body weight 144.[address] Shahzad Bright Work Phone: [facility] 04-03-2023 09:24-0400 Body height 167.[address] Shahzad Bright Work Phone: [facility] 04-03-2023 09:24-0400 Body weight 151.[address] Shahzad Bright Work Phone: [facility] 12-20-2021 22:38-0400 Diastolic blood pressure 80 mm[Hg] [facility] Work Phone: 12-20-2021 22:38-0400 Heart rate 78 /min [facility] Work Phone: 12-20-2021 22:38-0400 Respiratory rate 19 /min [facility] Work Phone: 12-20-2021 22:38-0400 Systolic blood pressure 91 mm[Hg] [facility] Work Phone: 12-20-2021 20:08-0400 Body height 167.[address] [facility] Work Phone: 12-20-2021 20:08-0400 Body mass index (BMI) [Ratio] 52.4 kg/m2 [facility] Work Phone: 12-20-2021 20:08-0400 Body temperature 96.9 [degF] [facility] Work Phone: 12-20-2021 20:08-0400 Body weight 147.[address] [facility] Work Phone: 12-20-2021 20:08-0400 SaO2% (BldA) [Mass fraction] 98 % [facility] Work Phone: Encounters Encounter Date Encounter Type Care Provider Facility Start: 07-21-2025 ambulatory Shahzad Bright [facility] y:[facility] Start: 06-30-2025 End: 06-30-2025 ambulatory Shahzad Bright Facility:[facility] Start: 06-19-2025 ambulatory Shahzad Bright Facilit y:[facility] Start: 06-19-2025 Non-patient / Non-visit [facility] Start: 06-19-2025 End: 06-19-2025 Admission to same day surgery center [facility] DO -Endoscopy Work Phone: Start: 06-19-2025 End: 06-19-[address] Shahzad Bright MD Work Phone: -Endoscopy Start: 06-09-2025 End: 06-09-2025 Patient encounter procedure Ca WHITE -[facility] Work Phone: Start: 06-09-2025 End: 06-09-[address] Shahzad Bright MD Work Phone: [facility] Start: 05-30-2025 End: 05-30-[address] Shahzad Bright MD Work Phone: -[facility] [place] Start: 05-30-2025 End: 05-30-[address] Shahzad Bright MD -Rad[facility] [place] Work Phone: Start: 05-30-2025 End: 05-30-2025 ambulatory Shahzad Bright Facility:[facility] Start: 05-15-2025 ambulatory Shahzad Bright Facilit y:[facility] Start: 05-15-2025 Non-patient / Non-visit [facility] Start: 05-15-2025 End: 05-15-2025 Admission to same day surgery center [facility] DO -Endoscopy Work Phone: Start: 05-15-2025 End: 05-15-[address] Shahzad Bright MD Work Phone: -Endoscopy Start: 05-12-2025 End: 05-12-2025 Patient encounter procedure Ca WHITE -[facility] Work Phone: Start: 05-12-2025 End: 05-12-[address] Shahzad Bright MD Work Phone: -[facility] Start: 04-09-2025 End: 04-09-[address] Shahzad Bright MD Work Phone: -Radiology [facility] Start: 04-09-2025 End: 04-09-[address] Shahzad Bright MD -Radiology [facility] Work Phone: Start: 04-09-2025 End: 04-09-2025 ambulatory Shahzad Bright Facility:[facility] Start: 04-02-2025 End: 04-02-[address] Shahzad Brgiht MD Work Phone: -[facility] Start: 04-02-2025 End: 04-02-[address] Shahzad Bright MD -Laboratory [place] Work Phone: Start: 04-02-2025 End: 04-02-2025 ambulatory Shahzad Bright Facility:[facility] Start: 03-04-2025 End: 03-04-[address] Shahzad Bright MD Work Phone: [facility] Work Phone: Start: 03-04-2025 End: 03-04-2025 Patient encounter procedure Sabrina WHITE -[facility] Work Phone: Start: 02-19-2025 End: 02-19-[address] Shahzad Bright MD Work Phone: [facility] Work Phone: Start: 02-19-2025 End: 02-19-[address] Shahzad Bright MD -Labor[facility] [place] Work Phone: Start: 02-19-2025 End: 02-19-2025 ambulatory Shahzad Bright Facility:[facility] Start: 10-14-2024 End: 10-14-2024 ambulatory Shahzad Bright Facility:[facility] Start: 10-11-2024 End: 10-11-2024 ambulatory Shahzad Bright Facility:[facility] Start: 09-26-2024 End: 09-26-2024 [facility] Start: 03-14-2024 End: 03-14-2024 Patient encounter procedure Yary Coburn MERCHANDISING DIRECTOR Work Phone: General Surgery Comment on above: Encounter for screen ing for malignant neoplasm of colon (Primary Dx); Dysphagia, unspecified type Start: 03-14-2024 End: 03-14-2024 ambulatory SHAHZAD BRIGHT Facility:[facility] Start: 10-13-2023 End: 10-13-2023 ambulatory [facility] Work Phone: Start: 10-13-2023 End: 10-13-2023 Patient encounter procedure [facility] Start: 06-09-2023 End: 06-09-2023 ambulatory [facility] Work Phone: Start: 06-09-2023 End: 06-09-2023 Patient encounter procedure [facility] Work Phone: Start: 06-06-2023 End: 06-24-2023 ambulatory [facility] Work Phone: Start: 06-06-2023 End: 06-24-2023 [facility] Start: 06-06-2023 [facility] Start: 05-02-2023 End: 05-25-[address] Shahzad Bright Work Phone: [facility] Work Phone: Start: 05-02-2023 End: 05-25-[address] [facility] Start: 04-03-2023 End: 04-24-[address] Shahzad Bright Work Phone: [facility] Work Phone: Start: 04-03-2023 End: 04-24-[address] [facility] Start: 02-05-2023 Non-patient / Non-visit Dr. Shahzad Bright Work Phone: [facility] Start: 02-03-2023 Non-patient / Non-visit Dr. Shahzad Bright Work Phone: [facility] Start: 02-03-2023 End: 02-03-[address] [facility] Start: 01-17-2023 Non-patient / Non-visit Dr. Shahzad Bright Work Phone: [facility] Start: 01-16-2023 End: 01-16-[address] Shahzad Bright Work Phone: [facility] Work Phone: Start: 01-16-2023 End: 01-16-[address] [facility] Start: 11-09-2022 End: 11-09-2022 ambulatory [facility] Work Phone: Start: 11-09-2022 End: 11-09-2022 Patient encounter procedure [facility] Start: 04-07-2022 End: 04-07-2022 Patient encounter procedure [facility] Start: 12-20-2021 End: 12-20-2021 Emergency department patient visit [facility] Start: 11-15-2021 End: 11-15-2021 Patient encounter procedure [facility] [place] Procedures Date Procedure Procedure Detail Performing Clinician Start: 06-19-[address] Shahzad Bright MD Work Phone: Start: 05-30-2025 Plain x-ray of wrist Dr. [...] microalbumin profile DTaP,Tdap,Td Vaccine (2 - Tdap) [facility] Start: 06-19-2025 Patient discharge [facility] Start: 05-15-2025 Endoscopy upper smal l intestine w/biopsy SMALL BOWEL ENDOSCOPY/BIOPSY [facility] Start: 05-15-2025 Patient discharge [facility] Start: 05-26-2024 Influenza vaccination Influenz a Vaccine (Season Ended) [facility] Start: 09-25-2023 Behavioral Health Screening Behavioral Health Screening [facility] Start: 05-26-2023 Covid-19 Vaccine ( season) Covid-19 Vaccine ( season) [facility] Start: 2020 Diabetes Screening Diabetes Screenin g [facility] Start: 2020 Screening for malign ant neoplasm of colon [facility] Start: 2010 Lipid panel Lipid Screening [facility] Start: 1994 Hepatitis B Vaccine (1 of 3 - 19+ 3-dose series) Hepatitis B Vaccine (1 of 3 - 19+ 3-dose series) [facility] Start: 1993 Hepatitis C screening Hepatitis C Mn pete [facility] Start: 1993 HIV screening HIV Screening [facility] End: 03-15-2025 EGD DIAGNOSTIC EGD DIAGNOSTIC Endoscopy Routine Dysphagia, unspecified type 1 Occurrences starting 03/15/2024 until 03/15/2025 [facility] Work Phone: Comment on above: 1 Occurrences starti ng 03/15/2024 until 03/15/2025 Patient Education ED Hypotension , Orthostatic [facility] Work Phone: Patient referral [facility] Work Phone: End: 03-15-2025 Screening colonoscopy COLONOSCOPY SCREENING Endoscopy Routine Encounter for screening for malignant neoplasm of colon 1 Occurrences starting 03/15/2024 until 03/15/2025 [facility] Comment on above: 1 Occurrences starti ng 03/15/2024 until 03/15/2025 Payers Date Payer Category Payer Private Health Insurance [id number] 2024 Self-pay [id number] 2024 Private Health Insurance [id number] 2024 Private Health Insurance [id number] 2023 Unknown [employer] BLUE CARD PPO OOS [id number] 2023-Present [phone] [address] [place] [address] PPO [id number] 2023 Unknown [id number] Unknown [id number] Unknown [id number] Unknown [id number] Unknown [id number] 62 Unknown [id number] [id number] 62 Unknown [id number] [id number] 62 Unknown [id number] [id number] 62 Unknown [id number] [id number] 62 Unknown [id number] 2.840.1.146107.3.579.2.4 62 Unknown [id number] [id number] 62 Unknown [id number] [id number] 62 Unknown [id number] 2.16.840.1.253824.3.579.2.4 62 Unknown [id number] 2.16.840.1.334866.3.579.2.4 62 Unknown [id number] 2.16.840.1.134014.3.579.2.4 62 Unknown [id number] 2.16.840.1.730676.3.579.2.4 62 Unknown [id number] 2.16.840.1.960969.3.579.2.4 62 Unknown [id number] 2.16.840.1.328806.3.579.2.4 62 Unknown [id number] [id number] 62 Unknown [id number] 62 Social History Date Type Detail Facility Start: 12-20-2021 End: 12-20-2021 Tobacco smoking status OKIS Unknown if ever smoked [facility] Start: 1975 Sex Assigned At Male W [facility] Start: 03-12-2024 End: 06-16-2025 Tobacco smoking status OKIS Smokes tobacco daily [facility] Start: 09-25-1994 History of tobacco use Cigarette Smo ker [facility] Start: 09-03-2020 End: 03-12-2024 Cigarettes smoked current (pack per day) - Reported 2 [facility] Start: 03-12-2024 Tobacco use and exposure Smokeless tobacco non-user [facility] Start: 03-14-2024 Alcohol intake Current non-dr technical administrator of alcohol (finding) [facility] Start: 09-03-2020 End: 03-14-2024 Tobacco use panel [facility] Adult Depression Screening Assessment 0 [facility] Start: 03-12-2024 Alcohol Comment quit fall 2022 [facility] Start: 1975 Sex Assigned At Not on file C [facility] Start: 05-12-2025 Tobacco smoking stat us NHIS Ex-smoker (finding) [facility] Start: 06-19-2025 Tobacco Use Tobacco Use [facility] Goals Date Patient Goal Desired Activity /State Mental Status Date Assessment Result Facility 06-19-2025 Cognitive function Voice/Name [facility] Work Phone: 05-15-2025 Cognitive function Voice/Name [facility] Work Phone: 12-20-2021 Cognitive function Level Of Cons ciousness Awake;Alert;Appropriate;Follow s Commands [facility] Work Phone: Clinical Notes 01-17-2023 to 06-19-2025 Note Date & Type Note Facility 06-19-2025 Procedure note [facility] 06-19-2025 Procedure note [facility] 06-19-2025 Procedure note [facility] 06-19-2025 Procedure note [facility] 06-19-2025 Consult note [facility] 06-19-2025 History and physi noni note [facility] 06-19-2025 Note [facility] Medical Records Department [address] [place] [address] History Physical Exam 06/19/25 0639 MR#: [id number] Acct: [id number] Name: ZENA BENNETT Rep #: [id number] : 1975 49 From: [facility] PCP: Dr. Shahzad Bright MD Status[facility] Location: [place] [address] HPI - General General Date of Admission: 06/19/25 Date of Service: 06/19/25 HPI Narrative ZENA BENNETT, is a 49 M who presents Chief Complaint: dysphagia Details: OV 05/12/2025 49y/o [...] a lot, sober now for 7 years [facility] Medical History Wears glasses History of MRSA [...] mg tablet 7.5 mg PO TID 05/05/25 06/18/25 Hi story multivitamin 1 tab PO QDAY 05/12/25 Unknown His tory omeprazole 40 mg capsule,delayed 40 mg PO BID #180 caps 06/09/25 Rx release Allergy/AdvReac Type Severity Reaction Status Date / Time Sulfa (Sulfonamide Allergy Hives Verified 06/19/25 05:52 Antibiotics) Family History Mother Diabetes CAD (coronary artery disease) Hypertension Anxiety Depression Father Cancer inoperable brain tumor Surgical History History of esophagogastroduodenoscopy (EGD) Hx of tonsillectomy History of appendectomy Social [...] bleeding, tenesmus, vomiting or weight changes Vital S (more content not included)... [facility] 06-19-2025 Consult [facility] 06-09-2025 Progress note [facility] 06-01-2025 Radiology Diagnostic study note [facility] Imaging Services [address] [place] [address] Wrist min 3 Views MR#: [id number] Acct: [id number] Name: ZENA BENNETT Rep #: [id number] : 1975 M 49 From: Ryan Cortez MD PCP: Dr. Shahzad Bright MD Status: RE G CLI Study:Wrist min 3 Views Date of Exam: Exam# [id number] Ordering Dr: Shahzad Bright MD PROCEDURE: WRIST MIN 3 VIEWS 05/30/2025 REASON FOR EXAM: PAIN, EXTENSION INJURY TECHNIQUE: Procedure Code: RADWR Modality: DX Procedure: WRIST MIN 3 VIEWS Laterality: FINDINGS: No evidence of acute fracture or dislocation. Normal carpal alignment. RAD/Wrist min 3 Views IMPRESSION: No acute osseous abnormalities. Reading Location: [address] CC: Dr. Shahzad Bright MD ~ Lithograph Designer: Signed [facility] 05-15-2025 Consult note [facility] 05-15-2025 Consult note [facility] 05-15-2025 Procedure note [facility] 05-15-2025 Procedure note [facility] 05-15-2025 Consult note [facility] 05-15-2025 History and physi noni note [facility] 05-15-2025 Consult note [facility] 05-15-2025 Note [facility] Medical Records Department [address] [place] [address] History Physical Exam 05/15/25 0921 MR#: [id number] Acct: [id number] Name: ZENA BENNETT Rep #: [id number] : 1975 49 From: Kota Kan DO PCP: Dr. Shahzad Bright MD Status:[facility] Location: [place] [address] HPI - General General Date of Admission: [...] getting scheduled for an EGD and colonoscopy. [facility] Medical History Wears glasses History of MRSA [...] QDAY 05/12/25 Unknown His tory peg 3350-sod sulf,nhjqq-ags-tuo See Rx Instructions PO .COMPLEX #2 05/12/25 [...] Signs: 05/15/25 08:31 (more content not included)... [facility] 05-12-2025 Progress note [facility] 04-09-2025 Radiology Diagnostic study note [facility] Imaging Services [address] [place] [address] Esophagus Dual Contrast MR#: [id number] Acct: [id number] Name: ZENA BENNETT Rep #: [id number] : 1975 M 49 From: Manuel Schultz MD PCP: Dr. Shahzad Bright MD Status: RE G CLI Study:Esophagus Dual Contrast Date of Exam: 04/09/25 Exam# [id number] Ordering Dr: Shahzad Bright MD EXAM: Air-contrast [...] 12 mm tablet of barium. Reading Location: [place] [address] CC: Dr. Shahzad Bright MD ~ Lithograph Designer: Signed [facility] 03-04-2025 Evaluation note Diagnosis Onset Date Resolution Cigarette nicotine dependence chronic March 04, 2025 8:55am Morbid obesity chronic March 04, 2025 8:55am KESHA (obstructive sleep apnea) chronic March 04, 2025 8:55am [facility] Work Phone: 1(693) 963-322906-10-2025 Evaluation note* Diagnosis Onset Date Resolution Status Admit Date Cigarette nicotine dependence chroni c March 04, 2025 8:55am Morbid obesity chronic March 04, 2025 8:55am KESHA (obstructive sleep apnea) chroni c March 04, 2025 8:55am Dysphagia acute May 12, 025 8:20am Encounter for screening colonoscopy acute May 12 8:20am Weight loss acute May 12, 2025 8:20am [facility] Work Phone: 1(587) 431-810706-10-2025 Evaluation note* Diagnosis Onset Date Resolution Status [...] Weight loss acute May 15, 2025 8:17am [facility] Work Phone: 1(699) 355-446806-10-2025 Evaluation note* Diagnosis Onset Date Resolution Status Admit Date Cigarette nicotine dependence chroni c March 04, 2025 8:55am Morbid obesity chronic March 04, 2025 8:55am KESHA (obstructive sleep apnea) chroni c March 04, 2025 8:55am Dysphagia acute May 12 8:20am Encounter for screening colonoscopy acute May 12 8:20am Weight loss acute May 12, 2025 8:20am Dysphagia acute May 15 8:17am Encounter for screening colonoscopy acute May 15 8:17am Vitamin deficiency acute May 15, 2025 8:17am Weight loss acute May 15, 2025 8:17am Dysphagia acute May 8:23am [facility] Work Phone: [phone]) 232-661606-10-2025 Evaluation note* Diagnosis Onset Date Resolution Status Admit Date Cigarette nicotine dependence chroni c March 04, 2025 8:55am Morbid obesity chronic March 04, 2025 8:55am KESHA (obstructive sleep apnea) chroni c March 04, 2025 8:55am Dysphagia acute May 12 8:20am Encounter for screening colonoscopy acute May 12 8:20am Weight loss acute May 12, 2025 8:20am Dysphagia acute May 15 025 8:17am Encounter for screening colonoscopy acute May 15 8:17am Vitamin deficiency acute May 15, 2025 8:17am Weight loss acute May 15, 2025 8:17am Dysphagia acute May 8:23am Dysphagia acute May 5:20am Encounter for screening colonoscopy acute June 19, 2025 5:20am [facility] Work Phone: 1(310) 116-380206-21-2024 Instructions* Patient Instructions* Yary Coburn APRN.MERCHANDISING DIRECTOR - 03/15/2024 8:18 AM EDT Images from the original note were not included. Bowel Preparation Instructions for: Miralax-Gatorade Preparations IF YOU DO NOT FOLLOW THESE DIRECTIONS, YOUR COLONOSCOPY WILL BE CANCELLED. Freeman Instructions: Your bowel must be empty so [...] If you do not have a responsible driver/refuse collector (family member or friend) withyou to take you home, your exam cannot be done with sedation and will be cancelled. Please bring a list of all of your current medications, including any Mufs-zun-Hlxcbee medications with you. Medications If you take [...] your exam. 2 08/2019 documented in this encounterCleveland [id number] NoteHNO ID: [id number] Author: YARY COBURN APRN.THERESE Service: ? Author Type: Nurse Practitioner Type: Progress Notes Filed: 03/15/2024 08:18 Note Text: HISTORY AND PHYSICAL Zena Bennett : 1975 REFERRING PHYSICIAN: MD Willa Sepulveda [address] [facility] [address] [facility] [address] CHIEF COMPLAINT: Patient presents with: Consult: Screening [...] entered by the nurse and reviewed by ar Nursing Notes: Bailey Thorpe LPN 03/14/2024 4:10 [...] denies sexually transmitted diseases (more content not included)...[facility]06-20-20[facility] History of Present illness Narrative* Yary Coburn, MANPREET.MERCHANDISING DIRECTOR - 03/14/2024 4:24 PM EDT HISTORY AND PHYSICAL Zena Bennett : 1975 REFERRING PHYSICIAN: Shahzad Bright MD [address] [facility] [address] [facility] [address] CHIEF COMPLAINT: Patient presents with: Consult: Screening [...] entered by the nurse and reviewed by ar Nursing Notes: Bailey Thorpe LPN 03/14/2024 4:10 [...] mail. Yary Coburn APRN.THERESE documented in this encounterUniversity [facility]06-[facility]24 Nurse Note* Bailey Thorpe, MILLIE - 03/14/2024 4:08 PM EDT REVIEW OF [...] Last Colonoscopy: NO PRIOR Bailey Thorpe LPN [facility]06-20-2024 Nurse Note* Bailey Thorpe LPN - 03/14/2024 [...] PRIOR Bailey Thorpe LPN documented in this encounterUniversity [facility]als [facility]04-25-2023 [facility] Author Brown Doan [facility] Note Date/Time May 15, 2025 9: 23am [facility] Medical Records Department [address] [place] [address] Pre-Anesthesia Evaluation 05/15/25 0923 MR#: [id number] Acct: [id number] Name: ZENA BENNETT Rep #:[id number] : 1975 49 From: Brown Doan MD PCP: Dr. Shahzad Bright MD [place] [facility] [place] C Location: [place] [address] ASA Classification* ASA Classification ASA Classification: 3 [...] 07:17 04/02/25 RBC 5.29 M/mm3 (4.6-6.2) 04/02/25 07:17 04/02/25 Hgb 14.0 g/dL (13.0-16.5) 04/02/25 07:17 04/02/25 [...] Procedure(s): EGD Anesthesia History Anesthesia History - net fisher: Anesthesia History - net fisher Hx Hospitalization No 05/14/25 09:03 Any Problems [...] take am of surgery PONV PONV - net fisher: PONV - net fisher Female No 05/14/25 09:03 HX of Motion [...] 05/15/25 08:33 Respiratory Assessment Respiratory Assessment - net fisher: Respiratory Tract Infection Hx - net fisher Hx Respiratory Tract Infection No 05/14/25 09:03 STOP Sleep Apnea STOP Sleep Apnea - net fisher: STOP Sleep Apnea - net fisher Hx Hypertension No 05/14/25 09:03 Hx Sleep [...] Tobacco Use History Tobacco Use History - net fisher: Tobacco Use History - net fisher Tobacco Use Smoking Status Current every day smoker 05/14/25 09:03 Hx Tobacco Use Yes 05/14/25 09:03 Years Smoking Packs Smoked per Day Smoking Cessation Date was within the last 15 years Hx Smoking Cessation Date Hx Smoking Cessation Counseling Hematologic Medial History Hematologic Hx - net fisher: Hematologic Medical Hx - care transition mgr Hx of Blood Transfusion No 05/14/25 09:03 Hx of Transfusion in last 3 No 05/14/25 09:03 Months Date of Last Transfusion (if within last 3 months) Ever experience any problems No 05/14/25 09:03 with transfusion(s)? Specify any problems Hx of Preganancy in last 3 N/A 05/14/25 09:03 Months Nurse Filling Out Transfusion DIAN 05/14/25 09:03 & Questions: Date: 05/14/25 05/14/25 09:03 Time: 09:04 05/14/25 09:03 Patient unable to answer at this time (ie. confused, unrespo /Reproduction History /Reproductive History - net fisher: /Reproductive Hx- net fisher Hx Now No 05/14/25 09:03 Gestational Age [...] QDAY 05/12/25 Unkno wn History peg 3350-sod sulf,trovm-vvx-mhe See Rx Instructions PO .COMPLEX #2 05/12/25 [...] Brown Boucher Signature: Date CC: ~ Signed [facility] Work Phone: Consult note Author Obey Marquez [facility] Note Date/Time May 15, 2025 9: 45am [facility] Medical Records Department [address] [place] [address] Anesthesia Postop Eval I 05/15/25 0944 MR#: [id number] Acct: [id number] Name: ZENA BENNETT Rep #:[id number] : 1975 49 From: Obey KISER PCP: Dr. Shahzad Bright MD [place] [facility] [place] C Location: [place] [address] Anesthesia: Postop Eval I Current Vital Signs [...] Anesthesia document: Postop Eval 1 completed: Yes 05/15/25 0945 <Electronically signed by Obey Marquez CRNA> Date _ Obey Marquez CRNA Cosigner Signature: Date CC: ~ Signed [facility] Work Phone: Consult note Author Obey Chávezcity hospitalkaroline [facility] Note Date/Time May 15, 2025 9: 49am [facility] Medical Records Department [address] [place] [address] Anesthesia Postop Eval II 05/15/25 0948 MR#: [id number] Acct: [id number] Name: ZENA BENNETT Rep #:[id number] : 1975 49 From: Obey Jain RNA PCP: Dr. Shahzad Bright MD Status:[facility] Y Race: C Location: [place] [address] Anesthesia Postop Eval I Sum Postop Eval Completion status Anesthesia document: Postop Eval 1 completed: Yes Anesthesia Postop Eval I Summary Anesthesia Postop Eval I Summary: Anesthesia Postop Eval I: Assessment Summary Airway patent Yes 05/15/25 09:45 FELTING MACHINE OPERATOR HELPER.MDOT Spontaneous unlabored Yes 05/15/25 09:45 FELTING MACHINE OPERATOR HELPER.MDJOSHUA respirations Mental status Awake,Calm 05/15/25 09:45 FELTING MACHINE OPERATOR HELPER.MDOT nausea No 05/15/25 09:45 FELTING MACHINE OPERATOR HELPER.MDOT Vomiting No 05/15/25 09:45 FELTING MACHINE OPERATOR HELPER.MDOT Anesthesia Postop Eval I: Fluid Summary Crystalloid volume administer 100 05/15/25 09:45 FELTING MACHINE OPERATOR HELPER.MDOT (ml) Colloids volume administered ( ml) Blood Product volume administered (ml) Total IV fluid infused 100 05/15/25 09:45 ANA Anesthesia Postop Eval I: Summary Notes Anesthesia Complication No 05/15/25 09:45 FELTING MACHINE OPERATOR HELPERZENY Anesthesia Complication Comment: Post-operative progress note Anesthesia: Postop Eval II Evaluation Mental status: Awake and Calm Pain Level: 0 nausea: No Vomiting: No Complications Anesthesia Complication: No 05/15/25 0949 <Electronically signed by Obey Marquez CRNA> Date _ Obey Marquez CRNA Cosigner Signature: Date CC: ~ Signed [facility] Work Phone: Consult note Author Brown Doan [facility] Note Date/Time May 15, 2025 10 :25am [facility] Medical Records Department [address] [place] [address] Anesthesia Postop Eval II 05/15/25 1017 MR#: [id number] Acct: [id number] Name: ZENA BENNETT Rep #:[id number] : 1975 49 From: Brown Doan MD PCP: Dr. Shahzad Bright MD [place] [facility] [place] C Location: [place] [address] Anesthesia Postop Eval I Sum Postop Eval Completion status Anesthesia document: Postop Eval 1 completed: Yes Anesthesia Postop Eval I Summary Anesthesia Postop Eval I Summary: Anesthesia Postop Eval I: Assessment Summary Airway patent Yes 05/15/25 09:45 FELTING MACHINE OPERATOR HELPER.XAVI Spontaneous unlabored Yes 05/15/25 09:45 ANA respirations Mental status Awake,Calm 05/15/25 09:49 FELTING MACHINE OPERATOR HELPERZENY nausea No 05/15/25 09:49 FELTING MACHINE OPERATOR HELPERZENY Vomiting No 05/15/25 09:49 FELTING MACHINE OPERATOR HELPERZENY Anesthesia Postop Eval I: Fluid Summary Crystalloid volume administer 100 05/15/25 09:45 FELTING MACHINE OPERATOR HELPERZENY (ml) Colloids volume administered ( ml) Blood Product volume administered (ml) Total IV fluid infused 100 05/15/25 09:45 FELTING MACHINE OPERATOR HELPERZENY Anesthesia Postop Eval I: Summary Notes Anesthesia Complication No 05/15/25 09:49 FELTING MACHINE OPERATOR HELPER.XAVI Anesthesia Complication Comment: Post-operative progress note Anesthesia: Postop Eval II Evaluation Mental status: Awake Pain Level: 0 nausea: No Vomiting: No Complications Anesthesia Complication: No 05/15/25 1017 <Electronically signed by Brown Muñoz> Date _ Brown Boucher Signature: Date CC: ~ Signed [facility] Work Phone: Consult note [facility] Medical Records Department [address] [place] [address] Anesthesia Postop Eval II 06/19/25 1044 MR#: [id number] Acct: [id number] Name: ZENA BENNETT Rep #:[id number] : 1975 49 From: Elva KISER PCP: Dr. Shahzad Bright MD [place] [facility] [place] C Location: [place] Anesthesia Postop Eval I Sum Postop Eval Completion status Anesthesia document: Postop Eval 1 completed: Yes Anesthesia Postop Eval I Summary Anesthesia Postop Eval I Summary: Anesthesia Postop Eval I: Assessment Summary Airway patent Yes 06/19/25 07:36 [email or web address] Spontaneous unlabored Yes 06/19/25 07:36 [email or web address] respirations Mental status Awake 06/19/25 07:36 [email or web address] nausea No 06/19/25 07:36 [email or web address] Vomiting No 06/19/25 07:36 [email or web address] Anesthesia Postop Eval I: Fluid Summary Crystalloid volume administer 500 06/19/25 07:36 [email or web address] (ml) Colloids volume administered ( ml) Blood Product volume administered (ml) Total IV fluid infused 500 06/19/25 07:36 [email or web address] Anesthesia Postop Eval I: Summary Notes Anesthesia Complication No 06/19/25 07:36 [email or web address] Anesthesia Complication Comment: Post-operative progress note Anesthesia: Postop Eval II Evaluation Mental status: Awake and Calm Pain Level: 0 nausea: No Vomiting: No Complications Anesthesia Complication: No 06/19/25 1044 FELTING MACHINE OPERATOR HELPER> Date _ Elva Hammond FELTING MACHINE OPERATOR HELPER Cosigner Signature: Date CC: ~ [facility] Note Date/Time June 19, 2025 6:33am [facility] Medical Records Department [address] [place] [address] Pre-Anesthesia Evaluation 06/19/25627 MR#: [id number] Acct: [id number] Name: ZENA BENNETT Rep #:[id number] : 1975 49 From: Justin Palmer MD PCP: Dr. Shahzad Bright MD Status:[facility] Y Race: C Location: [place] [address] ASA Classification* ASA Classification ASA Classification: 3 Assessment & Plan Anesthesia* Anesthesia Assessment Anesthesia [...] Patient and Chart Anesthesia Focused Assessment* Temperature: 97.7 F Pulse Rate: 76 Blood Pressure: 129/68 Respiratory Rate: 20 Pulse Ox: 96 Oxygen Delivery Method: Room Air Airway Assessment Mouth opens: >3 cm Mallampati Score: III Teeth Condition: Missing (Multiple missing teeth. Rest are tight.) Neck Range of motion (ROM): Limited ROM (Somewhat Decreased) Labs Anesthesia Preop lab: CBC WBC, (4.4-11.0) 7.8 K/mm3 04/02/25, 07:17 RBC, (4.6-6.2) 5.29 M/mm3 04/02/25, 07:17 Hgb, (13.0-16.5) 14.0 g/dL 04/02/25, 07:17 Hct, (40-54) 45.5 % 04/02/25, 07:17 Plt Count, (150-450) 252 K/mm3 04/02/25, 07:17 CHEMISTRY Potassium, (3.3-5.1) 4.5 mmol/L 04/02/25, 07:17 Sodium, (133-145) 140 mmol/L 04/02/25, 07:17 BUN, (4-19) 11 mg/dL 04/02/25, 07:17 Creatinine, (0.70-1.20) 0.84 mg/dL 04/02/25, 07:17 Glucose, (70-99) 99 mg/dL 04/02/25, 07:17 POC Glucose, (70-110) 99 mg/dL 10/18/19, 11:43 TSH, (0.300-4.200) 1.160 uIU/mL 02/19/25, 08:48 COAG Pre-Assessment Diagnosis/Proposed Procedure Planned Operative Procedure(s): EGD, COLONOSCOPY Anesthesia History Anesthesia History - net fisher: Anesthesia History - net fisher Hx Hospitalization No 06/16/25 13:05 Any Problems With Anesthesia No 06/16/25 13:05 Cholinesterase deficiency No 06/16/25 13:05 You/Your Family Experience No 06/16/25 13:05 fever (hyperthermia) with Relationship Recent Exposure to Contagious No 06/19/25 05:54 Disease Does patient have nerve No 06/16/25 13:05 stimulator Patient instructed to have device shut off --Does patient have Pacemaker No 06/19/25 05:54 or ICD? When Was Last Pacemaker Check QUESTION #4 FULL TEXT: You/Your Family Experience fever (hyperthermia) with Anesthesia Last Oral Intake Last Oral intake: Last Oral Intake NPO since 04:30 06/19/25 05:54 Meds taken in AM with sips of water? Meds patient instructed to take am of surgery Any additional information?: Yes NPO since: 04:30 (Patient had water at 4:30 AM.) Meds taken in AM with sips of water?: No PONV PONV - net fisher: PONV - net fisher Female No 06/16/25 13:05 HX of Motion Sickness Yes 06/16/25 13:05 HX of N/V After Surgery No 06/16/25 13:05 Non-Smoker No 06/16/25 13:05 Duration of Surgery greater No 06/16/25 13:05 than 60 minutes Number of Risk Factors 1 06/16/25 13:05 PONV Score Low Risk 06/16/25 13:05 Height & Weight Height & Weight: Anesthesia: Height & Weight Height 5 ft 7 in 06/19/25 05:54 Weight: 139.3 kg 06/19/25 05:54 Body Mass Index (BMI) 48.1 06/19/25 05:54 Respiratory Assessment Respiratory Assessment - net fisher: Respiratory Tract Infection Hx - net fisher Hx Respiratory Tract Infection No 06/16/25 13:05 STOP Sleep Apnea STOP Sleep Apnea - net fisher: STOP Sleep Apnea - net fisher Hx Hypertension No 06/16/25 13:05 Hx Sleep [...] Tobacco Use History Tobacco Use History - net fisher: Tobacco Use History - net fisher Tobacco Use Smoking Status Current every day smoker 06/16/25 13:05 Hx Tobacco Use Yes 06/16/25 13:05 Years Smoking Packs Smoked per Day Smoking Cessation Date was within the last 15 years Hx Smoking Cessation Date Hx Smoking Cessation Counseling Any additional information?: Yes Tobacco Use: Vapor (Patient used a vape today.) Hematologic Medial History Hematologic Hx - net fisher: Hematologic Medical Hx - care transition mgr Hx of Blood Transfusion No 06/16/25 13:05 Hx of Transfusion in last 3 No 06/16/25 13:05 Months Date of Last Transfusion (if within last 3 months) Ever experience any problems No 06/16/25 13:05 with transfusion(s)? Specify any problems Hx of Preganancy in last 3 N/A 06/16/25 13:05 Months Nurse Filling Out Transfusion MGRIFFITH 06/16/25 13:05 & Questions: Date: 06/16/25 06/16/25 13:05 Time: 13:07 06/16/25 13:05 Patient unable to answer at this time (ie. confused, unrespo /Reproduction History /Reproductive History - net fisher: /Reproductive Hx- net fisher Hx Now No 06/16/25 13:05 Gestational Age (in weeks): EDC: Hx Hx Para Hx Section SAB No 06/16/25 13:05 Active Medications Active Medications: Current Medications Generic Name Dose Route Start Last Admin Trade Name Freq PRN Reason Stop Dose Admin Lactated Ringer's 1,000 mls @ 15 mls/hr 06/19/25 05:45 06/19/25 06:02 IV 15 mls/hr .Q48H ALANA Administration PFSH Medical History Wears glasses History of [...] 7.5 mg tablet 7.5 mg PO TID 05/05/2506/18 History multivitamin 1 tab PO QDAY 05/12/25 Unkno wn History omeprazole 40 mg capsule,delayed 40 mg PO BID #180 cap s 06/09/25 06/18/25 Rx release Allergy/AdvReac Type Severity Reaction Status Date / Time Sulfa (Sulfonamide Allergy Hives Verified 06/19/25 05:52 Antibiotics) Family History Mother Diabetes CAD (coronary artery disease) Hypertension Anxiety Depression Father Cancer inoperable brain tumor Surgical History History of esophagogastroduodenoscopy (EGD) Hx of tonsillectomy History of appendectomy Social History household members: spouse Smoking Status: Current every day smoker tobacco type: e-cigarettes alcohol intake: former substance use type: former substance user Date of last use: 03/2018, marijuana and crack/cocaine frequency: 3-4 times per week Review of Systems (Anesthesia) ROS Narrative System reviewed and no additional complaints, except as documented. 06/19/2533 <Electronically signed by Justin laguna MD> Date _ Justin Palmer MD Cosigner Signature: Date CC: ~ Signed [facility] Work Phone: Consult note Author Willie Whitehead [facility] Note Date/Time June 19, 2025 7:36am [facility] Medical Records Department [address] [place] [address] Anesthesia Postop Eval I 06/19/25 0735 MR#: [id number] Acct: [id number] Name: ZENA BENNETT Rep #:[id number] : 1975 49 From: Willie Whitehead PCP: Dr. Shahzad Bright MD Status:RE G [facility] Y Race: C Location: [place] [address] Anesthesia: Postop Eval I Current Vital Signs Temperature: 97.4 F Pulse Rate: 74 Blood Pressure: 106/72 Respiratory Rate: 16 Pulse Ox: 100 Oxygen Delivery Method: Room Air Assessment Airway patent: Yes Spontaneous unlabored respirations: Yes Mental status: Awake nausea: No Vomiting: No Anesthesia Complication: No Fluid Hydration Crystalloid volume administer (ml): 500 Total IV fluid infused: 500 Progress Note Anesthesia document: Postop Eval 1 completed: Yes 06/19/25 0736 <Electronically signed by Willie Whitehead > Date _ Willie Boucher Signature: Date CC: ~ Signed [facility] Work Phone: Consult note Author Elva Hammond [facility] Note Date/Time June 19, 2025 10:44am [facility] Medical Records Department [address] [place] [address] Anesthesia Postop Eval II 06/19/25 1044 MR#: [id number] Acct: [id number] Name: ZENA BENNETT Rep #:[id number] : 1975 49 From: Elva Jain RNA PCP: Dr. Shahzad Bright MD Status:DE P [facility] Y Race: C Location: [place] Anesthesia Postop Eval I Sum Postop Eval Completion status Anesthesia document: Postop Eval 1 completed: Yes Anesthesia Postop Eval I Summary Anesthesia Postop Eval I Summary: Anesthesia Postop Eval I: Assessment Summary Airway patent Yes 06/19/25 07:36 [email or web address] Spontaneous unlabored Yes 06/19/25 07:36 [email or web address] respirations Mental status Awake 06/19/25 07:36 [email or web address] nausea No 06/19/25 07:36 [email or web address] Vomiting No 06/19/25 07:36 [email or web address] Anesthesia Postop Eval I: Fluid Summary Crystalloid volume administer 500 06/19/25 07:36 [email or web address] (ml) Colloids volume administered ( ml) Blood Product volume administered (ml) Total IV fluid infused 500 06/19/25 07:36 [email or web address] Anesthesia Postop Eval I: Summary Notes Anesthesia Complication No 06/19/25 07:36 [email or web address] Anesthesia Complication Comment: Post-operative progress note Anesthesia: Postop Eval II Evaluation Mental status: Awake and Calm Pain Level: 0 nausea: No Vomiting: No Complications Anesthesia Complication: No 06/19/25 1044 <Electronically signed by Elva Hammond FELTING MACHINE OPERATOR HELPER> Date _ Elva Hammond FELTING MACHINE OPERATOR HELPER Cosigner Signature: Date CC: ~ Signed [facility] Work Phone: Evaluation noteNo assessment information available [facility] Work Phone: Evaluation note* Diagnosis Encounter for screening for malignant neoplasm of colon- Primary Special screening for malignant neoplasms, colon Dysphagia, unspecified type documented in this [facility] Author Kota Kan [facility] Note Date/Time May 15, 2025 9: 24am [facility] Medical Records Department [address] [place] [address] History & Physical Exam 05/15/25 0921 MR#: [id number] Acct: [id number] Name: ZENA BENNETT Rep #:[id number] : 1975 49 From: Kota Kan DO PCP: Dr. Shahzad Bright MD Status:[facility] Location: [place] [address] HPI - General General Date of Admission: 05/15/25 Date of Service: 05/15/25 Chief Complaint: dysphagia, weight loss and CRS HPI Narrative ZENA SHAW, is a 49 M who presents with [...] getting scheduled for an EGD and colonoscopy. [facility] Medical History Wears glasses History of MRSA [...] QDAY 05/12/25 Unkno wn History peg 3350-sod sulf,mswca-sai-rbp See Rx Instructions PO .COMPLEX #2 05/12/25 [...] colonoscopy: Status: Acute Medications: New peg 3350-sod sulf,uwpw-wij-trx 178.7-7.3-0.5 gram (Suflave) Take as directed for [...] EGD now Colonoscopy next available - SuFlave 05/15/25923 <Electronically signed by Kota Kan DO> Cosigner Signature (if applicable): CC: Dr. Shahzad Bright MD; Kota Kan DO~ Signed [facility] Work Phone: History and physical note Author Kota Kan [facility] Note Date/Time June 19, 2025 6:42am [facility] Medical Records Department [address] [place] [address] History & Physical Exam 06/19/25 0639 MR#: [id number] Acct: [id number] Name: ZENA BENNETT Rep #:[id number] : 1975 49 From: Kota Kan DO PCP: Dr. Shahzad Bright MD Status:[facility] Location: [place] [address] HPI - General General Date of Admission: 06/19/25 Date of Service: 06/19/25 HPI Narrative ZENA BENNETT, is a 49 M who presents Chief Complaint: dysphagia Details: OV 05/12/2025 49y/o [...] a lot, sober now for 7 years [facility] Medical History Wears glasses History of MRSA [...] 7.5 mg tablet 7.5 mg PO TID 05/05/2506/18 History multivitamin 1 tab PO QDAY 05/12/25 Unkno wn History omeprazole 40 mg capsule,delayed 40 mg PO BID #180 cap s 06/09/25 06/18/25 Rx release Allergy/AdvReac Type Severity Reaction Status Date / Time Sulfa (Sulfonamide Allergy Hives Verified 06/19/25 05:52 Antibiotics) Family History Mother Diabetes CAD (coronary artery disease) Hypertension Anxiety Depression Father Cancer inoperable brain tumor Surgical History History of esophagogastroduodenoscopy (EGD) Hx of tonsillectomy History of appendectomy Social [...] changes Vital Signs Vital Signs Vital Signs: 06/19/25 05:54 06/19/25 05:54 06/19/25 06:33 Temperature 97.7 F L 97.7 F L Temperature Source Temporal Pulse Rate 76 76 Respiratory Rate 20 H 20 H Respiratory Pattern Normal Blood Pressure 129/68 H 129/68 H Blood Pressure Mean 88 Blood Pressure Source Monitor Blood Pressure Position Semi-Fowlers Blood Pressure Location Left Arm Pulse Ox 96 96 Oxygen Delivery Method Room Air Room Air Weight Weight: 307 lb 1.663 oz Body Mass Index (BMI) 48.1 Physical Exam Const alert, oriented x3, no apparent distress and healthy appearing General Appearance: cooperative GI normal to inspection, nondistended, normoactive bowel sounds, soft to palpation,non-tender and non-distended Percussion: normal to percussion Rectal Exam: deferred Assessment & Plan Assessment/Plan (1) Encounter for screening colonoscopy: (2) Dysphagia: PLAN: Assessment and Plan Assessment and Plan [...] screening in 3 years pending [facility]Cypher pathology. 06/19/25 0642 <Electronically signed by Kota Kan DO> Cosigner Signature (if applicable): CC: Dr. Shahzad Bright MD; Kota Kan DO~ Signed [facility] Work Phone: Progress note Author Ca Menchaca [facility] Note Date/Time May 12, 2025 8: 55am [facility] [address] [place] [address] OFFICE VISIT Date of Service: 05/12/25 MR#: [id number] Acct: [id number] Name: ZENA BENNETT Rep #: [id number] : 1975 Provider: CINDY Menchaca Age/Sex: 49/M Location: [facility] Status: Signed Intake Vital Signs [...] Intake Visit Reasons: Dysphagia Chief Complaint: dysphagia Director Social Required: No Accompanied by: Self Is patient in pain?: No Allergies Sulfa (Sulfonamide Antibiotics) Allergy (Verified 05/05/25 13:39) Hives Medications ?Medication ?Instructions ?Recorded ?Confirmed ?Type buspirone 7.5 mg tablet 7.5 mg PO TID 05/05/2505/05 History omeprazole 40 mg capsule,delayed 40 mg PO QDAY 5 05/05/25 History release multivitamin 1 tab PO QDAY 05/12/2505/12 History peg 3350-sod sulf,ripbx-qbc-oiv See Rx Instructions PO .COMPLEX #2 05/12/25 05/12/25 Rx 178.7-7.3-0.5-1.12-0.9 gram oral mL soln (Suflave) Nurse's Note: Has had problems with swallowing for 8 weeks now. Anything gets stuck in his throat.It gets worse when his sinus' get worse. [facility] Medical History Sleep related bruxism CTS (carpal [...] morbidly obese Orientation: alert and oriented x3 [facility] Head: normocephalic Ears: hearing grossly normal bilaterally [...] colonoscopy: Status: Acute Medications: New peg 3350-sod sulf,kypg-zpt-zaf 178.7-7.3-0.5 gram (Suflave) Take as directed for [...] EGD now Colonoscopy next available - SuFlave Coding Level of Care Code Off vis,new,level 3 Diagnoses Dysphagia R13.10 Weight loss R63.4 Encounter for screening colonoscopy Z12.11 Clinical Quality Measures Smoking Screening Smoking Status: Former smoker 05/12/25 0855 <Electronically signed by Ca WHITE> Date _ Ca WHITE Cosigner Signature: Date (if applicable) CC: Dr. Shahzad Bright MD ~ [facility] Work Phone: Progress note Author Ca Menchaca [facility] Note Date/Time June 09, 2025 8:58am [facility] [address] [place] [address] OFFICE VISIT Date of Service: 06/09/25 MR#: [id number] Acct: [id number] Name: ZENA BENNETT Rep #: [id number] : 1975 Provider: CINDY Menchaca Age/Sex: 49/M Location: [facility] [place] [facility] Status: Signed Intake Vital Signs 05/15/25 08:33 06/09/25 08:31 Height 5 ft 7 in 5 ft 7 in Weight: 315 lb 4 oz BMI 49.4 BP 107/67 Respiration 16 Pulse 72 Temp 98.2 F Temp Source Temporal Pulse Oximetry (%) 96 Oxygen Delivery Method room air Intake Visit Reasons: Dysphagia Chief Complaint: dysphagia Director Social Required: No Accompanied by: Is patient in pain?: No Allergies Sulfa (Sulfonamide Antibiotics) Allergy (Verified 06/09/25 08:29) Hives Medications ?Medication ?Instructions ?Recorded ?Confirmed ?Type buspirone 7.5 mg tablet 7.5 mg PO TID 05/05/2506/09 History multivitamin 1 tab PO QDAY 05/12/2506/09 History omeprazole 40 mg capsule,delayed 40 mg PO BID #180 cap s 06/09/25 06/09/25 Rx release [facility] Medical History Wears glasses History of MRSA [...] for Rasheed's screening in 3 years pending Tissue[facility] pathology. Coding Level of Care Code Off vis,est,level 4 Diagnoses Oropharyngeal dysphagia R13.12 Dysphagia type: oropharyngeal phase Clinical Quality Measures Smoking Screening Smoking Status: Current every day smoker Tobacco counseling given: Smoking cessation education 06/09/25 0858 <Electronically signed by Ca WHITE> Date _ Ca WHITE Cosigner Signature: Date (if applicable) CC: ~ [facility] [employer] Work Phone: Reason for referral (narrative)* Outpatient Procedure (Routine) - Pending Review Specialty Diagnoses / Procedures Referred By Jessy carias Referred To Contact [facility] Diagnoses Encounter for screening for malignant neoplasm of colon Procedures COLONOSCOPY SCREENING COLONOSCOPY FLX DX W/COLLJ SPEC WHEN Yary Osuna APRN.CNP [address] [place] [address] [address] Referral ID Status Reason Start Date Expiration Date Visits Requested Visits Authorized [id number] Pending Review Auto-Generat ed Referral 03/15/2024 03/15/2025 1 1 * Outpatient Procedure (Routine) - Pending Review Specialty Diagnoses / Procedures Referred By Jessy carias Referred To Contact [facility] Diagnoses Dysphagia, unspecified type Procedures EGD DIAGNOSTIC ESOPHAGOGASTRODUODENOSC OPY TRANSORAL DIAGNOSTIC Yary Coburn APRN.CNP [address] [place] [address] [address] Referral ID Status Reason Start Date Expiration Date Visits Requested Visits Authorized [id number] Pending Review Auto-Generat ed Referral 03/15/2024 03/15/2025 1 1 [facility] for referral (narrative)No reason for referral information [facility] Work Phone: Chief Complaint and Reason for [...] 2025 8: 20am Encounter for screening colonoscopy [facility] 2024 8:20am Weight loss May 12, 2025 8: 20am Reason for Visit Admit Date Cigarette nicotine dependence March 04, 2025 8:55am Morbid obesity March 04, 2025 8:55 am KESHA (obstructive sleep apnea) March 04, 2025 8:55am Dysphagia May 12, 2025 8: 20am Encounter for screening colonoscopy [facility] 2024 8:20am Weight loss May 12, 2025 8: 20am Dysphagia May 15, 2025 8: 17am Encounter for screening colonoscopy [facility] 2024 8:17am Vitamin deficiency May 15, 2025 [...] 2025 8: 20am Encounter for screening colonoscopy [facility] 2024 8:20am Weight loss May 12, 2025 8: 20am Dysphagia May 15, 2025 8: 17am [facility] 8:17[facility] Vitamin deficiency May 15, 2025 8: 17am Weight loss May 15, 2025 8: 17am Dysphagia June 09, 2025 8:23am Chief Complaint Admit Date 1 Y FU March 04, 2025 8:55 [...] 2025 8: 20am Encounter for screening colonoscopy 2024 8:20am Weight loss May 12, 2025 8: 20am Dysphagia May 15, 2025 8: 17am Encounter for screening colonoscopy [facility] 2024 8:17am Vitamin deficiency May 15, 2025 8: 17am Weight loss May 15, 2025 8: 17am Dysphagia June 09, 2025 8:23am Dysphagia June 19, 2025 5:20am Encounter for screening colonoscopy May 5:20am Advance Directives No Advanced Directives Records Found Advance Directive Response Recorded Date/ Time Living Will No December 20, 2021 8:49pm Power of Risk Engineer No December 20 8:49pm Advance Directive Response Recorded Date/ Time Living Will No December 20, 2021 7:49pm Power of Risk Engineer No December 20 7:49pm Advance Directive Response Recorded Date/ Time Living Will No December 20, 2021 8:49pm Do you have a Healthcare Power of Risk Engineer? No December 20, 2021 8:49pm Advance Directive Response Recorded Date/ Time Living Will No December 20, 2021 8:49pm Do you have a Healthcare Power of Risk Engineer? No December 20, 2021 8:49pm Do you have a Healthcare Power of Risk Engineer? No May 14, 2025 9:03am Advance Directive Response Recorded Date/ Time Living Will No December 20, 2021 8:49pm Do you have a Healthcare Power of Risk Engineer? No December 20, 2021 8:49pm Do you have a Healthcare Power of Risk Engineer? No May 14, 2025 9:03am Do you have a Healthcare Power of Risk Engineer? No June 16, 2025 1:05pm Summary Purpose Family History No Family History [...] Active Member Role Status Dates Dr. Shahzad Brgiht MD Primary Care Pr ovider, Referring Provider, [...] 2025 End: March 04, 2025 Sabrina Leavitt FIBER ANALYST, FIBER ANALYST-C Attending Provider Active Start: March 04, 2025 [...] 2025 End: March 04, 2025 Sabrina Leavitt FIBER ANALYST, FIBER ANALYST-C Attending Provider Active Start: March 04, 2025 [...] 2025 End: May 12, 2025 Dr. Shahzad Bright MD Referring Provider Active Start: May 12, 2025 End: May 12, 2025 CINDY Chambers Attending Provider Active Start: May 12, 2025 [...] June 09, 2025 End: June 09, 2025 Team Status: Active Member Role/Relationship Status Dates Dr. Shahzad Bright MD Primary care physician Active Team Status: Inactive Member Role/Relationship Status Dates Dr. Shahzad Bright MD Primary care physician Active Start: March 04, 2025 End: March 04, 2025 Dr. Shahzad Bright MD Referring Provider Active Start: March 04, 2025 End: March 04, 2025 BAUDILIO Pritchard NPC Attending physician Active Start: March 04, 2025 End: March 04, 2025 Team Status: Inactive Member Role/Relationship Status Dates Dr. Shahzad Bright MD Primary care physician Active Start: April 02, 2025 End: April 02, 2025 Dr. Shahzad Bright MD Attending physician Active Start: April 02, 2025 End: April 02, 2025 Dr. Shahzad Bright MD Referring Provider Active Start: April 02, 2025 End: April 02, 2025 Team Status: Inactive Member Role/Relationship Status Dates Dr. Shahzad Bright MD Primary care physician Active Start: April 09, 2025 End: April 09, 2025 Dr. Shahzad Bright MD Attending physician Active Start: April 09, 2025 End: April 09, 2025 Dr. Shahzad Bright MD Referring Provider Active Start: April 09, 2025 End: April 09, 2025 Team Status: Inactive Member Role/Relationship Status Dates Dr. Shahzad Bright MD Primary care physician Active Start: May 12, 2025 End: May 12, 2025 Dr. Shahzad Bright MD Referring Provider Active Start: May 12, 2025 End: May 12, 2025 BAUDILIO ChambersC Attending physician Active Start: May 12, 2025 End: May 12, 2025 Team Status: Inactive Member Role/Relationship Status Dates Dr. Shahzad Bright MD Primary care physician Active Start: May 15, 2025 End: May 15, 2025 Dr. Shahzad Bright MD Referring Provider Active Start: May 15, 2025 End: May 15, 2025 Dr. Kota Kan DO Attending physician Active Start: May 15, 2025 End: May 15, 2025 Team Status: Active Member Role/Relationship Status Dates Dr. Shahzad Bright MD Primary care physician Active Start: May 15, 2025 Dr. Shahzad Bright MD Referring Provider Active Start: May 15, 2025 Dr. Kota Kan DO Attending physician Active Start: May 15, 2025 Dr. Kota Kan DO Nurse Practitioner Active Start: May 15, 2025 Team Status: Inactive Member Role/Relationship Status Dates Dr. Shahzad Bright MD Primary care physician Active Start: May 30, 2025 End: May 30, 2025 Dr. Shahzad Bright MD Attending physician Active Start: May 30, 2025 End: May 30, 2025 Dr. Shahzad Bright MD Referring Provider Active Start: May 30, 2025 End: May 30, 2025 Team Status: Inactive Member Role/Relationship Status Dates Dr. Shahzad Bright MD Primary care physician Active Start: June 09, 2025 End: June 09, 2025 Dr. Shahzad Bright MD Referring Provider Active Start: June 09, 2025 End: June 09, 2025 CINDY Chambers Attending physician Active Start: June 09, 2025 End: June 09, 2025 Team Status: Inactive Member Role/Relationship Status Dates Dr. Shahzad Bright MD Primary care physician Active Start: June 19, 2025 End: June 19, 2025 Dr. Shahzad Bright MD Referring Provider Active Start: June 19, 2025 End: June 19, 2025 Dr. Kota Kan DO Attending physician Active Start: June 19, 2025 End: June 19, 2025 Team Status: Active Member Role/Relationship Status Dates Dr. Shahzad Bright MD Primary care physician Active Start: June 19, 2025 Dr. Shahzad Bright MD Referring Provider Active Start: June 19, 2025 Dr. Kota Kan DO Attending physician Active Start: June 19, 2025 Dr. Kota Kan DO Nurse Practitioner Active Start: June 19, 2025 Source Comments (unrecognize d section and content) In the event this informatio n is protected by the Federal Confidentiality of Alcohol and Drug Abuse Patient Records regulations: The Federal rules restrict any use of the information to criminally investigate or prosecute any alcohol or drug abuse patient.[facility] Reason for Visit (unrecogniz ed section and content) Reason Comments Consult Screening for colon cancer (unrecognized sect ion and content) No Status Records FoundNo Status Records Found INFORMATION SOURCE (unrecogn ized section and content) DATE CREATED AUTHOR 03/28/2024 [facility] DATE CREATED AUTHOR AUTHOR'S JOVI ATION 07/10/2025 [facility] FOR RECORDS PERTAINING TO PATIENTS WHO [...] BE BASED ON THE PRIMARY CLINICAL RECORDS. [facility] [employer] [facility]. provides no warranty or guarantee of the accuracy or completeness of information in this document.
[2025-07-11 10:14] LABS: Hematocrit 44.3 % (40-54); Hemoglobin 13.7 g/dL (13.0-16.5); Immature Granulocytes Count 0.020 X10^3/uL (0.0-0.0); Mean Corp Hgb Conc 30.9 g/dL (32-36); Mean Corpuscular Volume 85.7 fL (80-94); Mean Platelet Vol. 10.7 fl (6.2-12.0); NRBC Flagged by Analyzer 0 % (0-5); Platelet Count 277 K/mm3 (150-450); RBC Distribution Width CV 13.4 % (11.6-14.6); RBC Distribution Width SD 41.9 fl (35.1-43.9); Red Blood Count 5.17 M/mm3 (4.6-6.2); White Blood Count 7.6 K/mm3 (4.4-11.0)
[2025-07-11 10:59] LABS: AST(SGOT) 28 U/L (<=37); Alanine Aminotransfer ALT/SGPT 37 U/L (<=46); Albumin, Serum 4.2 g/dL (3.5-5.0); Alkaline Phosphatase 56 U/L (40-129); Anion Gap 9 (5-15); BUN 12 mg/dL (4-19); BUN/Creat Ratio 17.3 RATIO (10-20); Calcium,Total 9.4 mg/dL (7.6-11.0); Carbon Dioxide 25.7 mmol/L (21.0-32.0); Chloride 106 mmol/L (98-108); Cholesterol 182 mg/dL (<=200); Globulin 3.0 g/dL (2.2-4.2); Glucose 89 mg/dL (70-99); Low Density Lipoprotein Calc. 106 mg/dL; Potassium 4.4 mmol/L (3.3-5.1); Triglycerides 202 mg/dL; Very Low Density Lipoprotein 40 mg/dL (5-40); Vitamin D,25 Hydroxy 20.9 ng/mL (30-100); cholesterol:hdl ratio screen 5.08
== END 2025-07-11 23:59 | disposition home or self-care (01) ==
LOC: MTLAB 07:08
PROVIDERS: PCP Family Medicine; Referring Provider Family Medicine; Visit Provider Family Medicine
DX: R73.02 Impaired glucose tolerance (oral) (principal); E78.1 Pure hyperglyceridemia; F17.200 Nicotine dependence, unspecified, uncomplicated
CPT/HCPCS: 36415; 80053; 80061; 82306; 83036; 85025

== ENCOUNTER → 2025-09-02 | Outpatient (CLI) | payer OTHER, SELFPAY ==
--- NOTE | 2025-09-02 13:53 | RAD_ITS ---
PROCEDURE: CHEST PA AND LATERAL 09/02/2025 REASON FOR EXAM: BRONCHITIS TECHNIQUE: Procedure Code: RADCXR Modality: DX Procedure: CHEST PA AND LATERAL COMPARISON: 11/09/2022 FINDINGS: No focal consolidation. Bibasilar subsegmental atelectasis. No pleural effusion or pneumothorax. Cardiac silhouette is within normal limits. No acute fractures. RAD/Chest PA and Lateral IMPRESSION: No focal consolidation. Reading Location: [id number]
== END | disposition home or self-care (01) ==
LOC: MTRAD 13:53
PROVIDERS: PCP Family Medicine; Referring Provider Family Medicine; Visit Provider Family Medicine
DX: J20.9 Acute bronchitis, unspecified (principal)
CPT/HCPCS: 71046

== ENCOUNTER 2025-09-08 18:00 | Outpatient (RCR) | payer OTHER, SELFPAY ==
--- NOTE | 2025-07-22 12:42 | ST ---
[facility] Speech Pathology [address] [place] [address] Modified Barium Swallow Study MR#: [id number] Acct: [id number] Name: ZENA SQUIRES Rep #: [id number] : 1975 49 From: Betty Pierce M.A., CCC-VICTIM WITNESS ADMINISTRATOR Due to intermittent changes in vocal quality, will recommend the patient for ENT consult. Modified Barium Swallow Patient Information Study Date: 06/30/25 Study Time: 13:00 Direct Billable Minutes: 100 Total Minutes procedure & reportin Diagnosis: Dysphagia R13.10 Referring Physician: Víctor Morgan Reason for Referral: Assess swallow function, assess risk for aspiration, and determine recommendations for least restrictive diet textures and compensatory strategies to improve swallowing safety. Medical History: Patient follows w/ [facility] for management of dysphagia. Barium Esophagram 04/09/2025: Unremarkable examination. The patient was not capable of swallowing the 12 mm tablet of barium. EGD was performed 05/15/2025 and revealed 1 benign-appearing intrinsic moderate stenosis 18 to 21 cm from the incisors (5 cm in length). Savary dilation was performed. 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 He denied any improvement in dysphagia post dilation, so JOSE Chambers increased PPI to 2X daily. He reported concerns for oropharyngeal dysphagia to GI. He was recommended for this MBSS and repeat EGD, which took place 06/19/2025: Z-line irregular, 40 cm from the incisors. Biopsied. - Mucosal nodule found in the esophagus. Biopsied. - Moderate Schatzki ring. Dilated. - Hiatal hernia. - No gross lesions in the entire stomach. - No gross lesions in the entire examined duodenum. Patient provided additional history. He reports difficulty w/ transfer from his mouth to his throat, states tongue is too dry, has difficulty sending food back. He feels as if foods become stuck behind his tongue. Prior to EGDs, he was only able to consume purees and smoothies. Now, he can eat soft solids that are moistened or followed by a puree or liquid wash. His swallowing difficulty w/ food began January 2025. He reports having trouble swallowing pills for most of adulthood. He denied hx of choking, but stated concern for choking 2X, pt stating he felt very panicked when food felt caught. He has a sore throat intermittently. He also has hoarseness intermittently. Medical History Wears glasses History of MRSA infection Anxiety Injury of back Difficulty swallowing Gastric reflux Smoker History of edema History of echocardiogram History of stress test Sleep apnea CPAP (continuous positive airway pressure) dependence Sleep related bruxism CTS (carpal tunnel syndrome) Acute sinusitis Inclusion cyst Left shoulder pain Tinnitus, unspecified ear Ankle pain, left Current Diet Ordered: Easy to Chew / Thin Dentition: Natural Teeth and Missing Teeth Mental Status: WNL Respiratory Status: Oxygenating on Room Air Penetration-Aspiration Scale Penetration-Aspiration Scale: OBJECTIVE ASSESSMENT OF SWALLOW FUNCTION (QUANTITATIVE ? PER TRIAL): PENETRATION / ASPIRATION SCALE (FREEMAN): 1 = does not enter airway 2 = enters airway/above vocal folds/ejected 3 = enters airway/above vocal folds/not ejected 4 = enters airway/contacts vocal folds/ejected 5 = enters airway/contacts vocal folds/not ejected 6 = enters airway/below vocal folds/ejected 7 = enters airway/below vocal folds/not ejected despite effort 8 = enters airway/below vocal folds/no effort VIDEOFLOROSCOPIC SCALE SCORE (FREEMAN): Grade I = aspiration of material that has penetrated into the laryngeal vestibule, intact cough reflex Grade II = aspiration < 10 % of the bolus, intact cough reflex Grade III = aspiration of < 10 % of the bolus, reduced cough reflex or aspiration of > 10 % of the bolus, intact cough reflex Grade IV = aspiration of > 10 % of the bolus, reduced cough reflex Penetration-Aspiration Scale Score Thin Liquid via teaspoon: Result: 1= does not enter airway Thin Liquid via teaspoon Trial 2: Result: 1= does not enter airway Thin Liquid via small single sip: cup: Result: 1= does not enter airway Thin Liquid via sequential sips: cup: Result: 2= enter airway/above vocal folds/ejected Pudding via teaspoon: Result: 1= does not enter airway Comment: Esophageal screen - Complete clearance; however, due to pt's body habitus, view of esophagus was limited. /2 Cookie: Result: 1= does not enter airway Comment: Esophageal screen - Minimal retention in the middle and lower esophagus. Thin Liquid via single sip: straw: Result: 1= does not enter airway Thin Liquid via single sip: straw Trial 2: Result: 1= does not enter airway Oral Phase Labial Seal: Interlabial escape, no progression to anterior lip Tongue Control During Bolus Hold: Posterior escape of greater than half of bolus Bolus Preparation/Mastication: Timely and efficient chewing and mashing Bolus Transport/Lingual Motion: Delayed initiation of tongue motion Oral Residue: Minimal to no clearance (Pt expectorated barium tablet) Pharyngeal Phase Initiation of Pharyngeal Swallow: Bolus head at posterior laryngeal surgace of epiglottis Soft Palate Elevation: Trace column of contrast/air between soft palate and pharyngeal wall Laryngeal Elevation: Comp. Superior move thyroid cart w/comp. apprx arytenoid cart-epig pet Anterior Hyoid Excursion: Partial anterior movement Epiglottic Movement: Complete inversion Laryngeal Vestibule Closure at Height of Swallow: Incomplete; narrow column of air/contrast in laryngeal vestibule (trace laryngeal penetration 1X w/ complete ejection) Pharyngeal Stripping Wave: Present - diminished Pharyngoesophageal Segment Opening: Parital distension and partial duration; parital obstruction of flow Tongue Base Retraction: Narrow column of contrast between tongue base & post. pharyngeal wall Pharyngeal Residue: Trace residue within or on pharyngeal structures Esophageal Phase Esophageal Clearance: Esophageal retention Diagnosis/Impression Diagnosis: Mild oropharyngeal dysphagia R13.12 MBS Impressions: The oral phase is primarily marked by... -Posterior loss of >1/2 of pudding and liquids to the oropharynx prior to swallow onset. -Delayed tongue motion for A-P transport. -Pt quickly expectorated barium tablet provided in tsp of pudding, stating he could not swallow it. -Mild oral residue of cookie, which cleared w/ liquid wash. The pharyngeal phase is primarily marked by... -Mildly decreased TB retraction and pharyngeal stripping wave w/ trace pharyngeal residues for majority of trials. Trace pharyngeal residues of cookie on the soft palate, in the vallecula, and a crumb on the posterior pharyngeal wall w/ pt immediately requesting a drink to wash due to sensation of food on the back of his tongue/in his throat. Liquid wash cleared these residues. Pt appears to be hypersensitive to these trace oropharyngeal residues. -Overall good airway closure during the swallow w/ trace laryngeal penetration 1X w/ complete ejection. No aspiration. The esophageal phase is primarily marked by... -Minimal retention of cookie in the middle and lower esophagus. Recommendations Diet: Regular Textures (Moisten Dry Textures) and Thin Liquids Compensatory Strategies: Small Bites, Small Sips, Slow Rate, Alternate bites/solids and sips/liquids, Sitting upright and Remain sitting upright for 30 minutes after PO intake Recommend Repeat Modified Barium Swallow: No Need for Skilled Speech Therapy Services: Yes Comment: -Please discuss consideration for further assessment of oropharyngeal swallow function via FEES (Fiberoptic Endoscopic Evaluation of Swallowing) w/ your PCP, especially given intermittent hoarseness and odynophagia. -Train pt in exercises to improve bolus control, TB retraction, and stripping wave (lingual resistance, Linda, effortful). Recommended Referrals: GI Consult (Continue to follow w/ [facility] as recommended for hx of esophageal swallowing difficulty) Education Completed: 1. Described result of evaluation. and 2. Pt understands evaluation & agrees with goals and treatment plan. Status Active ST Patient: Active Contact Information [facility] Speech Therapy:: Betty Pierce M.A. CCC-VICTIM WITNESS ADMINISTRATOR Speech-Language Pathologist [address] [address] [phone] 06/30/25 [id number] <Electronically signed by Betty Pierce M.A., CCC-VICTIM WITNESS ADMINISTRATOR>
--- NOTE | 2025-07-23 16:51 | HP.SP.EV_ITS ---
Visit History Visit Info Date of Eval: 07/21/25 Today is Visit #: 1 Surgery Consultant: REGIS History Attending Doctor: Referring Doctor: Reason for Referral: DYSPHAGIA RX HERE Medical Diagnosis: Mild oropharyngeal dysphagia R13.12 Date of Onset of Diagnosis: January 2025 Previous speech therapy: No Other Relevant Medical History/Diagnoses/Surgery: Patient reported that his swallowing difficulty began in January 2025 with significant difficulty with dry foods. He reported that pills have given him difficulty his adult life. Patient is being followed by GI. Barium Esophagram 04/09/2025: Unremarkable examination. The patient was not capable of swallowing the 12 mm tablet of barium. EGD was performed 05/15/2025 and revealed 1 benign-appearing intrinsic moderate stenosis 18 to 21 cm from the incisors (5 cm in length). Savary dilation was performed. 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 He had a repeated E EGD, which took place 06/19/2025 with the following results: Z-line irregular, 40 cm from the incisors. Biopsied. - Mucosal nodule found in the esophagus. Biopsied. - Moderate Schatzki ring. Dilated. - Hiatal hernia. - No gross lesions in the entire stomach. - No gross lesions in the entire examined duodenum. Patient reported he also had a dilation during the EGD which has significantly improved his swallowing. Additional medical history includes Acid reflux, anxiety, vaping, sleep apnea with Cpap, Medications related to this diagnosis: Omeprazole, buspirone Smoking Status: Current every day smoker (vape) Diagnosis Diagnosis: Mild oropharyngeal dysphagia R13.12 Pain Is pain an issue with your current prescribed condition?: No Personal Preferred language: Chinese Patient Allergies Allergies Allergies: Allergies Sulfa (Sulfonamide Antibiotics) Allergy (Verified 07/21/25 08:09) Hives Subjective Dysphagia Symptoms Reported Symptoms/Problems with: Food gets stuck Current Diet Solids Current Diet: Mechanical Soft Current Diet Liquids Current Liquids: Thin Objective Dysphagia Thin Liquids Comments: No reports of difficulty by patient for thin liquids. Pureed Comments: Patient reports that smoothies and purees like yogurt and mashed potatoes do not give him difficulty. Regular Comments: Patient reports that foods that are dry get stuck on the base of the tongue and he has difficulty with getting it past that area to swallow. He reports that he as previously able to masticate for all foods and had no restrictions except very hard foods like raw carrots due to missing teeth. Patient currently has a limited diet with foods that are very moist or do not require much mastication. He no longer is able to eat any dry meats or stringy meats such as beef roast. Hamburgers are difficult. He recently tried pasta with extra sauce and it was okay. He does not go out to eat unless he can get mashed potatoes or something that consistency. Swallowing Impairment Contributing Factors to Swallowing Impairment: Mastication Inefficiency and Impaired Oral-Pharyngeal Transport Impact Impact on Safety & Functioning: Risk for Inadequate Nutrition/Hydration Comments: Patient reported that his weight is now stable but earlier this year he lost 15 pounds unintentionally due to dysphagia. Recommendations Swallowing Treatment: Yes Diet Texture Recommendations Solids: Regular (Level 7) Other liquids: Thin Safety Saftey Precautions/Swallowing Recommendations (Check all that Apply): Upright Position at Least 30 Minutes After Meals, Small Sips & Bites when Eating, Alternate Liquids & Solids and Other (Specify Below) Other: Add moisture to dry foods. Results Swallowing Within Normal Limits: No Swallowing Diagnosis: Oropharyngeal Phase Dysphagia (R13.12) Severity: Mild Objective Oral Motor Oral Status Dentition: Missing Teeth Additional: Patient is missing 9 molars ( has been for last several years) Labial Impairment: WNL Jaw Impairment: WNL Respiratory Status Respiratory Status: Room Air Modified Barium Results Hx If Applicable Enter into a NOTE MBS Results (from prior exam): 07/22/25 12:42 Speech Therapy by Alex Oliveira [facility] Speech Pathology [address] [place] [address] Modified Barium Swallow Study MR#: [id number] Acct: [id number] Name: ZENA SQUIRES Rep #: [id number] : 1975 49 From: Betty Pierce M.A., [facility]-CLINICAL NURSING ASSISTANT Due to intermittent changes in vocal quality, will recommend the patient for ENT consult. Modified Barium Swallow Patient Information Study Date: 06/30/25 Study Time: 13:00 Direct Billable Minutes: 100 Total Minutes procedure & reportin Diagnosis: Dysphagia R13.10 Referring Physician: Víctor Morgan Reason for Referral: Assess swallow function, assess risk for aspiration, and determine recommendations for least restrictive diet textures and compensatory strategies to improve swallowing safety. Medical History: Patient follows w/ [facility] for management of dysphagia. Barium Esophagram 04/09/2025: Unremarkable examination. The patient was not capable of swallowing the 12 mm tablet of barium. EGD was performed 05/15/2025 and revealed 1 benign-appearing intrinsic moderate stenosis 18 to 21 cm from the incisors (5 cm in length). Savary dilation was performed. 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 He denied any improvement in dysphagia post dilation, so JOSE Chambers increased PPI to 2X daily. He reported concerns for oropharyngeal dysphagia to GI. He was recommended for this MBSS and repeat EGD, which took place 06/19/2025: Z-line irregular, 40 cm from the incisors. Biopsied. - Mucosal nodule found in the esophagus. Biopsied. - Mod erate Schatzki ring. Dilated. - Hiatal hernia. - No gross lesions in the entire stomach. - No gross lesions in the entire examined duodenum. Patient provided additional history. He reports difficulty w/ transfer from his mouth to his throat, states tongue is too dry, has difficulty sending food back. He feels as if foods become stuck behind his tongue. Prior to EGDs, he was only able to consume purees and smoothies. Now, he can eat soft solids that are moistened or followed by a puree or liquid wash. His swallowing difficulty w/ food began January 2025. He reports having trouble swallowing pills for most of adulthood. He denied hx of choking, but stated concern for choking 2X, pt stating he felt very panicked when food felt caught. He has a sore throat intermittently. He also has hoarseness intermittently. Medical History Wears glasses History of MRSA infection Anxiety Injury of back Difficulty swallowing Gastric reflux Smoker History of edema History of echocardiogram History of stress test Sleep apnea CPAP (continuous positive airway pressure) dependence Sleep related bruxism CTS (carpal tunnel syndrome) Acute sinusitis Inclusion cyst Left shoulder pain Tinnitus, unspecified ear Ankle pain, left Current Diet Ordered: Easy to Chew / Thin Dentition: Natural Teeth and Missing Teeth Mental Status: WNL Respiratory Status: Oxygenating on Room Air Penetration-Aspiration Scale Penetration-Aspiration Scale: OBJECTIVE ASSESSMENT OF SWALLOW FUNCTION (QUANTITATIVE ? PER TRIAL): PENETRATION / ASPIRATION SCALE (FREEMAN): 1 = does not enter airway 2 = enters airway/above vocal folds/ejected 3 = enters airway/above vocal folds/not ejected 4 = enters airway/contacts vocal folds/ejected 5 = enters airway/contacts vocal folds/not ejected 6 = enters airway/below vocal folds/ejected 7 = enters airway/below vocal folds/not ejected despite effort 8 = enters airway/below vocal folds/no effort VIDEOFLOROSCOPIC SCALE SCORE (FREEMAN): Grade I = aspiration of material that has penetrated into the laryngeal vestibule, intact cough reflex Grade II = aspiration < 10 % of the bolus, intact cough reflex Grade III = aspiration of < 10 % of the bolus, reduced cough reflex or aspiration of > 10 % of the bolus, intact cough reflex Grade IV = aspiration of > 10 % of the bolus, reduced cough reflex Penetration-Aspiration Scale Score Thin Liquid via teaspoon: Result: 1= does not enter airway Thin Liquid via teaspoon Trial 2: Result: 1= does not enter airway Thin Liquid via small single sip: cup: Result: 1= does not enter airway Thin Liquid via sequential sips: cup: Result: 2= enter airway/above vocal folds/ejected Pudding via teaspoon: Result: 1= does not enter airway Comment: Esophageal screen - Complete clearance; however, due to pt's body habitus, view of esophagus was limited. 1/2 Cookie: Result: 1= does not enter airway Comment: Esophageal screen - Minimal retention in the middle and lower esophagus. Thin Liquid via single sip: straw: Result: 1= does not enter airway Thin Liquid via single sip: straw Trial 2: Result: 1= does not enter airway Oral Phase Labial Seal: Interlabial escape, no progression to anterior lip Tongue Control During Bolus Hold: Posterior escape of greater than half of bolus Bolus Preparation/Mastication: Timely and efficient chewing and mashing Bolus Transport/Lingual Motion: Delayed initiation of tongue motion Oral Residue: Minimal to no clearance (Pt expectorated barium tablet) Pharyngeal Phase Initiation of Pharyngeal Swallow: Bolus head at posterior laryngeal surgace of epiglottis Soft Palate Elevation: Trace column of contrast/air between soft palate and pharyngeal wall Laryngeal Elevation: Comp. Superior move thyroid cart w/comp. apprx arytenoid cart-epig pet Anterior Hyoid Excursion: Partial anterior movement Epiglottic Movement: Complete inversion Laryngeal Vestibule Closure at Height of Swallow: Incomplete; narrow column of a ir/contrast in laryngeal vestibule (trace laryngeal penetration 1X w/ complete ejection) Pharyngeal Stripping Wave: Present - diminished Pharyngoesophageal Segment Opening: Parital distension and partial duration; parital obstruction of flow Tongue Base Retraction: Narrow column of contrast between tongue base & post. pharyngeal wall Pharyngeal Residue: Trace residue within or on pharyngeal structures Esophageal Phase Esophageal Clearance: Esophageal retention Diagnosis/Impression Diagnosis: Mild oropharyngeal dysphagia R13.12 MBS Impressions: The oral phase is primarily marked by... -Posterior loss of >1/2 of pudding and liquids to the oropharynx prior to swallow onset. -Delayed tongue motion for A-P transport. -Pt quickly expectorated barium tablet provided in tsp of pudding, stating he could not swallow it. -Mild oral residue of cookie, which cleared w/ liquid wash. The pharyngeal phase is primarily marked by... -Mildly decreased TB retraction and pharyngeal stripping wave w/ trace pharyngeal residues for majority of trials. Trace pharyngeal residues of cookie on the soft palate, in the vallecula, and a crumb on the posterior pharyngeal wall w/ pt immediately requesting a drink to wash due to sensation of food on the back of his tongue/in his throat. Liquid wash cleared these residues. Pt appears to be hypersensitive to these trace oropharyngeal residues. -Overall good airway closure during the swallow w/ trace laryngeal penetration 1X w/ complete ejection. No aspiration. The esophageal phase is primarily marked by... -Minimal retention of cookie in the middle and lower esophagus. Recommendations Diet: Regular Textures (Moisten Dry Textures) and Thin Liquids Compensatory Strategies: Small Bites, Small Sips, Slow Rate, Alternate bites/solids and sips/liquids, Sitting upright and Remain sitting upright for 30 minutes after PO intake Recommend Repeat Modified Barium Swallow: No Need for Skilled Speech Therapy Services: Yes Comment: -Please discuss consideration for further assessment of oropharyngeal swallow function via FEES (Fiberoptic Endoscopic Evaluation of Swallowing) w/ your PCP, especially given intermittent hoarseness and odynophagia. -Train pt in exercises to improve bolus control, TB retraction, and stripping wave (lingual resistance, Linda, effortful). Recommended Referrals: GI Consult (Continue to follow w/ [facility] as recommended for hx of esophageal swallowing difficulty) Education Completed: 1. Described result of evaluation. and 2. Pt understands evaluation & agrees with goals and treatment plan. Status Active ST Patient: Active Contact Information [facility] Speech Therapy:: Betty Pierce M.A. CCC-CLINICAL NURSING ASSISTANT Speech-Language Pathologist [facility] [address] [place] [address] [email or web address] [phone] 06/30/25 1633 <Electronically signed by Betty Pierce M.A., CCC-CLINICAL NURSING ASSISTANT> Initialized on 07/22/25 12:42 - END OF NOTE Reference: Neuro-QoL instrument Radiation Oncology Patient Plan Plan Plan: Speech therapy is recommended for treatment of dysphagia as it is significantly affecting his quality of life. Recommendations Treatment Warranted: Yes Treatment Warranted: Dysphagia Progress Prognosis: Good Frequency Frequency: 1x/Week Duration: 2 Months Visits in this POC: 8 Patient/Family Goal Patient/Family Goal: Patient would like to eat without difficulty. Goals that are Established Determination:: Goals will be added/modified as deemed necessary and appropriate. Therapy will be discontinued when results of re-evaluation indicate therapy is no longer needed or lack of progress has been documented. Goal #1-5 Goal #1: Patient will complete oropharyngeal exercises for 10 reps, 3x/day independently to improve tongue base retraction, improve bolus control, TB and stripping wave as measured by pt compliance reports over 3 sessions. Goal #2: Patient will demonstrate and utilize recommended compensatory swallowing techniques to facilitate oral intake efficiency during PO intake, across 3 out of 3 sessions. Goal #3: Patient will tolerate the least restrictive means of nutrition to facilitate adequate hydration/nutrition with optimum safety and efficiency of swallowing function during P.O. intake without overt signs and symptoms of dysphagia across 3 out of 3 sessions. Education Patient has Indicated that the Following Identified Educational Needs: None The Patient has indicated that they have no educational or learning abilities that may effect their care.: Yes Patient Instruction Patient Education: Diagnosis, Treatment Plan and Diet Level Person Taught: Patient Response to teaching: Verbalize Understanding
--- NOTE | 2025-09-16 12:42 | HP.SP.DC ---
ST Discharge Summary Discharged: Discharge: Rudy Bennett is discharged from [facility] as of 09/08/25. He was evaluated on 07/21/25 for dysphagia. His goals focused on oropharyngeal exercises, compensatory strategies as well as tolerating the least restrictive diet. He was treated for 4 sessions with excellent progress. He was able to independently complete exercises and after 1-2 sessions he was using compensatory strategies independently. In the course of therapy he went from eating approximately 4-5 foods to eating majority of foods with the exception of hard meats. He was able to eat ground meat with added moisture. He stated he had dry mouth and it was determined that it may be due to medication. He reported he changed from 3 times per day to 2 times per day and his dry mouth has lessened. Each session he was reporting an increase in variety of foods. At discharge he stated he was 90% improved and further therapy is no longer necessary. Please see evaluation and daily notes for complete details. Thank you for allowing me to participate in the care of this patient.
== END 2025-09-08 19:00 | disposition home or self-care (01) ==
LOC: SP 18:00
PROVIDERS: PCP Family Medicine; Referring Provider Family Medicine; Visit Provider Family Medicine
DX: R13.12 Dysphagia, oropharyngeal phase (principal)
CPT/HCPCS: 92526; 92610